=== PATIENT | female | born 1945 ===

== ENCOUNTER 2016-12-01 20:24 | Inpatient (IN) ==
--- NOTE | 2016-12-01 21:33 | Emergency Department Note ---
Gustabo Julio Brooke, am scribing for, and in the presence of, Shawn Maxwell MD 21 :26. Hans Julio Charles R, MD, personally performed the services described in this documentation, ascribed by Tova Montejo in my presence, and it is both accurate and complete . Arrival - Arrival Chief Complaint: Abdominal / Flank Pain ED Nursing Triage Note: Pt arrives via ems from [facility] for further eval of possible Small Bowel Obstruction. PT states that she has been having abd pain for several days and that her last bm was 6 days ago. Pt complains of chronic back pain and states that she has been seen for abd problems as well in the past. Mode of Arrival: Stretcher Limitations: No Limitations Source: Patient, Family, RN Notes Reviewed Time Seen by Provider: 12/01/16 20:58 - History of Present Illness HPI Narrative: Patient is a 71 year old female who was brought into the ED by EMS, from [facility], for further evaluation of possible small bowel obstruction. Patient complains of having abdominal pain, vomiting, and constipation. She says it has been a week since her last normal bowel movement. She says that she "called the hospital and was told what to do for the constipation." She says she did what they said but had only a small "liquid" bowel movement. Patient says she has had a problem with constipation, one other time, in the past. Family states that she has been in the hospital, in the past , with the same problem. Patient does see Dr. Patel. Family says Dr. Patel has talked about surgery but is "scared because of Patient's age." There are no other complaints. Patient has PMHx of HTN, [place], CHF, CAD, migraines , IDDM, pancreatitis, pancreatic cancer, ulcerative colitis, recurring urinary tract infections, GERD, back/neck problems, arthritis, and anemia. Onset (ago): week(s) (1) Allergies/Adverse Reactions: Allergies Allergy/AdvReac Type Severity Reaction Status Date / Time sumatriptan [From Imitrex] Allergy Difficulty Verified 04/28/16 23:12 Breathing Home Medications: Home Medications Medication Instructions Recorded Confirmed Type Insulin Aspart Prot/Asp 70/30 10 unit SUBCUT AC BREAKFAST 05/25/16 12/01/16 History [NovoLOG Mix 70/30] Aspirin Chew Tab 81 mg PO DAILY tablet 06/06/16 12/01/16 Rx Atorvastatin [Lipitor] 40 mg PO DAILY tablet 06/06/16 12/01/16 Rx HYDROcodone/ACETAMIN 10-325 [[place] 1 tablet PO Q4H PRN #45 tablet 06/21/1612/01 Rx 10-325] Losartan [Cozaar] 50 mg PO DAILY #60 tablet 06/21/16 12/01/16 Rx Clopidogrel Bisulfate [Clopidogrel] 75 mg PO DAILY 09/28/16 12/01/16 History Ergocalciferol (Vitamin D2) 50,000 unit PO Q3D 09/28/16 12/01/16 History [Vitamin D2] Ferrous Sulfate Tab [Feosol 325 mg PO BID 09/28/16 12/01/16 History Original Tab] Gabapentin Cap/Tab [Neurontin 200 mg PO TID PRN 09/28/16 12/01/16 History Cap/Tab] Insulin Aspart Prot/Asp 70/30 15 unit SUBCUT AC SUPPER 09/28/16 12/01/16 History [NovoLOG Mix 70/30] Ondansetron Odt Tab [Zofran Odt] 4 mg PO Q6H PRN 09/28/16 12/01/16 History Ropinirole HCl 0.5 mg PO BEDTIME 09/28/16 12/01/16 History Levothyroxine Tab [Synthroid Tab] 37.5 mcg PO DAILY@0700 #30 tablet 10/01/16 Rx Review of System - Review of System 12 point system: reviewed and no additional remarkable complaints except as stated - Review of System Constitutional: Absent: fever Respiratory: Absent: respiratory distress Gastrointestinal: Present: abdominal pain, vomiting, constipation Skin: Absent: rash Medical,Surgical,& Family Hx - Medical History Cardio: History of: CHF, CAD, Hypertension, [place] Neurology: History of: Migraine HEENT: History of: Eye Problem Endocrine: History of: Diabetes Mellitus (IDDM) Genitourinary: History of: Recurring Urinary Tract Infections Gastrointestinal: History of: GERD, Pancreatitis, Ulcerative Colitis, GI Problems (pancreatic cancer) Musculoskeletal: History of: Back/Neck Problems, Musculoskeletal Problems (age related arthritis) Hematology: History of: Anemia No history of: Blood Transfusion Reaction Other: History of: Cancer - Surgical History Cardiac Surgeries: Sugical HX of: Cardiac Catheterization (with stents) Thoracic Surgeries: Patient denies;: Organ Transplant, Lobectomy Neurologic Surgeries: Patient denies: Neurologic Surgery Abdominal Surgeries: Surgical HX of: Abdominal Surgery, Colonoscopy, EGD Reproductive Surgeries: Surgical HX of;: Hysterectomy Orthopedic Surgeries: Surgical HX of;: Orthopedic Surgery - Family History Family History: Reports;: Family Cancer, Family Diabetes, Family Stroke - Social History Smoking Status: Never smoker Frequency of Alcohol Use: None Type of Drug Use: None Exam Vital Signs: Vital Signs Temperature 98.4 F 12/01/16 20:24 Pulse Rate 94 H 12/01/16 22:01 Respiratory Rate 18 12/01/16 22:01 Blood Pressure 136/62 12/01/16 22:01 O2 Sat by Pulse Oximetry 95 12/01/16 22:01 - General General appearance: alert, in no apparent distress - Head Head exam: Present: atraumatic, normocephalic - Eye Eye exam: Present: normal appearance, PERRL, EOMI - ENT ENT exam: Present: normal exam - Neck Neck exam: Present: normal inspection - Chest Chest inspection: Present: normal inspection, symmetric chest wall rise - Respiratory Respiratory exam: Present: normal lung sounds bilaterally - Cardiovascular Cardiovascular exam: Present: regular rate, normal rhythm, normal heart sounds - Abdominal Exam Abdominal exam: Present: soft, tenderness (generalized tenderness but worse on the left), hypoactive bowel sounds. Absent: distention - Extremities Exam Extremities exam: Present: normal inspection - Back Exam Back exam: Present: normal inspection - Neurological Exam Neurological exam: Present: alert, oriented X3 - Psychiatric Psychiatric exam: Present: normal affect, normal mood - Skin Skin exam: Present: warm, dry, intact, normal color Course - Consultations Consultation #1: Dr. Terrell consulted for possible admission he is going to review the CT going back Time: 21:33 Consultation #2: Spoke to Dr. Villalta any call back he said he is not convinced this is a small bowel obstruction to admit to medicine service. Spoke to Dr. dutta who said he will admit the patient consult GI and surgery if need be Time: 22:06 Results - Labs Lab Results: I have reviewed the patients labs Labs: All results and CT scan reviewed from previous facility Disposition Clinical Impression: Constipation, Small bowel obstruction, Abdominal pain, Obstipation Case discussed with: patient, patient's family Disposition: Still a Patient Condition: Stable Time of Disposition: 22:07
--- NOTE | 2016-12-01 22:14 | Hospitalist History & Physical ---
Assessment and Plan (1) Fecal impaction Status: Acute Assessment and plan: Patient is admitted to general medical floor with gastroenterology consultation. Enemas and laxatives have been ordered. There is no evidence of acute obstruction or small bowel obstruction at this time. Current Visit: Yes (2) Abdominal pain Status: Acute Assessment and plan: No evidence of acute or surgical abdomen. No toxic megacolon suspected at this time. CT scan reviewed without evidence of bowel obstruction. Consult GI and treat with laxatives and enemas. Current Visit: Yes Qualifiers: Abdominal location: lower abdomen, unspecified Qualified Code(s): R10.30 - Lower abdominal pain, unspecified (3) Constipation Status: Acute Assessment and plan: Further recommendations will depend on the patient's response to therapy. Pain medications including narcotic opiates and iron supplements have been held Current Visit: Yes Qualifiers: Constipation type: unspecified constipation type Qualified Code(s): K59.00 - Constipation, unspecified (4) Diabetes mellitus type 2 in obese Status: Chronic Assessment and plan: Home medications continued. Start sliding scale insulin and Accu-Cheks. Current Visit: Yes (5) Hypertension Status: Chronic Current Visit: No History of Present Illness Chief complaint: abdominal pain, constipation History of present illness: Ms. Hurd is a 71 year old female transferred to the emergency department [facility] from [facility] with abdominal pain and evidence of fecal impaction. Patient reports she has not had a bowel movement approximately 1 week. She reports severe lower abdominal pain that radiates into her back. Pain is gradual in onset and worsening starting 2-3 days ago. She contacted her primary care physician's a [facility] they recommended some laxatives and coffee. She reports the pain is worsened, she has not had a bowel movement. So she went to the emergency department and was transferred here. I was asked to admit the patient to the emergency department for abdominal pain with fecal impaction and partial small bowel obstruction according to a CT scan done [facility]. I have reviewed the CT scan as well as the surgeon content director. We do not see any evidence of small bowel obstruction but there is evidence of a significant amounts of stool in the rectal vault and all the way up into the sigmoid colon. At that time I was called, the patient had not been treated with any enemas, laxatives or stool softeners. She is being admitted to general medical floor for treatment of her abdominal pain, constipation, and fecal impaction. The patient's home medications were reviewed and reconciled. She is a full code. Advanced care planning materials were given to the patient as part of the hospitalist admission protocols. Home Medications Medication Instructions Recorded Confirmed Type Insulin Aspart Prot/Asp 70/30 10 unit SUBCUT AC BREAKFAST 05/25/16 12/01/16 History [NovoLOG Mix 70/30] Aspirin Chew Tab 81 mg PO DAILY tablet 06/06/16 12/01/16 Rx Atorvastatin [Lipitor] 40 mg PO DAILY tablet 06/06/16 12/01/16 Rx HYDROcodone/ACETAMIN 10-325 [[place] 1 tablet PO Q4H PRN #45 tablet 06/21/1612/01 Rx 10-325] Losartan [Cozaar] 50 mg PO DAILY #60 tablet 06/21/16 12/01/16 Rx Clopidogrel Bisulfate [Clopidogrel] 75 mg PO DAILY 09/28/16 12/01/16 History Ergocalciferol (Vitamin D2) 50,000 unit PO Q3D 09/28/16 12/01/16 History [Vitamin D2] Ferrous Sulfate Tab [Feosol 325 mg PO BID 09/28/16 12/01/16 History Original Tab] Gabapentin Cap/Tab [Neurontin 200 mg PO TID PRN 09/28/16 12/01/16 History Cap/Tab] Insulin Aspart Prot/Asp 70/30 15 unit SUBCUT AC SUPPER 09/28/16 12/01/16 History [NovoLOG Mix 70/30] Ondansetron Odt Tab [Zofran Odt] 4 mg PO Q6H PRN 09/28/16 12/01/16 History Ropinirole HCl 0.5 mg PO BEDTIME 09/28/16 12/01/16 History Levothyroxine Tab [Synthroid Tab] 37.5 mcg PO DAILY@0700 #30 tablet 10/01/16 Rx Allergies Allergy/AdvReac Type Severity Reaction Status Date / Time sumatriptan [From Imitrex] Allergy Difficulty Verified 04/28/16 23:12 Breathing Medical,Surgical,& Family Hx - Medical History Cardio: History of: CHF, CAD, Hypertension, [place] Neurology: History of: Migraine HEENT: History of: Eye Problem Endocrine: History of: Diabetes Mellitus (IDDM) Genitourinary: History of: Recurring Urinary Tract Infections Gastrointestinal: History of: GERD, Pancreatitis, Ulcerative Colitis, GI Problems (pancreatic cancer) Musculoskeletal: History of: Back/Neck Problems, Musculoskeletal Problems (age related arthritis) Hematology: History of: Anemia No history of: Blood Transfusion Reaction Other: History of: Cancer - Surgical History Cardiac Surgeries: Sugical HX of: Cardiac Catheterization (with stents) Thoracic Surgeries: Patient denies;: Organ Transplant, Lobectomy Neurologic Surgeries: Patient denies: Neurologic Surgery Abdominal Surgeries: Surgical HX of: Abdominal Surgery, Colonoscopy, EGD Reproductive Surgeries: Surgical HX of;: Hysterectomy Orthopedic Surgeries: Surgical HX of;: Orthopedic Surgery - Family History Family History: Reports;: Family Cancer, Family Diabetes, Family Stroke - Social History Smoking Status: Never smoker Frequency of Alcohol Use: None Type of Drug Use: None Marital Status: Lives With:: Spouse Functional capacity: independent ambulation 12 point system: reviewed and no additional remarkable complaints except as stated - Gastrointestinal Gastrointestinal: Present: as per HPI, abdominal pain, constipation, cramping. Absent: hematemesis, hematochezia, loose stools, vomiting Exam - Constitutional Vitals: Period Temp Pulse Resp BP Sys/Motley Pulse Ox Last 24 Hr 98.2 F-98.4 F 91-96 18-18 106-136/48-62 95-95 Exam: Constitutional System: Mild distress. No tremulousness. Head: Normocephalic, atraumatic. Ears, Nose and Throat System: No pain or tenderness. No epistaxis or discharge Eyes System: Pupils equal, round, and reactive. Extraocular muscles intact. Neck: Supple, without adenopathy, No jugular venous distention. No thyromegaly. Respiratory System: Chest clear to auscultation. Cardiovascular System: Heart with regular rate and rhythm. No murmur. GI System: Abdomen soft, tender in the lower abdomen and left lower quadrant. Normo active bowel sounds present. Musculoskeletal System: limbs with no pedal edema. Full distal pulses. Neurological System: No discernable sensory deficit. No aphasia Psychiatric System: Conversation is rational Results - Labs Lab Results: I have reviewed the past 24 hour labs Labs: Labs from [facility] were reviewed. - Diagnostic Findings Procedure: KUB x-ray: report reviewed by me, image reviewed by me
[2016-12-01] MEDS: rOPINIRole 1 MG TABLET PO SCH (23:05)
[2016-12-01] MEDS ORDERED: GLUCAGON 1 MG VIAL IM PRN (23:08)
[2016-12-01] MEDS ORDERED: DEXTROSE 50% 25 GM/50 ML VIAL IV PRN (23:08)
[2016-12-01] MEDS: SODIUM CHLORIDE 0.9% 1,000 ML IV SCH (23:17)
[2016-12-01] MEDS: LACTULOSE 20 GM/30 ML UDCUP PO SCH (23:18)
[2016-12-01] MEDS: ONDANSETRON ODT 4 MG TABLET PO PRN (23:23)
[2016-12-01] MEDS: MORPHINE 2 MG/1 ML SYRINGE IV PRN (23:24)
[2016-12-02] MEDS ORDERED: SODIUM PHOSPHATE ENEMA 133 ML BOTTLE RECTAL PRN (01:55)
[2016-12-02] MEDS: LACTULOSE 20 GM/30 ML UDCUP PO SCH ×4 (02:27→15:54)
[2016-12-02] MEDS: MORPHINE 2 MG/1 ML SYRINGE IV PRN ×2 (04:45→09:33)
[2016-12-02 05:15] LABS: Basophils % 0.2 % (0.0-0.8); Hematocrit 27.7 VOL% (35.7-47.0); Hemoglobin 9.4 GM/DL (12.0-16.0); Immature Granulocytes % 0.2 %; Immature Granulocytes Absolute 0.02 #; Lymphocytes % 11.8 % (21.3-54.2); Mean Corpuscular HGB Conc 33.9 GM/DL (32-36); Mean Corpuscular Hemoglobin 31 PG (27-34); Mean Corpuscular Volume 90.8 FL (87-102); Mean Platelet Volume 8.7 FL (9.6-12.0); Monocytes # 0.6 10*3/uL (0.11-0.8); Monocytes % 7.1 % (1.7-12.7); Neutrophils # 6.9 10*3/uL (1.4-7.4); Neutrophils % 80.7 % (38.7-73.9); Platelet Count 259 T/CUMM (130-400); Red Blood Count 3.05 MC/CUMM (3.8-5.5); Red Cell Distribution Width 13.2 % (9.3-17.3); White Blood Count 8.6 T/CUMM (4-12)
[2016-12-02 05:42] LABS: Band Neutrophils 12 % (0-10); Lymphocytes 10 % (20-55); Segmented Neutrophils 75 % (50-85); Total Cells Counted 100
[2016-12-02 05:43] LABS: Hypochromasia Slight; Platelet Estimate Normal
[2016-12-02 05:52] LABS: Albumin 2.6 G/DL (3.4-5.0); Bilirubin,Total 0.6 MG/DL (0.2-1.0); Calcium 8.2 MG/DL (8.5-10.1); Magnesium 2.2 MG/DL (1.8-2.4); Osmolality,Calculated 281.8 MOS/KG (273-304); Potassium 4.3 MMOL/L (3.5-5.1); Total Protein 5.8 G/DL (6.4-8.3)
[2016-12-02] MEDS: LEVOTHYROXINE 75 MCG TABLET PO SCH (06:17)
[2016-12-02] MEDS ORDERED: INSULIN ASPART PROTAMINE/ASPART 70/30 100 UNIT/ML SUBCUT SCH ×2 (07:30→16:30)
--- NOTE | 2016-12-02 08:18 | XRay Report ---
Exam: XR abdomen 1V Date: 12/01/2016 10:11 PM Comparison: None Indication: Generalized abdominal pain Technique:[Supine abdomen, portable] Findings: Nonobstructed bowel gas pattern with increased fecal material. Postoperative findings in the left upper quadrant. Nonspecific calcifications with degenerative changes. Impression: Nonobstructive bowel gas pattern with increased fecal material. Postoperative findings in the left upper quadrant. PROCEDURE INTERPRETED AT [facility] DEPARTMENT OF RADIOLOGY Final Report Signed by: Dr. Abigail Garcia
[2016-12-02] MEDS ORDERED: PNEUMOCOCCAL VACCINE (13 VALENT) 0.5 ML SYRINGE IM ONE (09:00)
[2016-12-02] MEDS: ENOXAPARIN 40 MG/0.4 ML SYRINGE SUBCUT SCH (09:26)
[2016-12-02] MEDS: SODIUM CHLORIDE 0.9% 1,000 ML IV SCH (09:35)
[2016-12-02] MEDS: CLOPIDOGREL 75 MG TABLET PO SCH (10:00)
[2016-12-02] MEDS: ATORVASTATIN 40 MG TABLET PO SCH (10:00)
[2016-12-02] MEDS: ASPIRIN CHEW 81 MG TABLET PO SCH (10:00)
[2016-12-02] MEDS: BISACODYL 5 MG TABLET PO SCH (10:00)
[2016-12-02] MEDS: INSULIN LISPRO 100 UNIT/ML SUBCUT SCH ×4 (10:00→22:10)
[2016-12-02 10:15] LABS: Apearance,Urine CLEAR (Clear); Bilirubin,Urine Negative (Negative); Blood, Urine Negative (Negative); Glucose,Urine (UA) 50 mg/dL (Negative); Ketones,Urine Negative (Negative); Mucus,Urine Occasional /LPF (Occasional); Nitrite,Urine Negative (Negative); Protein,Urine 100 MG/DL; RBC,Urine 3 /HPF (0-4); Squamous Epithelial Cell,Urine Occasional /HPF (0-10); Urine Color Yellow (Yellow); Urine Specific Gravity 1.011 (1.001-1.035); Urine Urobilinogen < 2.0 EU/DL (0.2-1.0); WBC,Urine 1 /HPF (0-6)
[2016-12-02] MEDS ORDERED: HYDROCORTISONE 25 MG SUPP RECTAL PRN (11:26)
--- NOTE | 2016-12-02 12:23 | General Surgery Consult Note ---
Assessment and Plan (1) Constipation Status: Acute Assessment and plan: Appears to be resolved and the patient has profuse diarrhea. Impaction is still a possibility, but patient has had nondistended, soft abdomen. No evidence of obstructive process time. No surgical indications. At this time. We will sign off. Please call with any changes or additional concerns. Current Visit: Yes Qualifiers: Constipation type: unspecified constipation type Qualified Code(s): K59.00 - Constipation, unspecified History of Present Illness Chief complaint: Abd pain History of present illness: Ms. Hurd is a 71 year old female who presented to the emergent with abdominal pain. She was initially pronation and had a bowel movement in 7 days and had a constipation by imaging. The patient is a poor historian and difficult to elicit information. She reports she had severe diffuse lower abdominal pain as well as abdominal distention prior to arrival. Since passing her bowels are said nurse reports that and multiple loose stools just at 7 AM approximately 10 , she her abdomen is less distended but her pain persist. The attending physician is addressing the loose stools. No history of similar symptoms. Home Medications Medication Instructions Recorded Confirmed Type Insulin Aspart Prot/Asp 70/30 10 unit SUBCUT AC BREAKFAST 05/25/16 12/01/16 History [NovoLOG Mix 7030] Aspirin Chew Tab 81 mg PO DAILY tablet 06/06/16 12/01/16 Rx Atorvastatin [Lipitor] 40 mg PO DAILY tablet 06/06/16 12/01/16 Rx HYDROcodone/ACETAMIN 10-325 [[place] 1 tablet PO Q4H PRN #45 tablet 06/21/1612/01 Rx 10-325] Losartan [Cozaar] 50 mg PO DAILY #60 tablet 06/21/16 12/01/16 Rx Clopidogrel Bisulfate [Clopidogrel] 75 mg PO DAILY 09/28/16 12/01/16 History Ergocalciferol (Vitamin D2) 50,000 unit PO MOTH 09/28/16 12/02/16 History [Vitamin D2] Ferrous Sulfate Tab [Feosol 325 mg PO BID 09/28/16 12/01/16 History Original Tab] Gabapentin Cap/Tab [Neurontin 200 mg PO TID PRN 09/28/16 12/01/16 History Cap/Tab] Insulin Aspart Prot/Asp 70/30 15 unit SUBCUT AC SUPPER 09/28/16 12/01/16 History [NovoLOG Mix 70/30] Ondansetron Odt Tab [Zofran Odt] 4 mg PO Q6H PRN 09/28/16 12/01/16 History Ropinirole HCl 0.5 mg PO BEDTIME 09/28/16 12/01/16 History Levothyroxine Tab [Synthroid Tab] 37.5 mcg PO DAILY@0700 #30 tablet 10/01/16 Rx Allergies Allergy/AdvReac Type Severity Reaction Status Date / Time sumatriptan [From Imitrex] Allergy Difficulty Verified 04/28/16 23:12 Breathing Medical,Surgical,& Family Hx - Medical History Cardio: History of: CHF, CAD, Hypertension, [place] Neurology: History of: Migraine HEENT: History of: Eye Problem (cataract, "bleed behind eye") Endocrine: History of: Diabetes Mellitus (IDDM) Rheumatology: History of;: Fibromyalgia Genitourinary: History of: Recurring Urinary Tract Infections Gastrointestinal: History of: Crohn's Disease, Diverticulitis/ Diverticulosis, GERD, Pancreatitis, Ulcerative Colitis, GI Problems (pancreatic cancer) Musculoskeletal: History of: Back/Neck Problems, Musculoskeletal Problems (age related arthritis) Hematology: History of: Anemia No history of: Blood Transfusion Reaction Other: History of: Cancer - Surgical History Cardiac Surgeries: Sugical HX of: Cardiac Catheterization (with stents) Thoracic Surgeries: Patient denies;: Organ Transplant, Lobectomy Neurologic Surgeries: Patient denies: Neurologic Surgery Abdominal Surgeries: Surgical HX of: Abdominal Surgery, Colonoscopy, EGD Reproductive Surgeries: Surgical HX of;: Hysterectomy Orthopedic Surgeries: Surgical HX of;: Orthopedic Surgery - Family History Family History: Reports;: Family Cancer (bone cancer, mother), Family Diabetes ( brother, siter), Family Hypertension, Family Stroke (father) - Social History Smoking Status: Never smoker Frequency of Alcohol Use: None Type of Drug Use: None Exam - Constitutional Vitals: Period Temp Pulse Resp BP Sys/Motley Pulse Ox Last 24 Hr 97.4 F-99.5 F 86-95 10-18 134-141/61-76 93-97 Results - Labs CBC & BMP: 12/02/16 04:38 12/02/16 04:38 - Diagnostic Findings Procedure: Chest x-ray: image reviewed by me, report reviewed by me, X-ray: image reviewed by me, report reviewed by me
--- NOTE | 2016-12-02 12:52 | Gastrointestinal Consult Note ---
Assessment and Plan (1) Abdominal pain Status: Acute Assessment and plan: 12/02-onset of abdominal pain with findings on CT scan at outside facility of fecal impaction and possible small bowel obstruction ruled out upon arrival to our facility by surgery/hospitalist manager of information. Last C scope May 2016 with findings of sigmoid ulcers (hyperplastic colon mucosa). Multiple bowel movements today with negative stool studies, continued lower abdominal pain. Plan an addendum to followed by Dr. Patel. Current Visit: Yes Qualifiers: Abdominal location: lower abdomen, unspecified Qualified Code(s): R10.30 - Lower abdominal pain, unspecified History of Present Illness Chief complaint: Abdominal pain, constipation History of present illness: Ms. Hurd is a 71 year old female who was admitted to the hospital following transfer from [facility] with reports of abdominal pain and findings of fecal impaction. Patient is a poor historian at this time and family present at bedside is unable to contribute very much information. Information is obtained from chart review. Patient is reported to have not had a bowel movement 1 week. She had onset of lower abdominal pain radiated to her back and presented to the [facility] for further evaluation. She was found at that time following a CT scan to have a fecal impaction with questionable partial small bowel obstruction. The scans were reviewed by Dr. Medel as well as the on-call surgeon and no findings were noted of a small bowel obstruction however just significant amounts of fecal material in the rectal vault all the way to the sigmoid colon. Patient had enemas and laxatives initiated and has had continued loose stools since this time per caregiver. Patient is still complaining of lower abdominal pain and has tenderness to palpation. She is noted to have her last colonoscopy in May of this past year with findings of sigmoid ulcerations with pathology report returned as hyperplastic colonic mucosa. She also was noted to have findings of diverticulosis. She is also complaining of some rectal pain with reported history of hemorrhoids in the past. Surgery has consulted with patient however no intervention necessary at this time and they have now signed off. Stool studies are negative at this time. Home Medications Medication Instructions Recorded Confirmed Type Insulin Aspart Prot/Asp 70/30 10 unit SUBCUT AC BREAKFAST 05/25/16 12/01/16 History [NovoLOG Mix 70/30] Aspirin Chew Tab 81 mg PO DAILY tablet 06/06/16 12/01/16 Rx Atorvastatin [Lipitor] 40 mg PO DAILY tablet 06/06/16 12/01/16 Rx HYDROcodone/ACETAMIN 10-325 [[place] 1 tablet PO Q4H PRN #45 tablet 06/21/1612/01 Rx 10-325] Losartan [Cozaar] 50 mg PO DAILY #60 tablet 06/21/16 12/01/16 Rx Clopidogrel Bisulfate [Clopidogrel] 75 mg PO DAILY 09/28/16 12/01/16 History Ergocalciferol (Vitamin D2) 50,000 unit PO MOTH 09/28/16 12/02/16 History [Vitamin D2] Ferrous Sulfate Tab [Feosol 325 mg PO BID 09/28/16 12/01/16 History Original Tab] Gabapentin Cap/Tab [Neurontin 200 mg PO TID PRN 09/28/16 12/01/16 History Cap/Tab] Insulin Aspart Prot/Asp 70/30 15 unit SUBCUT AC SUPPER 09/28/16 12/01/16 History [NovoLOG Mix 70/30] Ondansetron Odt Tab [Zofran Odt] 4 mg PO Q6H PRN 09/28/16 12/01/16 History Ropinirole HCl 0.5 mg PO BEDTIME 09/28/16 12/01/16 History Levothyroxine Tab [Synthroid Tab] 37.5 mcg PO DAILY@0700 #30 tablet 10/01/16 Rx Allergies Allergy/AdvReac Type Severity Reaction Status Date / Time sumatriptan [From Imitrex] Allergy Difficulty Verified 04/28/16 23:12 Breathing Medical,Surgical,& Family Hx - Medical History Cardio: History of: CHF, CAD, Hypertension, [place] Neurology: History of: Migraine HEENT: History of: Eye Problem (cataract, "bleed behind eye") Endocrine: History of: Diabetes Mellitus (IDDM) Rheumatology: History of;: Fibromyalgia Genitourinary: History of: Recurring Urinary Tract Infections Gastrointestinal: History of: Crohn's Disease, Diverticulitis/ Diverticulosis, GERD, Pancreatitis, Ulcerative Colitis, GI Problems (pancreatic cancer) Musculoskeletal: History of: Back/Neck Problems, Musculoskeletal Problems (age related arthritis) Hematology: History of: Anemia No history of: Blood Transfusion Reaction Other: History of: Cancer - Surgical History Cardiac Surgeries: Sugical HX of: Cardiac Catheterization (with stents) Thoracic Surgeries: Patient denies;: Organ Transplant, Lobectomy Neurologic Surgeries: Patient denies: Neurologic Surgery Abdominal Surgeries: Surgical HX of: Abdominal Surgery, Colonoscopy, EGD Reproductive Surgeries: Surgical HX of;: Hysterectomy Orthopedic Surgeries: Surgical HX of;: Orthopedic Surgery - Family History Family History: Reports;: Family Cancer (bone cancer, mother), Family Diabetes ( brother, siter), Family Hypertension, Family Stroke (father) - Social History Smoking Status: Never smoker Frequency of Alcohol Use: None Type of Drug Use: None ROS unobtainable: other (Lethargic) Exam - Constitutional Vitals: Period Temp Pulse Resp BP Sys/Motley Pulse Ox Last 24 Hr 97.4 F-99.5 F 86-95 10-18 134-141/61-76 93-97 General appearance: normal weight, no acute distress - Head Head exam: Present: normal inspection, normocephalic - Eye Eye exam: Present: other (Lids and conjunctive are unremarkable). Absent: scleral icterus - ENT ENT exam: Present: normal exam, normal oropharynx - Neck Neck exam: Present: normal inspection - Respiratory Respiratory exam: Present: clear to auscultation bilaterally. Absent: rales, rhonchi, wheezes - Cardiovascular Cardiovascular exam: Present: regular rate and rhythm. Absent: diastolic murmur , JVD, systolic murmur - GI/Abdominal GI/Abdominal exam: Present: normal bowel sounds, tenderness (Lower abdomen), soft. Absent: ascites, distended, mass, organomegaly - Extremities Exam Extremities exam: Present: normal inspection, full ROM - Back Exam Back exam: Present: normal inspection - Neurological Exam Neurological exam: Present: alert, oriented X3 - Psychiatric Psychiatric exam: Present: normal affect, normal mood - Skin Skin exam: Present: normal color, warm, dry Results - Labs CBC & BMP: 12/02/16 04:38 12/02/16 04:38 Lab Results: I have reviewed the past 24 hour labs
--- NOTE | 2016-12-02 13:43 | XRay Report ---
History: Fever Date: 12/02/2016 Study: Chest x-ray AP portable Comparison exam: November 27, 2016 There is cardiomegaly. The mediastinal contours are unchanged. The pulmonary vasculature is not engorged. There is continued patchy and strandy right basilar atelectasis/infiltrate, slightly improved. There is mild strandy atelectasis/infiltrate in the left lung base, likely unchanged. There is no increase in pleural effusion. Osseous structures are unchanged. Surgical clips overlie the upper abdomen. Impression: Continued right greater than left bibasilar atelectasis/infiltrate. These changes are slightly improved on the right PROCEDURE INTERPRETED AT [facility] DEPARTMENT OF RADIOLOGY Final Report Signed by: Dr. Zofia Patel
--- NOTE | 2016-12-02 15:20 | Event Note ---
Patient seen and examined. Agree with Mary Leyva's consultation note. For whatever reason I am unable to add an addendum to that note with my thoughts. Patient has had chronic constipation. I reviewed the CT images. I see no evidence of small bowel obstruction. She appears to be very constipated. I see no current indication for surgery. GI has been consulted. Will follow.
--- NOTE | 2016-12-02 15:39 | Hospitalist Progress Note ---
Assessment and Plan - Time spent with patient Time spent with patient: Greater than 30 minutes (1) Constipation Status: Acute Assessment and plan: We will obtain a KUB. Initiate clear fluids. Holding off laxatives and enemas at this point in time patient's abdomen appears soft and bowel sounds are normal. Current Visit: Yes Qualifiers: Constipation type: unspecified constipation type Qualified Code(s): K59.00 - Constipation, unspecified (2) Diabetes mellitus type 2 in obese Status: Chronic Assessment and plan: Hold her insulin and continue sliding scale insulin. Current Visit: Yes (3) Fever Status: Acute Assessment and plan: Urine and chest x-ray clear. This may be a GI source will start Cipro and metronidazole. She also has bandemia. Current Visit: Yes (4) Bandemia without diagnosis of specific infection Status: Acute Assessment and plan: Start the patient on Cipro and metronidazole. Current Visit: Yes (5) Coronary artery disease Problem details: heart cath 05/29/16 with stent to RCA and Ramus Intermedius Status: Chronic Assessment and plan: Continue medications. Current Visit: No Qualifiers: Coronary Disease-Associated Artery/Lesion type: [place] artery [place] vs. transplanted heart: [place] heart Associated angina: without angina Qualified Code(s): I25.10 - Atherosclerotic heart disease of [place] coronary artery without angina pectoris (6) Dyslipidemia Status: Chronic Current Visit: No Hospitalist: Subjective Interval history: Admitted for constipation. Patient has been having yellow watery stools since admission due to laxatives and enemas. She has no complaints however she appears weak Exam - Constitutional Vitals: Period Temp Pulse Resp BP Sys/Motley Pulse Ox Last 24 Hr 97.4 F-99.5 F 86-95 10-418 134-141/61-76 93-97 General appearance: no acute distress - Head Head exam: Present: normocephalic, atraumatic - Eye Eye exam: Present: EOMI Pupils: Present: JENNIFER - ENT ENT exam: Present: normal exam - Neck Neck exam: Present: normal inspection - Respiratory Respiratory exam: Present: clear to auscultation bilaterally. Absent: rhonchi, wheezes - Cardiovascular Cardiovascular exam: Present: regular rate and rhythm. Absent: gallop, rubs, systolic murmur - GI/Abdominal GI/Abdominal exam: Present: normal bowel sounds, soft. Absent: distended, firm , guarding, tenderness, rebound - Extremities Exam Extremities exam: Present: normal inspection. Absent: calf tenderness, edema Results - Labs CBC & BMP: 12/02/16 04:38 12/02/16 04:38 Lab Results: I have reviewed the past 24 hour labs
[2016-12-02] MEDS: CIPROFLOXACIN INJ 400 MG in PREMIX 1 EACH IV SCH (16:12)
--- NOTE | 2016-12-02 17:03 | XRay Report ---
Exam: XR KUB Date: 12/02/2016 3:32 PM Comparison: 12/01/2016 Indication: Generalized abdominal pain Technique:[Supine abdomen] Findings: Mild gaseous distention of the bowel with scattered fecal material. Postoperative findings are noted in the left upper quadrant with nonspecific calcifications. Increased density in the pelvis. Degenerative changes are noted. Impression: Mild gaseous distention of the bowel which can be seen with ileus, etc. Density in the pelvis which could be related to distended urinary bladder, pelvic mass, etc. Postoperative findings in the left upper quadrant. PROCEDURE INTERPRETED AT [facility] DEPARTMENT OF RADIOLOGY Final Report Signed by: Dr. Abigail Garcia
[2016-12-02] MEDS: metroNIDAZOLE INJ 500 MG in PREMIX 1 EACH IV SCH (17:36)
[2016-12-02] MEDS: rOPINIRole 1 MG TABLET PO SCH (22:18)
[2016-12-03] MEDS: metroNIDAZOLE INJ 500 MG in PREMIX 1 EACH IV SCH ×3 (01:07→17:31)
[2016-12-03] MEDS: CIPROFLOXACIN INJ 400 MG in PREMIX 1 EACH IV SCH ×2 (04:43→20:38)
[2016-12-03] MEDS: LEVOTHYROXINE 75 MCG TABLET PO SCH (06:32)
[2016-12-03 07:13] LABS: Basophils % 0.1 % (0.0-0.8); Eosinophils % 0.1 % (0.00-10.9); Hematocrit 26.4 VOL% (35.7-47.0); Hemoglobin 9.1 GM/DL (12.0-16.0); Immature Granulocytes % 0.1 %; Immature Granulocytes Absolute 0.01 #; Lymphocytes # 1.7 10*3/uL (1.4-4.0); Lymphocytes % 22.9 % (21.3-54.2); Mean Corpuscular HGB Conc 34.5 GM/DL (32-36); Mean Corpuscular Hemoglobin 31 PG (27-34); Mean Corpuscular Volume 89.2 FL (87-102); Mean Platelet Volume 8.7 FL (9.6-12.0); Monocytes # 0.7 10*3/uL (0.11-0.8); Monocytes % 9.8 % (1.7-12.7); Platelet Count 236 T/CUMM (130-400); Red Blood Count 2.96 MC/CUMM (3.8-5.5); Red Cell Distribution Width 13.2 % (9.3-17.3); White Blood Count 7.5 T/CUMM (4-12)
[2016-12-03 07:35] LABS: Band Neutrophils 5 % (0-10); Burr Cells Slight; Hypochromasia 1+; Lymphocytes 22 % (20-55); Ovalocytes Slight; Platelet Estimate Adequate; Segmented Neutrophils 61 % (50-85); Total Cells Counted 100
[2016-12-03 07:48] LABS: Calcium 7.8 MG/DL (8.5-10.1); Osmolality,Calculated 272.1 MOS/KG (273-304); Potassium 3.7 MMOL/L (3.5-5.1)
[2016-12-03] MEDS: ENOXAPARIN 40 MG/0.4 ML SYRINGE SUBCUT SCH (08:23)
[2016-12-03] MEDS: GABAPENTIN 100 MG CAPSULE PO PRN ×2 (08:23→20:42)
[2016-12-03] MEDS: ATORVASTATIN 40 MG TABLET PO SCH (08:23)
[2016-12-03] MEDS: CLOPIDOGREL 75 MG TABLET PO SCH (08:23)
[2016-12-03] MEDS: ASPIRIN CHEW 81 MG TABLET PO SCH (08:23)
[2016-12-03] MEDS: BISACODYL 5 MG TABLET PO SCH (08:24)
[2016-12-03] MEDS: INSULIN LISPRO 100 UNIT/ML SUBCUT SCH ×4 (10:24→22:28)
--- NOTE | 2016-12-03 10:39 | Gastrointestinal Progress Note ---
Assessment and Plan (1) Abdominal pain Status: Acute Assessment and plan: 12/03-Abd pain with cramping and intractable diarrhea continues. No N/V. Afebrile. Stools studies pending at present time. KUB shows mild bowel distention. Plan and addendum to follow by DR patel. 12/02-onset of abdominal pain with findings on CT scan at outside facility of fecal impaction and possible small bowel obstruction ruled out upon arrival to our facility by surgery/hospitalist car installations supervisor. Last C scope May 2016 with findings of sigmoid ulcers (hyperplastic colon mucosa). Multiple bowel movements today with negative stool studies, continued lower abdominal pain. Plan an addendum to followed by Dr. Patel. Current Visit: Yes Qualifiers: Abdominal location: lower abdomen, unspecified Qualified Code(s): R10.30 - Lower abdominal pain, unspecified Gastroenterology - PN: Subj Interval history: CC: Abd pain Pt is seen awake and alert. States she had a bad night last night up and down going to the bathroom with her stomach. She states she had several episodes of diarrhea stools throughout the night with abdominal cramping. Denies any overt bleeding. She is also having continued abdominal cramping with this. Abdomen is soft, mildy tender. C. diff repeat stool pending. She is afebrile with no leukocystosis. ROS: Denies SOB or chest pain Exam (Progress Note) - Constitutional Vitals: Period Temp Pulse Resp BP Sys/Motley Pulse Ox Last 24 Hr 97.2 F-100.0 F 74-91 18-418 116-146/60-68 94-99 - Other Additional findings: General appearance: normal weight, no acute distress - Head Head exam: Present: normal inspection, normocephalic - Eye Eye exam: Present: other (Lids and conjunctive are unremarkable). Absent: scleral icterus - ENT ENT exam: Present: normal exam, normal oropharynx - Neck Neck exam: Present: normal inspection - Respiratory Respiratory exam: Present: clear to auscultation bilaterally. Absent: rales, rhonchi, wheezes - Cardiovascular Cardiovascular exam: Present: regular rate and rhythm. Absent: diastolic murmur , JVD, systolic murmur - GI/Abdominal GI/Abdominal exam: Present: normal bowel sounds, tenderness (Lower abdomen), soft. Absent: ascites, distended, mass, organomegaly - Extremities Exam Extremities exam: Present: normal inspection, full ROM - Back Exam Back exam: Present: normal inspection - Neurological Exam Neurological exam: Present: alert, oriented X3 - Psychiatric Psychiatric exam: Present: normal affect, normal mood - Skin Skin exam: Present: normal color, warm, dry Results - Labs CBC & BMP: 12/03/16 06:46 12/03/16 06:46 Lab Results: I have reviewed the past 24 hour labs - Diagnostic Findings Procedure: KUB x-ray: report reviewed by me
[2016-12-03] MEDS: MORPHINE 2 MG/1 ML SYRINGE IV PRN ×2 (12:01→18:45)
--- NOTE | 2016-12-03 12:18 | Event Note ---
Pt seen and examined. Reports pain is decreased. Continues passing multiple loose stools. No N/V or abd distension VSS Head: atraumatic Heart RRR Lungs CTAB Abd soft with decreased, minimal lower abdominal tenderness. Nondistended. BS present. Ext calves soft, NT. No pedal edema A/P No evidence of SBO or need for surgical intervention at this time - rec following with GI recommendations. We will sign off. Please call with changes in patient condition or additional concerns.
--- NOTE | 2016-12-03 13:14 | Hospitalist Progress Note ---
Assessment and Plan - Time spent with patient Time spent with patient: Greater than 30 minutes (1) Constipation Status: Acute Assessment and plan: Appears to have resolved. Current Visit: Yes Qualifiers: Constipation type: unspecified constipation type Qualified Code(s): K59.00 - Constipation, unspecified (2) Diabetes mellitus type 2 in obese Status: Chronic Assessment and plan: Hold her insulin and continue sliding scale insulin. Current Visit: Yes (3) Fever Status: Acute Assessment and plan: Bandemia has resolved and is currently only 5. Continue antibiotics. Suspect there is a bacterial infection however the source is unknown. Current Visit: Yes (4) Bandemia without diagnosis of specific infection Status: Acute Assessment and plan: Improving with antibiotics. Current Visit: Yes (5) Coronary artery disease Problem details: heart cath 05/29/16 with stent to RCA and Ramus Intermedius Status: Chronic Assessment and plan: Continue medications. Current Visit: No Qualifiers: Coronary Disease-Associated Artery/Lesion type: [place] artery [place] vs. transplanted heart: [place] heart Associated angina: without angina Qualified Code(s): I25.10 - Atherosclerotic heart disease of [place] coronary artery without angina pectoris (6) Dyslipidemia Status: Chronic Current Visit: No Hospitalist: Subjective Interval history: She complains of back pain which is chronic and due to a "slipped disk" in addition to rectal pain. Exam - Constitutional Vitals: Period Temp Pulse Resp BP Sys/Motley Pulse Ox Last 24 Hr 97.2 F-100.0 F 70-91 18-20 116-149/60-68 94-99 General appearance: no acute distress - Head Head exam: Present: normocephalic, atraumatic - Eye Eye exam: Present: EOMI Pupils: Present: JENNIFER - ENT ENT exam: Present: normal exam - Neck Neck exam: Present: normal inspection - Respiratory Respiratory exam: Present: clear to auscultation bilaterally. Absent: rhonchi, wheezes - Cardiovascular Cardiovascular exam: Present: regular rate and rhythm. Absent: gallop, rubs, systolic murmur - GI/Abdominal GI/Abdominal exam: Present: normal bowel sounds, soft. Absent: distended, firm , guarding, tenderness, rebound - Extremities Exam Extremities exam: Present: normal inspection. Absent: calf tenderness, edema Results - Labs CBC & BMP: 12/03/16 06:46 12/03/16 06:46 Lab Results: I have reviewed the past 24 hour labs
--- NOTE | 2016-12-03 13:23 | XRay Report ---
Exam: XR KUB Date: 12/03/2016 12:00 PM Comparison: 12/02/2016 Indication: Generalized abdominal pain Technique:[Portable supine abdomen] Findings: Minimally decreased gaseous distention of the bowel. Decreased density in the pelvis. Postoperative findings in the left upper quadrant with nonspecific calcifications in degenerative changes. Osteopenia. Impression: Improved ileus/enteritis. Decreased density in the pelvis which can be seen with smaller urinary bladder. Osteopenia. PROCEDURE INTERPRETED AT [facility] DEPARTMENT OF RADIOLOGY Final Report Signed by: Dr. Abigail Garcia
[2016-12-03] MEDS: methylPREDNISolone SOD SUC 40 MG/1 ML VIAL IV SCH (20:38)
[2016-12-03] MEDS: rOPINIRole 1 MG TABLET PO SCH (20:42)
[2016-12-03] MEDS: ONDANSETRON ODT 4 MG TABLET PO PRN (22:03)
[2016-12-04] MEDS: MORPHINE 2 MG/1 ML SYRINGE IV PRN ×4 (00:53→22:36)
[2016-12-04] MEDS: metroNIDAZOLE INJ 500 MG in PREMIX 1 EACH IV SCH ×3 (02:00→17:06)
[2016-12-04] MEDS: methylPREDNISolone SOD SUC 40 MG/1 ML VIAL IV SCH ×3 (03:37→21:13)
[2016-12-04] MEDS: LEVOTHYROXINE 75 MCG TABLET PO SCH (06:00)
[2016-12-04] MEDS: CIPROFLOXACIN INJ 400 MG in PREMIX 1 EACH IV SCH ×2 (08:49→21:13)
[2016-12-04] MEDS: CLOPIDOGREL 75 MG TABLET PO SCH (08:50)
[2016-12-04] MEDS: ASPIRIN CHEW 81 MG TABLET PO SCH (08:50)
[2016-12-04] MEDS: ATORVASTATIN 40 MG TABLET PO SCH (08:50)
[2016-12-04] MEDS: INSULIN LISPRO 100 UNIT/ML SUBCUT SCH ×4 (08:50→21:30)
[2016-12-04] MEDS: ENOXAPARIN 40 MG/0.4 ML SYRINGE SUBCUT SCH (08:50)
[2016-12-04] MEDS: BISACODYL 5 MG TABLET PO SCH (08:51)
--- NOTE | 2016-12-04 10:49 | Gastrointestinal Progress Note ---
Assessment and Plan (1) Abdominal pain Status: Acute Assessment and plan: 12/04-abdominal pain improved. Continue nocturnal defecation however less in amount. Tolerating steroids. Negative stool studies noted. Advance to full liquid diet. Plan an addendum to followed by Dr. Patel. 12/03-Abd pain with cramping and intractable diarrhea continues. No N/V. Afebrile. Stools studies pending at present time. KUB shows mild bowel distention. Plan and addendum to follow by DR patel. 12/02-onset of abdominal pain with findings on CT scan at outside facility of fecal impaction and possible small bowel obstruction ruled out upon arrival to our facility by surgery/hospitalist community relations manager. Last C scope May 2016 with findings of sigmoid ulcers (hyperplastic colon mucosa). Multiple bowel movements today with negative stool studies, continued lower abdominal pain. Plan an addendum to followed by Dr. Patel. Current Visit: Yes Qualifiers: Abdominal location: lower abdomen, unspecified Qualified Code(s): R10.30 - Lower abdominal pain, unspecified Gastroenterology - PN: Subj Interval history: CC: Abdominal pain Patient is seen awake and alert lying in bed. States she is feeling a little better today. States she still had diarrhea throughout the night but states it is less amount at this time. She denies any abdominal pain at present time. States that she did become nauseated this morning when trying to eat her clear liquid breakfast but feels this is more related to the food choices instead of nausea in general. She is afebrile. She has been restarted on her steroids at this time. Abdomen is soft, nontender. ROS: Denies shortness of breath or chest pain Exam (Progress Note) - Constitutional Vitals: Period Temp Pulse Resp BP Sys/Motley Pulse Ox Last 24 Hr 97.1 F-99.1 F 67-82 18-18 134-177/62-83 94-98 - Other Additional findings: General appearance: normal weight, no acute distress - Head Head exam: Present: normal inspection, normocephalic - Eye Eye exam: Present: other (Lids and conjunctive are unremarkable). Absent: scleral icterus - ENT ENT exam: Present: normal exam, normal oropharynx - Neck Neck exam: Present: normal inspection - Respiratory Respiratory exam: Present: clear to auscultation bilaterally. Absent: rales, rhonchi, wheezes - Cardiovascular Cardiovascular exam: Present: regular rate and rhythm. Absent: diastolic murmur , JVD, systolic murmur - GI/Abdominal GI/Abdominal exam: Present: normal bowel sounds, tenderness (Lower abdomen), soft. Absent: ascites, distended, mass, organomegaly - Extremities Exam Extremities exam: Present: normal inspection, full ROM - Back Exam Back exam: Present: normal inspection - Neurological Exam Neurological exam: Present: alert, oriented X3 - Psychiatric Psychiatric exam: Present: normal affect, normal mood - Skin Skin exam: Present: normal color, warm, dry Results - Labs CBC & BMP: 12/03/16 06:46 12/03/16 06:46 Lab Results: I have reviewed the past 24 hour labs
--- NOTE | 2016-12-04 15:12 | Hospitalist Progress Note ---
Assessment and Plan - Time spent with patient Time spent with patient: Greater than 30 minutes (1) Ulcerative colitis Status: Acute Assessment and plan: Continue current management. Current Visit: Yes (2) Diabetes mellitus type 2 in obese Status: Chronic Assessment and plan: Hold her insulin and continue sliding scale insulin. Current Visit: Yes (3) Coronary artery disease Problem details: heart cath 05/29/16 with stent to RCA and Ramus Intermedius Status: Chronic Assessment and plan: Continue medications. Current Visit: No Qualifiers: Coronary Disease-Associated Artery/Lesion type: [place] artery [place] vs. transplanted heart: [place] heart Associated angina: without angina Qualified Code(s): I25.10 - Atherosclerotic heart disease of [place] coronary artery without angina pectoris (4) Dyslipidemia Status: Chronic Current Visit: No Hospitalist: Subjective Interval history: Patient states she still has nausea vomiting and diarrhea. Overall she is improving but is hesitant about being discharged. Exam - Constitutional Vitals: Period Temp Pulse Resp BP Sys/Motley Pulse Ox Last 24 Hr 97.1 F-99.1 F 67-82 18-18 134-177/65-83 95-98 General appearance: no acute distress - Head Head exam: Present: normocephalic, atraumatic - Eye Eye exam: Present: EOMI Pupils: Present: JENNIFER - ENT ENT exam: Present: normal exam - Neck Neck exam: Present: normal inspection - Respiratory Respiratory exam: Present: clear to auscultation bilaterally. Absent: rhonchi, wheezes - Cardiovascular Cardiovascular exam: Present: regular rate and rhythm. Absent: gallop, rubs, systolic murmur - GI/Abdominal GI/Abdominal exam: Present: normal bowel sounds, soft. Absent: distended, firm , guarding, tenderness, rebound - Extremities Exam Extremities exam: Present: normal inspection. Absent: calf tenderness, edema Results - Labs CBC & BMP: 12/03/16 06:46 12/03/16 06:46 Lab Results: I have reviewed the past 24 hour labs
[2016-12-04] MEDS: rOPINIRole 1 MG TABLET PO SCH (21:11)
[2016-12-04] MEDS: GABAPENTIN 100 MG CAPSULE PO PRN ×2 (21:12→21:25)
[2016-12-04] MEDS: traMADol 50 MG TABLET PO PRN (21:12)
[2016-12-05] MEDS: metroNIDAZOLE INJ 500 MG in PREMIX 1 EACH IV SCH ×3 (01:03→17:37)
[2016-12-05] MEDS: MORPHINE 2 MG/1 ML SYRINGE IV PRN (05:14)
[2016-12-05] MEDS: methylPREDNISolone SOD SUC 40 MG/1 ML VIAL IV SCH ×3 (05:15→20:51)
[2016-12-05] MEDS: LEVOTHYROXINE 75 MCG TABLET PO SCH (06:10)
[2016-12-05] MEDS: INSULIN LISPRO 100 UNIT/ML SUBCUT SCH ×4 (08:46→21:11)
[2016-12-05] MEDS: ENOXAPARIN 40 MG/0.4 ML SYRINGE SUBCUT SCH (08:47)
[2016-12-05] MEDS: ASPIRIN CHEW 81 MG TABLET PO SCH (08:47)
[2016-12-05] MEDS: CLOPIDOGREL 75 MG TABLET PO SCH (08:47)
[2016-12-05] MEDS: BISACODYL 5 MG TABLET PO SCH (08:47)
[2016-12-05] MEDS: CIPROFLOXACIN INJ 400 MG in PREMIX 1 EACH IV SCH ×2 (08:48→20:48)
[2016-12-05] MEDS: traMADol 50 MG TABLET PO PRN ×2 (08:48→21:10)
[2016-12-05] MEDS: ATORVASTATIN 40 MG TABLET PO SCH (08:48)
[2016-12-05] MEDS: GABAPENTIN 100 MG CAPSULE PO PRN ×2 (08:48→20:49)
[2016-12-05 09:42] LABS: Basophils % 0.1 % (0.0-0.8); Hematocrit 30.5 VOL% (35.7-47.0); Hemoglobin 10.6 GM/DL (12.0-16.0); Immature Granulocytes % 0.9 %; Immature Granulocytes Absolute 0.07 #; Lymphocytes % 12.3 % (21.3-54.2); Mean Corpuscular HGB Conc 34.8 GM/DL (32-36); Mean Corpuscular Hemoglobin 30 PG (27-34); Mean Corpuscular Volume 87.4 FL (87-102); Mean Platelet Volume 8.4 FL (9.6-12.0); Monocytes # 0.1 10*3/uL (0.11-0.8); Monocytes % 1.3 % (1.7-12.7); Neutrophils # 6.8 10*3/uL (1.4-7.4); Neutrophils % 85.4 % (38.7-73.9); Platelet Count 329 T/CUMM (130-400); Red Blood Count 3.49 MC/CUMM (3.8-5.5); Red Cell Distribution Width 13.2 % (9.3-17.3); White Blood Count 7.9 T/CUMM (4-12)
[2016-12-05 10:02] LABS: Band Neutrophils 1 % (0-10); Hypochromasia Slight; Lymphocytes 17 % (20-55); Platelet Estimate Adequate; Segmented Neutrophils 79 % (50-85); Total Cells Counted 100
[2016-12-05 10:23] LABS: Calcium 7.9 MG/DL (8.5-10.1); Osmolality,Calculated 280.5 MOS/KG (273-304); Potassium 3.2 MMOL/L (3.5-5.1)
--- NOTE | 2016-12-05 10:25 | Hospitalist Progress Note ---
Assessment and Plan - Time spent with patient Time spent with patient: Greater than 30 minutes (1) Ulcerative colitis Status: Acute Assessment and plan: Continue current management. Defer to GI. Current Visit: Yes (2) Diabetes mellitus type 2 in obese Status: Chronic Assessment and plan: Hold her insulin and continue sliding scale insulin. Current Visit: Yes (3) Coronary artery disease Problem details: heart cath 05/29/16 with stent to RCA and Ramus Intermedius Status: Chronic Assessment and plan: Continue medications. Current Visit: No Qualifiers: Coronary Disease-Associated Artery/Lesion type: [place] artery [place] vs. transplanted heart: [place] heart Associated angina: without angina Qualified Code(s): I25.10 - Atherosclerotic heart disease of [place] coronary artery without angina pectoris (4) Dyslipidemia Status: Chronic Current Visit: No Hospitalist: Subjective Interval history: Patient states she would like to eat however complains of continued nausea and vomiting. Exam - Constitutional Vitals: Period Temp Pulse Resp BP Sys/Motley Pulse Ox Last 24 Hr 97.8 F-99.1 F 64-71 16-20 141-161/70-84 95-98 General appearance: no acute distress - Head Head exam: Present: normocephalic, atraumatic - Eye Eye exam: Present: EOMI Pupils: Present: JENNIFER - ENT ENT exam: Present: normal exam - Neck Neck exam: Present: normal inspection - Respiratory Respiratory exam: Present: clear to auscultation bilaterally. Absent: rhonchi, wheezes - Cardiovascular Cardiovascular exam: Present: regular rate and rhythm. Absent: gallop, rubs, systolic murmur - GI/Abdominal GI/Abdominal exam: Present: normal bowel sounds, tenderness, soft. Absent: distended, firm, guarding, rebound - Extremities Exam Extremities exam: Present: normal inspection. Absent: calf tenderness, edema Results - Labs CBC & BMP: 12/05/16 09:33 12/03/16 06:46 Lab Results: I have reviewed the past 24 hour labs
--- NOTE | 2016-12-05 10:34 | Gastrointestinal Progress Note ---
Assessment and Plan (1) Abdominal pain Status: Acute Assessment and plan: 12/05-Continued abd pain/cramping with intractable diarrhea since last night. Plan and addendum to follow by Dr Patel. 12/04-abdominal pain improved. Continue nocturnal defecation however less in amount. Tolerating steroids. Negative stool studies noted. Advance to full liquid diet. Plan an addendum to followed by Dr. Patel. 12/03-Abd pain with cramping and intractable diarrhea continues. No N/V. Afebrile. Stools studies pending at present time. KUB shows mild bowel distention. Plan and addendum to follow by DR patel. 12/02-onset of abdominal pain with findings on CT scan at outside facility of fecal impaction and possible small bowel obstruction ruled out upon arrival to our facility by surgery/hospitalist warning coordination meteorologist. Last C scope May 2016 with findings of sigmoid ulcers (hyperplastic colon mucosa). Multiple bowel movements today with negative stool studies, continued lower abdominal pain. Plan an addendum to followed by Dr. Patel. Current Visit: Yes Qualifiers: Abdominal location: lower abdomen, unspecified Qualified Code(s): R10.30 - Lower abdominal pain, unspecified Gastroenterology - PN: Subj Interval history: CC: Diarrhea Pt is seen awake and alert, states she is feeling about the same. She states she awakens in the morning feeling better and has an appetite however shortly after eating she will have abdominal cramping and diarrhea. She states it is worse again with having multiple runny stools as well as nocturnal defecation and incontinence now using adult briefs. No reports of overt bleeding. She states that every time she puts anything in her mouth to eat or drink she will have a bowel movement shortly after. Abdomen is soft, mildly tender. ROS: Denies SOB or chest pain Exam (Progress Note) - Constitutional Vitals: Period Temp Pulse Resp BP Sys/Motley Pulse Ox Last 24 Hr 97.8 F-99.1 F 64-71 16-20 141-161/70-84 95-98 - Other Additional findings: General appearance: normal weight, no acute distress - Head Head exam: Present: normal inspection, normocephalic - Eye Eye exam: Present: other (Lids and conjunctive are unremarkable). Absent: scleral icterus - ENT ENT exam: Present: normal exam, normal oropharynx - Neck Neck exam: Present: normal inspection - Respiratory Respiratory exam: Present: clear to auscultation bilaterally. Absent: rales, rhonchi, wheezes - Cardiovascular Cardiovascular exam: Present: regular rate and rhythm. Absent: diastolic murmur , JVD, systolic murmur - GI/Abdominal GI/Abdominal exam: Present: normal bowel sounds, tenderness (Lower abdomen), soft. Absent: ascites, distended, mass, organomegaly - Extremities Exam Extremities exam: Present: normal inspection, full ROM - Back Exam Back exam: Present: normal inspection - Neurological Exam Neurological exam: Present: alert, oriented X3 - Psychiatric Psychiatric exam: Present: normal affect, normal mood - Skin Skin exam: Present: normal color, warm, dry Results - Labs CBC & BMP: 12/05/16 09:33 12/05/16 09:33 Lab Results: I have reviewed the past 24 hour labs
[2016-12-05] MEDS: rOPINIRole 1 MG TABLET PO SCH (20:49)
[2016-12-06] MEDS: metroNIDAZOLE INJ 500 MG in PREMIX 1 EACH IV SCH ×2 (01:11→10:08)
[2016-12-06] MEDS: MORPHINE 2 MG/1 ML SYRINGE IV PRN ×3 (01:12→18:56)
[2016-12-06] MEDS: methylPREDNISolone SOD SUC 40 MG/1 ML VIAL IV SCH ×3 (04:48→20:21)
[2016-12-06] MEDS: LEVOTHYROXINE 75 MCG TABLET PO SCH (06:46)
[2016-12-06] MEDS: INSULIN LISPRO 100 UNIT/ML SUBCUT SCH ×4 (10:08→20:22)
[2016-12-06] MEDS: CLOPIDOGREL 75 MG TABLET PO SCH (10:09)
[2016-12-06] MEDS: ATORVASTATIN 40 MG TABLET PO SCH (10:09)
[2016-12-06] MEDS: traMADol 50 MG TABLET PO PRN (10:09)
[2016-12-06] MEDS: ENOXAPARIN 40 MG/0.4 ML SYRINGE SUBCUT SCH (10:09)
[2016-12-06] MEDS: ASPIRIN CHEW 81 MG TABLET PO SCH (10:09)
[2016-12-06] MEDS: BISACODYL 5 MG TABLET PO SCH (10:10)
--- NOTE | 2016-12-06 10:32 | Gastrointestinal Progress Note ---
Assessment and Plan (1) Abdominal pain Status: Acute Assessment and plan: 12/06-abdominal pain and cramping improved. Diarrhea decreased overnight. Tolerating diet and requesting to advance at this time. Plan an addendum to follow Dr. Patel 12/05-Continued abd pain/cramping with intractable diarrhea since last night. Plan and addendum to follow by Dr Patel. 12/04-abdominal pain improved. Continue nocturnal defecation however less in amount. Tolerating steroids. Negative stool studies noted. Advance to full liquid diet. Plan an addendum to followed by Dr. Patel. 12/03-Abd pain with cramping and intractable diarrhea continues. No N/V. Afebrile. Stools studies pending at present time. KUB shows mild bowel distention. Plan and addendum to follow by DR patel. 12/02-onset of abdominal pain with findings on CT scan at outside facility of fecal impaction and possible small bowel obstruction ruled out upon arrival to our facility by surgery/hospitalist bail bondsman. Last C scope May 2016 with findings of sigmoid ulcers (hyperplastic colon mucosa). Multiple bowel movements today with negative stool studies, continued lower abdominal pain. Plan an addendum to followed by Dr. Patel. Current Visit: Yes Qualifiers: Abdominal location: lower abdomen, unspecified Qualified Code(s): R10.30 - Lower abdominal pain, unspecified Gastroenterology - PN: Subj Interval history: CC: Abdominal pain Patient is seen awake alert lying in bed. States she had a much better night with less diarrhea stools overnight. Denies any abdominal pain, nausea or vomiting. States she is tolerating her diet and her appetite is increasing. She feels like she is beginning to improve at this point. She is requesting to advance her diet if possible. Abdomen soft, nontender. ROS: Denies shortness of breath or chest pain Exam (Progress Note) - Constitutional Vitals: Period Temp Pulse Resp BP Sys/Motley Pulse Ox Last 24 Hr 97.1 F-98.8 F 66-80 17-20 138-172/57-78 96-99 - Other Additional findings: General appearance: normal weight, no acute distress - Head Head exam: Present: normal inspection, normocephalic - Eye Eye exam: Present: other (Lids and conjunctive are unremarkable). Absent: scleral icterus - ENT ENT exam: Present: normal exam, normal oropharynx - Neck Neck exam: Present: normal inspection - Respiratory Respiratory exam: Present: clear to auscultation bilaterally. Absent: rales, rhonchi, wheezes - Cardiovascular Cardiovascular exam: Present: regular rate and rhythm. Absent: diastolic murmur , JVD, systolic murmur - GI/Abdominal GI/Abdominal exam: Present: normal bowel sounds, tenderness (Lower abdomen), soft. Absent: ascites, distended, mass, organomegaly - Extremities Exam Extremities exam: Present: normal inspection, full ROM - Back Exam Back exam: Present: normal inspection - Neurological Exam Neurological exam: Present: alert, oriented X3 - Psychiatric Psychiatric exam: Present: normal affect, normal mood - Skin Skin exam: Present: normal color, warm, dry Results - Labs CBC & BMP: 12/05/16 09:33 12/05/16 09:33 Lab Results: I have reviewed the past 24 hour labs
[2016-12-06] MEDS: CIPROFLOXACIN INJ 400 MG in PREMIX 1 EACH IV SCH (11:24)
[2016-12-06] MEDS: rOPINIRole 1 MG TABLET PO SCH (20:21)
[2016-12-06] MEDS: ONDANSETRON ODT 4 MG TABLET PO PRN (20:22)
[2016-12-07] MEDS: MORPHINE 2 MG/1 ML SYRINGE IV PRN ×2 (01:27→10:37)
[2016-12-07] MEDS: methylPREDNISolone SOD SUC 40 MG/1 ML VIAL IV SCH (04:00)
[2016-12-07 04:20] LABS: Basophils % 0.2 % (0.0-0.8); Hemoglobin 10.1 GM/DL (12.0-16.0); Immature Granulocytes % 1.7 %; Immature Granulocytes Absolute 0.11 #; Lymphocytes # 1.1 10*3/uL (1.4-4.0); Lymphocytes % 16.7 % (21.3-54.2); Mean Corpuscular HGB Conc 34.8 GM/DL (32-36); Mean Corpuscular Hemoglobin 30 PG (27-34); Mean Corpuscular Volume 86.1 FL (87-102); Mean Platelet Volume 8.5 FL (9.6-12.0); Monocytes # 0.3 10*3/uL (0.11-0.8); Monocytes % 3.8 % (1.7-12.7); Neutrophils # 5.1 10*3/uL (1.4-7.4); Neutrophils % 77.6 % (38.7-73.9); Platelet Count 320 T/CUMM (130-400); Red Blood Count 3.37 MC/CUMM (3.8-5.5); Red Cell Distribution Width 13.1 % (9.3-17.3); White Blood Count 6.6 T/CUMM (4-12)
[2016-12-07 04:55] LABS: Calcium 7.7 MG/DL (8.5-10.1); Potassium 3.2 MMOL/L (3.5-5.1)
[2016-12-07] MEDS: LEVOTHYROXINE 75 MCG TABLET PO SCH (06:01)
[2016-12-07] MEDS: ATORVASTATIN 40 MG TABLET PO SCH (09:20)
[2016-12-07] MEDS: BISACODYL 5 MG TABLET PO SCH (09:20)
[2016-12-07] MEDS: ASPIRIN CHEW 81 MG TABLET PO SCH (09:20)
[2016-12-07] MEDS: ENOXAPARIN 40 MG/0.4 ML SYRINGE SUBCUT SCH (09:21)
[2016-12-07] MEDS: GABAPENTIN 100 MG CAPSULE PO PRN (09:21)
[2016-12-07] MEDS: CLOPIDOGREL 75 MG TABLET PO SCH (09:21)
[2016-12-07] MEDS: INSULIN LISPRO 100 UNIT/ML SUBCUT SCH ×2 (09:21→12:31)
[2016-12-07] MEDS: POTASSIUM CHLORIDE RIDER 10 MEQ in PREMIX 1 EACH IV SCH ×2 (09:31→11:14)
--- NOTE | 2016-12-07 11:07 | Discharge Summary ---
Hospital Course - Hospital Course Hospital Course: Ms. Hurd presented with abdominal pain and constipation. Abdominal x-ray revealed possible fecal impaction. GI was consulted and the patient's fecal impaction was cleared with laxatives confirmed with serial KUBs. She was initiated on steroids and antibiotics given that she may be exhibiting a flareup of ulcerative colitis. She improved on this regimen will be discharged with tapered steroids and follow-up with GI. By discharge she had met maximum benefit of hospitalization. I spent 36 minutes coordinating this discharge. - Time spent with patient Time with patient DS: Greater than 30 minutes Diagnosis - Discharge Diagnosis (1) Ulcerative colitis Status: Acute (2) Diabetes mellitus type 2 in obese Status: Chronic (3) Coronary artery disease Status: Chronic (4) Dyslipidemia Status: Chronic Discharge Plan - Discharge Data Disposition: Disch To Home/Self Care Condition at Discharge: Stable Discharge Diet: advance to your usual diet Activity: resume usual activities as tolerated - Discharge Medications New Ciprofloxacin HCl [Ciprofloxacin Tab] 500 mg PO BID #10 tablet Hydrocortisone (Anusol-Hc) Sup [Anusol HC Supp] 25 mg RECTAL TID PRN #30 supp PRN Reason: Hemorrhoids Potassium Chloride Packet 20 meq PO DAILY #4 pack traMADol TAB [Ultram] 50 mg PO Q6H PRN #30 tablet PRN Reason: Pain predniSONE TAB [PredniSONE] 10 mg PO DAILY #30 tablet Continue Insulin Aspart Prot/Asp 70/30 [NovoLOG Mix 70/30] 10 unit SUBCUT AC BREAKFAST Aspirin Chew Tab 81 mg PO DAILY tablet Atorvastatin [Lipitor] 40 mg PO DAILY tablet HYDROcodone/ACETAMIN 10-325 [[place] 10-325] 1 tablet PO Q4H PRN #45 tablet PRN Reason: Pain Moderate (4-7) Losartan [Cozaar] 50 mg PO DAILY #60 tablet Clopidogrel Bisulfate [Clopidogrel] 75 mg PO DAILY Ferrous Sulfate Tab [Feosol Original Tab] 325 mg PO BID Gabapentin Cap/Tab [Neurontin Cap/Tab] 200 mg PO TID PRN PRN Reason: Pain Insulin Aspart Prot/Asp 70/30 [NovoLOG Mix 70/30] 15 unit SUBCUT AC SUPPER Ondansetron Odt Tab [Zofran Odt] 4 mg PO Q6H PRN PRN Reason: Nausea/Vomiting Ropinirole HCl 0.5 mg PO BEDTIME Ergocalciferol (Vitamin D2) [Vitamin D2] 50,000 unit PO MOTH Levothyroxine Tab [Synthroid Tab] 37.5 mcg PO DAILY@0700 #30 tablet - Follow Up or Referral - Forms/Instructions Exam - Constitutional Vitals: Period Temp Pulse Resp BP Sys/Motley Pulse Ox Last 24 Hr 96.6 F-98.4 F 68-76 18-20 121-179/56-83 97-98 General appearance: normal weight, no acute distress - Head Head exam: Present: normal inspection, normocephalic, atraumatic - Eye Eye exam: Present: EOMI Pupils: Present: JENNIFER - ENT ENT exam: Present: normal exam - Neck Neck exam: Present: normal inspection - Respiratory Respiratory exam: Present: clear to auscultation bilaterally. Absent: accessory muscle use, prolonged expiratory phase, wheezes - Cardiovascular Cardiovascular exam: Present: regular rate and rhythm. Absent: bradycardia, irregular rhythm, systolic murmur - GI/Abdominal GI/Abdominal exam: Present: normal bowel sounds. Absent: ascites, hypoactive bowel sounds, tenderness - Extremities Exam Extremities exam: Present: normal inspection Discharge Results Labs on day of discharge: Labs from last 24 hours 12/07/16 12/07/16 12/07/16 07:37 03:30 03:30 WBC 6.6 RBC 3.37 L Hgb 10.1 L Hct 29.0 L MCV 86.1 L MCH 30 MCHC 34.8 RDW 13.1 Plt Count 320 MPV 8.5 L Neut % (Auto) 77.6 H Lymph % (Auto) 16.7 L Howard % (Auto) 3.8 Eos % (Auto) 0.0 Baso % (Auto) 0.2 Neut # (Auto) 5.1 Lymph # (Auto) 1.1 L Howard # (Auto) 0.3 Eos # (Auto) 0.0 Baso # (Auto) 0.0 Immature Gran % 1.7 Nucleated RBC % 0.0 Immature Gran # 0.11 Nucleated RBCs # 0.00 Sodium 136 Potassium 3.2 L Chloride 100 Carbon Dioxide 25 Anion Gap 14.2 BUN 20 H Creatinine 0.90 GFR Calculation 57 BUN/Creatinine Ratio 22.00 H Glucose 218 H POC Glucose 240 H Calculated Osmolality 281.0 Calcium 7.7 L 12/06/16 12/06/16 12/06/16 19:51 15:23 11:33 WBC RBC Hgb Hct MCV MCH MCHC RDW Plt Count MPV Neut % (Auto) Lymph % (Auto) Howard % (Auto) Eos % (Auto) Baso % (Auto) Neut # (Auto) Lymph # (Auto) Howard # (Auto) Eos # (Auto) Baso # (Auto) Immature Gran % Nucleated RBC % Immature Gran # Nucleated RBCs # Sodium Potassium Chloride Carbon Dioxide Anion Gap BUN Creatinine GFR Calculation BUN/Creatinine Ratio Glucose POC Glucose 159 H 209 H 376 H Calculated Osmolality Calcium DS: Provider Date of admission: 12/01/16 22:07 Primary care physician: Robert Horowitz MD Attending physician on admission: Yuko Medel MD Consults: 12/01/16 22:10 Consult to Physician [CONS] Routine Comment: patial SBO due to impaction and constipation Consulting Provider: Clifton Terrell Person Notified: CALVIN Date Notified: 12/02/16 Time Notified: 09:25 Consult to Physician [CONS] Routine Comment: recurrent bowel obstruction/impaction Consulting Provider: Cyrus Patel Person Notified: ARTUR Date Notified: 12/02/16 Time Notified: 09:00 12/01/16 23:36 Consult to Dietitian [CONS] Routine Reason for Dietitian: Dietary Consult 12/05/16 08:01 Consult to Case Mgmt/Social Srvs [CONS] Routine Reason for Case Mgmt/Social Srvs: Discharge Planning Consult to Physical Therapy [CONS] Routine Reason for Physical Therapy: Evaluate and Treat 12/05/16 16:47 Consult to Case Mgmt/Social Srvs [CONS] Routine Reason for Case Mgmt/Social Srvs: Equipment Consult Comment: rolater with seat Discharging clinician: Leatha Young MD Expected date of discharge: 12/07/16
[2016-12-07 12:23] VITALS: BP 152/87
== END 2016-12-07 14:12 | disposition home or self-care (01) | DRG 386 ==
LOC: EDBD → EDUNIT# → N.ED 20:24 → SUATTDRO 22:07 → N.EDINP 22:07 → N.2E 22:46
PROVIDERS: ADMIT Family Medicine; ATTEND Internal Medicine

== ENCOUNTER 2017-04-03 02:16 | Inpatient (IN) ==
--- NOTE | 2017-04-03 02:58 | Emergency Department Note ---
IDiana Brittany, am scribing for, and in the presence of, Courtney Garcia DO 02: 52. IJose Debra, DO, personally performed the services described in this documentation, ascribed by Lily Ortiz in my presence, and it is both accurate and complete . Arrival - Arrival Chief Complaint: Shortness of Breath Stated Complaint: sob ED Nursing Triage Note: Pt transfere from [facility] for c/o SOB and not feeling well. Pt geoff any CP or SOB at triage. Mode of Arrival: Stretcher Limitations: No Limitations Source: Patient Time Seen by Provider: 04/03/17 02:29 - History of Present Illness HPI Narrative: This is a 72 y/o [facility] female,who presents to the ED by EMS with c/o dyspnea with started 2 days ago. She was transferred from [facility] for further evaluation of SOB. She reports she was initially seen at [facility] 2 days ago for diarrhea and possible dehydration. Per pt, "I don't know, something just came over me and I started to get short of breath." She notes the diarrhea has now completely resolved. She denies any CP but notes the SOB is worse with exertion. She reports she has a known Hx of CHF and reports these Sx feel similar to her last Sx of CHF. Pt has no other complaints/pain in the ED at this time. PT has a PMHx of CHF, CAD, [place], HTN, IDDM, migraines, fibromyalgia, recurring UTIs, GERD, ulcerative colitis, Crohn's disease, pancreatitis, diverticulitis, arthritis, and back/neck problems. Pt has had a cardiac cath with stents, colonoscopy, EGD, hysterectomy,and orthopedic surgery. Pt has a family medical Hx of bone cancer, diabetes, HTN, and stroke. Onset (ago): day(s) (Strted 2 days ago) Consistency: constant Severity: moderate Allergies/Adverse Reactions: Allergies Allergy/AdvReac Type Severity Reaction Status Date / Time sumatriptan [From Imitrex] Allergy Difficulty Verified 04/28/16 23:12 Breathing Home Medications: Home Medications Medication Instructions Recorded Confirmed Type Insulin Aspart Prot/Asp 70/30 10 unit SUBCUT AC BREAKFAST 05/25/16 12/01/16 History [NovoLOG Mix 70/30] Aspirin Chew Tab 81 mg PO DAILY tablet 06/06/16 12/01/16 Rx Atorvastatin [Lipitor] 40 mg PO DAILY tablet 06/06/16 12/01/16 Rx HYDROcodone/ACETAMIN 10-325 [[place] 1 tablet PO Q4H PRN #45 tablet 06/21/1612/01 Rx 10-325] Losartan [Cozaar] 50 mg PO DAILY #60 tablet 06/21/16 12/01/16 Rx Clopidogrel Bisulfate [Clopidogrel] 75 mg PO DAILY 09/28/16 12/01/16 History Ergocalciferol (Vitamin D2) 50,000 unit PO MOTH 09/28/16 12/02/16 History [Vitamin D2] Ferrous Sulfate Tab [Feosol 325 mg PO BID 09/28/16 12/01/16 History Original Tab] Gabapentin Cap/Tab [Neurontin 200 mg PO TID PRN 09/28/16 12/01/16 History Cap/Tab] Insulin Aspart Prot/Asp 70/30 15 unit SUBCUT AC SUPPER 09/28/16 12/01/16 History [NovoLOG Mix 70/30] Ondansetron Odt Tab [Zofran Odt] 4 mg PO Q6H PRN 09/28/16 12/01/16 History Ropinirole HCl 0.5 mg PO BEDTIME 09/28/16 12/01/16 History Levothyroxine Tab [Synthroid Tab] 37.5 mcg PO DAILY@0700 #30 tablet 10/01/16 Rx Ciprofloxacin HCl [Ciprofloxacin 500 mg PO BID #10 tablet 12/07/16 Rx Tab] Hydrocortisone (Anusol-Hc) Sup 25 mg RECTAL TID PRN #30 supp 12/07/16 Rx [Anusol HC Supp] Potassium Chloride Packet 20 meq PO DAILY #4 pack 12/07/16 Rx Tramadol HCl [Ultram] 50 mg PO Q4-6H #12 tablet 12/07/16 Rx predniSONE TAB [PredniSONE] 10 mg PO DAILY #30 tablet 12/07/16 Rx traMADol TAB [Ultram] 50 mg PO Q6H PRN #30 tablet 12/07/16 Rx Review of System - Review of System 12 point system: reviewed and no additional remarkable complaints except as stated - Review of System Cardiovascular: Present: dyspnea on exertion. Absent: chest pain Gastrointestinal: Present: diarrhea (Has now resolved. ) Medical,Surgical,& Family Hx - Medical History Cardio: History of: CHF, CAD, Hypertension, VT Neurology: History of: Migraine HEENT: History of: Eye Problem (cataract, "bleed behind eye") Endocrine: History of: Diabetes Mellitus (IDDM) Rheumatology: History of;: Fibromyalgia Genitourinary: History of: Recurring Urinary Tract Infections Gastrointestinal: History of: Crohn's Disease, Diverticulitis/ Diverticulosis, GERD, Pancreatitis, Ulcerative Colitis, GI Problems (pancreatic cancer) Musculoskeletal: History of: Back/Neck Problems, Musculoskeletal Problems (age related arthritis) Hematology: History of: Anemia No history of: Blood Transfusion Reaction Other: History of: Cancer - Surgical History Cardiac Surgeries: Sugical HX of: Cardiac Catheterization (with stents) Thoracic Surgeries: Patient denies;: Organ Transplant, Lobectomy Neurologic Surgeries: Patient denies: Neurologic Surgery Abdominal Surgeries: Surgical HX of: Colonoscopy, EGD Reproductive Surgeries: Surgical HX of;: Hysterectomy Orthopedic Surgeries: Surgical HX of;: Orthopedic Surgery - Family History Family History: Reports;: Family Cancer (bone cancer, mother), Family Diabetes ( brother, siter), Family Hypertension, Family Stroke (father) - Social History Smoking Status: Never smoker Frequency of Alcohol Use: None Type of Drug Use: None Exam Vital Signs: Vital Signs Temperature 97.5 F L 04/03/17 02:25 Pulse Rate 78 04/03/17 02:25 Respiratory Rate 16 04/03/17 03:03 Blood Pressure 174/79 04/03/17 02:25 O2 Sat by Pulse Oximetry 100 04/03/17 02:25 - General General appearance: alert, in no apparent distress - Head Head exam: Present: atraumatic, normocephalic, normal inspection - Eye Eye exam: Present: normal appearance, PERRL, EOMI. Absent: nystagmus - ENT ENT exam: Present: normal exam, mucous membranes moist - Neck Neck exam: Present: normal inspection, full ROM, trachea midline. Absent: tenderness - Chest Chest inspection: Present: normal inspection, symmetric chest wall rise. Absent : tenderness - Respiratory Respiratory exam: Present: normal lung sounds bilaterally. Absent: rales, respiratory distress, rhonchi - Cardiovascular Cardiovascular exam: Present: regular rate, normal rhythm, normal heart sounds. Absent: murmur, rubs, gallop, JVD - Abdominal Exam Abdominal exam: Present: soft, normal bowel sounds. Absent: distention, tenderness, guarding, rebound, rigidity - Rectal Exam Rectal exam: Present: deferred - Extremities Exam Extremities exam: Present: normal inspection, full ROM, normal capillary refill. Absent: tenderness, pedal edema, joint swelling, calf tenderness - Back Exam Back exam: Present: normal inspection, full ROM. Absent: tenderness, muscle spasm, rashes - Neurological Exam Neurological exam: Present: alert, oriented X3, CN II-XII intact. Absent: motor sensory deficit - Psychiatric Psychiatric exam: Present: normal affect, normal mood. Absent: depressed, agitated, anxious, flat affect - Skin Skin exam: Present: warm, dry, intact, normal color. Absent: rash, cyanosis, diaphoresis Course Course Narrative: Spoke to Dr. Erickson notified him of elevated cardiac enzymes. Enzymes troponin was 0.5 at transferring facility, and repeat troponin was 2.7. Patient was not having any chest pain at this time opted to give her Lovenox, and Dr. Erickson was notified. He will cath patient in the morning. Patient is stable at this time. Results - Labs Lab Results: I have reviewed the patients labs Labs: Laboratory Tests 04/03/17 02:49 Total Creatine Kinase 84 CK-MB (CK-2) 3.8 H Troponin I 2.970 H - EKG EKG results: interpreted by SANDRA - Impressions some st depression , no elevation in 2 contiguous leads. Disposition Clinical Impression: Elevated troponin Case discussed with: patient Disposition: Still a Patient Condition: Stable Time of Disposition: 04:26
[2017-04-03] MEDS ORDERED: ENOXAPARIN 60 MG/0.6 ML SYRINGE SUBCUT STA (03:59)
[2017-04-03] MEDS ORDERED: ENOXAPARIN 60 MG/0.6 ML SYRINGE ONE (04:04)
[2017-04-03] MEDS ORDERED: MAGNESIUM SULF RIDER 4 GM in PREMIX 1 EACH IV PRN (04:26)
[2017-04-03] MEDS ORDERED: MAGNESIUM SULF RIDER 2 GM in PREMIX 1 EACH IV PRN (04:26)
[2017-04-03] MEDS ORDERED: ONDANSETRON 4 MG/2 ML VIAL IV PRN (04:33)
[2017-04-03] MEDS: DEXTROSE 5% NACL 0.45% 1,000 ML IV SCH (07:24)
--- NOTE | 2017-04-03 10:32 | EKG Report ---
Stationary ECG Study [facility] ER Test Date: 04/03/2017 3:57:50 AM Pat Name: GEOVANNA PUGH Department: Room: 284 Gender: F Bias Binding Cutter: GIGI : 1945 Requested by: Courtney Garcia Order Number: [id number] Reading MD: TONEY PRECIADO Intervals [place] Rate: 70 P: 63 UT: 139 QRS: 93 QRSD: 90 T: -32 QT: 392 QTc: 413 Interpretive Statements SINUS RHYTHM BORDERLINE RIGHT AXIS DEVIATION POSSIBLE ANTERIOR MYOCARDIAL INFARCTION, OF INDETERMINATE AGE MODERATE T-WAVE ABNORMALITY, CONSIDER INFERIOR ISCHEMIA Electronically Signed On 04-03-17 10:37:57 CDT by TONEY PRECIADO [email or web address]
--- NOTE | 2017-04-03 10:33 | EKG Report ---
Stationary ECG Study [facility] ER Test Date: 04/03/2017 2:23:35 AM Pat Name: GEOVANNA PUGH Department: Room: 284 Gender: F Bar Host: : 1945 Requested by: Courtney Garcia Order Number: [id number] Reading MD: TONEY PRECIADO Intervals [place] Rate: 77 P: 46 ME: 134 QRS: 32 QRSD: 92 T: -45 QT: 361 QTc: 393 Interpretive Statements SINUS RHYTHM POSSIBLE ANTERIOR MYOCARDIAL INFARCTION, OF INDETERMINATE AGE PROBABLE INFERIOR MYOCARDIAL INFARCTION, OF INDETERMINATE AGE Electronically Signed On 04-03-17 10:37:38 CDT by TONEY PRECIADO [email or web address]
[2017-04-03 10:55] LABS: Basophils % 0.4 % (0.0-0.8); Eosinophils # 0.1 10*3/uL (0.0-0.87); Hematocrit 27.5 VOL% (35.7-47.0); Hemoglobin 9.6 GM/DL (12.0-16.0); Immature Granulocytes % 0.4 %; Immature Granulocytes Absolute 0.02 #; Lymphocytes # 1.8 10*3/uL (1.4-4.0); Lymphocytes % 38.4 % (21.3-54.2); Mean Corpuscular HGB Conc 34.9 GM/DL (32-36); Mean Corpuscular Hemoglobin 31 PG (27-34); Mean Corpuscular Volume 89.6 FL (87-102); Mean Platelet Volume 8.6 FL (9.6-12.0); Monocytes # 0.3 10*3/uL (0.11-0.8); Monocytes % 6.8 % (1.7-12.7); Neutrophils # 2.4 10*3/uL (1.4-7.4); Platelet Count 278 T/CUMM (130-400); Red Blood Count 3.07 MC/CUMM (3.8-5.5); White Blood Count 4.6 T/CUMM (4-12)
[2017-04-03 11:02] LABS: PT Patient Result 10.4 SECS
[2017-04-03 11:27] LABS: Calcium 8.2 MG/DL (8.5-10.1); Magnesium 1.9 MG/DL (1.8-2.4); Osmolality,Calculated 280.8 MOS/KG (273-304); Potassium 3.8 MMOL/L (3.5-5.1)
[2017-04-03] MEDS ORDERED: DEXTROSE 50% 25 GM/50 ML SYRINGE IV PRN ×2 (12:29→14:58)
[2017-04-03] MEDS ORDERED: GLUCAGON 1 MG VIAL IM PRN (12:29)
[2017-04-03 12:31] LABS: Basophils % 0.4 % (0.0-0.8); Eosinophils # 0.1 10*3/uL (0.0-0.87); Hematocrit 27.5 VOL% (35.7-47.0); Hemoglobin 9.6 GM/DL (12.0-16.0); Immature Granulocytes % 0.4 %; Immature Granulocytes Absolute 0.02 #; Lymphocytes # 1.8 10*3/uL (1.4-4.0); Lymphocytes % 38.4 % (21.3-54.2); Mean Corpuscular HGB Conc 34.9 GM/DL (32-36); Mean Corpuscular Hemoglobin 31 PG (27-34); Mean Corpuscular Volume 89.6 FL (87-102); Mean Platelet Volume 8.6 FL (9.6-12.0); Monocytes # 0.3 10*3/uL (0.11-0.8); Monocytes % 6.8 % (1.7-12.7); Neutrophils # 2.4 10*3/uL (1.4-7.4); Platelet Count 278 T/CUMM (130-400); Red Blood Count 3.07 MC/CUMM (3.8-5.5); White Blood Count 4.6 T/CUMM (4-12)
[2017-04-03 13:00] LABS: Folate 19.8 NG/ML (5.4-24.0); Vitamin B12 408 PG/ML (211-911)
--- NOTE | 2017-04-03 13:01 | XRay Report ---
XR chest 2V Indication: Atypical chest pain Comparison: 07 Dec 2016 Findings: The heart and mediastinum are normal in size and configuration. The pulmonary vascularity is normal in caliber. Lung volumes are increased with prominent bronchial markings. No lung infiltrates, effusions, pneumothorax or other abnormality is demonstrated. Impression: Chronic lung changes. No acute process or significant change. PROCEDURE INTERPRETED AT [facility] DEPARTMENT OF RADIOLOGY Final Report Signed by: Dr. Richard Soriano
[2017-04-03 13:40] LABS: Sedimentation Rate-Westergren 116 MM/HR (0-30)
--- NOTE | 2017-04-03 17:02 | Cardiology History & Physical ---
Julito Julio Lesley, NP, am scribing for, and in the presence of, Jake Camarena MD 17:01. Assessment and Plan - Time spent with patient Time spent with patient: Greater than 30 minutes (Record review, assessment, and documentation) (1) Elevated troponin Status: Acute Assessment and plan: SEE PLAN LISTED BELOW Current Visit: Yes (2) Diabetes Status: Chronic Assessment and plan: SEE PLAN LISTED BELOW Current Visit: No (3) Hypertension Status: Chronic Assessment and plan: SEE PLAN LISTED BELOW Current Visit: No (4) Atypical chest pain Problem details: heart cath 05/29/16 with stent to RCA and Ramus Intermedius Status: Acute Assessment and plan: SEE PLAN LISTED BELOW Current Visit: No (5) Ischemic cardiomyopathy Status: Acute Current Visit: Yes (6) Coronary artery disease Problem details: heart cath 05/29/16 with stent to RCA and Ramus Intermedius Status: Chronic Assessment and plan: SEE PLAN LISTED BELOW Current Visit: No Qualifiers: Coronary Disease-Associated Artery/Lesion type: [place] artery [place] vs. 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 Jaramillo Ms. Hurd is a 72 year old [place] female, who presented to ER with complaints of dyspnea, chest pain, and general malaise that started 2 days ago. She reports the chest pain is reproducible to the left substernal chest wall. She reports that she began having vomiting and diarrhea 4 days ago, and went to [place] ER for this. She reports she was rehydrated and although the n/v/d had resolved, she did not feel well. The patient denies hematemesis, coffee-ground emesis, hematochezia, melena. She noticed shortness of breath, chest pain and soreness to the chest wall. She reports she was transferred to [facility] ER due to an abnormal lab level. Past medical history includes CAD, CHF, hypertension, diabetes, anemia, GERD, Crohn's disease, back/neck problems. Cardiac risk factors include advanced age , sedentary lifestyle, known history of CAD with prior PCI, hypertension, ischemic cardiomyopathy, pulmonary hypertension, and dyslipidemia. 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 Family history is positive for bone cancer, diabetes, hypertension, and stroke. The patient has had no apparent follow-up with Dr. Jaramillo since her last hospitalization 09/2016. Echocardiogram done 10/04 revealed an EF of 40%, global hypokinesis with grade 1 diastolic dysfunction. Moderately increased right and left atrial size, mildly thickened mitral valve, trace mitral valve regurgitation, aortic valve sclerosis without valve regurgitation, moderate tricuspid valve regurgitation, PA 45mmHg. The patient last underwent cardiac catheterization 05/[address] Jaramillo. She required PCI to proximal RCA lesion, PTCA of the mid and distal RCA lesion, PCI to proximal ramus intermedius branch. The patient was seen lying in bed today, complains of reproducible chest wall pain and low back pain from lying in bed. Blood pressures remain elevated, the patient is being continuously monitored on telemetry. Sinus rhythm is noted with heart rate in the 60s. Labs reviewed and there is an apparent anemia, slightly lower than labs reviewed during the previous hospitalization 4 months ago. INR is 1.0, electrolytes are normalized, creatinine is 0.9, blood glucose is elevated, BNP 569. Troponin has been elevated and peaked at at 2.9. I discussed this patient's plan of care with Dr. Camarena, we will obtain an anemia profile, and guaiac stools today. If anemia remains stable, we will plan for heart catheterization tomorrow. IMPRESSION/PLAN: 1. DYSPNEA ON EXERTION - obtain chest xray, supplemental oxygen 2. ANEMIA - guaic stools, anemia profile, monitor and repeat CBC. Crit around baseline and she does not recall active bleeding. H/o inflammatory bowel disease 3. NSTEMI, KNOWN CAD - prior LAD, IM, RCA PCI. Had nonobstructive disease in the circumflex. The anemia appears to be around her baseline and she had rest symptoms, suggestive of angina. She already has ischemic cardiomyopathy. I will discuss with Dr. Perez, we may consider invasive reevaluation. Medical compliance was suboptimal. 4. ISCHEMIC CARDIOMYOPATHY - EF was 40% previously. 5. HYPERTENSION - resume home meds, adjust accordingly. BP mildly elevated. Home Medications Medication Instructions Recorded Confirmed Type Insulin Aspart Prot/Asp 70/30 20 unit SUBCUT AC BREAKFAST 05/25/16 04/03/17 History [NovoLOG Mix 70/30] Aspirin Chew Tab 81 mg PO DAILY tablet 06/06/16 04/03/17 Rx Atorvastatin [Lipitor] 40 mg PO DAILY tablet 06/06/16 04/03/17 Rx Losartan [Cozaar] 50 mg PO DAILY #60 tablet 06/21/16 04/03/17 Rx Clopidogrel Bisulfate [Clopidogrel] 75 mg PO DAILY 09/28/16 04/03/17 History Ergocalciferol (Vitamin D2) 50,000 unit PO MOTH 09/28/16 04/03/17 History [Vitamin D2] Ferrous Sulfate Tab [Feosol 325 mg PO BID 09/28/16 04/03/17 History Original Tab] Gabapentin Cap/Tab [Neurontin 100 mg PO TID 09/28/16 04/03/17 History Cap/Tab] Insulin Aspart Prot/Asp 70/30 10 unit SUBCUT AC SUPPER 09/28/16 04/03/17 History [NovoLOG Mix 70/30] Levothyroxine Tab [Synthroid Tab] 37.5 mcg PO DAILY@0700 #30 tablet 10/01/16 Rx Allergies Allergy/AdvReac Type Severity Reaction Status Date / Time sumatriptan [From Imitrex] Allergy Difficulty Verified 04/28/16 23:12 Breathing - Constitutional Constitutional: Present: malaise. Absent: anorexia, chills, headache(s), increased appetite - EENT Nose, mouth and throat: Absent: dysphagia, epistaxis - Cardiovascular Cardiovascular: Present: chest pain at rest, dyspnea on exertion. Absent: diaphoresis, edema, radiating jaw, neck or arm pain, lightheadedness, orthopnea , palpitations - Respiratory Respiratory: Present: dyspnea on exertion. Absent: cough, hemoptysis, wheezing - Gastrointestinal Gastrointestinal: Absent: abdominal pain, change in bowel habits, coffee ground emesis, diarrhea, dyspepsia, heartburn, hematemesis, hematochezia, melena, nausea, vomiting - Genitourinary Genitourinary: Absent: dysuria - Musculoskeletal Musculoskeletal: Present: back pain - Neurological Neurological: Absent: abnormal gait, abnormal speech, behavioral changes, confusion, dizziness, syncope - Psychiatric Psychiatric: Absent: anxiety, confusion, depression - Endocrine Endocrine: Absent: cold intolerance, fatigue, heat intolerance - Hematologic/Lymphatic Hematologic/Lymphatic: Absent: easy bleeding Medical,Surgical,& Family Hx - Medical History Cardio: History of: CHF, CAD, Hypertension, [place] Psychological: No history of: Anxiety Disorders, Depression Neurology: History of: Migraine HEENT: History of: Eye Problem (cataract, "bleed behind eye") Endocrine: History of: Diabetes Mellitus (IDDM), Dyslipidemia Rheumatology: History of;: Fibromyalgia Genitourinary: History of: Recurring Urinary Tract Infections Gastrointestinal: History of: Crohn's Disease, Diverticulitis/ Diverticulosis, GERD, Pancreatitis, Ulcerative Colitis, GI Problems (pancreatic cancer) Musculoskeletal: History of: Back/Neck Problems, Musculoskeletal Problems (age related arthritis) Hematology: History of: Anemia No history of: Blood Transfusion Reaction Other: No history of: Cancer - Surgical History Cardiac Surgeries: Sugical HX of: Cardiac Catheterization (with stents) Thoracic Surgeries: Patient denies;: Organ Transplant, Lobectomy Neurologic Surgeries: Patient denies: Neurologic Surgery Abdominal Surgeries: Surgical HX of: Colonoscopy, EGD Reproductive Surgeries: Surgical HX of;: Hysterectomy Orthopedic Surgeries: Surgical HX of;: Orthopedic Surgery - Family History Family History: Reports;: Family Cancer (bone cancer, mother), Family Diabetes ( brother, siter), Family Hypertension, Family Stroke (father) - Social History Smoking Status: Never smoker Frequency of Alcohol Use: None Type of Drug Use: None Cardiology Physical Exam - Constitutional Vitals: Vital Signs Temp Pulse Resp BP Pulse Ox 96.6 F L 72 18 160/78 100 04/03/17 07:47 04/03/17 07:47 04/03/17 07:47 04/03/17 07:47 04/03/17 07:47 Intake and Output 04/02/17 04/03/17 04/03/17 23:59 07:59 15:59 Other: Weight 112 lb 3 oz Patient Weight 04/03/17 23:59 Weight 112 lb 3 oz Exam: General: Appears well with no apparent distress. Pleasant and cooperative. Appears comfortable. HEENT: PERRL, normocephalic, atraumatic. Mucous membranes moist. No jaundice noted. Conjunctiva moist and clear, sclerae anicteric. Neck: No JVD/HJR, no thyromegaly or lymphadenopathy noted. No carotid bruit appreciated. Cardiac: Regular rate and rhythm. No murmur rub or gallop. PMI is nondisplaced. Reproducible chest wall pain over left substernal border. Lungs: Clear to auscultation without accessory muscle use to assist the respiratory pattern. Not requiring oxygen. Abdomen: Soft, bowel sounds normoactive. Nontender and nondistended. No abdominal bruit or thrill noted. No masses noted. Musculoskeletal: No fluid collection. Full range of motion is noted. Extremities: No clubbing, cyanosis noted. No edema noted. Upper extremity pulses 2+. Lower extremity pulses barely palpable+. Capillary refill less than 3 seconds. Skin: Warm and dry. No unusual lesions or rashes. No skin breakdown appreciated. Neuro: Awake, alert and oriented 3. Moves all extremities well without hemiparesis or paralysis. No essential tremor is appreciated. Result/EKG - Labs CBC & BMP: 04/03/17 10:29 04/03/17 10:29 Lab Results: I have reviewed the past 24 hour labs Labs: Laboratory Results - last 24 hr 04/03/17 04/03/17 04/03/17 02:49 04:27 05:45 WBC RBC Hgb Hct MCV MCH MCHC RDW Plt Count MPV Neut % (Auto) Lymph % (Auto) Mcdonald % (Auto) Eos % (Auto) Baso % (Auto) Neut # (Auto) Lymph # (Auto) Mcdonald # (Auto) Eos # (Auto) Baso # (Auto) Immature Gran % Nucleated RBC % Immature Gran # Nucleated RBCs # Immature Plt Fraction INR PT Patient/Control Mix Sodium Potassium Chloride Carbon Dioxide Anion Gap BUN Creatinine GFR Calculation BUN/Creatinine Ratio Glucose POC Glucose Calculated Osmolality Calcium Magnesium Total Creatine Kinase 84 78 CK-MB (CK-2) 3.8 H 3.4 Troponin I 2.970 H 2.750 H B-Natriuretic Peptide 569 H 04/03/17 04/03/17 04/03/17 07:27 07:32 10:29 WBC 4.6 RBC 3.07 L Hgb 9.6 L Hct 27.5 L MCV 89.6 MCH 31 MCHC 34.9 RDW 14.0 Plt Count 278 MPV 8.6 L Neut % (Auto) 52.0 Lymph % (Auto) 38.4 Mcdonald % (Auto) 6.8 Eos % (Auto) 2.0 Baso % (Auto) 0.4 Neut # (Auto) 2.4 Lymph # (Auto) 1.8 Mcdonald # (Auto) 0.3 Eos # (Auto) 0.1 Baso # (Auto) 0.0 Immature Gran % 0.4 Nucleated RBC % 0.0 Immature Gran # 0.02 Nucleated RBCs # 0.00 Immature Plt Fraction 0.0 INR PT Patient/Control Mix Sodium Potassium Chloride Carbon Dioxide Anion Gap BUN Creatinine GFR Calculation BUN/Creatinine Ratio Glucose POC Glucose 239 H Calculated Osmolality Calcium Magnesium Total Creatine Kinase 79 CK-MB (CK-2) 3.4 Troponin I 2.650 H B-Natriuretic Peptide 04/03/17 04/03/17 10:29 10:29 WBC RBC Hgb Hct MCV MCH MCHC RDW Plt Count MPV Neut % (Auto) Lymph % (Auto) Mcdonald % (Auto) Eos % (Auto) Baso % (Auto) Neut # (Auto) Lymph # (Auto) Mcdonald # (Auto) Eos # (Auto) Baso # (Auto) Immature Gran % Nucleated RBC % Immature Gran # Nucleated RBCs # Immature Plt Fraction INR 1.0 PT Patient/Control Mix 10.4 Sodium 137 Potassium 3.8 Chloride 103 Carbon Dioxide 28 Anion Gap 9.8 BUN 16 Creatinine 0.90 GFR Calculation 55 BUN/Creatinine Ratio 17.00 Glucose 223 H POC Glucose Calculated Osmolality 280.8 Calcium 8.2 L Magnesium 1.9 Total Creatine Kinase CK-MB (CK-2) Troponin I B-Natriuretic Peptide - EKG EKG results: interpreted by me, sinus rhythm I, Jake Camarena MD, personally performed the services described in this documentation, ascribed by Edwina Vila NP in my presence, and it is both accurate and complete 702 .
[2017-04-03] MEDS: ENOXAPARIN 60 MG/0.6 ML SYRINGE SUBCUT SCH (17:53)
[2017-04-03] MEDS: INSULIN REGULAR 100 UNIT/ML SUBCUT SCH ×2 (17:54→21:56)
[2017-04-03] MEDS: ATORVASTATIN 40 MG TABLET PO SCH (17:54)
[2017-04-03] MEDS: ASPIRIN CHEW 81 MG TABLET PO SCH (17:54)
[2017-04-03] MEDS: INSULIN ASPART PROTAMINE/ASPART 70/30 100 UNIT/ML SUBCUT SCH (17:55)
[2017-04-03] MEDS: METOPROLOL TARTRATE 25 MG TABLET PO SCH (21:56)
[2017-04-04] MEDS: ENOXAPARIN 60 MG/0.6 ML SYRINGE SUBCUT SCH (05:30)
[2017-04-04 05:41] LABS: Basophils % 0.4 % (0.0-0.8); Eosinophils # 0.1 10*3/uL (0.0-0.87); Eosinophils % 1.5 % (0.00-10.9); Hematocrit 25.3 VOL% (35.7-47.0); Hemoglobin 8.8 GM/DL (12.0-16.0); Immature Granulocytes % 0.9 %; Immature Granulocytes Absolute 0.04 #; Lymphocytes # 2.2 10*3/uL (1.4-4.0); Lymphocytes % 46.7 % (21.3-54.2); Mean Corpuscular HGB Conc 34.8 GM/DL (32-36); Mean Corpuscular Hemoglobin 31 PG (27-34); Mean Platelet Volume 8.6 FL (9.6-12.0); Monocytes # 0.5 10*3/uL (0.11-0.8); Monocytes % 9.9 % (1.7-12.7); Neutrophils # 1.9 10*3/uL (1.4-7.4); Neutrophils % 40.6 % (38.7-73.9); Platelet Count 278 T/CUMM (130-400); Red Blood Count 2.81 MC/CUMM (3.8-5.5); Red Cell Distribution Width 13.9 % (9.3-17.3); White Blood Count 4.7 T/CUMM (4-12)
[2017-04-04 06:26] LABS: Risk Ratio 3.47; Thyroid Stimulating Hormone 4.89 uIU/ml (0.358-3.74)
[2017-04-04 06:30] LABS: Blood Urea Nitrogen 17 MG/DL (7-18); Calcium 8.2 MG/DL (8.5-10.1); Glucose 89 MG/DL (74-106); Osmolality,Calculated 273.8 MOS/KG (273-304); Potassium 4.2 MMOL/L (3.5-5.1); Sodium 137 MMOL/L (136-145)
--- NOTE | 2017-04-04 06:50 | EKG Report ---
Stationary ECG Study [facility] Test Date: 04/04/2017 5:51:27 AM Pat Name: GEOVANNA PUGH Department: Room: 284 Gender: F [employer] Main[employer] Developer: : [id number] Requested by: Courtney Garcia Order Number: [id number] Reading MD: RINA HANSON Intervals [place] Rate: 60 P: 205 CT: 156 QRS: 71 QRSD: 96 T: 213 QT: 451 QTc: 452 Interpretive Statements ATRIAL RHYTHM LATERAL INFARCT, AGE UNDETERMINED Electronically Signed On 04-04-17 06:59:15 CDT by RINA HANSON [email or web address]
[2017-04-04] MEDS ORDERED: INSULIN ASPART PROTAMINE/ASPART 70/30 100 UNIT/ML SUBCUT SCH ×2 (07:30→16:30)
[2017-04-04] MEDS: INSULIN REGULAR 100 UNIT/ML SUBCUT SCH ×4 (08:19→20:58)
[2017-04-04] MEDS: DEXTROSE 5% NACL 0.45% 1,000 ML IV SCH (08:19)
[2017-04-04] MEDS: ATORVASTATIN 40 MG TABLET PO SCH (08:36)
[2017-04-04] MEDS: METOPROLOL TARTRATE 25 MG TABLET PO SCH ×2 (08:36→20:58)
[2017-04-04] MEDS: ASPIRIN CHEW 81 MG TABLET PO SCH (08:36)
[2017-04-04 09:20] LABS: Hemoglobin A1 (Alkaline) 97.7 % (96.5-98.5); Hemoglobin A2 (Alkaline) 2.3 % (1.5-3.5)
[2017-04-04] MEDS ORDERED: GLUCAGON 1 MG VIAL IM PRN (09:37)
[2017-04-04] MEDS ORDERED: DEXTROSE 50% 25 GM/50 ML SYRINGE IV PRN (09:37)
[2017-04-04] MEDS ORDERED: SODIUM CHLORIDE 0.9% 250 ML IV PRN ×2 (11:51→15:41)
--- NOTE | 2017-04-04 12:52 | Gastrointestinal Consult Note ---
<Shira Gagnon - Last Filed: 04/04/17 12:50> Assessment and Plan (1) Diarrhea Status: Acute Assessment and plan: 04/04-One week history of diarrhea with nausea and vomiting with prior history of UC. Diarrhea has improved from onset until last night when she had an increase throughout night. Last C-scope noted as below. Check stool studies. Trace blood in stool. Slgiht drop in HH. Plan and addendum to follow by Dr Patel. Current Visit: Yes History of Present Illness Chief complaint: diarrhea History of present illness: Ms. Hurd is a 72 year old female who was admitted to the hospital with onset of SOB and chest pain. Patient is a fair historian therefore information is obtained from chart review. Patient reportedly began having onset of shortness of breath and chest pain and presented to [place] ER in which she was then transferred to our facility due to findings of abnormal labs. Pt states that approximately 4-5 days ago she had onset of nausea, vomiting and diarrhea. She states that the diarrhea felt similar to the episodes she has had in the past with her UC however she also had some associated nausea and vomiting. She denies any hematochezia or melena. Pt also denies coffee ground emesis or hemetemsis. She states she did have some abd cramping associated with this as well. She states she did not feel well from this and presented for evaluation at the ER and was found to be dehydrated as well as found to have elevated troponin. At that time she was transferred to our facility for further evaluation. Pt states that she does not recall being exposed to others who have been ill recently. She states that her diarrhea has improved this week however last night she was given OJ for a drop in her glucose and had several episodes through the night. She has a history of UC with last colonoscopy in May 2016 with findings of sigmoid ulcers and diverticulosis with pathology of hyperplastic mucosa with focal ulceration. She has had trace blood noted in stool for occult blood. She was also noted to have a slight drop in her HH from 9.6/27.5 to 8.8/25.3. She denies any overt bleeding since admission. She denies any abdominal pain or tenderness and is tolerating her diet well. She is afebrile without leukocytosis. Home Medications Medication Instructions Recorded Confirmed Type Insulin Aspart Prot/Asp 70/30 20 unit SUBCUT AC BREAKFAST 05/25/16 04/03/17 History [NovoLOG Mix 70/30] Aspirin Chew Tab 81 mg PO DAILY tablet 06/06/16 04/03/17 Rx Atorvastatin [Lipitor] 40 mg PO DAILY tablet 06/06/16 04/03/17 Rx Losartan [Cozaar] 50 mg PO DAILY #60 tablet 06/21/16 04/03/17 Rx Clopidogrel Bisulfate [Clopidogrel] 75 mg PO DAILY 09/28/16 04/03/17 History Ergocalciferol (Vitamin D2) 50,000 unit PO MOTH 09/28/16 04/03/17 History [Vitamin D2] Ferrous Sulfate Tab [Feosol 325 mg PO BID 09/28/16 04/03/17 History Original Tab] Gabapentin Cap/Tab [Neurontin 100 mg PO TID 09/28/16 04/03/17 History Cap/Tab] Insulin Aspart Prot/Asp 70/30 10 unit SUBCUT AC SUPPER 09/28/16 04/03/17 History [NovoLOG Mix 70/30] Levothyroxine Tab [Synthroid Tab] 37.5 mcg PO DAILY@0700 #30 tablet 10/01/16 Rx Allergies Allergy/AdvReac Type Severity Reaction Status Date / Time sumatriptan [From Imitrex] Allergy Difficulty Verified 04/28/16 23:12 Breathing Medical,Surgical,& Family Hx - Medical History Cardio: History of: CHF, CAD, Hypertension, [place] Psychological: No history of: Anxiety Disorders, Depression Neurology: History of: Migraine HEENT: History of: Eye Problem (cataract, "bleed behind eye") Endocrine: History of: Diabetes Mellitus (IDDM), Dyslipidemia Rheumatology: History of;: Fibromyalgia Genitourinary: History of: Recurring Urinary Tract Infections Gastrointestinal: History of: Crohn's Disease, Diverticulitis/ Diverticulosis, GERD, Pancreatitis, Ulcerative Colitis, GI Problems (pancreatic cancer) Musculoskeletal: History of: Back/Neck Problems, Musculoskeletal Problems (age related arthritis) Hematology: History of: Anemia No history of: Blood Transfusion Reaction Other: No history of: Cancer - Surgical History Cardiac Surgeries: Sugical HX of: Cardiac Catheterization (with stents) Thoracic Surgeries: Patient denies;: Organ Transplant, Lobectomy Neurologic Surgeries: Patient denies: Neurologic Surgery Abdominal Surgeries: Surgical HX of: Colonoscopy, EGD Reproductive Surgeries: Surgical HX of;: Hysterectomy Orthopedic Surgeries: Surgical HX of;: Orthopedic Surgery - Family History Family History: Reports;: Family Cancer (bone cancer, mother), Family Diabetes ( brother, siter), Family Hypertension, Family Stroke (father) - Social History Smoking Status: Never smoker Frequency of Alcohol Use: None Type of Drug Use: None 12 point system: reviewed and no additional remarkable complaints except as stated - Constitutional Constitutional: Present: as per HPI - EENT Eyes: Present: as per HPI Ears: Present: as per HPI Nose, mouth and throat: Present: as per HPI - Cardiovascular Cardiovascular: Present: as per HPI - Respiratory Respiratory: Present: as per HPI - Gastrointestinal Gastrointestinal: Present: as per HPI, cramping, diarrhea, nausea, vomiting - Genitourinary Genitourinary: Present: as per HPI - Musculoskeletal Musculoskeletal: Present: as per HPI - Neurological Neurological: Present: as per HPI - Psychiatric Psychiatric: Present: as per HPI - Endocrine Endocrine: Present: as per HPI - Hematologic/Lymphatic Hematologic/Lymphatic: Present: as per HPI Exam - Constitutional Vitals: Period Temp Pulse Resp BP Sys/[place] Pulse Ox Last 24 Hr 96.8 F-97.9 F 56-75 18-20 117-176/58-78 94-100 General appearance: normal weight, no acute distress - Head Head exam: Present: normal inspection, normocephalic - Eye Eye exam: Present: other (lids and conjunctiva unremarkable). Absent: scleral icterus - ENT ENT exam: Present: normal exam, normal oropharynx - Neck Neck exam: Present: normal inspection - Respiratory Respiratory exam: Present: clear to auscultation bilaterally. Absent: rales, rhonchi, wheezes - Cardiovascular Cardiovascular exam: Present: regular rate and rhythm. Absent: diastolic murmur , JVD, systolic murmur - GI/Abdominal GI/Abdominal exam: Present: normal bowel sounds, soft. Absent: ascites, distended, mass, organomegaly, tenderness - Extremities Exam Extremities exam: Present: normal inspection, full ROM - Back Exam Back exam: Present: normal inspection - Neurological Exam Neurological exam: Present: alert, oriented X3 - Psychiatric Psychiatric exam: Present: normal affect, normal mood - Skin Skin exam: Present: normal color, warm, dry Results - Labs CBC & BMP: 04/04/17 04:59 04/04/17 04:59 Lab Results: I have reviewed the past 24 hour labs <Cyrus Patel - Last Filed: 04/04/17 14:28> History of Present Illness History of present illness: Ms. Hurd is a 72 year old female Exam - Constitutional Vitals: Period Temp Pulse Resp BP Sys/[place] Pulse Ox Last 24 Hr 96.8 F-97.9 F 56-75 18-20 117-176/58-78 94-100 Results - Labs CBC & BMP: 04/04/17 04:59 04/04/17 04:59
[2017-04-04 13:09] LABS: % Iron Saturation 35.3 % (18-50)
--- NOTE | 2017-04-04 15:45 | Cardiology Progress Note ---
Julito Julio Lesley, DHIRAJ, am scribing for, and in the presence of, Jake Camarena MD 15:37. Assessment and Plan - Time spent with patient Time spent with patient: Greater than 30 minutes (Record review, assessment, documentation) (1) Elevated troponin Status: Acute Assessment and plan: SEE PLAN LISTED BELOW Current Visit: Yes (2) Diabetes Status: Chronic Assessment and plan: SEE PLAN LISTED BELOW Current Visit: No (3) Hypertension Status: Chronic Assessment and plan: SEE PLAN LISTED BELOW Current Visit: No (4) Atypical chest pain Problem details: heart cath 05/29/16 with stent to RCA and Ramus Intermedius Status: Acute Assessment and plan: SEE PLAN LISTED BELOW Current Visit: No (5) Ischemic cardiomyopathy Status: Acute Current Visit: Yes (6) Coronary artery disease Problem details: heart cath 05/29/16 with stent to RCA and Ramus Intermedius Status: Chronic Assessment and plan: SEE PLAN LISTED BELOW Current Visit: No Qualifiers: Coronary Disease-Associated Artery/Lesion type: chilkoot artery [place] vs. transplanted heart: chilkoot heart Associated angina: without angina Qualified Code(s): I25.10 - Atherosclerotic heart disease of chilkoot coronary artery without angina pectoris (7) Anemia Status: Chronic Assessment and plan: SEE PLAN LISTED BELOW Current Visit: No Qualifiers: Anemia type: other cause (8) Non-STEMI (non-ST elevated myocardial infarction) Status: Acute Current Visit: Yes Cardiology - PN: Subj Interval history: AWS ARCHITECT: Dr. Jaramillo Ms. Hurd is a 72 year old [place] female, who presented to ER with complaints of dyspnea, chest pain, and general malaise that started 2 days ago. She reports the chest pain is reproducible to the left substernal chest wall. She reports that she began having vomiting and diarrhea 4 days ago, and went to [place] [facility] for this. She reports she was rehydrated and although the n/v/d had resolved, she did not feel well. The patient denies hematemesis, coffee-ground emesis, hematochezia, melena. She noticed shortness of breath, chest pain and soreness to the chest wall. She reports she was transferred to [facility] ER due to an abnormal lab level. Past medical history includes CAD, CHF, hypertension, diabetes, anemia, GERD, Crohn's disease, back/neck problems. Cardiac risk factors include advanced age , sedentary lifestyle, known history of CAD with prior PCI, hypertension, ischemic cardiomyopathy, pulmonary hypertension, and dyslipidemia. 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 Family history is positive for bone cancer, diabetes, hypertension, and stroke. The patient has had no apparent follow-up with Dr. Jaramillo since her last hospitalization 09/2016. Echocardiogram done 10/04 revealed an EF of 40%, global hypokinesis with grade 1 diastolic dysfunction. Moderately increased right and left atrial size, mildly thickened mitral valve, trace mitral valve regurgitation, aortic valve sclerosis without valve regurgitation, moderate tricuspid valve regurgitation, PA 45mmHg. The patient last underwent cardiac catheterization 05/[address] Jaramillo. She required PCI to proximal RCA lesion, PTCA of the mid and distal RCA lesion, PCI to proximal ramus intermedius branch. The patient was seen lying in bed today, complains of reproducible chest wall pain and low back pain from lying in bed. Blood pressures remain elevated, the patient is being continuously monitored on telemetry. Sinus rhythm is noted with heart rate in the 60s. Labs reviewed and there is an apparent anemia, slightly lower than labs reviewed during the previous hospitalization 4 months ago. INR is 1.0, electrolytes are normalized, creatinine is 0.9, blood glucose is elevated, BNP 569. Troponin has been elevated and peaked at at 2.9. I discussed this patient's plan of care with Dr. Camarena, we will obtain an anemia profile, and guaiac stools today. If anemia remains stable, we will plan for heart catheterization tomorrow. 2016: Patient did well during the night, with some complaints of hypoglycemia. She was being held n.p.o. after midnight for possible catheterization today. She denies chest pain currently. Blood pressure this morning 161/72, pulse rate 61 , EKG shows an atrial rhythm with ST and T-wave abnormality. Hemoglobin and hematocrit have lowered to 8.8 and 25 today plan to transfuse 2 units PRBCs today. Troponin trending downward at 1.9. TSH 4.890 which is mildly elevated, the patient stated to nursing that she was no longer taking her Synthroid. Anemia panel reviewed from yesterday, ESR markedly elevated and ferritin 763, which is elevated, likely inflammatory bowel disease. Notably, the patient is on an iron supplement daily, will add TIBC and iron. Last C scope was done which revealed sigmoid ulcers and diverticulosis, pathology revealed hyperplastic colon mucosa. Plan to consult GI for history of inflammatory bowel disease. IMPRESSION/PLAN: -Anemia. Likely due to slow GI blood loss, she has ulcerative colitis. Despite markedly elevated ESR, this was thought not to be very active per GI. -Transfuse 2 PRBCs today -Stop LMWH. Continue aspirin, Plavix. -Mild ICM. Continue beta-david, resume ARB. -Angina. Likely demand. Add Imdur 30 mg daily. Follow symptoms after transfusion. -If stable after transfusion, plan for discharge tomorrow Exam (Progress Note) - Constitutional Vitals: Period Temp Pulse Resp BP Sys/Motley Pulse Ox Last 24 Hr 96.8 F-97.9 F 56-76 18-20 117-176/58-78 94-99 Exam: General: Appears well with no apparent distress. Pleasant and cooperative. Appears comfortable. HEENT: PERRL, normocephalic, atraumatic. Mucous membranes moist. No jaundice noted. Conjunctiva moist and clear, sclerae anicteric. Neck: No JVD/HJR, no thyromegaly or lymphadenopathy noted. No carotid bruit appreciated. Cardiac: Regular rate and rhythm. No murmur rub or gallop. PMI is nondisplaced. Lungs: Clear to auscultation without accessory muscle use to assist the respiratory pattern. No oxygen required. Abdomen: Soft, bowel sounds normoactive. Nontender and nondistended. No abdominal bruit or thrill noted. No masses noted. Musculoskeletal: No fluid collection. Full range of motion is noted. Extremities: No clubbing, cyanosis noted. No edema noted. Upper extremity pulses 2+. Lower extremity pulses +. Capillary refill less than 3 seconds. Skin: No unusual lesions or rashes. No skin breakdown appreciated. Neuro: Awake, alert and oriented 3. Moves all extremities well without hemiparesis or paralysis. No essential tremor is appreciated. Result/EKG - Labs CBC & BMP: 04/04/17 04:59 04/04/17 04:59 Lab Results: I have reviewed the past 24 hour labs Labs: Laboratory Results - last 24 hr 04/03/17 04/03/17 04/03/17 10:29 10:29 10:29 WBC 4.6 RBC 3.07 L Hgb 9.6 L Hct 27.5 L MCV 89.6 MCH 31 MCHC 34.9 RDW 14.0 Plt Count 278 MPV 8.6 L Neut % (Auto) 52.0 Lymph % (Auto) 38.4 Fleming % (Auto) 6.8 Eos % (Auto) 2.0 Baso % (Auto) 0.4 Neut # (Auto) 2.4 Lymph # (Auto) 1.8 Fleming # (Auto) 0.3 Eos # (Auto) 0.1 Baso # (Auto) 0.0 Immature Gran % 0.4 Nucleated RBC % 0.0 Immature Gran # 0.02 Nucleated RBCs # 0.00 Immature Plt Fraction 0.0 ESR Westergren Absolute Retic Percent Retic Retic Hgb Equivalent Hemoglobin A1 Hemoglobin A2 Hemoglobin C Hemoglobin D Hemoglobin E Hemoglobin F (ELP) Hemoglobin G Hemoglobin S Hgb ELP Interp INR 1.0 PT Patient/Control Mix 10.4 Sodium Potassium Chloride Carbon Dioxide Anion Gap BUN Creatinine GFR Calculation BUN/Creatinine Ratio Glucose POC Glucose Calculated Osmolality Calcium Magnesium Ferritin Total Creatine Kinase 68 CK-MB (CK-2) 3.1 Troponin I 2.440 H Triglycerides Cholesterol LDL Cholesterol VLDL Cholesterol HDL Cholesterol Heart Disease Risk Ratio Vitamin B12 Folate TSH 3rd Generation SHAQUILLE (IgG-AHG) SHAQU[place], Polyspecific 04/03/17 04/03/17 04/03/17 10:29 10:29 10:29 WBC 4.6 RBC 3.07 L Hgb 9.6 L Hct 27.5 L MCV 89.6 MCH 31 MCHC 34.9 RDW 14.0 Plt Count 278 MPV 8.6 L Neut % (Auto) 52.0 Lymph % (Auto) 38.4 Fleming % (Auto) 6.8 Eos % (Auto) 2.0 Baso % (Auto) 0.4 Neut # (Auto) 2.4 Lymph # (Auto) 1.8 Fleming # (Auto) 0.3 Eos # (Auto) 0.1 Baso # (Auto) 0.0 Immature Gran % 0.4 Nucleated RBC % 0.0 Immature Gran # 0.02 Nucleated RBCs # 0.00 Immature Plt Fraction 0.0 ESR Westergren 116 H Absolute Retic 0.0 Percent Retic 1.1 Retic Hgb Equivalent 29.9 Hemoglobin A1 Hemoglobin A2 Hemoglobin C Hemoglobin D Hemoglobin E Hemoglobin F (ELP) Hemoglobin G Hemoglobin S Hgb ELP Interp INR PT Patient/Control Mix Sodium 137 Potassium 3.8 Chloride 103 Carbon Dioxide 28 Anion Gap 9.8 BUN 16 Creatinine 0.90 GFR Calculation 55 BUN/Creatinine Ratio 17.00 Glucose 223 H POC Glucose Calculated Osmolality 280.8 Calcium 8.2 L Magnesium 1.9 Ferritin 763.3 H Total Creatine Kinase CK-MB (CK-2) Troponin I Triglycerides Cholesterol LDL Cholesterol VLDL Cholesterol HDL Cholesterol Heart Disease Risk Ratio Vitamin B12 Folate TSH 3rd Generation SHAQU[place]LE (IgG-AHG) [place], Polyspecific 04/03/17 04/03/17 04/03/17 10:29 11:08 15:26 WBC RBC Hgb Hct MCV MCH MCHC RDW Plt Count MPV Neut % (Auto) Lymph % (Auto) Fleming % (Auto) Eos % (Auto) Baso % (Auto) Neut # (Auto) Lymph # (Auto) Fleming # (Auto) Eos # (Auto) Baso # (Auto) Immature Gran % Nucleated RBC % Immature Gran # Nucleated RBCs # Immature Plt Fraction ESR [place]estergren Absolute Retic Percent Retic Retic Hgb Equivalent Hemoglobin A1 97.7 Hemoglobin A2 2.3 Hemoglobin C Not Reportable Hemoglobin D Not Reportable Hemoglobin E Not Reportable Hemoglobin F (ELP) Not Reportable Hemoglobin G Not Reportable Hemoglobin S Not Reportable Hgb ELP Interp INR PT Patient/Control Mix Sodium Potassium Chloride Carbon Dioxide Anion Gap BUN Creatinine GFR Calculation BUN/Creatinine Ratio Glucose POC Glucose 256 H 238 H Calculated Osmolality Calcium Magnesium Ferritin Total Creatine Kinase CK-MB (CK-2) Troponin I Triglycerides Cholesterol LDL Cholesterol VLDL Cholesterol HDL Cholesterol Heart Disease Risk Ratio Vitamin B12 408 Folate 19.8 TSH 3rd Generation SHAQU[place]LE (IgG-AHG) [place], Polyspecific 04/03/17 04/03/17 04/03/17 20:11 20:38 21:52 WBC RBC Hgb Hct MCV MCH MCHC RDW Plt Count MPV Neut % (Auto) Lymph % (Auto) [place] % (Auto) Eos % (Auto) Baso % (Auto) Neut # (Auto) Lymph # (Auto) Fleming # (Auto) Eos # (Auto) Baso # (Auto) Immature Gran % Nucleated RBC % Immature Gran # Nucleated RBCs # Immature Plt Fraction ESR [place] Absolute Retic Percent Retic Retic Hgb Equivalent Hemoglobin A1 Hemoglobin A2 Hemoglobin C Hemoglobin D Hemoglobin E Hemoglobin F (ELP) Hemoglobin G Hemoglobin S Hgb ELP Interp INR PT Patient/Control Mix Sodium Potassium Chloride Carbon Dioxide Anion Gap BUN Creatinine GFR Calculation BUN/Creatinine Ratio Glucose POC Glucose 68 L 71 L 134 H Calculated Osmolality Calcium Magnesium Ferritin Total Creatine Kinase CK-MB (CK-2) Troponin I Triglycerides Cholesterol LDL Cholesterol VLDL Cholesterol HDL Cholesterol Heart Disease Risk Ratio Vitamin B12 Folate TSH 3rd Generation [place] (IgG-AHG) [place], Polyspecific 04/03/17 04/04/17 04/04/17 23:33 00:27 04:59 WBC RBC Hgb Hct MCV MCH MCHC RDW Plt Count MPV Neut % (Auto) Lymph % (Auto) Fleming % (Auto) Eos % (Auto) Baso % (Auto) Neut # (Auto) Lymph # (Auto) Fleming # (Auto) Eos # (Auto) Baso # (Auto) Immature Gran % Nucleated RBC % Immature Gran # Nucleated RBCs # Immature Plt Fraction ESR [place] Absolute Retic Percent Retic Retic Hgb Equivalent Hemoglobin A1 Hemoglobin A2 Hemoglobin C Hemoglobin D Hemoglobin E Hemoglobin F (ELP) Hemoglobin G Hemoglobin S Hgb ELP Interp INR PT Patient/Control Mix Sodium Potassium Chloride Carbon Dioxide Anion Gap BUN Creatinine GFR Calculation BUN/Creatinine Ratio Glucose POC Glucose 87 93 Calculated Osmolality Calcium Magnesium 2.0 Ferritin Total Creatine Kinase CK-MB (CK-2) Troponin I Triglycerides 80 Cholesterol 163 LDL Cholesterol 109.0 VLDL Cholesterol 16.0 HDL Cholesterol 47 Heart Disease Risk Ratio 3.47 Vitamin B12 Folate TSH 3rd Generation 4.890 H SHAQUILLE (IgG-AHG) [place], Polyspecific 04/04/17 04/04/17 04/04/17 04:59 04:59 05:47 WBC 4.7 RBC 2.81 L Hgb 8.8 L Hct 25.3 L MCV 90.0 MCH 31 MCHC 34.8 RDW 13.9 Plt Count 278 MPV 8.6 L Neut % (Auto) 40.6 Lymph % (Auto) 46.7 Fleming % (Auto) 9.9 Eos % (Auto) 1.5 Baso % (Auto) 0.4 Neut # (Auto) 1.9 Lymph # (Auto) 2.2 Fleming # (Auto) 0.5 Eos # (Auto) 0.1 Baso # (Auto) 0.0 Immature Gran % 0.9 Nucleated RBC % 0.0 Immature Gran # 0.04 Nucleated RBCs # 0.00 Immature Plt Fraction 0.0 ESR W[place]gren Absolute Retic Percent Retic Retic Hgb Equivalent Hemoglobin A1 Hemoglobin A2 Hemoglobin C Hemoglobin D Hemoglobin E Hemoglobin F (ELP) Hemoglobin G Hemoglobin S Hgb ELP Interp INR PT Patient/Control Mix Sodium 137 Potassium 4.2 Chloride 105 Carbon Dioxide 25 Anion Gap 11.2 BUN 17 Creatinine 0.90 GFR Calculation 55 BUN/Creatinine Ratio 18.00 Glucose 89 POC Glucose 97 Calculated Osmolality 273.8 Calcium 8.2 L Magnesium 2.0 Ferritin Total Creatine Kinase 52 D CK-MB (CK-2) 1.6 Troponin I 1.910 H D Triglycerides Cholesterol LDL Cholesterol VLDL Cholesterol HDL Cholesterol Heart Disease Risk Ratio Vitamin B12 Folate TSH 3rd Generation SHA[place] (IgG-AHG) [place], Polyspecific 04/04/17 04/04/17 07:27 12:27 WBC RBC Hgb Hct MCV MCH MCHC RDW Plt Count MPV Neut % (Auto) Lymph % (Auto) Fleming % (Auto) Eos % (Auto) Baso % (Auto) Neut # (Auto) Lymph # (Auto) Fleming # (Auto) Eos # (Auto) Baso # (Auto) Immature Gran % Nucleated RBC % Immature Gran # Nucleated RBCs # Immature Plt Fraction ESR Westergren Absolute Retic Percent Retic Retic Hgb Equivalent Hemoglobin A1 Hemoglobin A2 Hemoglobin C Hemoglobin D Hemoglobin E Hemoglobin F (ELP) Hemoglobin G Hemoglobin S Hgb ELP Interp INR PT Patient/Control Mix Sodium Potassium Chloride Carbon Dioxide Anion Gap BUN Creatinine GFR Calculation BUN/Creatinine Ratio Glucose POC Glucose 117 H Calculated Osmolality Calcium Magnesium Ferritin Total Creatine Kinase CK-MB (CK-2) Troponin I Triglycerides Cholesterol LDL Cholesterol VLDL Cholesterol HDL Cholesterol Heart Disease Risk Ratio Vitamin B12 Folate TSH 3rd Generation SHAQU[place] (IgG-AHG) Negative SHAQUIL[place], Polyspecific Negative - Diagnostic Findings Procedure: Chest x-ray: report reviewed by me - EKG EKG results: interpreted by me (Atrial rhythm) Nicol Julio Attila, MD, personally performed the services described in this documentation, ascribed by Edwina Vila NP in my presence, and it is both accurate and complete [id number] .
[2017-04-04] MEDS ORDERED: ACETAMINOPHEN 500 MG TABLET PO PRN (16:21)
[2017-04-04] MEDS: CLOPIDOGREL 75 MG TABLET PO SCH (16:36)
[2017-04-04] MEDS: LOSARTAN 50 MG TABLET PO SCH (16:36)
[2017-04-04] MEDS: PANTOPRAZOLE 40 MG TABLET PO SCH (16:36)
[2017-04-04] MEDS: ISOSORBIDE MONONITRATE 30 MG TABLET PO SCH (16:36)
[2017-04-04] MEDS: INSULIN ASPART PROTAMINE/ASPART 70/30 100 UNIT/ML SUBCUT SCH (16:37)
[2017-04-04] MEDS: GABAPENTIN 100 MG CAPSULE PO SCH (20:58)
[2017-04-04] MEDS: FERROUS SULFATE 325 MG TABLET PO SCH (20:58)
[2017-04-05 06:08] LABS: Basophils % 0.7 % (0.0-0.8); Eosinophils # 0.1 10*3/uL (0.0-0.87); Eosinophils % 1.7 % (0.00-10.9); Hematocrit 33.6 VOL% (35.7-47.0); Hemoglobin 11.7 GM/DL (12.0-16.0); Immature Granulocytes % 1.5 %; Immature Granulocytes Absolute 0.06 #; Lymphocytes # 1.9 10*3/uL (1.4-4.0); Lymphocytes % 45.9 % (21.3-54.2); Mean Corpuscular HGB Conc 34.8 GM/DL (32-36); Mean Corpuscular Hemoglobin 31 PG (27-34); Mean Corpuscular Volume 89.4 FL (87-102); Mean Platelet Volume 8.5 FL (9.6-12.0); Monocytes # 0.4 10*3/uL (0.11-0.8); Monocytes % 10.9 % (1.7-12.7); Neutrophils # 1.6 10*3/uL (1.4-7.4); Neutrophils % 39.3 % (38.7-73.9); Platelet Count 257 T/CUMM (130-400); Red Blood Count 3.76 MC/CUMM (3.8-5.5); Red Cell Distribution Width 14.3 % (9.3-17.3)
[2017-04-05 06:40] LABS: Calcium 8.3 MG/DL (8.5-10.1); Osmolality,Calculated 279.5 MOS/KG (273-304); Potassium 4.3 MMOL/L (3.5-5.1)
[2017-04-05] MEDS ORDERED: LEVOTHYROXINE 75 MCG TABLET PO SCH (07:00)
[2017-04-05] MEDS ORDERED: INSULIN ASPART PROTAMINE/ASPART 70/30 100 UNIT/ML SUBCUT SCH (07:30)
[2017-04-05 08:09] LABS: Macrocytosis 1+
[2017-04-05] MEDS: INSULIN REGULAR 100 UNIT/ML SUBCUT SCH ×2 (08:33→11:49)
[2017-04-05] MEDS: GABAPENTIN 100 MG CAPSULE PO SCH (08:34)
[2017-04-05] MEDS: CLOPIDOGREL 75 MG TABLET PO SCH (08:34)
[2017-04-05] MEDS: METOPROLOL TARTRATE 25 MG TABLET PO SCH (08:34)
[2017-04-05] MEDS: LOSARTAN 50 MG TABLET PO SCH (08:34)
[2017-04-05] MEDS: FERROUS SULFATE 325 MG TABLET PO SCH (08:34)
[2017-04-05] MEDS: ASPIRIN CHEW 81 MG TABLET PO SCH (08:35)
[2017-04-05] MEDS: PANTOPRAZOLE 40 MG TABLET PO SCH (08:35)
[2017-04-05] MEDS: ATORVASTATIN 40 MG TABLET PO SCH (08:35)
[2017-04-05] MEDS: ISOSORBIDE MONONITRATE 30 MG TABLET PO SCH (08:35)
--- NOTE | 2017-04-05 09:15 | Discharge Summary ---
Hospital Course - Hospital Course Hospital Course: Ms. Garvey is a 72-year-old female, followed by Dr. Jaramillo. History of CAD, status post PCI 2015. She was admitted with anemia, mild demand ischemia, chest pain. She has a history of ulcerative colitis, which symptomatically, was not very active. Labs however, showed a markedly elevated ESR. Her cardiac regimen was adjusted, she did not have angina or CHF during hospital stay. GI was consulted, the ulcerative Colitis Was Deemed Not to Be Very Active and No Inpatient Workup or Active Treatment Changes Were Pursued. She was transfused 2 PRBCs, with good response. We will continue iron supplements. She will follow-up with Dr. Jaramillo in 2 weeks. Repeat CBC Continue aspirin, clopidogrel. Diffuse CAD, status post PCI Continue statin. Beta-david was added. Mild, asymptomatic baseline bradycardia Imdur was added. PPI was added She will also need to follow-up with GI. Diagnosis - Discharge Diagnosis (1) Elevated troponin Status: Acute (2) Diabetes Status: Chronic (3) Hypertension Status: Chronic (4) Atypical chest pain Status: Acute (5) Ischemic cardiomyopathy Status: Acute (6) Coronary artery disease Status: Chronic (7) Anemia Status: Chronic (8) Non-STEMI (non-ST elevated myocardial infarction) Status: Acute Discharge Plan - Discharge Data Disposition: Disch To Home/Self Care Condition at Discharge: Stable Discharge Diet: advance to your usual diet Activity: resume usual activities as tolerated Hygiene: no restrictions Weight Bearing at Discharge: full weight bearing Driving: no restrictions Contact your physician if you experience:: fever over 101, Difficulty voiding, Redness or swelling, Nausea/Vomiting, Shortness of breath, Bleeding, pain uncontrolled by pain medications - Discharge Medications New Isosorbide Mononitrate [Imdur] 30 mg PO DAILY #30 tablet Metoprolol Tartrate Tab [Lopressor Tab] 25 mg PO BID #60 tablet Pantoprazole Tab [Protonix Tab] 40 mg PO DAILY #30 tablet Continue Insulin Aspart Prot/Asp 70/30 [NovoLOG Mix 70/30] 20 unit SUBCUT AC BREAKFAST Aspirin Chew Tab 81 mg PO DAILY tablet Atorvastatin [Lipitor] 40 mg PO DAILY tablet Losartan [Cozaar] 50 mg PO DAILY #60 tablet Clopidogrel Bisulfate [Clopidogrel] 75 mg PO DAILY Ferrous Sulfate Tab [Feosol Original Tab] 325 mg PO BID Gabapentin Cap/Tab [Neurontin Cap/Tab] 100 mg PO TID Insulin Aspart Prot/Asp 70/30 [NovoLOG Mix 70/30] 10 unit SUBCUT AC SUPPER Ergocalciferol (Vitamin D2) [Vitamin D2] 50,000 unit PO MOTH Levothyroxine Tab [Synthroid Tab] 37.5 mcg PO DAILY@0700 #30 tablet - Follow Up or Referral Follow Up: Vickey Jaramillo MD [Physician] - 2 Weeks (check CBC Also FU with GI in 4 weeks) - Forms/Instructions Exam - Constitutional Vitals: Period Temp Pulse Resp BP Sys/Motley Pulse Ox Last 24 Hr 96.2 F-98.8 F 51-68 16-20 95-162/50-75 94-100 General appearance: normal weight, no acute distress - Head Head exam: Present: normal inspection. Absent: abrasion, contusion - Eye Eye exam: Absent: periorbital swelling, scleral icterus, laceration to eyelids Pupils: Absent: dilated - ENT ENT exam: Present: normal external ear exam - Neck Neck exam: Present: normal inspection - Respiratory Respiratory exam: Present: clear to auscultation bilaterally. Absent: chest wall tenderness - Cardiovascular Cardiovascular exam: Present: regular rate and rhythm. Absent: JVD, systolic murmur - GI/Abdominal GI/Abdominal exam: Present: normal bowel sounds. Absent: distended - Extremities Exam Extremities exam: Present: normal inspection, normal capillary refill. Absent: edema - Back Exam Back exam: Present: normal inspection - Neurological Exam Neurological exam: Present: alert, oriented X3 - Psychiatric Psychiatric exam: Present: normal affect, normal mood - Skin Skin exam: Present: normal color, warm. Absent: cyanosis Discharge Results Procedures and tests throughout hospitalization: Pending Orders 04/04/17 00:00 Occult Blood, Stool Routine 04/06/17 04:00 BMP w/ Mg [Basic Metabolic Panel w/Mg] IN AM CBC [Comp Blood Count Auto Diff] IN AM 04/07/17 04:00 BMP w/ Mg [Basic Metabolic Panel w/Mg] IN AM CBC [Comp Blood Count Auto Diff] IN AM Labs on day of discharge: Labs from last 24 hours 04/05/17 04/05/17 04/05/17 08:33 05:25 05:25 WBC 4.0 RBC 3.76 L D Hgb 11.7 L D Hct 33.6 L MCV 89.4 MCH 31 MCHC 34.8 RDW 14.3 Plt Count 257 MPV 8.5 L Neut % (Auto) 39.3 Lymph % (Auto) 45.9 [place] % (Auto) 10.9 Eos % (Auto) 1.7 Baso % (Auto) 0.7 Neut # (Auto) 1.6 Lymph # (Auto) 1.9 [place] # (Auto) 0.4 Eos # (Auto) 0.1 Baso # (Auto) 0.0 Immature Gran % 1.5 Nucleated RBC % 0.0 Immature Gran # 0.06 Nucleated RBCs # 0.00 Anemia Panel Interp Immature Plt Fraction 0.0 Macrocytosis 1+ Hemoglobin A1 Hemoglobin A2 Hemoglobin C Hemoglobin D Hemoglobin E Hemoglobin F (ELP) Hemoglobin G Hemoglobin S Hgb ELP Interp Sodium 139 Potassium 4.3 Chloride 108 H Carbon Dioxide 28 Anion Gap 7.3 BUN 23 H Creatinine 1.10 H GFR Calculation 44 BUN/Creatinine Ratio 20.00 Glucose 89 POC Glucose 114 H Calculated Osmolality 279.5 Calcium 8.3 L Magnesium 2.0 Iron TIBC % Saturation Blood Type Antibody Screen Crossmatch 04/04/17 04/04/17 04/04/17 19:40 18:55 16:37 WBC RBC Hgb Hct MCV MCH MCHC RDW Plt Count MPV Neut % (Auto) Lymph % (Auto) [place] % (Auto) Eos % (Auto) Baso % (Auto) Neut # (Auto) Lymph # (Auto) [place] # (Auto) Eos # (Auto) Baso # (Auto) Immature Gran % Nucleated RBC % Immature Gran # Nucleated RBCs # Anemia Panel Interp Immature Plt Fraction Macrocytosis Hemoglobin A1 Hemoglobin A2 Hemoglobin C Hemoglobin D Hemoglobin E Hemoglobin F (ELP) Hemoglobin G Hemoglobin S Hgb ELP Interp Sodium Potassium Chloride Carbon Dioxide Anion Gap BUN Creatinine GFR Calculation BUN/Creatinine Ratio Glucose POC Glucose 156 H 179 H Calculated Osmolality Calcium Magnesium Iron TIBC % Saturation Blood Type O POSITIVE Antibody Screen Crossmatch 04/04/17 04/04/17 04/04/17 16:37 16:33 15:19 WBC RBC Hgb Hct MCV MCH MCHC RDW Plt Count MPV Neut % (Auto) Lymph % (Auto) [place] % (Auto) Eos % (Auto) Baso % (Auto) Neut # (Auto) Lymph # (Auto) [place] # (Auto) Eos # (Auto) Baso # (Auto) Immature Gran % Nucleated RBC % Immature Gran # Nucleated RBCs # Anemia Panel Interp Immature Plt Fraction Macrocytosis Hemoglobin A1 Hemoglobin A2 Hemoglobin C Hemoglobin D Hemoglobin E Hemoglobin F (ELP) Hemoglobin G Hemoglobin S Hgb ELP Interp Sodium Potassium Chloride Carbon Dioxide Anion Gap BUN Creatinine GFR Calculation BUN/Creatinine Ratio Glucose POC Glucose 199 H 192 H Calculated Osmolality Calcium Magnesium Iron TIBC % Saturation Blood Type O POSITIVE Antibody Screen Negative Crossmatch See Detail 04/04/17 04/04/17 04/03/17 11:29 04:57 10:29 WBC RBC Hgb Hct MCV MCH MCHC RDW Plt Count MPV Neut % (Auto) Lymph % (Auto) [place] % (Auto) Eos % (Auto) Baso % (Auto) Neut # (Auto) Lymph # (Auto) [place] # (Auto) Eos # (Auto) Baso # (Auto) Immature Gran % Nucleated RBC % Immature Gran # Nucleated RBCs # Anemia Panel Interp Immature Plt Fraction Macrocytosis Hemoglobin A1 97.7 Hemoglobin A2 2.3 Hemoglobin C Not Reportable Hemoglobin D Not Reportable Hemoglobin E Not Reportable Hemoglobin F (ELP) Not Reportable Hemoglobin G Not Reportable Hemoglobin S Not Reportable Hgb ELP Interp Sodium Potassium Chloride Carbon Dioxide Anion Gap BUN Creatinine GFR Calculation BUN/Creatinine Ratio Glucose POC Glucose 197 H Calculated Osmolality Calcium Magnesium Iron 71 TIBC 201 L % Saturation 35.3 Blood Type Antibody Screen Crossmatch 04/03/17 10:29 WBC RBC Hgb Hct MCV MCH MCHC RDW Plt Count MPV Neut % (Auto) Lymph % (Auto) [place] % (Auto) Eos % (Auto) Baso % (Auto) Neut # (Auto) Lymph # (Auto) [place] # (Auto) Eos # (Auto) Baso # (Auto) Immature Gran % Nucleated RBC % Immature Gran # Nucleated RBCs # Anemia Panel Interp Immature Plt Fraction Macrocytosis Hemoglobin A1 Hemoglobin A2 Hemoglobin C Hemoglobin D Hemoglobin E Hemoglobin F (ELP) Hemoglobin G Hemoglobin S Hgb ELP Interp Sodium Potassium Chloride Carbon Dioxide Anion Gap BUN Creatinine GFR Calculation BUN/Creatinine Ratio Glucose POC Glucose Calculated Osmolality Calcium Magnesium Iron TIBC % Saturation Blood Type Antibody Screen Crossmatch - Imaging and Cardiology Cardiology Procedure: image reviewed by me, report reviewed by me DS: Provider Date of admission: 04/03/17 04:26 Primary care physician: Robert Horowitz MD Attending physician on admission: Jake Camarena MD Consults: 04/03/17 07:18 Consult to Pastoral Services [CONS] Routine Comment: Pastoral Screen: Request Physician Support Coordinator Visit 04/04/17 11:52 Consult to Physician [CONS] Routine Comment: Pt. seen by Dr. Patel 10/04 in hospital Consulting Provider: Consult to Specialist Group: Gastroenterology When should Consulting Provider be notified: Now Discharging clinician: Jake Camarena MD Expected date of discharge: 04/05/17
[2017-04-05 11:30] VITALS: BP 139/74
[2017-04-07] MEDS ORDERED: ERGOCALCIFEROL 50,000 UNIT CAPSULE PO SCH (09:00)
== END 2017-04-05 12:10 | disposition home or self-care (01) | DRG 281 ==
LOC: EDBD → EDUNIT# → N.ED 02:16 → N.EDINP 04:26 → N.TELEN 05:03
PROVIDERS: ADMIT Internal Medicine Clinical Cardiac Electrophysiology; ATTEND Internal Medicine Clinical Cardiac Electrophysiology

== ENCOUNTER 2017-07-07 18:15 | Observation (INO) ==
[2017-07-07] MEDS ORDERED: ONDANSETRON 4 MG/2 ML VIAL IV PRN (19:14)
[2017-07-07] MEDS ORDERED: POTASSIUM CHLORIDE 20 MEQ TABLET PO PRN (19:14)
[2017-07-07] MEDS ORDERED: MAGNESIUM SULF RIDER 2 GM in PREMIX 1 EACH IV PRN (19:14)
[2017-07-07] MEDS ORDERED: MORPHINE 2 MG/1 ML SYRINGE IV PRN (19:14)
[2017-07-07] MEDS ORDERED: SODIUM POLYSTYRENE SULFATE 15 GM/60 ML BOTTLE PO STA (19:27)
[2017-07-07] MEDS ORDERED: ERGOCALCIFEROL 50,000 UNIT CAPSULE PO SCH (19:30)
[2017-07-07] MEDS ORDERED: ENOXAPARIN 100 MG/ML SYRINGE SUBCUT SCH (19:30)
[2017-07-07 19:36] LABS: Basophils % 0.5 % (0.0-0.8); Eosinophils # 0.1 10*3/uL (0.0-0.87); Eosinophils % 1.5 % (0.00-10.9); Hematocrit 27.5 VOL% (35.7-47.0); Hemoglobin 9.1 GM/DL (12.0-16.0); Immature Granulocytes % 0.3 %; Immature Granulocytes Absolute 0.02 #; Lymphocytes # 2.3 10*3/uL (1.4-4.0); Lymphocytes % 37.9 % (21.3-54.2); Mean Corpuscular HGB Conc 33.1 GM/DL (32-36); Mean Corpuscular Hemoglobin 31 PG (27-34); Mean Corpuscular Volume 92.6 FL (87-102); Monocytes # 0.4 10*3/uL (0.11-0.8); Monocytes % 6.4 % (1.7-12.7); Neutrophils # 3.3 10*3/uL (1.4-7.4); Neutrophils % 53.4 % (38.7-73.9); Platelet Count 264 T/CUMM (130-400); Red Blood Count 2.97 MC/CUMM (3.8-5.5); Red Cell Distribution Width 13.9 % (9.3-17.3); White Blood Count 6.1 T/CUMM (4-12)
[2017-07-07 19:51] LABS: Alanine Aminotransferase 19 U/L (13-56); Albumin 2.9 G/DL (3.4-5.0); Alkaline Phosphatase 130 U/L (45-117); Aspartate Amino Transferase 15 U/L (0-37); Bilirubin,Total < 0.39 MG/DL (0.2-1.0); Blood Urea Nitrogen 25 MG/DL (7-18); Calcium 8.6 MG/DL (8.5-10.1); Glucose 96 MG/DL (74-106); Osmolality,Calculated 269.4 MOS/KG (273-304); Potassium 5.1 MMOL/L (3.5-5.1); Sodium 133 MMOL/L (136-145); Total Protein 6.9 G/DL (6.4-8.3)
[2017-07-07] MEDS ORDERED: INSULIN ASPART PROTAMINE/ASPART 70/30 100 UNIT/ML SUBCUT SCH (20:00)
[2017-07-07] MEDS: ENOXAPARIN 40 MG/0.4 ML SYRINGE SUBCUT SCH (23:00)
[2017-07-07] MEDS: FERROUS SULFATE 325 MG TABLET PO SCH (23:01)
[2017-07-07] MEDS: ROSUVASTATIN 20 MG TABLET PO SCH (23:01)
[2017-07-07] MEDS: METOPROLOL TARTRATE 25 MG TABLET PO SCH (23:01)
[2017-07-07] MEDS: GABAPENTIN 100 MG CAPSULE PO SCH (23:01)
[2017-07-07] MEDS: KETOROLAC 15 MG/1 ML VIAL IV PRN (23:02)
[2017-07-08 04:51] LABS: Risk Ratio 2.91; VLDL CHOLESTEROL 19.4 MG/DL
[2017-07-08] MEDS ORDERED: SODIUM CHLORIDE 0.9% 1,000 ML IV SCH (05:00)
[2017-07-08 05:54] LABS: Basophils % 0.2 % (0.0-0.8); Eosinophils # 0.1 10*3/uL (0.0-0.87); Eosinophils % 2.2 % (0.00-10.9); Hematocrit 28.6 VOL% (35.7-47.0); Hemoglobin 9.7 GM/DL (12.0-16.0); Immature Granulocytes % 0.4 %; Immature Granulocytes Absolute 0.02 #; Lymphocytes # 0.9 10*3/uL (1.4-4.0); Lymphocytes % 18.6 % (21.3-54.2); Mean Corpuscular HGB Conc 33.9 GM/DL (32-36); Mean Corpuscular Hemoglobin 31 PG (27-34); Mean Corpuscular Volume 91.7 FL (87-102); Mean Platelet Volume 8.4 FL (9.6-12.0); Monocytes # 0.2 10*3/uL (0.11-0.8); Monocytes % 4.6 % (1.7-12.7); Neutrophils # 3.7 10*3/uL (1.4-7.4); Platelet Count 226 T/CUMM (130-400); Red Blood Count 3.12 MC/CUMM (3.8-5.5)
[2017-07-08 05:59] LABS: INR 0.9; Partial Thromboplastin Time 34.6 SECS (0-40)
[2017-07-08 06:35] LABS: Alanine Aminotransferase 18 U/L (13-56); Albumin 2.8 G/DL (3.4-5.0); Alkaline Phosphatase 135 U/L (45-117); Aspartate Amino Transferase 20 U/L (0-37); Bilirubin,Total < 0.39 MG/DL (0.2-1.0); Blood Urea Nitrogen 30 MG/DL (7-18); Calcium 8.7 MG/DL (8.5-10.1); Glucose 83 MG/DL (74-106); Osmolality,Calculated 279.7 MOS/KG (273-304); Sodium 138 MMOL/L (136-145); Total Protein 6.3 G/DL (6.4-8.3)
[2017-07-08] MEDS ORDERED: INSULIN ASPART PROTAMINE/ASPART 70/30 100 UNIT/ML SUBCUT SCH ×3 (07:30→15:42)
[2017-07-08] MEDS: KETOROLAC 15 MG/1 ML VIAL IV PRN ×3 (08:31→21:56)
[2017-07-08] MEDS ORDERED: LOSARTAN 50 MG TABLET PO SCH (09:00)
[2017-07-08] MEDS: METOPROLOL TARTRATE 25 MG TABLET PO SCH ×2 (09:14→21:50)
[2017-07-08] MEDS: GABAPENTIN 100 MG CAPSULE PO SCH ×3 (09:14→21:50)
[2017-07-08] MEDS: FERROUS SULFATE 325 MG TABLET PO SCH ×2 (09:14→21:50)
[2017-07-08] MEDS: ASPIRIN EC 325 MG TABLET PO SCH (09:14)
[2017-07-08] MEDS: PANTOPRAZOLE 40 MG TABLET PO SCH (09:14)
[2017-07-08] MEDS: CLOPIDOGREL 75 MG TABLET PO SCH (09:14)
[2017-07-08] MEDS: ISOSORBIDE MONONITRATE 30 MG TABLET PO SCH (09:14)
[2017-07-08] MEDS: FLUTICASONE 50 MCG NASAL SPRAY 16 GM BOTTLE BOTH NARES SCH (09:15)
[2017-07-08] MEDS: SODIUM CHLORIDE 0.9% 1,000 ML IV SCH ×2 (10:41→21:55)
[2017-07-08] MEDS: ROSUVASTATIN 20 MG TABLET PO SCH (21:50)
[2017-07-08] MEDS: ENOXAPARIN 40 MG/0.4 ML SYRINGE SUBCUT SCH (21:50)
[2017-07-09] MEDS: SODIUM CHLORIDE 0.9% 1,000 ML IV SCH (07:54)
[2017-07-09] MEDS: CLOPIDOGREL 75 MG TABLET PO SCH (09:04)
[2017-07-09] MEDS: METOPROLOL TARTRATE 25 MG TABLET PO SCH (09:04)
[2017-07-09] MEDS: GABAPENTIN 100 MG CAPSULE PO SCH (09:05)
[2017-07-09] MEDS: FERROUS SULFATE 325 MG TABLET PO SCH (09:05)
[2017-07-09] MEDS: PANTOPRAZOLE 40 MG TABLET PO SCH (09:05)
[2017-07-09] MEDS: ASPIRIN EC 325 MG TABLET PO SCH (09:05)
[2017-07-09] MEDS: ISOSORBIDE MONONITRATE 30 MG TABLET PO SCH (09:05)
[2017-07-09] MEDS: FLUTICASONE 50 MCG NASAL SPRAY 16 GM BOTTLE BOTH NARES SCH (09:05)
[2017-07-09] MEDS ORDERED: DIPHENOXYLATE/ATROPINE 2.5-0.025 MG TABLET PO PRN (10:43)
[2017-07-09 12:33] VITALS: BP 139/61
[2017-07-09] MEDS ORDERED: ENOXAPARIN 30 MG/0.3 ML SYRINGE SUBCUT SCH (21:00)
== END 2017-07-09 14:05 | disposition home or self-care (01) ==
LOC: EDBD → EDUNIT# → N.ED 18:15 → N.EDINP 18:15 → N.TELES 19:39
PROVIDERS: ADMIT Internal Medicine; ATTEND Internal Medicine

== ENCOUNTER 2017-10-04 14:45 | Inpatient (IN) ==
[2017-10-04 17:38] LABS: Basophils % 0.5 % (0.0-0.8); Hematocrit 31.2 VOL% (35.7-47.0); Hemoglobin 10.6 GM/DL (12.0-16.0); Immature Granulocytes % 0.3 %; Immature Granulocytes Absolute 0.01 #; Lymphocytes # 1.6 10*3/uL (1.4-4.0); Lymphocytes % 41.2 % (21.3-54.2); Mean Corpuscular Hemoglobin 31 PG (27-34); Mean Corpuscular Volume 91.5 FL (87-102); Mean Platelet Volume 8.4 FL (9.6-12.0); Monocytes # 0.3 10*3/uL (0.11-0.8); Neutrophils # 1.9 10*3/uL (1.4-7.4); Platelet Count 226 T/CUMM (130-400); Red Blood Count 3.41 MC/CUMM (3.8-5.5); White Blood Count 3.9 T/CUMM (4-12)
[2017-10-04] MEDS ORDERED: GLUCAGON 1 MG VIAL IM PRN (17:54)
[2017-10-04 18:22] LABS: Blood Urea Nitrogen 28 MG/DL (7-18); Calcium 8.6 MG/DL (8.5-10.1); Glucose 392 MG/DL (74-106); Osmolality,Calculated 291.1 MOS/KG (273-304); Potassium 4.3 MMOL/L (3.5-5.1); Sodium 135 MMOL/L (136-145)
[2017-10-04 18:24] LABS: Troponin I Only 0.117 NG/ML (0.00-0.045)
[2017-10-04] MEDS: INSULIN LISPRO 100 UNIT/ML SUBCUT SCH ×2 (18:40→20:52)
[2017-10-04] MEDS: INSULIN ASPART PROTAMINE/ASPART 70/30 100 UNIT/ML SUBCUT SCH (20:23)
[2017-10-04] MEDS: FERROUS SULFATE 325 MG TABLET PO SCH (20:52)
[2017-10-04] MEDS: METOPROLOL TARTRATE 25 MG TABLET PO SCH (20:52)
[2017-10-04] MEDS: GABAPENTIN 100 MG CAPSULE PO SCH (20:52)
[2017-10-05] MEDS: DEXTROSE 50% 25 GM/50 ML VIAL IV PRN (00:04)
[2017-10-05 04:39] LABS: Basophils % 0.5 % (0.0-0.8); Eosinophils # 0.1 10*3/uL (0.0-0.87); Eosinophils % 1.3 % (0.00-10.9); Hematocrit 28.2 VOL% (35.7-47.0); Hemoglobin 9.9 GM/DL (12.0-16.0); Immature Granulocytes % 0.3 %; Immature Granulocytes Absolute 0.01 #; Lymphocytes # 1.9 10*3/uL (1.4-4.0); Lymphocytes % 48.2 % (21.3-54.2); Mean Corpuscular HGB Conc 35.1 GM/DL (32-36); Mean Corpuscular Hemoglobin 31 PG (27-34); Mean Corpuscular Volume 88.4 FL (87-102); Mean Platelet Volume 8.7 FL (9.6-12.0); Monocytes # 0.4 10*3/uL (0.11-0.8); Monocytes % 9.5 % (1.7-12.7); Neutrophils # 1.6 10*3/uL (1.4-7.4); Neutrophils % 40.2 % (38.7-73.9); Platelet Count 229 T/CUMM (130-400); Red Blood Count 3.19 MC/CUMM (3.8-5.5); Red Cell Distribution Width 13.2 % (9.3-17.3); White Blood Count 3.9 T/CUMM (4-12)
[2017-10-05 05:07] LABS: Calcium 8.4 MG/DL (8.5-10.1); Osmolality,Calculated 283.7 MOS/KG (273-304); Potassium 3.8 MMOL/L (3.5-5.1)
[2017-10-05 05:21] LABS: Troponin I Only 0.421 NG/ML (0.00-0.045)
[2017-10-05] MEDS: METOPROLOL TARTRATE 25 MG TABLET PO SCH ×2 (08:47→20:54)
[2017-10-05] MEDS: FERROUS SULFATE 325 MG TABLET PO SCH ×2 (08:47→20:55)
[2017-10-05] MEDS: GABAPENTIN 100 MG CAPSULE PO SCH ×3 (08:47→20:55)
[2017-10-05] MEDS: CLOPIDOGREL 75 MG TABLET PO SCH (08:47)
[2017-10-05] MEDS: ASPIRIN CHEW 81 MG TABLET PO SCH (08:47)
[2017-10-05] MEDS: PANTOPRAZOLE 40 MG TABLET PO SCH (08:47)
[2017-10-05] MEDS: ISOSORBIDE MONONITRATE 30 MG TABLET PO SCH (08:47)
[2017-10-05] MEDS: INSULIN LISPRO 100 UNIT/ML SUBCUT SCH ×4 (08:53→20:55)
[2017-10-05] MEDS: INSULIN ASPART PROTAMINE/ASPART 70/30 100 UNIT/ML SUBCUT SCH ×2 (08:54→18:26)
[2017-10-05] MEDS: ATORVASTATIN 80 MG TABLET PO SCH (12:53)
[2017-10-05] MEDS: ENOXAPARIN 60 MG/0.6 ML SYRINGE SUBCUT SCH ×2 (12:54→23:25)
[2017-10-06 05:09] LABS: Basophils % 0.5 % (0.0-0.8); Eosinophils # 0.1 10*3/uL (0.0-0.87); Eosinophils % 1.8 % (0.00-10.9); Hemoglobin 9.4 GM/DL (12.0-16.0); Immature Granulocytes % 0.3 %; Immature Granulocytes Absolute 0.01 #; Lymphocytes # 2.1 10*3/uL (1.4-4.0); Lymphocytes % 54.1 % (21.3-54.2); Mean Corpuscular HGB Conc 33.6 GM/DL (32-36); Mean Corpuscular Hemoglobin 31 PG (27-34); Mean Platelet Volume 8.7 FL (9.6-12.0); Monocytes # 0.3 10*3/uL (0.11-0.8); Monocytes % 7.7 % (1.7-12.7); Neutrophils # 1.4 10*3/uL (1.4-7.4); Neutrophils % 35.6 % (38.7-73.9); Platelet Count 210 T/CUMM (130-400); Red Blood Count 3.01 MC/CUMM (3.8-5.5); Red Cell Distribution Width 13.3 % (9.3-17.3); White Blood Count 3.8 T/CUMM (4-12)
[2017-10-06 05:32] LABS: Atypical Lymphocytes Few; Eosinophils 2 % (0-10); Hypochromasia 1+; Lymphocytes 53 % (20-55); Segmented Neutrophils 43 % (50-85); Total Cells Counted 100
[2017-10-06 05:33] LABS: Microcytosis Slight; Ovalocytes Slight
[2017-10-06 06:10] LABS: Calcium 8.2 MG/DL (8.5-10.1); Osmolality,Calculated 292.7 MOS/KG (273-304); Potassium 4.3 MMOL/L (3.5-5.1)
[2017-10-06] MEDS ORDERED: DIAZEPAM 5 MG TABLET PO ONE (07:28)
[2017-10-06] MEDS ORDERED: diphenhydrAMINE CAP 25 MG CAPSULE PO ONE (07:28)
[2017-10-06] MEDS ORDERED: POTASSIUM CHLORIDE RIDER 10 MEQ in PREMIX 1 EACH IV PRN (07:28)
[2017-10-06] MEDS ORDERED: MAGNESIUM SULF RIDER 2 GM in PREMIX 1 EACH IV PRN (07:28)
[2017-10-06] MEDS ORDERED: SODIUM CHLORIDE 0.9% 1,000 ML IV SCH (07:30)
[2017-10-06] MEDS: ISOSORBIDE MONONITRATE 30 MG TABLET PO SCH (08:15)
[2017-10-06] MEDS: METOPROLOL TARTRATE 25 MG TABLET PO SCH ×2 (08:15→21:26)
[2017-10-06] MEDS: ASPIRIN CHEW 81 MG TABLET PO SCH (08:15)
[2017-10-06] MEDS: PANTOPRAZOLE 40 MG TABLET PO SCH (08:15)
[2017-10-06] MEDS: ENOXAPARIN 60 MG/0.6 ML SYRINGE SUBCUT SCH ×3 (08:15→23:46)
[2017-10-06] MEDS: CLOPIDOGREL 75 MG TABLET PO SCH (08:15)
[2017-10-06] MEDS ORDERED: LIDOCAINE 1% 20 ML VIAL ONE (08:17)
[2017-10-06] MEDS ORDERED: fentaNYL 100 MCG/2 ML VIAL ONE (08:49)
[2017-10-06] MEDS ORDERED: MIDAZOLAM 2 MG/2 ML VIAL ONE (08:49)
[2017-10-06 10:12] LABS: Apearance,Urine CLOUDY (Clear); Bilirubin,Urine Negative (Negative); Blood, Urine Negative (Negative); Glucose,Urine (UA) 50 mg/dL (Negative); Hyaline Casts,Urine 4 /LPF (0-3); Ketones,Urine Negative (Negative); Nitrite,Urine Negative (Negative); Protein,Urine 100 MG/DL; RBC,Urine 13 /HPF (0-4); Squamous Epithelial Cell,Urine Occasional /HPF (0-10); Urine Color Yellow (Yellow); Urine Specific Gravity 1.014 (1.001-1.035); Urine Urobilinogen < 2.0 EU/DL (0.2-1.0); WBC,Urine 58 /HPF (0-6)
[2017-10-06] MEDS: INSULIN LISPRO 100 UNIT/ML SUBCUT SCH ×4 (15:02→21:27)
[2017-10-06] MEDS: GABAPENTIN 100 MG CAPSULE PO SCH ×3 (15:04→21:26)
[2017-10-06] MEDS: FERROUS SULFATE 325 MG TABLET PO SCH ×2 (15:25→21:26)
[2017-10-06] MEDS: ATORVASTATIN 80 MG TABLET PO SCH (15:25)
[2017-10-06] MEDS: INSULIN ASPART PROTAMINE/ASPART 70/30 100 UNIT/ML SUBCUT SCH ×2 (15:48→19:24)
[2017-10-06] MEDS: ERGOCALCIFEROL 50,000 UNIT CAPSULE PO SCH (16:57)
[2017-10-07 06:29] LABS: Basophils % 0.3 % (0.0-0.8); Eosinophils # 0.1 10*3/uL (0.0-0.87); Eosinophils % 1.1 % (0.00-10.9); Hematocrit 30.2 VOL% (35.7-47.0); Hemoglobin 10.4 GM/DL (12.0-16.0); Immature Granulocytes % 0.4 %; Immature Granulocytes Absolute 0.03 #; Lymphocytes % 14.2 % (21.3-54.2); Mean Corpuscular HGB Conc 34.4 GM/DL (32-36); Mean Corpuscular Hemoglobin 32 PG (27-34); Mean Corpuscular Volume 92.1 FL (87-102); Mean Platelet Volume 9.1 FL (9.6-12.0); Monocytes # 0.6 10*3/uL (0.11-0.8); Monocytes % 7.8 % (1.7-12.7); Neutrophils # 5.5 10*3/uL (1.4-7.4); Neutrophils % 76.2 % (38.7-73.9); Platelet Count 232 T/CUMM (130-400); Red Blood Count 3.28 MC/CUMM (3.8-5.5); Red Cell Distribution Width 13.4 % (9.3-17.3); White Blood Count 7.2 T/CUMM (4-12)
[2017-10-07 06:54] LABS: Osmolality,Calculated 290.7 MOS/KG (273-304); Potassium 4.2 MMOL/L (3.5-5.1)
[2017-10-07 06:59] LABS: Osmolality,Calculated 290.7 MOS/KG (273-304); Potassium 4.1 MMOL/L (3.5-5.1)
[2017-10-07] MEDS: FERROUS SULFATE 325 MG TABLET PO SCH ×2 (10:13→21:23)
[2017-10-07] MEDS: PANTOPRAZOLE 40 MG TABLET PO SCH (10:16)
[2017-10-07] MEDS: ASPIRIN CHEW 81 MG TABLET PO SCH (10:16)
[2017-10-07] MEDS: METOPROLOL TARTRATE 25 MG TABLET PO SCH ×2 (10:16→21:22)
[2017-10-07] MEDS: ISOSORBIDE MONONITRATE 30 MG TABLET PO SCH (10:16)
[2017-10-07] MEDS: GABAPENTIN 100 MG CAPSULE PO SCH ×3 (10:16→21:22)
[2017-10-07] MEDS: ATORVASTATIN 80 MG TABLET PO SCH ×2 (10:17→21:21)
[2017-10-07] MEDS: INSULIN ASPART PROTAMINE/ASPART 70/30 100 UNIT/ML SUBCUT SCH ×2 (10:18→18:16)
[2017-10-07] MEDS: INSULIN LISPRO 100 UNIT/ML SUBCUT SCH ×4 (10:19→21:23)
[2017-10-07] MEDS: ENOXAPARIN 60 MG/0.6 ML SYRINGE SUBCUT SCH ×2 (11:42→22:36)
[2017-10-07] MEDS ORDERED: SODIUM CHLORIDE 0.9% 250 ML IV ONE (13:34)
[2017-10-07] MEDS: traMADol 50 MG TABLET PO SCH ×2 (18:15→21:21)
[2017-10-07] MEDS: ACETAMINOPHEN 325 MG TABLET PO PRN (22:36)
[2017-10-08] MEDS: ACETAMINOPHEN 325 MG TABLET PO PRN ×2 (05:41→11:58)
[2017-10-08 06:17] LABS: Basophils % 0.2 % (0.0-0.8); Eosinophils # 0.1 10*3/uL (0.0-0.87); Eosinophils % 1.7 % (0.00-10.9); Hematocrit 27.3 VOL% (35.7-47.0); Immature Granulocytes % 0.3 %; Immature Granulocytes Absolute 0.02 #; Lymphocytes # 2.2 10*3/uL (1.4-4.0); Lymphocytes % 34.1 % (21.3-54.2); Mean Corpuscular Hemoglobin 31 PG (27-34); Mean Corpuscular Volume 94.5 FL (87-102); Mean Platelet Volume 9.3 FL (9.6-12.0); Monocytes # 0.4 10*3/uL (0.11-0.8); Monocytes % 6.5 % (1.7-12.7); Neutrophils # 3.6 10*3/uL (1.4-7.4); Neutrophils % 57.2 % (38.7-73.9); Platelet Count 201 T/CUMM (130-400); Red Blood Count 2.89 MC/CUMM (3.8-5.5); Red Cell Distribution Width 13.6 % (9.3-17.3); White Blood Count 6.3 T/CUMM (4-12)
[2017-10-08 06:55] LABS: Calcium 7.8 MG/DL (8.5-10.1); Osmolality,Calculated 279.8 MOS/KG (273-304); Potassium 4.6 MMOL/L (3.5-5.1); Risk Ratio 2.33
[2017-10-08] MEDS: INSULIN LISPRO 100 UNIT/ML SUBCUT SCH ×4 (07:45→21:50)
[2017-10-08] MEDS: traMADol 50 MG TABLET PO SCH ×5 (07:45→16:39)
[2017-10-08] MEDS: METOPROLOL TARTRATE 25 MG TABLET PO SCH ×2 (08:54→21:45)
[2017-10-08] MEDS: GABAPENTIN 100 MG CAPSULE PO SCH ×3 (08:55→21:50)
[2017-10-08] MEDS: PANTOPRAZOLE 40 MG TABLET PO SCH (08:56)
[2017-10-08] MEDS: ASPIRIN CHEW 81 MG TABLET PO SCH (08:56)
[2017-10-08] MEDS: FERROUS SULFATE 325 MG TABLET PO SCH ×2 (08:56→21:50)
[2017-10-08] MEDS: ISOSORBIDE MONONITRATE 30 MG TABLET PO SCH (08:56)
[2017-10-08] MEDS: INSULIN ASPART PROTAMINE/ASPART 70/30 100 UNIT/ML SUBCUT SCH ×2 (09:00→18:18)
[2017-10-08] MEDS: ALBUTEROL 1.25 MG/3 ML NEB RESP TX SCH ×3 (11:39→19:33)
[2017-10-08] MEDS: LEVOFLOXACIN INJ 500 MG in PREMIX 1 EACH IV SCH (12:03)
[2017-10-08] MEDS: ENOXAPARIN 60 MG/0.6 ML SYRINGE SUBCUT SCH (12:06)
[2017-10-08] MEDS: ATORVASTATIN 80 MG TABLET PO SCH (21:50)
[2017-10-08] MEDS: amLODIPine 5 MG TABLET PO SCH (21:50)
[2017-10-09] MEDS: ALBUTEROL 1.25 MG/3 ML NEB RESP TX SCH ×6 (01:25→19:56)
[2017-10-09] MEDS: ACETAMINOPHEN 325 MG TABLET PO PRN (04:30)
[2017-10-09 05:34] LABS: Basophils % 0.2 % (0.0-0.8); Eosinophils # 0.1 10*3/uL (0.0-0.87); Eosinophils % 1.5 % (0.00-10.9); Hematocrit 25.2 VOL% (35.7-47.0); Hemoglobin 8.4 GM/DL (12.0-16.0); Immature Granulocytes % 0.2 %; Immature Granulocytes Absolute 0.01 #; Lymphocytes # 1.3 10*3/uL (1.4-4.0); Lymphocytes % 32.8 % (21.3-54.2); Mean Corpuscular HGB Conc 33.3 GM/DL (32-36); Mean Corpuscular Hemoglobin 31 PG (27-34); Mean Platelet Volume 9.2 FL (9.6-12.0); Monocytes # 0.3 10*3/uL (0.11-0.8); Monocytes % 8.5 % (1.7-12.7); Neutrophils # 2.3 10*3/uL (1.4-7.4); Neutrophils % 56.8 % (38.7-73.9); Platelet Count 205 T/CUMM (130-400); Red Blood Count 2.68 MC/CUMM (3.8-5.5); Red Cell Distribution Width 13.4 % (9.3-17.3)
[2017-10-09 06:16] LABS: Calcium 7.9 MG/DL (8.5-10.1); Osmolality,Calculated 281.4 MOS/KG (273-304); Potassium 4.5 MMOL/L (3.5-5.1)
[2017-10-09] MEDS: INSULIN LISPRO 100 UNIT/ML SUBCUT SCH ×4 (08:04→21:08)
[2017-10-09] MEDS: GABAPENTIN 100 MG CAPSULE PO SCH ×3 (08:04→21:07)
[2017-10-09] MEDS: FERROUS SULFATE 325 MG TABLET PO SCH ×2 (08:05→21:07)
[2017-10-09] MEDS: METOPROLOL TARTRATE 25 MG TABLET PO SCH ×2 (08:05→21:07)
[2017-10-09] MEDS: PANTOPRAZOLE 40 MG TABLET PO SCH (08:05)
[2017-10-09] MEDS: ISOSORBIDE MONONITRATE 30 MG TABLET PO SCH (08:05)
[2017-10-09] MEDS: INSULIN ASPART PROTAMINE/ASPART 70/30 100 UNIT/ML SUBCUT SCH ×2 (08:05→19:10)
[2017-10-09] MEDS: ASPIRIN CHEW 81 MG TABLET PO SCH (08:05)
[2017-10-09] MEDS: amLODIPine 5 MG TABLET PO SCH ×2 (08:05→21:07)
[2017-10-09] MEDS: ENOXAPARIN 40 MG/0.4 ML SYRINGE SUBCUT SCH (09:14)
[2017-10-09] MEDS: LEVOFLOXACIN INJ 500 MG in PREMIX 1 EACH IV SCH (09:14)
[2017-10-09] MEDS ORDERED: GLUCAGON 1 MG VIAL IM PRN (10:21)
[2017-10-09] MEDS ORDERED: DEXTROSE 50% 25 GM/50 ML VIAL IV PRN (10:21)
[2017-10-09] MEDS: SODIUM CHLORIDE 0.9% 1,000 ML IV SCH (11:59)
[2017-10-09] MEDS: ERGOCALCIFEROL 50,000 UNIT CAPSULE PO SCH (19:09)
[2017-10-09] MEDS: ATORVASTATIN 80 MG TABLET PO SCH (21:07)
[2017-10-09] MEDS: CHLORHEXIDINE 0.12% ORAL RINSE 60 ML BOTTLE SWISH/SPIT SCH (21:08)
[2017-10-10] MEDS: ALBUTEROL 1.25 MG/3 ML NEB RESP TX SCH ×7 (00:35→23:05)
[2017-10-10 04:56] LABS: Basophils % 0.3 % (0.0-0.8); Eosinophils # 0.1 10*3/uL (0.0-0.87); Eosinophils % 2.9 % (0.00-10.9); Hematocrit 24.1 VOL% (35.7-47.0); Hemoglobin 8.2 GM/DL (12.0-16.0); Immature Granulocytes % 0.3 %; Immature Granulocytes Absolute 0.01 #; Lymphocytes # 1.4 10*3/uL (1.4-4.0); Lymphocytes % 35.8 % (21.3-54.2); Mean Corpuscular Hemoglobin 31 PG (27-34); Mean Corpuscular Volume 92.3 FL (87-102); Mean Platelet Volume 9.1 FL (9.6-12.0); Monocytes # 0.3 10*3/uL (0.11-0.8); Monocytes % 8.3 % (1.7-12.7); Neutrophils % 52.4 % (38.7-73.9); Platelet Count 205 T/CUMM (130-400); Red Blood Count 2.61 MC/CUMM (3.8-5.5); Red Cell Distribution Width 13.7 % (9.3-17.3); White Blood Count 3.9 T/CUMM (4-12)
[2017-10-10 05:31] LABS: Calcium 7.7 MG/DL (8.5-10.1); Osmolality,Calculated 285.3 MOS/KG (273-304); Potassium 4.5 MMOL/L (3.5-5.1)
[2017-10-10] MEDS: LEVOTHYROXINE 50 MCG TABLET PO SCH (06:29)
[2017-10-10] MEDS: INSULIN LISPRO 100 UNIT/ML SUBCUT SCH ×4 (10:11→21:41)
[2017-10-10] MEDS ORDERED: SODIUM PHOSPHATE ENEMA 133 ML BOTTLE RECTAL ONE (12:00)
[2017-10-10] MEDS: INSULIN ASPART PROTAMINE/ASPART 70/30 100 UNIT/ML SUBCUT SCH ×2 (14:22→19:22)
[2017-10-10] MEDS: METOPROLOL TARTRATE 25 MG TABLET PO SCH ×2 (14:53→21:41)
[2017-10-10] MEDS: amLODIPine 5 MG TABLET PO SCH ×2 (14:53→21:41)
[2017-10-10] MEDS: GABAPENTIN 100 MG CAPSULE PO SCH ×3 (14:53→21:41)
[2017-10-10] MEDS: FERROUS SULFATE 325 MG TABLET PO SCH ×2 (14:53→21:41)
[2017-10-10] MEDS: ISOSORBIDE MONONITRATE 30 MG TABLET PO SCH (14:53)
[2017-10-10] MEDS: SODIUM CHLORIDE 0.9% 1,000 ML IV SCH (14:54)
[2017-10-10] MEDS: MESALAMINE 800 MG TABLET PO SCH ×2 (14:54→22:00)
[2017-10-10] MEDS: PANTOPRAZOLE 40 MG TABLET PO SCH (14:54)
[2017-10-10] MEDS: ENOXAPARIN 40 MG/0.4 ML SYRINGE SUBCUT SCH (17:23)
[2017-10-10] MEDS: ASPIRIN CHEW 81 MG TABLET PO SCH (17:23)
[2017-10-10] MEDS: CHLORHEXIDINE 0.12% ORAL RINSE 60 ML BOTTLE SWISH/SPIT SCH (17:24)
[2017-10-10] MEDS: ATORVASTATIN 80 MG TABLET PO SCH (21:41)
[2017-10-11] MEDS: CHLORHEXIDINE 0.12% ORAL RINSE 60 ML BOTTLE SWISH/SPIT SCH ×3 (01:17→22:43)
[2017-10-11] MEDS: ALBUTEROL 1.25 MG/3 ML NEB RESP TX SCH ×6 (03:45→23:11)
[2017-10-11] MEDS: LEVOTHYROXINE 50 MCG TABLET PO SCH (06:38)
[2017-10-11] MEDS: FERROUS SULFATE 325 MG TABLET PO SCH ×2 (10:00→22:42)
[2017-10-11] MEDS: MESALAMINE 800 MG TABLET PO SCH ×3 (10:00→22:41)
[2017-10-11] MEDS: ISOSORBIDE MONONITRATE 30 MG TABLET PO SCH (10:00)
[2017-10-11] MEDS: amLODIPine 5 MG TABLET PO SCH ×2 (10:00→22:42)
[2017-10-11] MEDS: INSULIN ASPART PROTAMINE/ASPART 70/30 100 UNIT/ML SUBCUT SCH ×2 (10:00→18:08)
[2017-10-11] MEDS: INSULIN LISPRO 100 UNIT/ML SUBCUT SCH ×4 (10:00→22:43)
[2017-10-11] MEDS: METOPROLOL TARTRATE 25 MG TABLET PO SCH ×2 (10:00→22:42)
[2017-10-11] MEDS: GABAPENTIN 100 MG CAPSULE PO SCH ×3 (10:00→22:42)
[2017-10-11] MEDS: ASPIRIN CHEW 81 MG TABLET PO SCH (10:00)
[2017-10-11] MEDS: ENOXAPARIN 40 MG/0.4 ML SYRINGE SUBCUT SCH (10:36)
[2017-10-11] MEDS: SODIUM CHLORIDE 0.9% 1,000 ML IV SCH (10:38)
[2017-10-11] MEDS: DEXTROSE 50% 25 GM/50 ML VIAL IV PRN (19:57)
[2017-10-11] MEDS: ATORVASTATIN 80 MG TABLET PO SCH (22:42)
[2017-10-12] MEDS: ALBUTEROL 1.25 MG/3 ML NEB RESP TX SCH ×6 (02:51→23:56)
[2017-10-12 05:18] LABS: Basophils % 0.2 % (0.0-0.8); Eosinophils # 0.1 10*3/uL (0.0-0.87); Eosinophils % 2.6 % (0.00-10.9); Hematocrit 24.5 VOL% (35.7-47.0); Hemoglobin 8.4 GM/DL (12.0-16.0); Immature Granulocytes % 0.5 %; Immature Granulocytes Absolute 0.02 #; Lymphocytes # 1.7 10*3/uL (1.4-4.0); Lymphocytes % 39.4 % (21.3-54.2); Mean Corpuscular HGB Conc 34.3 GM/DL (32-36); Mean Corpuscular Hemoglobin 32 PG (27-34); Mean Corpuscular Volume 92.5 FL (87-102); Mean Platelet Volume 8.6 FL (9.6-12.0); Monocytes # 0.4 10*3/uL (0.11-0.8); Monocytes % 8.5 % (1.7-12.7); Neutrophils # 2.1 10*3/uL (1.4-7.4); Neutrophils % 48.8 % (38.7-73.9); Platelet Count 213 T/CUMM (130-400); Red Blood Count 2.65 MC/CUMM (3.8-5.5); Red Cell Distribution Width 13.6 % (9.3-17.3); White Blood Count 4.2 T/CUMM (4-12)
[2017-10-12] MEDS: LEVOTHYROXINE 50 MCG TABLET PO SCH (05:48)
[2017-10-12 05:57] LABS: Calcium 8.2 MG/DL (8.5-10.1); Osmolality,Calculated 285.1 MOS/KG (273-304); Potassium 4.3 MMOL/L (3.5-5.1)
[2017-10-12] MEDS: INSULIN ASPART PROTAMINE/ASPART 70/30 100 UNIT/ML SUBCUT SCH ×2 (09:36→18:55)
[2017-10-12] MEDS: amLODIPine 5 MG TABLET PO SCH ×2 (09:37→22:49)
[2017-10-12] MEDS: FERROUS SULFATE 325 MG TABLET PO SCH ×2 (09:37→22:50)
[2017-10-12] MEDS: METOPROLOL TARTRATE 25 MG TABLET PO SCH ×2 (09:37→22:49)
[2017-10-12] MEDS: ASPIRIN CHEW 81 MG TABLET PO SCH (09:37)
[2017-10-12] MEDS: MESALAMINE 800 MG TABLET PO SCH ×3 (09:37→22:48)
[2017-10-12] MEDS: GABAPENTIN 100 MG CAPSULE PO SCH ×3 (09:37→22:48)
[2017-10-12] MEDS: ISOSORBIDE MONONITRATE 30 MG TABLET PO SCH (09:37)
[2017-10-12] MEDS: ENOXAPARIN 40 MG/0.4 ML SYRINGE SUBCUT SCH (09:38)
[2017-10-12] MEDS: CHLORHEXIDINE 0.12% ORAL RINSE 60 ML BOTTLE SWISH/SPIT SCH (09:38)
[2017-10-12] MEDS: CHLORHEXIDINE 4% SOLN 118 ML BOTTLE TOP SCH ×3 (09:39→18:56)
[2017-10-12] MEDS ORDERED: CEFUROXIME INJ 1,500 MG in SYRINGE 1 EACH IV ONE (10:21)
[2017-10-12] MEDS: INSULIN LISPRO 100 UNIT/ML SUBCUT SCH ×4 (10:26→21:00)
[2017-10-12 10:29] LABS: Basophils % 0.4 % (0.0-0.8); Eosinophils # 0.1 10*3/uL (0.0-0.87); Eosinophils % 2.9 % (0.00-10.9); Hemoglobin 8.7 GM/DL (12.0-16.0); Immature Granulocytes % 0.2 %; Immature Granulocytes Absolute 0.01 #; Lymphocytes # 1.9 10*3/uL (1.4-4.0); Lymphocytes % 38.7 % (21.3-54.2); Mean Corpuscular HGB Conc 32.2 GM/DL (32-36); Mean Corpuscular Hemoglobin 31 PG (27-34); Mean Corpuscular Volume 95.1 FL (87-102); Mean Platelet Volume 9.6 FL (9.6-12.0); Monocytes # 0.4 10*3/uL (0.11-0.8); Monocytes % 7.5 % (1.7-12.7); Neutrophils # 2.4 10*3/uL (1.4-7.4); Neutrophils % 50.3 % (38.7-73.9); Platelet Count 203 T/CUMM (130-400); Red Blood Count 2.84 MC/CUMM (3.8-5.5); Red Cell Distribution Width 13.8 % (9.3-17.3); White Blood Count 4.8 T/CUMM (4-12)
[2017-10-12 11:04] LABS: Alanine Aminotransferase 70 U/L (13-56); Albumin 2.7 G/DL (3.4-5.0); Alkaline Phosphatase 242 U/L (45-117); Aspartate Amino Transferase 83 U/L (0-37); Bilirubin,Total < 0.39 MG/DL (0.2-1.0); Blood Urea Nitrogen 25 MG/DL (7-18); Calcium 8.2 MG/DL (8.5-10.1); Glucose 131 MG/DL (74-106); Osmolality,Calculated 282.5 MOS/KG (273-304); Potassium 4.6 MMOL/L (3.5-5.1); Sodium 139 MMOL/L (136-145); Total Protein 5.9 G/DL (6.4-8.3)
[2017-10-12 14:37] LABS: ABG Base Excess 0.4 MMOL/L (-2.5-2.5); ABG HCO3 24.8 MMOL/L (20-26); ABG Oxygen Saturation 96.4 % (95-100); ABG PCO2 43.9 MM HG (35-48); ABG PH 7.375 (7.35-7.45); ABG PO2 81.6 MM HG (80-95); ABG TCO2 23.9 MMOL/L (23-27); Allen Test Positive; Pt O2 Delivery Device Room Air
[2017-10-12] MEDS: SODIUM CHLORIDE 0.9% 1,000 ML IV SCH (15:38)
[2017-10-12] MEDS: ATORVASTATIN 80 MG TABLET PO SCH (22:49)
[2017-10-13] MEDS: IPRATROPIUM 500 MCG/2.5 ML NEB RESP TX ONE ×2 (03:55→05:28)
[2017-10-13] MEDS: CHLORHEXIDINE 0.12% ORAL RINSE 60 ML BOTTLE SWISH/SPIT SCH ×3 (05:05→20:21)
[2017-10-13] MEDS: CHLORHEXIDINE 4% SOLN 118 ML BOTTLE TOP SCH ×3 (05:05→08:34)
[2017-10-13] MEDS ORDERED: VANCOMYCIN 1,000 MG VIAL ONE (05:20)
[2017-10-13] MEDS ORDERED: PAPAVERINE 60 MG/2 ML VIAL ONE (05:20)
[2017-10-13] MEDS: ALBUTEROL 1.25 MG/3 ML NEB RESP TX SCH ×3 (05:28→11:39)
[2017-10-13] MEDS ORDERED: FAMOTIDINE 20 MG TABLET PO ONE (05:30)
[2017-10-13] MEDS ORDERED: ALBUTEROL 2.5 MG/3 ML NEB RESP TX ONE (05:30)
[2017-10-13] MEDS ORDERED: DIAZEPAM 5 MG TABLET PO ONE (05:30)
[2017-10-13] MEDS: PANTOPRAZOLE 40 MG TABLET PO SCH ×2 (06:00→08:35)
[2017-10-13] MEDS ORDERED: SUFentanil 250 MCG/5 ML AMP ONE (06:02)
[2017-10-13] MEDS ORDERED: MINERAL OIL (TOPICAL) 25 ML BOTTLE TOP ONE (06:12)
[2017-10-13] MEDS ORDERED: CALCIUM CHLORIDE 1,000 MG/10 ML SYRINGE IV ONE (07:37)
[2017-10-13] MEDS ORDERED: PHENYLEPHRINE DRIP 40 MG/250 ML PREMIX IV ONE (07:37)
[2017-10-13] MEDS ORDERED: NITROPRUSSIDE 50 MG/2 ML VIAL ONE (07:37)
[2017-10-13] MEDS ORDERED: POTASSIUM CHLORIDE RIDER 100 ML IV ONE (07:38)
[2017-10-13] MEDS ORDERED: EPINEPHrine 1 MG/10 ML SYRINGE ONE (07:39)
[2017-10-13] MEDS ORDERED: SODIUM BICARBONATE 50 MEQ/50 ML SYRINGE IV ONE ×2 (07:39→10:26)
[2017-10-13] MEDS ORDERED: ALBUMIN 5% 12.5 GM/250 ML VIAL IV ONE (07:40)
[2017-10-13 07:49] LABS: ABG Base Excess -0.5 MMOL/L (-2.5-2.5); ABG HCO3 22.7 MMOL/L (20-26); ABG PCO2 31.1 MM HG (35-48); ABG PH 7.481 (7.35-7.45); ABG PO2 448.2 MM HG (80-95); ABG TCO2 23.6 MMOL/L (23-27); Glucose Heart Surgery 170 MG/DL (74-106); Hemoglobin Heart Surgery 7.9 G/DL (12.0-16.0); Ionized Calcium Arterial 0.96 MMOL/L (1.21-1.46); PCO2 Patient Temp Arterial 31.1 MMHG; PH Patient Temp Arterial 7.481; PO2 Patient Temp Arterial 448.2 MM HG; Patient Temperature 37 CELCIUS; Potassium Heart/CVR 3.8 MMOL/L (3.5-5.1); Sodium Heart/CVR 135 MMOL/L (135-145)
[2017-10-13 08:20] LABS: Apearance,Urine Slightly Hazy (Clear); Bilirubin,Urine Negative (Negative); Blood, Urine Negative (Negative); Glucose,Urine (UA) 50 mg/dL (Negative); Hyaline Casts,Urine 1 /LPF (0-3); Ketones,Urine Negative (Negative); Nitrite,Urine Negative (Negative); Protein,Urine 100 MG/DL; RBC,Urine 5 /HPF (0-4); Urine Color Yellow (Yellow); Urine Specific Gravity 1.012 (1.001-1.035); Urine Urobilinogen < 2.0 EU/DL (0.2-1.0); WBC,Urine 5 /HPF (0-6)
[2017-10-13] MEDS: FERROUS SULFATE 325 MG TABLET PO SCH (08:33)
[2017-10-13] MEDS: LEVOTHYROXINE 50 MCG TABLET PO SCH (08:33)
[2017-10-13] MEDS: ASPIRIN CHEW 81 MG TABLET PO SCH (08:33)
[2017-10-13] MEDS: MESALAMINE 800 MG TABLET PO SCH (08:33)
[2017-10-13] MEDS: INSULIN LISPRO 100 UNIT/ML SUBCUT SCH (08:33)
[2017-10-13] MEDS: amLODIPine 5 MG TABLET PO SCH (08:34)
[2017-10-13] MEDS: ENOXAPARIN 40 MG/0.4 ML SYRINGE SUBCUT SCH (08:34)
[2017-10-13] MEDS: METOPROLOL TARTRATE 25 MG TABLET PO SCH (08:34)
[2017-10-13] MEDS: GABAPENTIN 100 MG CAPSULE PO SCH (08:34)
[2017-10-13] MEDS: ISOSORBIDE MONONITRATE 30 MG TABLET PO SCH (08:34)
[2017-10-13] MEDS: INSULIN ASPART PROTAMINE/ASPART 70/30 100 UNIT/ML SUBCUT SCH (08:34)
[2017-10-13 09:12] LABS: Hemoglobin Heart Surgery 6.7 G/DL (12.0-16.0); PCO2 Patient Temp Venous 35.9 MM HG; PH Patient Temp Venous 7.407; PO2 Patient Temp Venous 40.4 MM HG; VBG Base Excess -1.7 MEQ/L (0-4); VBG HCO3 22.9 MEQ/L (24-28); VBG Oxygen Saturation 85.3 %; VBG PCO2 39.5 MMHG (41-51); VBG PH 7.378; VBG PO2 46.4 MMHG (17-40)
[2017-10-13 09:45] LABS: Hematocrit Heart Surgery 20.7 PERCENT (37-47); Hemoglobin Heart Surgery 6.6 G/DL (12.0-16.0); PCO2 Patient Temp Venous 32.8 MM HG; PH Patient Temp Venous 7.457; PO2 Patient Temp Venous 30.3 MM HG; Potassium Heart/CVR 5.5 MMOL/L (3.5-5.1); VBG Base Excess -0.4 MEQ/L (0-4); VBG HCO3 23.8 MEQ/L (24-28); VBG PCO2 34.4 MMHG (41-51); VBG PH 7.442; VBG PO2 32.6 MMHG (17-40)
[2017-10-13 10:24] LABS: ABG Base Excess -2.2 MMOL/L (-2.5-2.5); ABG HCO3 22.6 MMOL/L (20-26); ABG Oxygen Saturation 99.8 % (95-100); ABG PCO2 35.8 MM HG (35-48); ABG PH 7.401 (7.35-7.45); ABG TCO2 20.8 MMOL/L (23-27); Glucose Heart Surgery 284 MG/DL (74-106); Hematocrit Heart Surgery 23.9 PERCENT (37-47); Hemoglobin Heart Surgery 7.7 G/DL (12.0-16.0); Ionized Calcium Arterial 1.04 MMOL/L (1.21-1.46); PCO2 Patient Temp Arterial 35.8 MMHG; PH Patient Temp Arterial 7.401; Patient Temperature 37 CELCIUS; Sodium Heart/CVR 132 MMOL/L (135-145)
[2017-10-13] MEDS ORDERED: THROMBIN TOPICAL (RECOMBINANT) 5,000 UNIT VIAL TOP ONE (10:24)
[2017-10-13] MEDS ORDERED: ALBUMIN 25% 25 GM/100 ML VIAL IV ONE (10:26)
[2017-10-13] MEDS ORDERED: MAGNESIUM SULFATE 1 GM/2 ML VIAL ONE (10:26)
[2017-10-13] MEDS ORDERED: DEXTROSE 5% KCL 20 MEQ 20 MEQ/1,000 ML BAG IV ONE (10:26)
[2017-10-13] MEDS ORDERED: FUROSEMIDE 20 MG/2 ML VIAL ONE (10:27)
[2017-10-13] MEDS ORDERED: methylPREDNISolone SOD SUC 1,000 MG/8 ML VIAL ONE (10:27)
[2017-10-13] MEDS ORDERED: HEPARIN 10,000 UNIT/10 ML VIAL ONE (10:27)
[2017-10-13] MEDS ORDERED: PROTAMINE SULFATE 50 MG/5 ML VIAL IV ONE ×2 (10:27→11:57)
[2017-10-13] MEDS ORDERED: MANNITOL 12.5 GM/50 ML VIAL IV ONE (10:27)
[2017-10-13] MEDS ORDERED: SEVOFLURANE 1 UNIT/15 MINUTE INH ONE (11:14)
[2017-10-13] MEDS ORDERED: ETOMIDATE 40 MG/20 ML VIAL IV ONE (11:14)
[2017-10-13] MEDS ORDERED: MIDAZOLAM 10 MG/2 ML VIAL ONE (11:14)
[2017-10-13] MEDS ORDERED: VECURONIUM 10 MG VIAL IV ONE (11:14)
[2017-10-13] MEDS ORDERED: SODIUM CHLORIDE 0.9% 200 ML IV ONE (11:14)
[2017-10-13] MEDS ORDERED: TRANEXAMIC ACID 1,000 MG/10 ML VIAL IV ONE (11:14)
[2017-10-13] MEDS ORDERED: LACTATED RINGERS 1,000 ML IV ONE (11:14)
[2017-10-13] MEDS ORDERED: PHENYLEPHRINE DRIP 20 MG/250 ML PREMIX IV ONE (11:14)
[2017-10-13] MEDS ORDERED: CALCIUM CHLORIDE 1,000 MG/10 ML VIAL IV ONE (11:14)
[2017-10-13] MEDS ORDERED: HEPARIN/NACL 0.9% 2 UNITS/ML 500 ML IV ONE (11:15)
[2017-10-13] MEDS ORDERED: VECURONIUM 10 MG VIAL IV PRN ×2 (11:25)
[2017-10-13] MEDS ORDERED: MIDAZOLAM 10 MG/2 ML VIAL IV PRN (11:25)
[2017-10-13] MEDS ORDERED: ONDANSETRON 4 MG/2 ML VIAL IV PRN (11:25)
[2017-10-13] MEDS ORDERED: INSULIN REGULAR 100 UNIT/ML IV ONE (11:25)
[2017-10-13] MEDS ORDERED: MAGNESIUM SULF RIDER 4 GM in PREMIX 1 EACH IV PRN (11:25)
[2017-10-13] MEDS ORDERED: INSULIN REGULAR 100 UNIT/ML IV PRN (11:25)
[2017-10-13] MEDS ORDERED: PHENYLEPHRINE DRIP 40 MG/250 ML PREMIX IV PRN (11:25)
[2017-10-13] MEDS ORDERED: LACTATED RINGERS 250 ML IV PRN (11:25)
[2017-10-13] MEDS ORDERED: CALCIUM CHLORIDE 1,000 MG/10 ML SYRINGE IV PRN (11:25)
[2017-10-13] MEDS ORDERED: MAGNESIUM SULF RIDER 2 GM in PREMIX 1 EACH IV PRN (11:25)
[2017-10-13] MEDS ORDERED: POTASSIUM CHLORIDE RIDER 10 MEQ in PREMIX 1 EACH IV PRN (11:25)
[2017-10-13] MEDS ORDERED: ACETAMINOPHEN 650 MG SUPP RECTAL PRN (11:25)
[2017-10-13] MEDS ORDERED: NITROPRUSSIDE 100 MG in DEXTROSE 5% 250 ML IV PRN (11:25)
[2017-10-13] MEDS ORDERED: DEXTROSE 50% 25 GM/50 ML VIAL IV PRN ×2 (11:25)
[2017-10-13] MEDS ORDERED: INSULIN REGULAR DRIP 100 ML IV SCH (11:30)
[2017-10-13] MEDS ORDERED: SODIUM CHLORIDE 0.45% 1,000 ML IV SCH (11:30)
[2017-10-13 11:35] LABS: Basophils % 0.3 % (0.0-0.8); Eosinophils # 0.1 10*3/uL (0.0-0.87); Eosinophils % 1.2 % (0.00-10.9); Hematocrit 29.8 VOL% (35.7-47.0); Immature Granulocytes % 0.8 %; Immature Granulocytes Absolute 0.05 #; Lymphocytes # 1.1 10*3/uL (1.4-4.0); Lymphocytes % 17.9 % (21.3-54.2); Mean Corpuscular HGB Conc 33.6 GM/DL (32-36); Mean Corpuscular Hemoglobin 30 PG (27-34); Mean Platelet Volume 8.8 FL (9.6-12.0); Monocytes # 0.3 10*3/uL (0.11-0.8); Monocytes % 5.1 % (1.7-12.7); Neutrophils # 4.5 10*3/uL (1.4-7.4); Neutrophils % 74.7 % (38.7-73.9); Platelet Count 166 T/CUMM (130-400); Red Blood Count 3.31 MC/CUMM (3.8-5.5); Red Cell Distribution Width 15.7 % (9.3-17.3); White Blood Count 6.1 T/CUMM (4-12)
[2017-10-13 11:40] LABS: ABG Base Excess -1.5 MMOL/L (-2.5-2.5); ABG HCO3 23.2 MMOL/L (20-26); ABG Oxygen Saturation 98.4 % (95-100); ABG PCO2 31.2 MM HG (35-48); ABG PH 7.451 (7.35-7.45); ABG TCO2 19.6 MMOL/L (23-27); Glucose Heart Surgery 255 MG/DL (74-106); Hematocrit Heart Surgery 32.5 PERCENT (37-47); Hemoglobin Heart Surgery 10.5 G/DL (12.0-16.0); Potassium Heart/CVR 4.1 MMOL/L (3.5-5.1)
[2017-10-13 11:44] LABS: PT Patient Result 10.6 SECS; Partial Thromboplastin Time 38.6 SECS (0-40)
[2017-10-13] MEDS: LACTATED RINGERS 1,000 ML IV PRN ×4 (11:45→22:43)
[2017-10-13] MEDS: SODIUM CHLORIDE 0.45% 1,000 ML IV SCH (12:07)
[2017-10-13] MEDS: SODIUM CHLORIDE 0.9% 1,000 ML IV SCH (12:09)
[2017-10-13 12:21] LABS: CKMB % 5.9 %
[2017-10-13 12:23] LABS: Troponin I Only 4.12 NG/ML (0.00-0.045)
[2017-10-13] MEDS: KETOROLAC 30 MG/1 ML VIAL IV SCH ×3 (12:24→22:39)
[2017-10-13] MEDS: ALBUMIN 5% 12.5 GM in PREMIX 1 EACH IV PRN ×2 (12:50→14:28)
[2017-10-13 13:46] LABS: Albumin 3.1 G/DL (3.4-5.0); Bilirubin,Total 0.6 MG/DL (0.2-1.0); Calcium 8.3 MG/DL (8.5-10.1); Osmolality,Calculated 284.8 MOS/KG (273-304); Potassium 4.5 MMOL/L (3.5-5.1); Total Protein 5.4 G/DL (6.4-8.3)
[2017-10-13 14:18] LABS: ABG Base Excess 1.7 MMOL/L (-2.5-2.5); ABG HCO3 25.9 MMOL/L (20-26); ABG Oxygen Saturation 97.9 % (95-100); ABG PCO2 30.6 MM HG (35-48); ABG PH 7.505 (7.35-7.45); ABG PO2 87.7 MM HG (80-95); ABG TCO2 21.7 MMOL/L (23-27); Glucose Heart Surgery 210 MG/DL (74-106); Hematocrit Heart Surgery 32.6 PERCENT (37-47); Hemoglobin Heart Surgery 10.5 G/DL (12.0-16.0); Potassium Heart/CVR 3.3 MMOL/L (3.5-5.1)
[2017-10-13] MEDS: POTASSIUM CHLORIDE RIDER 20 MEQ in PREMIX 1 EACH IV PRN ×3 (14:24→16:18)
[2017-10-13] MEDS: HYDROmorphone 2 MG/1 ML VIAL IV PRN ×2 (15:36→20:21)
[2017-10-13 16:12] LABS: ABG Base Excess 2.1 MMOL/L (-2.5-2.5); ABG HCO3 26.3 MMOL/L (20-26); ABG PCO2 38.3 MM HG (35-48); ABG PH 7.442 (7.35-7.45); ABG PO2 98.6 MM HG (80-95); ABG TCO2 23.5 MMOL/L (23-27); Glucose Heart Surgery 178 MG/DL (74-106); Hematocrit Heart Surgery 32.6 PERCENT (37-47); Hemoglobin Heart Surgery 10.5 G/DL (12.0-16.0); Potassium Heart/CVR 4.2 MMOL/L (3.5-5.1)
[2017-10-13] MEDS: MIDAZOLAM 2 MG/2 ML VIAL IV PRN (17:11)
[2017-10-13] MEDS ORDERED: ATROPINE 1 MG/10 ML SYRINGE ONE (17:33)
[2017-10-13] MEDS: CEFUROXIME INJ 1,500 MG in SYRINGE 1 EACH IV SCH (18:19)
[2017-10-13 18:24] LABS: ABG Base Excess 2.7 MMOL/L (-2.5-2.5); ABG HCO3 26.8 MMOL/L (20-26); ABG PCO2 38.9 MM HG (35-48); ABG PH 7.446 (7.35-7.45); ABG TCO2 24.1 MMOL/L (23-27); Glucose Heart Surgery 142 MG/DL (74-106); Hemoglobin Heart Surgery 10.7 G/DL (12.0-16.0); Potassium Heart/CVR 4.6 MMOL/L (3.5-5.1)
[2017-10-13 20:41] LABS: CKMB % 3.7 %
[2017-10-13 20:42] LABS: Troponin I Only 7.53 NG/ML (0.00-0.045)
[2017-10-14] MEDS: HYDROmorphone 2 MG/1 ML VIAL IV PRN ×4 (00:34→14:29)
[2017-10-14 01:32] LABS: ABG Base Excess 2.1 MMOL/L (-2.5-2.5); ABG HCO3 26.3 MMOL/L (20-26); ABG Oxygen Saturation 98.5 % (95-100); ABG PCO2 35.5 MM HG (35-48); ABG PH 7.465 (7.35-7.45); ABG TCO2 22.5 MMOL/L (23-27); Glucose Heart Surgery 169 MG/DL (74-106); Potassium Heart/CVR 4.9 MMOL/L (3.5-5.1)
[2017-10-14 02:31] LABS: ABG Base Excess 1.8 MMOL/L (-2.5-2.5); ABG HCO3 25.9 MMOL/L (20-26); ABG Oxygen Saturation 96.8 % (95-100); ABG PCO2 48.1 MM HG (35-48); ABG PH 7.369 (7.35-7.45); ABG PO2 90.4 MM HG (80-95); ABG TCO2 24.7 MMOL/L (23-27); Glucose Heart Surgery 158 MG/DL (74-106); Hematocrit Heart Surgery 36.5 PERCENT (37-47); Hemoglobin Heart Surgery 11.9 G/DL (12.0-16.0); Potassium Heart/CVR 4.4 MMOL/L (3.5-5.1)
[2017-10-14] MEDS: MIDAZOLAM 2 MG/2 ML VIAL IV PRN (02:43)
[2017-10-14 04:17] LABS: ABG PCO2 30.2 MM HG (35-48); ABG PH 7.536 (7.35-7.45); ABG PO2 110.9 MM HG (80-95); ABG TCO2 25.9 MMOL/L (23-27); Glucose Heart Surgery 119 MG/DL (74-106); Hemoglobin Heart Surgery 11.9 G/DL (12.0-16.0); Potassium Heart/CVR 4.1 MMOL/L (3.5-5.1)
[2017-10-14] MEDS ORDERED: PROPOFOL 1,000 MG/100 ML BOTTLE IV SCH (04:30)
[2017-10-14] MEDS: LACTATED RINGERS 1,000 ML IV PRN (04:38)
[2017-10-14 04:48] LABS: Basophils % 0.1 % (0.0-0.8); Hemoglobin 11.3 GM/DL (12.0-16.0); Immature Granulocytes % 0.5 %; Immature Granulocytes Absolute 0.05 #; Lymphocytes # 1.2 10*3/uL (1.4-4.0); Lymphocytes % 11.8 % (21.3-54.2); Mean Corpuscular HGB Conc 34.2 GM/DL (32-36); Mean Corpuscular Hemoglobin 30 PG (27-34); Mean Corpuscular Volume 87.5 FL (87-102); Mean Platelet Volume 8.8 FL (9.6-12.0); Monocytes # 0.6 10*3/uL (0.11-0.8); Monocytes % 5.8 % (1.7-12.7); Neutrophils % 81.8 % (38.7-73.9); Platelet Count 179 T/CUMM (130-400); Red Blood Count 3.77 MC/CUMM (3.8-5.5); White Blood Count 9.8 T/CUMM (4-12)
[2017-10-14 04:50] LABS: CKMB % 2.7 %
[2017-10-14 05:06] LABS: Troponin I Only 3.89 NG/ML (0.00-0.045)
[2017-10-14 05:10] LABS: Albumin 2.9 G/DL (3.4-5.0); Bilirubin,Direct 0.11 MG/DL (0.0-0.20); Bilirubin,Total 0.7 MG/DL (0.2-1.0); Calcium 8.2 MG/DL (8.5-10.1); Osmolality,Calculated 280.5 MOS/KG (273-304); Potassium 4.2 MMOL/L (3.5-5.1); Total Protein 5.8 G/DL (6.4-8.3)
[2017-10-14] MEDS: POTASSIUM CHLORIDE RIDER 20 MEQ in PREMIX 1 EACH IV PRN (05:19)
[2017-10-14 05:38] LABS: Band Neutrophils 5 % (0-10); Hypochromasia 1+; Lymphocytes 5 % (20-55); Platelet Estimate Normal; Segmented Neutrophils 83 % (50-85); Total Cells Counted 100
[2017-10-14 05:39] LABS: Giant Platelets Few; Ovalocytes Slight
[2017-10-14] MEDS: KETOROLAC 30 MG/1 ML VIAL IV SCH ×3 (05:42→17:17)
[2017-10-14] MEDS: CEFUROXIME INJ 1,500 MG in SYRINGE 1 EACH IV SCH ×2 (06:13→18:53)
[2017-10-14 08:01] LABS: ABG Base Excess 2.7 MMOL/L (-2.5-2.5); ABG HCO3 26.1 MMOL/L (20-26); ABG Oxygen Saturation 97.9 % (95-100); ABG PCO2 35.9 MM HG (35-48); ABG PH 7.479 (7.35-7.45); ABG TCO2 27.2 MMOL/L (23-27); Glucose Heart Surgery 97 MG/DL (74-106); Hemoglobin Heart Surgery 12.3 G/DL (12.0-16.0); Potassium Heart/CVR 4.6 MMOL/L (3.5-5.1)
[2017-10-14 08:58] LABS: ABG Base Excess 1.6 MMOL/L (-2.5-2.5); ABG HCO3 25.9 MMOL/L (20-26); ABG Oxygen Saturation 98.4 % (95-100); ABG PCO2 44.2 MM HG (35-48); ABG PH 7.392 (7.35-7.45); ABG TCO2 24.1 MMOL/L (23-27); Glucose Heart Surgery 104 MG/DL (74-106); Hematocrit Heart Surgery 34.3 PERCENT (37-47); Hemoglobin Heart Surgery 11.1 G/DL (12.0-16.0); Potassium Heart/CVR 4.5 MMOL/L (3.5-5.1)
[2017-10-14] MEDS ORDERED: DEXTROSE 50% 25 GM/50 ML VIAL IV PRN (09:03)
[2017-10-14] MEDS ORDERED: GLUCAGON 1 MG VIAL IM PRN (09:03)
[2017-10-14] MEDS: CHLORHEXIDINE 0.12% ORAL RINSE 60 ML BOTTLE SWISH/SPIT SCH ×2 (09:29→21:05)
[2017-10-14] MEDS ORDERED: amLODIPine 5 MG TABLET PO SCH (09:30)
[2017-10-14 09:57] LABS: ABG Base Excess 0.3 MMOL/L (-2.5-2.5); ABG HCO3 24.7 MMOL/L (20-26); ABG Oxygen Saturation 97.4 % (95-100); ABG PCO2 42.9 MM HG (35-48); ABG PH 7.383 (7.35-7.45); ABG PO2 98.2 MM HG (80-95); ABG TCO2 22.8 MMOL/L (23-27); Glucose Heart Surgery 118 MG/DL (74-106); Hematocrit Heart Surgery 36.2 PERCENT (37-47); Hemoglobin Heart Surgery 11.8 G/DL (12.0-16.0); Potassium Heart/CVR 4.7 MMOL/L (3.5-5.1)
[2017-10-14 11:56] LABS: CKMB % 2.1 %
[2017-10-14 11:59] LABS: Troponin I Only 3.06 NG/ML (0.00-0.045)
[2017-10-14] MEDS: INSULIN REGULAR 100 UNIT/ML SUBCUT SCH ×4 (12:29→23:14)
[2017-10-14] MEDS: SODIUM CHLORIDE 0.45% 1,000 ML IV SCH (12:49)
[2017-10-14] MEDS ORDERED: FUROSEMIDE 40 MG/4 ML VIAL IV PRN (18:43)
[2017-10-14] MEDS: METOPROLOL TARTRATE 25 MG TABLET PO SCH (21:04)
[2017-10-14] MEDS: ATORVASTATIN 80 MG TABLET PO SCH (21:04)
[2017-10-15] MEDS: INSULIN REGULAR 100 UNIT/ML SUBCUT SCH ×5 (03:38→20:49)
[2017-10-15 04:04] LABS: Hematocrit 32.7 VOL% (35.7-47.0); Hemoglobin 10.4 GM/DL (12.0-16.0); Immature Granulocytes % 0.6 %; Immature Granulocytes Absolute 0.05 #; Lymphocytes % 10.5 % (21.3-54.2); Mean Corpuscular HGB Conc 31.8 GM/DL (32-36); Mean Corpuscular Hemoglobin 30 PG (27-34); Mean Corpuscular Volume 92.6 FL (87-102); Mean Platelet Volume 8.6 FL (9.6-12.0); Monocytes # 0.6 10*3/uL (0.11-0.8); Neutrophils # 7.4 10*3/uL (1.4-7.4); Neutrophils % 81.9 % (38.7-73.9); Platelet Count 176 T/CUMM (130-400); Red Blood Count 3.53 MC/CUMM (3.8-5.5); Red Cell Distribution Width 16.4 % (9.3-17.3); White Blood Count 9.1 T/CUMM (4-12)
[2017-10-15 04:33] LABS: Alanine Aminotransferase 38 U/L (13-56); Alkaline Phosphatase 151 U/L (45-117); Aspartate Amino Transferase 45 U/L (0-37); Bilirubin,Total < 0.39 MG/DL (0.2-1.0); Blood Urea Nitrogen 32 MG/DL (7-18); Calcium 7.8 MG/DL (8.5-10.1); Glucose 140 MG/DL (74-106); Potassium 4.8 MMOL/L (3.5-5.1); Sodium 136 MMOL/L (136-145); Total Protein 6.2 G/DL (6.4-8.3)
[2017-10-15] MEDS: LEVOTHYROXINE 50 MCG TABLET PO SCH (06:11)
[2017-10-15] MEDS ORDERED: ACETAMINOPHEN 325 MG TABLET PO PRN (08:58)
[2017-10-15] MEDS ORDERED: GLUCAGON 1 MG VIAL IM PRN ×2 (08:58)
[2017-10-15] MEDS ORDERED: ZALEPLON 5 MG CAPSULE PO PRN (08:58)
[2017-10-15] MEDS ORDERED: ALUMINUM/MAGNES/SIMETH MAX STR 30 ML UDCUP PO PRN (08:58)
[2017-10-15] MEDS ORDERED: POTASSIUM CHLORIDE 20 MEQ TABLET PO PRN (08:58)
[2017-10-15] MEDS ORDERED: DEXTROSE 50% 25 GM/50 ML VIAL IV PRN ×2 (08:58)
[2017-10-15] MEDS ORDERED: MAGNESIUM SULF RIDER 4 GM in PREMIX 1 EACH IV PRN (08:58)
[2017-10-15] MEDS ORDERED: ONDANSETRON 4 MG/2 ML VIAL IV PRN (08:58)
[2017-10-15] MEDS ORDERED: MAGNESIUM SULF RIDER 2 GM in PREMIX 1 EACH IV PRN (08:58)
[2017-10-15] MEDS: METOPROLOL TARTRATE 25 MG TABLET PO SCH ×2 (08:59→20:49)
[2017-10-15] MEDS ORDERED: SODIUM CHLOR 0.45% KCL 20 MEQ 20 MEQ/1,000 ML BAG IV SCH (09:00)
[2017-10-15] MEDS ORDERED: CHLORHEXIDINE 0.12% ORAL RINSE 60 ML BOTTLE SWISH/SPIT SCH (09:00)
[2017-10-15] MEDS ORDERED: LISINOPRIL 5 MG TABLET PO SCH (09:30)
[2017-10-15] MEDS: DOCUSATE SODIUM 100 MG CAPSULE PO SCH (11:11)
[2017-10-15] MEDS: ASPIRIN EC 325 MG TABLET PO SCH (11:12)
[2017-10-15] MEDS: FERROUS SULFATE 325 MG TABLET PO SCH (11:12)
[2017-10-15] MEDS: PANTOPRAZOLE 40 MG TABLET PO SCH (11:12)
[2017-10-15] MEDS: CHLORHEXIDINE 0.12% ORAL RINSE 60 ML BOTTLE SWISH/SPIT SCH (11:12)
[2017-10-15] MEDS: KETOROLAC 30 MG/1 ML VIAL IV PRN (11:13)
[2017-10-15] MEDS: LOSARTAN 25 MG TABLET PO SCH (12:28)
[2017-10-15] MEDS: ATORVASTATIN 80 MG TABLET PO SCH (20:48)
[2017-10-16] MEDS: INSULIN REGULAR 100 UNIT/ML SUBCUT SCH ×5 (01:15→21:01)
[2017-10-16] MEDS: HYDROmorphone 2 MG/1 ML VIAL IV PRN (02:30)
[2017-10-16 04:33] LABS: Basophils % 0.1 % (0.0-0.8); Eosinophils % 0.3 % (0.00-10.9); Hematocrit 31.2 VOL% (35.7-47.0); Hemoglobin 10.6 GM/DL (12.0-16.0); Immature Granulocytes % 0.3 %; Immature Granulocytes Absolute 0.03 #; Lymphocytes # 1.6 10*3/uL (1.4-4.0); Mean Corpuscular Hemoglobin 30 PG (27-34); Mean Corpuscular Volume 88.9 FL (87-102); Mean Platelet Volume 8.5 FL (9.6-12.0); Monocytes # 0.6 10*3/uL (0.11-0.8); Neutrophils # 6.7 10*3/uL (1.4-7.4); Neutrophils % 74.3 % (38.7-73.9); Platelet Count 182 T/CUMM (130-400); Red Blood Count 3.51 MC/CUMM (3.8-5.5); Red Cell Distribution Width 15.8 % (9.3-17.3); White Blood Count 9.1 T/CUMM (4-12)
[2017-10-16 05:01] LABS: Band Neutrophils 3 % (0-10); Hypochromasia 1+; Lymphocytes 21 % (20-55); Ovalocytes Slight; Platelet Estimate Normal; Segmented Neutrophils 73 % (50-85); Total Cells Counted 100
[2017-10-16 05:11] LABS: Alanine Aminotransferase 39 U/L (13-56); Albumin 3.1 G/DL (3.4-5.0); Alkaline Phosphatase 172 U/L (45-117); Aspartate Amino Transferase 39 U/L (0-37); Bilirubin,Indirect 0.3 MG/DL (0.0-1.0); Blood Urea Nitrogen 32 MG/DL (7-18); Calcium 8.1 MG/DL (8.5-10.1); Glucose 68 MG/DL (74-106); Osmolality,Calculated 283.4 MOS/KG (273-304); Potassium 4.4 MMOL/L (3.5-5.1); Sodium 140 MMOL/L (136-145)
[2017-10-16] MEDS ORDERED: FUROSEMIDE 40 MG/4 ML VIAL IV ONE (06:00)
[2017-10-16] MEDS: LEVOTHYROXINE 50 MCG TABLET PO SCH (06:28)
[2017-10-16] MEDS: ASPIRIN EC 325 MG TABLET PO SCH (09:09)
[2017-10-16] MEDS: LOSARTAN 25 MG TABLET PO SCH (09:09)
[2017-10-16] MEDS: METOPROLOL TARTRATE 25 MG TABLET PO SCH ×2 (09:09→21:02)
[2017-10-16] MEDS: FERROUS SULFATE 325 MG TABLET PO SCH (09:09)
[2017-10-16] MEDS: PANTOPRAZOLE 40 MG TABLET PO SCH (09:09)
[2017-10-16] MEDS: DOCUSATE SODIUM 100 MG CAPSULE PO SCH (09:14)
[2017-10-16] MEDS: KETOROLAC 30 MG/1 ML VIAL IV PRN (15:33)
[2017-10-16] MEDS: ATORVASTATIN 80 MG TABLET PO SCH (21:01)
[2017-10-17] MEDS: HYDROmorphone 2 MG/1 ML VIAL IV PRN ×2 (04:55→14:17)
[2017-10-17 05:13] LABS: Basophils % 0.2 % (0.0-0.8); Eosinophils # 0.1 10*3/uL (0.0-0.87); Eosinophils % 1.7 % (0.00-10.9); Hemoglobin 10.1 GM/DL (12.0-16.0); Immature Granulocytes % 0.2 %; Immature Granulocytes Absolute 0.02 #; Lymphocytes # 1.6 10*3/uL (1.4-4.0); Lymphocytes % 18.7 % (21.3-54.2); Mean Corpuscular HGB Conc 32.6 GM/DL (32-36); Mean Corpuscular Hemoglobin 30 PG (27-34); Mean Corpuscular Volume 92.3 FL (87-102); Mean Platelet Volume 8.9 FL (9.6-12.0); Monocytes # 0.5 10*3/uL (0.11-0.8); Monocytes % 5.4 % (1.7-12.7); Neutrophils # 6.1 10*3/uL (1.4-7.4); Neutrophils % 73.8 % (38.7-73.9); Platelet Count 179 T/CUMM (130-400); Red Blood Count 3.36 MC/CUMM (3.8-5.5); Red Cell Distribution Width 15.1 % (9.3-17.3); White Blood Count 8.3 T/CUMM (4-12)
[2017-10-17 05:46] LABS: Band Neutrophils 1 % (0-10); Giant Platelets Few; Hypochromasia 1+; Lymphocytes 13 % (20-55); Ovalocytes Slight; Platelet Estimate Normal; Segmented Neutrophils 81 % (50-85); Total Cells Counted 100
[2017-10-17 05:52] LABS: Alanine Aminotransferase 42 U/L (13-56); Albumin 2.9 G/DL (3.4-5.0); Alkaline Phosphatase 223 U/L (45-117); Aspartate Amino Transferase 46 U/L (0-37); Bilirubin,Indirect 0.6 MG/DL (0.0-1.0); Blood Urea Nitrogen 29 MG/DL (7-18); Calcium 7.9 MG/DL (8.5-10.1); Glucose 143 MG/DL (74-106); Potassium 4.1 MMOL/L (3.5-5.1); Sodium 143 MMOL/L (136-145); Total Protein 5.9 G/DL (6.4-8.3)
[2017-10-17 06:13] LABS: Troponin I Only 0.798 NG/ML (0.00-0.045)
[2017-10-17] MEDS: LEVOTHYROXINE 50 MCG TABLET PO SCH (06:46)
[2017-10-17] MEDS: INSULIN REGULAR 100 UNIT/ML SUBCUT SCH ×4 (08:05→20:34)
[2017-10-17] MEDS: ASPIRIN EC 325 MG TABLET PO SCH (08:05)
[2017-10-17] MEDS: DOCUSATE SODIUM 100 MG CAPSULE PO SCH (08:06)
[2017-10-17] MEDS: PANTOPRAZOLE 40 MG TABLET PO SCH (08:06)
[2017-10-17] MEDS: FERROUS SULFATE 325 MG TABLET PO SCH (08:06)
[2017-10-17] MEDS: METOPROLOL TARTRATE 25 MG TABLET PO SCH ×2 (08:06→20:35)
[2017-10-17] MEDS: LOSARTAN 25 MG TABLET PO SCH (08:30)
[2017-10-17] MEDS: CHLORHEXIDINE 0.12% ORAL RINSE 60 ML BOTTLE SWISH/SPIT SCH ×2 (09:40→20:38)
[2017-10-17] MEDS: KETOROLAC 30 MG/1 ML VIAL IV PRN ×2 (20:34→22:11)
[2017-10-17] MEDS: ATORVASTATIN 80 MG TABLET PO SCH (20:35)
[2017-10-18] MEDS: LEVOTHYROXINE 50 MCG TABLET PO SCH (05:47)
[2017-10-18] MEDS: KETOROLAC 30 MG/1 ML VIAL IV PRN ×2 (05:49→17:33)
[2017-10-18] MEDS: INSULIN REGULAR 100 UNIT/ML SUBCUT SCH ×4 (08:36→20:36)
[2017-10-18] MEDS: PANTOPRAZOLE 40 MG TABLET PO SCH (08:37)
[2017-10-18] MEDS: FERROUS SULFATE 325 MG TABLET PO SCH (08:37)
[2017-10-18] MEDS: LOSARTAN 25 MG TABLET PO SCH (08:37)
[2017-10-18] MEDS: METOPROLOL TARTRATE 25 MG TABLET PO SCH ×2 (08:37→20:36)
[2017-10-18] MEDS: DOCUSATE SODIUM 100 MG CAPSULE PO SCH ×2 (08:37→08:39)
[2017-10-18] MEDS: ASPIRIN EC 325 MG TABLET PO SCH (08:37)
[2017-10-18] MEDS: CHLORHEXIDINE 0.12% ORAL RINSE 60 ML BOTTLE SWISH/SPIT SCH ×2 (12:18→20:36)
[2017-10-18] MEDS: ATORVASTATIN 80 MG TABLET PO SCH (20:35)
[2017-10-19] MEDS: KETOROLAC 30 MG/1 ML VIAL IV PRN ×2 (00:52→17:43)
[2017-10-19] MEDS: LEVOTHYROXINE 50 MCG TABLET PO SCH (06:04)
[2017-10-19 06:18] LABS: Basophils % 0.2 % (0.0-0.8); Eosinophils # 0.2 10*3/uL (0.0-0.87); Eosinophils % 2.6 % (0.00-10.9); Hematocrit 27.7 VOL% (35.7-47.0); Hemoglobin 9.4 GM/DL (12.0-16.0); Immature Granulocytes % 0.5 %; Immature Granulocytes Absolute 0.03 #; Lymphocytes # 1.6 10*3/uL (1.4-4.0); Lymphocytes % 23.5 % (21.3-54.2); Mean Corpuscular HGB Conc 33.9 GM/DL (32-36); Mean Corpuscular Hemoglobin 31 PG (27-34); Mean Corpuscular Volume 90.2 FL (87-102); Mean Platelet Volume 8.9 FL (9.6-12.0); Monocytes # 0.4 10*3/uL (0.11-0.8); Monocytes % 6.6 % (1.7-12.7); Neutrophils # 4.4 10*3/uL (1.4-7.4); Neutrophils % 66.6 % (38.7-73.9); Platelet Count 198 T/CUMM (130-400); Red Blood Count 3.07 MC/CUMM (3.8-5.5); Red Cell Distribution Width 15.1 % (9.3-17.3); White Blood Count 6.6 T/CUMM (4-12)
[2017-10-19 06:42] LABS: Alanine Aminotransferase 33 U/L (13-56); Albumin 2.8 G/DL (3.4-5.0); Alkaline Phosphatase 179 U/L (45-117); Aspartate Amino Transferase 27 U/L (0-37); Bilirubin,Direct < 0.100 MG/DL (0.0-0.20); Bilirubin,Indirect 0.5 MG/DL (0.0-1.0); Blood Urea Nitrogen 24 MG/DL (7-18); Calcium 7.4 MG/DL (8.5-10.1); Glucose 110 MG/DL (74-106); Sodium 143 MMOL/L (136-145); Total Protein 5.2 G/DL (6.4-8.3)
[2017-10-19 06:43] LABS: Troponin I Only 0.313 NG/ML (0.00-0.045)
[2017-10-19] MEDS: INSULIN REGULAR 100 UNIT/ML SUBCUT SCH ×4 (08:35→21:12)
[2017-10-19] MEDS: DOCUSATE SODIUM 100 MG CAPSULE PO SCH (09:10)
[2017-10-19] MEDS: CHLORHEXIDINE 0.12% ORAL RINSE 60 ML BOTTLE SWISH/SPIT SCH ×2 (09:10→21:12)
[2017-10-19] MEDS: ASPIRIN EC 325 MG TABLET PO SCH (09:10)
[2017-10-19] MEDS: METOPROLOL TARTRATE 25 MG TABLET PO SCH ×2 (09:10→21:09)
[2017-10-19] MEDS: PANTOPRAZOLE 40 MG TABLET PO SCH (09:10)
[2017-10-19] MEDS: LOSARTAN 25 MG TABLET PO SCH (09:10)
[2017-10-19] MEDS: FERROUS SULFATE 325 MG TABLET PO SCH (09:10)
[2017-10-19] MEDS ORDERED: POLYETHYLENE GLYCOL POWDER 17 GM PACK PO PRN (11:33)
[2017-10-19] MEDS: ATORVASTATIN 80 MG TABLET PO SCH (21:09)
[2017-10-20] MEDS: MAGNESIUM HYDROXIDE SUSP 30 ML UDCUP PO PRN ×2 (02:13→09:30)
[2017-10-20] MEDS: KETOROLAC 30 MG/1 ML VIAL IV PRN (02:14)
[2017-10-20 05:22] LABS: Basophils % 0.2 % (0.0-0.8); Eosinophils # 0.1 10*3/uL (0.0-0.87); Eosinophils % 1.3 % (0.00-10.9); Hematocrit 27.1 VOL% (35.7-47.0); Hemoglobin 9.2 GM/DL (12.0-16.0); Immature Granulocytes % 0.6 %; Immature Granulocytes Absolute 0.05 #; Lymphocytes # 1.4 10*3/uL (1.4-4.0); Lymphocytes % 16.7 % (21.3-54.2); Mean Corpuscular HGB Conc 33.9 GM/DL (32-36); Mean Corpuscular Hemoglobin 30 PG (27-34); Mean Corpuscular Volume 89.4 FL (87-102); Mean Platelet Volume 8.8 FL (9.6-12.0); Monocytes # 0.7 10*3/uL (0.11-0.8); Monocytes % 8.2 % (1.7-12.7); Neutrophils # 6.2 10*3/uL (1.4-7.4); Platelet Count 206 T/CUMM (130-400); Red Blood Count 3.03 MC/CUMM (3.8-5.5); Red Cell Distribution Width 15.1 % (9.3-17.3); White Blood Count 8.5 T/CUMM (4-12)
[2017-10-20] MEDS: LEVOTHYROXINE 50 MCG TABLET PO SCH (05:36)
[2017-10-20 05:55] LABS: Alanine Aminotransferase 41 U/L (13-56); Albumin 2.8 G/DL (3.4-5.0); Alkaline Phosphatase 274 U/L (45-117); Aspartate Amino Transferase 49 U/L (0-37); Bilirubin,Indirect 0.5 MG/DL (0.0-1.0); Blood Urea Nitrogen 23 MG/DL (7-18); Calcium 7.6 MG/DL (8.5-10.1); Glucose 170 MG/DL (74-106); Osmolality,Calculated 284.5 MOS/KG (273-304); Potassium 4.3 MMOL/L (3.5-5.1); Sodium 139 MMOL/L (136-145); Total Protein 5.7 G/DL (6.4-8.3)
[2017-10-20 05:56] LABS: Troponin I Only 0.263 NG/ML (0.00-0.045)
[2017-10-20] MEDS: CHLORHEXIDINE 0.12% ORAL RINSE 60 ML BOTTLE SWISH/SPIT SCH ×2 (09:30→21:24)
[2017-10-20] MEDS: DOCUSATE SODIUM 100 MG CAPSULE PO SCH (09:30)
[2017-10-20] MEDS: PANTOPRAZOLE 40 MG TABLET PO SCH (09:30)
[2017-10-20] MEDS: METOPROLOL TARTRATE 25 MG TABLET PO SCH ×2 (09:30→21:27)
[2017-10-20] MEDS: ASPIRIN EC 325 MG TABLET PO SCH (09:30)
[2017-10-20] MEDS: LOSARTAN 25 MG TABLET PO SCH (09:30)
[2017-10-20] MEDS: FERROUS SULFATE 325 MG TABLET PO SCH (09:30)
[2017-10-20] MEDS: INSULIN REGULAR 100 UNIT/ML SUBCUT SCH ×4 (09:30→21:26)
[2017-10-20] MEDS ORDERED: AMIODARONE INJ 100 MG in DEXTROSE 5% 100 ML IV ONE (18:04)
[2017-10-20] MEDS: AMIODARONE INJ 450 MG in DEXTROSE 5% 241 ML IV SCH (19:15)
[2017-10-20] MEDS: ATORVASTATIN 80 MG TABLET PO SCH (21:27)
[2017-10-21] MEDS: MAGNESIUM HYDROXIDE SUSP 30 ML UDCUP PO PRN (02:19)
[2017-10-21] MEDS: LEVOTHYROXINE 50 MCG TABLET PO SCH (06:04)
[2017-10-21] MEDS: INSULIN REGULAR 100 UNIT/ML SUBCUT SCH ×2 (08:57→12:53)
[2017-10-21] MEDS ORDERED: LOSARTAN 50 MG TABLET PO SCH (09:00)
[2017-10-21] MEDS: ASPIRIN EC 325 MG TABLET PO SCH (09:33)
[2017-10-21] MEDS: DOCUSATE SODIUM 100 MG CAPSULE PO SCH (09:33)
[2017-10-21] MEDS: FERROUS SULFATE 325 MG TABLET PO SCH (09:33)
[2017-10-21] MEDS: METOPROLOL TARTRATE 25 MG TABLET PO SCH (09:33)
[2017-10-21] MEDS: CHLORHEXIDINE 0.12% ORAL RINSE 60 ML BOTTLE SWISH/SPIT SCH (09:33)
[2017-10-21] MEDS: PANTOPRAZOLE 40 MG TABLET PO SCH (09:33)
[2017-10-21 09:51] LABS: Basophils % 0.2 % (0.0-0.8); Eosinophils # 0.1 10*3/uL (0.0-0.87); Eosinophils % 1.5 % (0.00-10.9); Hematocrit 27.7 VOL% (35.7-47.0); Immature Granulocytes % 0.5 %; Immature Granulocytes Absolute 0.04 #; Lymphocytes # 1.9 10*3/uL (1.4-4.0); Lymphocytes % 22.4 % (21.3-54.2); Mean Corpuscular HGB Conc 32.5 GM/DL (32-36); Mean Corpuscular Hemoglobin 30 PG (27-34); Mean Platelet Volume 8.7 FL (9.6-12.0); Monocytes # 0.8 10*3/uL (0.11-0.8); Neutrophils # 5.7 10*3/uL (1.4-7.4); Neutrophils % 66.4 % (38.7-73.9); Platelet Count 217 T/CUMM (130-400); Red Blood Count 2.98 MC/CUMM (3.8-5.5); Red Cell Distribution Width 15.4 % (9.3-17.3); White Blood Count 8.5 T/CUMM (4-12)
[2017-10-21 10:06] LABS: Calcium 7.7 MG/DL (8.5-10.1); Osmolality,Calculated 278.1 MOS/KG (273-304); Potassium 4.6 MMOL/L (3.5-5.1)
[2017-10-21] MEDS ORDERED: SODIUM PHOSPHATE ENEMA 133 ML BOTTLE RECTAL ONE (10:14)
[2017-10-21 10:15] LABS: Band Neutrophils 9 % (0-10); Lymphocytes 22 % (20-55); Microcytosis 1+; Ovalocytes Slight; Segmented Neutrophils 64 % (50-85); Total Cells Counted 100
[2017-10-21 10:16] LABS: Burr Cells Slight; Platelet Estimate Normal
[2017-10-21] MEDS: AMIODARONE INJ 450 MG in DEXTROSE 5% 241 ML IV SCH (10:43)
[2017-10-21] MEDS ORDERED: AMIODARONE 200 MG TABLET PO SCH (12:00)
[2017-10-21 12:31] VITALS: BP 145/70
== END 2017-10-21 16:22 | disposition home health service (06) | DRG 234 ==
LOC: N.TELEN → SUATTDRO 17:04 → N.CVR 10-13 09:47 → N.ICU 10-14 10:59 → N.TELES 10-15 17:17
PROVIDERS: ADMIT Internal Medicine; ATTEND Internal Medicine Cardiovascular Disease

== ENCOUNTER 2017-10-30 03:49 | Inpatient (IN) ==
[2017-10-30] MEDS ORDERED: DOCUSATE SODIUM 100 MG CAPSULE PO PRN (07:07)
[2017-10-30] MEDS ORDERED: ONDANSETRON 4 MG/2 ML VIAL IV PRN (07:07)
[2017-10-30] MEDS ORDERED: LACTULOSE 20 GM/30 ML UDCUP PO PRN (07:07)
[2017-10-30] MEDS ORDERED: MORPHINE 4 MG/1 ML VIAL IV PRN ×2 (07:07→11:30)
[2017-10-30] MEDS ORDERED: ACETAMINOPHEN 325 MG TABLET PO PRN (07:07)
[2017-10-30] MEDS ORDERED: SODIUM CHLORIDE 0.9% 1,000 ML IV SCH (07:30)
[2017-10-30] MEDS: PANTOPRAZOLE 40 MG TABLET PO SCH (08:03)
[2017-10-30 08:11] LABS: Basophils % 0.3 % (0.0-0.8); Eosinophils % 0.1 % (0.00-10.9); Hematocrit 28.7 VOL% (35.7-47.0); Hemoglobin 9.4 GM/DL (12.0-16.0); Immature Granulocytes % 0.4 %; Immature Granulocytes Absolute 0.06 #; Lymphocytes # 0.8 10*3/uL (1.4-4.0); Lymphocytes % 5.9 % (21.3-54.2); Mean Corpuscular HGB Conc 32.8 GM/DL (32-36); Mean Corpuscular Hemoglobin 30 PG (27-34); Mean Corpuscular Volume 90.8 FL (87-102); Mean Platelet Volume 8.3 FL (9.6-12.0); Monocytes # 0.5 10*3/uL (0.11-0.8); Monocytes % 3.3 % (1.7-12.7); Neutrophils # 12.6 10*3/uL (1.4-7.4); Platelet Count 323 T/CUMM (130-400); Red Blood Count 3.16 MC/CUMM (3.8-5.5); Red Cell Distribution Width 15.4 % (9.3-17.3)
[2017-10-30 08:34] LABS: Band Neutrophils 11 % (0-10); Hypochromasia 1+; Lymphocytes 7 % (20-55); Ovalocytes Slight; Platelet Estimate Adequate; Segmented Neutrophils 78 % (50-85); Total Cells Counted 100
[2017-10-30 08:35] LABS: Giant Platelets Few; Microcytosis 1+
[2017-10-30 08:44] LABS: Calcium 7.8 MG/DL (8.5-10.1); Osmolality,Calculated 268.2 MOS/KG (273-304); Potassium 4.1 MMOL/L (3.5-5.1)
[2017-10-30 12:25] LABS: PT Patient Result 10.9 SECS
[2017-10-30] MEDS: LOSARTAN 50 MG TABLET PO SCH (12:39)
[2017-10-30] MEDS: FUROSEMIDE 20 MG/2 ML VIAL IV SCH ×2 (12:39→16:19)
[2017-10-30 12:50] LABS: Albumin 2.3 G/DL (3.4-5.0)
[2017-10-30] MEDS: GABAPENTIN 100 MG CAPSULE PO SCH ×2 (16:18→21:46)
[2017-10-30] MEDS: METOPROLOL TARTRATE 25 MG TABLET PO SCH (21:46)
[2017-10-30] MEDS: ATORVASTATIN 80 MG TABLET PO SCH (21:46)
[2017-10-31 03:53] LABS: Basophils % 0.3 % (0.0-0.8); Eosinophils # 0.1 10*3/uL (0.0-0.87); Eosinophils % 0.9 % (0.00-10.9); Hematocrit 26.7 VOL% (35.7-47.0); Hemoglobin 9.1 GM/DL (12.0-16.0); Immature Granulocytes % 0.5 %; Immature Granulocytes Absolute 0.06 #; Lymphocytes # 1.3 10*3/uL (1.4-4.0); Lymphocytes % 11.7 % (21.3-54.2); Mean Corpuscular HGB Conc 34.1 GM/DL (32-36); Mean Corpuscular Hemoglobin 30 PG (27-34); Mean Corpuscular Volume 87.8 FL (87-102); Mean Platelet Volume 8.4 FL (9.6-12.0); Monocytes # 0.4 10*3/uL (0.11-0.8); Monocytes % 3.8 % (1.7-12.7); Neutrophils # 9.5 10*3/uL (1.4-7.4); Neutrophils % 82.8 % (38.7-73.9); Platelet Count 313 T/CUMM (130-400); Red Blood Count 3.04 MC/CUMM (3.8-5.5); Red Cell Distribution Width 15.4 % (9.3-17.3); White Blood Count 11.4 T/CUMM (4-12)
[2017-10-31 04:26] LABS: Calcium 7.8 MG/DL (8.5-10.1); Osmolality,Calculated 273.8 MOS/KG (273-304); Potassium 3.4 MMOL/L (3.5-5.1)
[2017-10-31] MEDS ORDERED: POTASSIUM CHLORIDE RIDER 20 MEQ in PREMIX 1 EACH IV PRN (05:05)
[2017-10-31] MEDS ORDERED: POTASSIUM CHLORIDE INJ 30 MEQ in SODIUM CHLORIDE 0.9% 285 ML IV ONE (05:30)
[2017-10-31] MEDS: LEVOTHYROXINE 50 MCG TABLET PO SCH (05:57)
[2017-10-31] MEDS: ERTAPENEM 1,000 MG in SODIUM CHLORIDE 0.9% 100 ML IV SCH (10:29)
[2017-10-31] MEDS: FUROSEMIDE 20 MG/2 ML VIAL IV SCH (10:30)
[2017-10-31] MEDS: ASPIRIN EC 325 MG TABLET PO SCH (10:31)
[2017-10-31] MEDS: LOSARTAN 50 MG TABLET PO SCH (10:31)
[2017-10-31] MEDS: METOPROLOL TARTRATE 25 MG TABLET PO SCH ×2 (10:31→22:59)
[2017-10-31] MEDS: PANTOPRAZOLE 40 MG TABLET PO SCH (10:32)
[2017-10-31] MEDS: GABAPENTIN 100 MG CAPSULE PO SCH ×3 (10:32→21:00)
[2017-10-31] MEDS ORDERED: TUBERCULIN SKIN TEST 0.1 ML SYRINGE INTRADERM ONE (12:09)
[2017-10-31 12:27] LABS: Lymphocytes,Pleural Fluid 20 %; Monocytes,Pleural Fluid 2 %; Neutrophils,Pleural Fluid 78 %
[2017-10-31 12:28] LABS: RBC,Pleural Fluid > 100000 T/CUMM
[2017-10-31 12:45] LABS: Total Protein,Body Fluid 3.2 G/DL
[2017-10-31] MEDS ORDERED: DEXTROSE 50% 25 GM/50 ML VIAL IV PRN (13:30)
[2017-10-31] MEDS ORDERED: DEXTROSE 5% NACL 0.45% 1,000 ML IV SCH (14:00)
[2017-10-31] MEDS: FUROSEMIDE 40 MG TABLET PO SCH (17:37)
[2017-10-31] MEDS: ALBUTEROL/IPRATROPIUM 3 ML NEB RESP TX SCH (20:27)
[2017-10-31] MEDS: ATORVASTATIN 80 MG TABLET PO SCH (21:00)
[2017-11-01] MEDS: ALBUTEROL/IPRATROPIUM 3 ML NEB RESP TX SCH ×4 (01:58→19:40)
[2017-11-01] MEDS: LEVOTHYROXINE 50 MCG TABLET PO SCH (06:19)
[2017-11-01] MEDS: PANTOPRAZOLE 40 MG TABLET PO SCH (08:41)
[2017-11-01] MEDS: ASPIRIN EC 325 MG TABLET PO SCH (08:43)
[2017-11-01] MEDS: LOSARTAN 50 MG TABLET PO SCH (08:43)
[2017-11-01] MEDS: GABAPENTIN 100 MG CAPSULE PO SCH ×3 (08:44→21:27)
[2017-11-01] MEDS: METOPROLOL TARTRATE 25 MG TABLET PO SCH ×2 (08:44→21:27)
[2017-11-01] MEDS: FUROSEMIDE 40 MG TABLET PO SCH ×3 (08:44→17:42)
[2017-11-01] MEDS: ERTAPENEM 1,000 MG in SODIUM CHLORIDE 0.9% 100 ML IV SCH (08:50)
[2017-11-01] MEDS: LOPERAMIDE 2 MG CAPSULE PO PRN (13:05)
[2017-11-01] MEDS: ATORVASTATIN 80 MG TABLET PO SCH (21:27)
[2017-11-02] MEDS: LOPERAMIDE 2 MG CAPSULE PO PRN ×2 (00:37→09:44)
[2017-11-02] MEDS: ALBUTEROL/IPRATROPIUM 3 ML NEB RESP TX SCH ×4 (01:55→19:16)
[2017-11-02 05:09] LABS: Basophils % 0.3 % (0.0-0.8); Eosinophils # 0.2 10*3/uL (0.0-0.87); Eosinophils % 2.1 % (0.00-10.9); Hematocrit 27.2 VOL% (35.7-47.0); Hemoglobin 8.9 GM/DL (12.0-16.0); Immature Granulocytes % 0.3 %; Immature Granulocytes Absolute 0.02 #; Lymphocytes # 1.7 10*3/uL (1.4-4.0); Lymphocytes % 22.4 % (21.3-54.2); Mean Corpuscular HGB Conc 32.7 GM/DL (32-36); Mean Corpuscular Hemoglobin 30 PG (27-34); Mean Corpuscular Volume 92.2 FL (87-102); Mean Platelet Volume 8.5 FL (9.6-12.0); Monocytes # 0.5 10*3/uL (0.11-0.8); Monocytes % 6.1 % (1.7-12.7); Neutrophils # 5.3 10*3/uL (1.4-7.4); Neutrophils % 68.8 % (38.7-73.9); Platelet Count 329 T/CUMM (130-400); Red Blood Count 2.95 MC/CUMM (3.8-5.5); Red Cell Distribution Width 15.2 % (9.3-17.3); White Blood Count 7.7 T/CUMM (4-12)
[2017-11-02 05:29] LABS: Calcium 7.4 MG/DL (8.5-10.1); Osmolality,Calculated 276.1 MOS/KG (273-304); Potassium 3.6 MMOL/L (3.5-5.1)
[2017-11-02] MEDS: LEVOTHYROXINE 50 MCG TABLET PO SCH (06:27)
[2017-11-02] MEDS: GABAPENTIN 100 MG CAPSULE PO SCH ×3 (09:44→20:55)
[2017-11-02] MEDS: PANTOPRAZOLE 40 MG TABLET PO SCH (09:44)
[2017-11-02] MEDS: ASPIRIN EC 325 MG TABLET PO SCH (09:45)
[2017-11-02] MEDS: METOPROLOL TARTRATE 25 MG TABLET PO SCH ×2 (09:53→20:55)
[2017-11-02] MEDS: LOSARTAN 50 MG TABLET PO SCH (09:53)
[2017-11-02] MEDS: ERTAPENEM 1,000 MG in SODIUM CHLORIDE 0.9% 100 ML IV SCH (09:59)
[2017-11-02] MEDS: SODIUM CHLORIDE 0.9% 200 ML IV SCH ×3 (12:22→20:55)
[2017-11-02] MEDS: ATORVASTATIN 80 MG TABLET PO SCH (20:55)
[2017-11-03] MEDS: ALBUTEROL/IPRATROPIUM 3 ML NEB RESP TX SCH ×4 (00:13→21:11)
[2017-11-03] MEDS: SODIUM CHLORIDE 0.9% 200 ML IV SCH ×5 (00:54→22:18)
[2017-11-03 05:18] LABS: Basophils % 0.5 % (0.0-0.8); Eosinophils # 0.2 10*3/uL (0.0-0.87); Eosinophils % 3.8 % (0.00-10.9); Hematocrit 25.9 VOL% (35.7-47.0); Hemoglobin 8.4 GM/DL (12.0-16.0); Immature Granulocytes % 0.5 %; Immature Granulocytes Absolute 0.03 #; Lymphocytes # 1.6 10*3/uL (1.4-4.0); Lymphocytes % 28.2 % (21.3-54.2); Mean Corpuscular HGB Conc 32.4 GM/DL (32-36); Mean Corpuscular Hemoglobin 30 PG (27-34); Mean Corpuscular Volume 92.2 FL (87-102); Mean Platelet Volume 8.5 FL (9.6-12.0); Monocytes # 0.5 10*3/uL (0.11-0.8); Monocytes % 7.9 % (1.7-12.7); Neutrophils # 3.4 10*3/uL (1.4-7.4); Neutrophils % 59.1 % (38.7-73.9); Platelet Count 328 T/CUMM (130-400); Red Blood Count 2.81 MC/CUMM (3.8-5.5); Red Cell Distribution Width 14.8 % (9.3-17.3); White Blood Count 5.8 T/CUMM (4-12)
[2017-11-03 05:30] LABS: Calcium 7.3 MG/DL (8.5-10.1); Osmolality,Calculated 274.4 MOS/KG (273-304); Potassium 3.1 MMOL/L (3.5-5.1)
[2017-11-03 05:33] LABS: Calcium 7.4 MG/DL (8.5-10.1); Osmolality,Calculated 276.2 MOS/KG (273-304); Potassium 3.1 MMOL/L (3.5-5.1)
[2017-11-03] MEDS: LEVOTHYROXINE 50 MCG TABLET PO SCH (05:41)
[2017-11-03] MEDS ORDERED: POTASSIUM CHLORIDE INJ 40 MEQ in SODIUM CHLORIDE 0.9% 480 ML IV ONE (06:00)
[2017-11-03] MEDS ORDERED: SODIUM PHOSPHATE ENEMA 133 ML BOTTLE RECTAL ONE (11:30)
[2017-11-03] MEDS ORDERED: POTASSIUM CHLORIDE RIDER 10 MEQ in PREMIX 1 EACH IV PRN (11:56)
[2017-11-03] MEDS: ERTAPENEM 1,000 MG in SODIUM CHLORIDE 0.9% 100 ML IV SCH (12:25)
[2017-11-03] MEDS ORDERED: GLYCOPYRROLATE 0.4 MG/2 ML VIAL ONE (14:12)
[2017-11-03] MEDS ORDERED: LIDOCAINE 1% 5 ML VIAL ONE (14:12)
[2017-11-03] MEDS ORDERED: PHENYLEPHRINE 1 MG/10 ML SYRINGE IV ONE (14:12)
[2017-11-03] MEDS ORDERED: PROPOFOL 200 MG/20 ML VIAL IV ONE (14:12)
[2017-11-03] MEDS: METOPROLOL TARTRATE 25 MG TABLET PO SCH ×2 (14:36→21:26)
[2017-11-03] MEDS: GABAPENTIN 100 MG CAPSULE PO SCH ×3 (14:37→21:25)
[2017-11-03] MEDS: ASPIRIN EC 325 MG TABLET PO SCH (16:51)
[2017-11-03] MEDS: PANTOPRAZOLE 40 MG TABLET PO SCH (16:51)
[2017-11-03] MEDS: ATORVASTATIN 80 MG TABLET PO SCH (21:25)
[2017-11-04] MEDS: SODIUM CHLORIDE 0.9% 200 ML IV SCH ×7 (01:46→20:22)
[2017-11-04] MEDS: ALBUTEROL/IPRATROPIUM 3 ML NEB RESP TX SCH ×4 (01:54→19:21)
[2017-11-04 04:57] LABS: Basophils % 0.4 % (0.0-0.8); Eosinophils # 0.2 10*3/uL (0.0-0.87); Eosinophils % 4.3 % (0.00-10.9); Hematocrit 26.9 VOL% (35.7-47.0); Immature Granulocytes % 0.4 %; Immature Granulocytes Absolute 0.02 #; Lymphocytes # 1.6 10*3/uL (1.4-4.0); Lymphocytes % 32.4 % (21.3-54.2); Mean Corpuscular HGB Conc 33.5 GM/DL (32-36); Mean Corpuscular Hemoglobin 30 PG (27-34); Mean Corpuscular Volume 90.6 FL (87-102); Mean Platelet Volume 8.3 FL (9.6-12.0); Monocytes # 0.4 10*3/uL (0.11-0.8); Monocytes % 8.5 % (1.7-12.7); Neutrophils # 2.7 10*3/uL (1.4-7.4); Platelet Count 354 T/CUMM (130-400); Red Blood Count 2.97 MC/CUMM (3.8-5.5); Red Cell Distribution Width 15.3 % (9.3-17.3); White Blood Count 4.9 T/CUMM (4-12)
[2017-11-04 05:22] LABS: Calcium 7.5 MG/DL (8.5-10.1); Osmolality,Calculated 281.4 MOS/KG (273-304); Potassium 4.2 MMOL/L (3.5-5.1)
[2017-11-04] MEDS: LEVOTHYROXINE 50 MCG TABLET PO SCH (06:43)
[2017-11-04] MEDS: METOPROLOL TARTRATE 25 MG TABLET PO SCH ×2 (09:21→22:16)
[2017-11-04] MEDS: PANTOPRAZOLE 40 MG TABLET PO SCH (09:21)
[2017-11-04] MEDS: ASPIRIN EC 325 MG TABLET PO SCH (09:21)
[2017-11-04] MEDS: GABAPENTIN 100 MG CAPSULE PO SCH ×3 (09:21→22:16)
[2017-11-04] MEDS: ERTAPENEM 1,000 MG in SODIUM CHLORIDE 0.9% 100 ML IV SCH (09:21)
[2017-11-04] MEDS ORDERED: MAGNESIUM HYDROXIDE SUSP 30 ML UDCUP PO PRN (17:30)
[2017-11-04] MEDS: ATORVASTATIN 80 MG TABLET PO SCH (22:16)
[2017-11-05] MEDS: SODIUM CHLORIDE 0.9% 200 ML IV SCH ×4 (00:21→12:34)
[2017-11-05] MEDS: ALBUTEROL/IPRATROPIUM 3 ML NEB RESP TX SCH ×2 (00:30→07:16)
[2017-11-05] MEDS: LEVOTHYROXINE 50 MCG TABLET PO SCH (05:40)
[2017-11-05 07:08] LABS: Osmolality,Calculated 281.4 MOS/KG (273-304); Potassium 3.9 MMOL/L (3.5-5.1)
[2017-11-05] MEDS: GABAPENTIN 100 MG CAPSULE PO SCH (09:26)
[2017-11-05] MEDS: ERTAPENEM 1,000 MG in SODIUM CHLORIDE 0.9% 100 ML IV SCH (09:27)
[2017-11-05] MEDS: METOPROLOL TARTRATE 25 MG TABLET PO SCH (09:27)
[2017-11-05] MEDS: PANTOPRAZOLE 40 MG TABLET PO SCH (09:27)
[2017-11-05] MEDS: ASPIRIN EC 325 MG TABLET PO SCH (09:27)
[2017-11-05] MEDS ORDERED: POLYETHYLENE GLYCOL POWDER 17 GM PACK PO PRN (10:10)
[2017-11-05 10:59] VITALS: BP 167/86
== END 2017-11-05 13:05 | DRG 392 ==
LOC: SUATTDRO 06:31 → N.TELEN 06:31 → N.3E 11-04 13:08
PROVIDERS: ADMIT Internal Medicine
PROC: IRTHORA (2017-10-31 09:40)
PROC: COLONBX (2017-11-03 12:20)

== ENCOUNTER 2018-05-28 16:40 | Observation (INO) ==
[2018-05-28] MEDS ORDERED: INFLUENZA VIRUS VACCINE 0.5 ML SYRINGE IM ONE (18:42)
[2018-05-28] MEDS ORDERED: MAGNESIUM SULF RIDER 2 GM in PREMIX 1 EACH IV PRN (19:09)
[2018-05-28] MEDS ORDERED: POTASSIUM CHLORIDE 20 MEQ TABLET PO PRN (19:09)
[2018-05-28] MEDS ORDERED: ONDANSETRON 4 MG/2 ML VIAL IV PRN (19:09)
[2018-05-28] MEDS ORDERED: INSULIN REGULAR 100 UNIT/ML SUBCUT ONE (19:09)
[2018-05-28] MEDS ORDERED: ZALEPLON 5 MG CAPSULE PO PRN (19:09)
[2018-05-28 20:23] LABS: Bilirubin,Total 0.6 MG/DL (0.2-1.0); Calcium 8.4 MG/DL (8.5-10.1); Osmolality,Calculated 279.1 MOS/KG (273-304); Potassium 4.7 MMOL/L (3.5-5.1); Total Protein 7.1 G/DL (6.4-8.3)
[2018-05-28] MEDS: ENOXAPARIN 40 MG/0.4 ML SYRINGE SUBCUT SCH (21:23)
[2018-05-28] MEDS: INSULIN REGULAR 100 UNIT/ML SUBCUT SCH (21:23)
[2018-05-28] MEDS: METOPROLOL TARTRATE 25 MG TABLET PO SCH (21:24)
[2018-05-28] MEDS: FERROUS SULFATE 325 MG TABLET PO SCH (21:25)
[2018-05-28] MEDS: CALCIUM (CARBONATE)/VITAMIN D 600 MG-400 UNIT TABLET PO SCH (21:25)
[2018-05-29 02:05] LABS: Risk Ratio 3.05; VLDL CHOLESTEROL 17.4 MG/DL
[2018-05-29] MEDS: NITROGLYCERIN 2% OINT 1 INCH/GM PACK TOP SCH ×4 (03:02→17:45)
[2018-05-29] MEDS: INSULIN REGULAR 100 UNIT/ML SUBCUT SCH ×4 (07:51→21:15)
[2018-05-29] MEDS ORDERED: DEXTROSE 50% 25 GM/50 ML VIAL IV PRN (08:10)
[2018-05-29] MEDS ORDERED: GLUCAGON 1 MG VIAL IM PRN (08:10)
[2018-05-29] MEDS ORDERED: DEXTROSE 50% 25 GM/50 ML VIAL IV ONE (08:13)
[2018-05-29] MEDS ORDERED: REGADENOSON 0.4 MG/5 ML SYRINGE IV ONE (10:48)
[2018-05-29] MEDS: CALCIUM (CARBONATE)/VITAMIN D 600 MG-400 UNIT TABLET PO SCH ×2 (12:54→21:14)
[2018-05-29] MEDS: AMIODARONE 200 MG TABLET PO SCH (12:55)
[2018-05-29] MEDS: METOPROLOL TARTRATE 25 MG TABLET PO SCH ×2 (12:55→21:15)
[2018-05-29] MEDS: ASPIRIN EC 325 MG TABLET PO SCH (12:55)
[2018-05-29] MEDS: FERROUS SULFATE 325 MG TABLET PO SCH ×2 (12:55→21:15)
[2018-05-29] MEDS: PANTOPRAZOLE 40 MG TABLET PO SCH (12:55)
[2018-05-29] MEDS: ENOXAPARIN 40 MG/0.4 ML SYRINGE SUBCUT SCH (21:19)
[2018-05-30] MEDS: NITROGLYCERIN 2% OINT 1 INCH/GM PACK TOP SCH ×2 (01:48→06:40)
[2018-05-30 05:39] LABS: Basophils % 0.5 % (0.0-0.8); Eosinophils # 0.1 10*3/uL (0.0-0.87); Eosinophils % 1.5 % (0.00-10.9); Hematocrit 30.9 VOL% (35.7-47.0); Hemoglobin 9.8 GM/DL (12.0-16.0); Lymphocytes # 2.1 10*3/uL (1.4-4.0); Lymphocytes % 53.1 % (21.3-54.2); Mean Corpuscular HGB Conc 31.7 GM/DL (32-36); Mean Corpuscular Hemoglobin 30 PG (27-34); Mean Corpuscular Volume 93.6 FL (87-102); Mean Platelet Volume 9.1 FL (9.6-12.0); Monocytes # 0.3 10*3/uL (0.11-0.8); Neutrophils # 1.5 10*3/uL (1.4-7.4); Neutrophils % 36.9 % (38.7-73.9); Platelet Count 230 T/CUMM (130-400); Red Cell Distribution Width 13.8 % (9.3-17.3)
[2018-05-30 05:55] LABS: Calcium 7.5 MG/DL (8.5-10.1); Osmolality,Calculated 284.5 MOS/KG (273-304); Potassium 4.3 MMOL/L (3.5-5.1)
[2018-05-30 06:12] LABS: Eosinophils 4 % (0-10); Hypochromasia 1+; Lymphocytes 47 % (20-55); Myelocytes 1 %; Platelet Estimate Normal; Segmented Neutrophils 42 % (50-85); Total Cells Counted 100
[2018-05-30 07:51] VITALS: BP 131/78
[2018-05-30] MEDS: INSULIN REGULAR 100 UNIT/ML SUBCUT SCH (07:55)
[2018-05-30] MEDS: METOPROLOL TARTRATE 25 MG TABLET PO SCH (08:41)
[2018-05-30] MEDS: PANTOPRAZOLE 40 MG TABLET PO SCH (08:41)
[2018-05-30] MEDS: FERROUS SULFATE 325 MG TABLET PO SCH (08:41)
[2018-05-30] MEDS: ASPIRIN EC 325 MG TABLET PO SCH (08:41)
[2018-05-30] MEDS: AMIODARONE 200 MG TABLET PO SCH (08:41)
[2018-05-30] MEDS: CALCIUM (CARBONATE)/VITAMIN D 600 MG-400 UNIT TABLET PO SCH (08:41)
== END 2018-05-30 11:32 | disposition home or self-care (01) ==
LOC: N.TELEN 18:20 → INTOOBSV 18:20 → SUATTDRO 18:20
PROVIDERS: ADMIT Internal Medicine; ATTEND Internal Medicine

== ENCOUNTER 2018-06-14 19:03 | Inpatient (IN) ==
[2018-06-14] MEDS ORDERED: INFLUENZA VIRUS VACCINE 0.5 ML SYRINGE IM ONE (21:00)
[2018-06-14] MEDS ORDERED: MAGNESIUM SULF RIDER 4 GM in PREMIX 1 EACH IV PRN (23:50)
[2018-06-14] MEDS ORDERED: diphenhydrAMINE CAP 25 MG CAPSULE PO PRN (23:50)
[2018-06-14] MEDS ORDERED: MAGNESIUM SULF RIDER 2 GM in PREMIX 1 EACH IV PRN (23:50)
[2018-06-14] MEDS ORDERED: ONDANSETRON 4 MG/2 ML VIAL IV PRN (23:50)
[2018-06-14] MEDS ORDERED: LACTULOSE 20 GM/30 ML UDCUP PO PRN (23:50)
[2018-06-14] MEDS ORDERED: NICOTINE 21 MG/24 HR PATCH TRANSDERM PRN (23:50)
[2018-06-14] MEDS ORDERED: guaiFENesin/DM ER 600-30 MG TABLET PO PRN (23:50)
[2018-06-14] MEDS ORDERED: ZALEPLON 5 MG CAPSULE PO PRN (23:50)
[2018-06-14] MEDS ORDERED: GLUCAGON 1 MG VIAL IM PRN (23:54)
[2018-06-14] MEDS ORDERED: DEXTROSE 50% 25 GM/50 ML VIAL IV PRN (23:54)
[2018-06-15] MEDS: MORPHINE 4 MG/1 ML VIAL IV PRN ×3 (00:26→12:41)
[2018-06-15 00:27] LABS: Basophils % 0.4 % (0.0-0.8); Eosinophils # 0.1 10*3/uL (0.0-0.87); Eosinophils % 1.9 % (0.00-10.9); Hematocrit 32.7 VOL% (35.7-47.0); Hemoglobin 10.5 GM/DL (12.0-16.0); Immature Granulocytes % 0.2 %; Immature Granulocytes Absolute 0.01 #; Lymphocytes # 2.1 10*3/uL (1.4-4.0); Lymphocytes % 43.5 % (21.3-54.2); Mean Corpuscular HGB Conc 32.1 GM/DL (32-36); Mean Corpuscular Hemoglobin 30 PG (27-34); Mean Corpuscular Volume 94.2 FL (87-102); Mean Platelet Volume 8.5 FL (9.6-12.0); Monocytes # 0.3 10*3/uL (0.11-0.8); Monocytes % 5.5 % (1.7-12.7); Neutrophils # 2.3 10*3/uL (1.4-7.4); Neutrophils % 48.5 % (38.7-73.9); Platelet Count 210 T/CUMM (130-400); Red Blood Count 3.47 MC/CUMM (3.8-5.5); Red Cell Distribution Width 13.9 % (9.3-17.3); White Blood Count 4.8 T/CUMM (4-12)
[2018-06-15] MEDS ORDERED: ALUM/MAG/SIMETH/LIDO VISC 1:1 30 ML BOTTLE PO ONE (00:30)
[2018-06-15] MEDS: INSULIN REGULAR 100 UNIT/ML SUBCUT SCH ×5 (00:36→20:55)
[2018-06-15 00:55] LABS: Alanine Aminotransferase 16 U/L (13-56); Albumin 3.2 G/DL (3.4-5.0); Alkaline Phosphatase 114 U/L (45-117); Aspartate Amino Transferase 23 U/L (0-37); Bilirubin,Total < 0.39 MG/DL (0.2-1.0); Blood Urea Nitrogen 22 MG/DL (7-18); Calcium 8.1 MG/DL (8.5-10.1)
[2018-06-15 00:56] LABS: Glucose 152 MG/DL (74-106); Osmolality,Calculated 271.4 MOS/KG (273-304); Potassium 4.9 MMOL/L (3.5-5.1); Sodium 133 MMOL/L (136-145)
[2018-06-15] MEDS ORDERED: LORazepam 2 MG/1 ML VIAL IV ONE (02:30)
[2018-06-15] MEDS ORDERED: PANTOPRAZOLE 40 MG VIAL IV ONE (02:30)
[2018-06-15] MEDS: PANTOPRAZOLE 40 MG TABLET PO SCH (09:06)
[2018-06-15] MEDS: ACETAMINOPHEN 325 MG TABLET PO PRN ×2 (09:06→15:30)
[2018-06-15] MEDS: METOPROLOL TARTRATE 25 MG TABLET PO SCH ×2 (10:44→21:03)
[2018-06-15] MEDS: ASPIRIN 325 MG TABLET PO SCH (10:44)
[2018-06-15] MEDS: AMIODARONE 200 MG TABLET PO SCH (10:45)
[2018-06-16 03:15] LABS: Apearance,Urine CLOUDY (Clear); Bacteria,Urine Many /HPF (Few); Bilirubin,Urine Negative (Negative); Blood, Urine Negative (Negative); Glucose,Urine (UA) Negative (Negative); Ketones,Urine Negative (Negative); Nitrite,Urine Negative (Negative); Protein,Urine 100 MG/DL; RBC,Urine 15 /HPF (0-4); Urine Color Yellow (Yellow); Urine Specific Gravity 1.014 (1.001-1.035); Urine Urobilinogen < 2.0 EU/DL (0.2-1.0); WBC,Urine 2002 /HPF (0-6)
[2018-06-16 05:47] LABS: Basophils % 0.8 % (0.0-0.8); Eosinophils # 0.1 10*3/uL (0.0-0.87); Eosinophils % 2.1 % (0.00-10.9); Hematocrit 29.3 VOL% (35.7-47.0); Hemoglobin 9.4 GM/DL (12.0-16.0); Immature Granulocytes % 0.3 %; Immature Granulocytes Absolute 0.01 #; Lymphocytes # 1.8 10*3/uL (1.4-4.0); Lymphocytes % 47.9 % (21.3-54.2); Mean Corpuscular HGB Conc 32.1 GM/DL (32-36); Mean Corpuscular Hemoglobin 30 PG (27-34); Mean Corpuscular Volume 93.9 FL (87-102); Mean Platelet Volume 8.6 FL (9.6-12.0); Monocytes # 0.3 10*3/uL (0.11-0.8); Monocytes % 6.8 % (1.7-12.7); Neutrophils # 1.6 10*3/uL (1.4-7.4); Neutrophils % 42.1 % (38.7-73.9); Platelet Count 187 T/CUMM (130-400); Red Blood Count 3.12 MC/CUMM (3.8-5.5); Red Cell Distribution Width 13.8 % (9.3-17.3); White Blood Count 3.8 T/CUMM (4-12)
[2018-06-16 07:21] LABS: Free T4 (Free Thyroxine) 0.4 NG/DL (0.76-1.46); Osmolality,Calculated 273.4 MOS/KG (273-304)
[2018-06-16 07:27] LABS: Potassium 6.3 MMOL/L (3.5-5.1)
[2018-06-16] MEDS ORDERED: SODIUM POLYSTYRENE SULFATE 15 GM/60 ML BOTTLE PO ONE (08:26)
[2018-06-16] MEDS ORDERED: DEXTROSE 50% 25 GM/50 ML VIAL IV ONE (09:20)
[2018-06-16] MEDS ORDERED: INSULIN REGULAR 100 UNIT/ML IV ONE (09:21)
[2018-06-16] MEDS: POLYETHYLENE GLYCOL POWDER 17 GM PACK PO SCH (09:29)
[2018-06-16] MEDS: PANTOPRAZOLE 40 MG TABLET PO SCH (09:29)
[2018-06-16] MEDS: ASPIRIN 325 MG TABLET PO SCH (09:29)
[2018-06-16] MEDS: AMIODARONE 200 MG TABLET PO SCH (09:30)
[2018-06-16] MEDS: METOPROLOL TARTRATE 25 MG TABLET PO SCH (09:30)
[2018-06-16] MEDS ORDERED: CALCIUM GLUCONATE 2,000 MG in SODIUM CHLORIDE 0.9% 100 ML IV ONE (10:00)
[2018-06-16] MEDS: cefTRIAXone 1,000 MG in SYRINGE 1 EACH IV SCH (10:27)
[2018-06-16] MEDS: SODIUM CHLORIDE 0.9% 1,000 ML IV SCH ×3 (10:28→13:56)
[2018-06-16] MEDS: INSULIN REGULAR 100 UNIT/ML SUBCUT SCH ×4 (10:38→22:20)
[2018-06-17 05:48] LABS: Basophils % 0.5 % (0.0-0.8); Eosinophils # 0.1 10*3/uL (0.0-0.87); Eosinophils % 1.6 % (0.00-10.9); Hematocrit 30.8 VOL% (35.7-47.0); Hemoglobin 9.6 GM/DL (12.0-16.0); Immature Granulocytes % 0.2 %; Immature Granulocytes Absolute 0.01 #; Lymphocytes % 45.3 % (21.3-54.2); Mean Corpuscular HGB Conc 31.2 GM/DL (32-36); Mean Corpuscular Hemoglobin 30 PG (27-34); Mean Platelet Volume 8.8 FL (9.6-12.0); Monocytes # 0.3 10*3/uL (0.11-0.8); Monocytes % 6.7 % (1.7-12.7); Neutrophils % 45.7 % (38.7-73.9); Platelet Count 199 T/CUMM (130-400); Red Blood Count 3.21 MC/CUMM (3.8-5.5); White Blood Count 4.3 T/CUMM (4-12)
[2018-06-17] MEDS: LEVOTHYROXINE 25 MCG TABLET PO SCH (06:18)
[2018-06-17 08:09] LABS: Calcium 8.4 MG/DL (8.5-10.1); Osmolality,Calculated 283.7 MOS/KG (273-304); Potassium 5.6 MMOL/L (3.5-5.1)
[2018-06-17] MEDS ORDERED: SODIUM POLYSTYRENE SULFATE 15 GM/60 ML BOTTLE PO STA ×2 (09:03→09:09)
[2018-06-17] MEDS: INSULIN REGULAR 100 UNIT/ML SUBCUT SCH ×4 (09:42→21:00)
[2018-06-17] MEDS: AMIODARONE 200 MG TABLET PO SCH ×2 (09:43→11:25)
[2018-06-17] MEDS: ASPIRIN 325 MG TABLET PO SCH ×2 (09:43→11:25)
[2018-06-17] MEDS: POLYETHYLENE GLYCOL POWDER 17 GM PACK PO SCH (09:44)
[2018-06-17] MEDS: PANTOPRAZOLE 40 MG TABLET PO SCH ×2 (09:44→11:25)
[2018-06-17] MEDS: cefTRIAXone 1,000 MG in SYRINGE 1 EACH IV SCH (11:22)
[2018-06-17] MEDS: INSULIN ASPART PROTAMINE/ASPART 70/30 100 UNIT/ML SUBCUT SCH (12:51)
[2018-06-17] MEDS ORDERED: FUROSEMIDE 40 MG/4 ML VIAL IV ONE (13:31)
[2018-06-17] MEDS ORDERED: MAGNESIUM CITRATE 300 ML BOTTLE PO ONE (13:56)
[2018-06-17] MEDS: SODIUM POLYSTYRENE SULFATE 15 GM/60 ML BOTTLE PO SCH (14:05)
[2018-06-17] MEDS ORDERED: INSULIN ASPART PROTAMINE/ASPART 70/30 100 UNIT/ML SUBCUT SCH (19:00)
[2018-06-17] MEDS: FLUDROCORTISONE 0.1 MG TABLET PO SCH (21:01)
[2018-06-18] MEDS: SODIUM POLYSTYRENE SULFATE 15 GM/60 ML BOTTLE PO SCH ×2 (00:25→08:56)
[2018-06-18] MEDS: LEVOTHYROXINE 25 MCG TABLET PO SCH (06:25)
[2018-06-18] MEDS: INSULIN REGULAR 100 UNIT/ML SUBCUT SCH ×2 (08:56→12:34)
[2018-06-18] MEDS: INSULIN ASPART PROTAMINE/ASPART 70/30 100 UNIT/ML SUBCUT SCH (08:58)
[2018-06-18] MEDS: cefTRIAXone 1,000 MG in SYRINGE 1 EACH IV SCH (08:58)
[2018-06-18] MEDS: FLUDROCORTISONE 0.1 MG TABLET PO SCH (09:00)
[2018-06-18] MEDS: ASPIRIN 325 MG TABLET PO SCH (09:02)
[2018-06-18] MEDS: PANTOPRAZOLE 40 MG TABLET PO SCH (09:02)
[2018-06-18] MEDS: AMIODARONE 200 MG TABLET PO SCH (09:02)
[2018-06-18] MEDS: POLYETHYLENE GLYCOL POWDER 17 GM PACK PO SCH (09:05)
[2018-06-18 12:13] VITALS: BP 150/70
== END 2018-06-18 13:57 | disposition home or self-care (01) | DRG 392 ==
LOC: N.TELEN → SUATTDRO 19:03 → N.TELENOUT 19:03 → N.TELEN 19:04 → SUATTDRO 23:50 → EDSTATUS 06-17 12:12
PROVIDERS: ADMIT Internal Medicine; ATTEND Internal Medicine

== ENCOUNTER 2018-06-27 19:14 | Observation (INO) ==
[2018-06-27] MEDS ORDERED: MORPHINE 4 MG/1 ML VIAL IV PRN (22:41)
[2018-06-27] MEDS ORDERED: DEXTROSE 50% 25 GM/50 ML SYRINGE IV PRN (22:41)
[2018-06-27] MEDS ORDERED: GLUCAGON 1 MG VIAL IM PRN (22:41)
[2018-06-27] MEDS ORDERED: ONDANSETRON 4 MG/2 ML VIAL IV PRN (22:41)
[2018-06-27] MEDS: ENOXAPARIN 40 MG/0.4 ML SYRINGE SUBCUT SCH (23:26)
[2018-06-28 02:47] LABS: Basophils % 0.5 % (0.0-0.8); Eosinophils # 0.1 10*3/uL (0.0-0.87); Eosinophils % 2.4 % (0.00-10.9); Hematocrit 26.8 VOL% (35.7-47.0); Hemoglobin 8.6 GM/DL (12.0-16.0); Immature Granulocytes % 0.3 %; Immature Granulocytes Absolute 0.01 #; Lymphocytes # 1.7 10*3/uL (1.4-4.0); Mean Corpuscular HGB Conc 32.1 GM/DL (32-36); Mean Corpuscular Hemoglobin 31 PG (27-34); Mean Corpuscular Volume 95.4 FL (87-102); Mean Platelet Volume 8.6 FL (9.6-12.0); Monocytes # 0.3 10*3/uL (0.11-0.8); Monocytes % 7.1 % (1.7-12.7); Neutrophils # 1.6 10*3/uL (1.4-7.4); Neutrophils % 42.7 % (38.7-73.9); Platelet Count 196 T/CUMM (130-400); Red Blood Count 2.81 MC/CUMM (3.8-5.5); White Blood Count 3.7 T/CUMM (4-12)
[2018-06-28 03:59] LABS: Calcium 7.8 MG/DL (8.5-10.1); Osmolality,Calculated 284.8 MOS/KG (273-304); Potassium 5.3 MMOL/L (3.5-5.1); Thyroid Stimulating Hormone 5.97 uIU/ml (0.358-3.74)
[2018-06-28] MEDS: INSULIN LISPRO 100 UNIT/ML SUBCUT SCH ×4 (08:36→20:02)
[2018-06-28] MEDS ORDERED: INFLUENZA VIRUS VACCINE 0.5 ML SYRINGE IM ONE (09:00)
[2018-06-28] MEDS: ASPIRIN 325 MG TABLET PO SCH (09:53)
[2018-06-28] MEDS: PANTOPRAZOLE 40 MG TABLET PO SCH (09:53)
[2018-06-28] MEDS: INDOMETHACIN 25 MG CAPSULE PO SCH ×3 (09:55→20:17)
[2018-06-28] MEDS: TRIAMCINOLONE 0.1% OINT 15 GM TUBE TOP SCH ×3 (10:08→20:17)
[2018-06-28] MEDS: ENOXAPARIN 40 MG/0.4 ML SYRINGE SUBCUT SCH (22:29)
[2018-06-29 07:45] VITALS: BP 134/63
[2018-06-29] MEDS: INSULIN LISPRO 100 UNIT/ML SUBCUT SCH ×2 (07:58→12:05)
[2018-06-29] MEDS: PANTOPRAZOLE 40 MG TABLET PO SCH (08:31)
[2018-06-29] MEDS: ASPIRIN 325 MG TABLET PO SCH (08:32)
[2018-06-29] MEDS: TRIAMCINOLONE 0.1% OINT 15 GM TUBE TOP SCH (08:32)
[2018-06-29] MEDS: INDOMETHACIN 25 MG CAPSULE PO SCH (08:32)
[2018-06-29] MEDS ORDERED: PNEUMOCOCCAL VACCINE (13 VALENT) 0.5 ML SYRINGE IM ONE (10:30)
== END 2018-06-29 12:06 | disposition home health service (06) ==
LOC: INTOOBSV 20:44 → N.TELEN 20:44 → SUATTDRO 20:44
PROVIDERS: ADMIT Internal Medicine; ATTEND Internal Medicine

== ENCOUNTER 2018-07-21 18:37 | Inpatient (IN) ==
[2018-07-21] MEDS ORDERED: guaiFENesin/DM ER 600-30 MG TABLET PO PRN (22:32)
[2018-07-21] MEDS ORDERED: ALBUTEROL 2.5 MG/3 ML NEB RESP TX PRN (22:32)
[2018-07-21] MEDS ORDERED: GLUCAGON 1 MG VIAL IM PRN (22:32)
[2018-07-21] MEDS ORDERED: MORPHINE 4 MG/1 ML VIAL IV PRN (22:32)
[2018-07-21] MEDS ORDERED: DEXTROSE 50% 25 GM/50 ML SYRINGE IV PRN (22:32)
[2018-07-21] MEDS: LEVOFLOXACIN INJ 750 MG in PREMIX 1 EACH IV SCH (22:43)
[2018-07-21 22:50] LABS: Basophils % 0.1 % (0.0-0.8); Eosinophils % 0.1 % (0.00-10.9); Hematocrit 25.5 VOL% (35.7-47.0); Hemoglobin 8.1 GM/DL (12.0-16.0); Immature Granulocytes % 0.4 %; Immature Granulocytes Absolute 0.03 #; Lymphocytes # 0.5 10*3/uL (1.4-4.0); Lymphocytes % 6.6 % (21.3-54.2); Mean Corpuscular HGB Conc 31.8 GM/DL (32-36); Mean Corpuscular Hemoglobin 30 PG (27-34); Mean Corpuscular Volume 95.1 FL (87-102); Mean Platelet Volume 8.7 FL (9.6-12.0); Monocytes # 0.1 10*3/uL (0.11-0.8); Neutrophils # 7.6 10*3/uL (1.4-7.4); Neutrophils % 91.8 % (38.7-73.9); Platelet Count 192 T/CUMM (130-400); Red Blood Count 2.68 MC/CUMM (3.8-5.5); Red Cell Distribution Width 14.9 % (9.3-17.3); White Blood Count 8.2 T/CUMM (4-12)
[2018-07-21 23:13] LABS: Alanine Aminotransferase 38 U/L (13-56); Albumin 2.9 G/DL (3.4-5.0); Alkaline Phosphatase 186 U/L (45-117); Aspartate Amino Transferase 48 U/L (0-37); Bilirubin,Total < 0.39 MG/DL (0.2-1.0); Blood Urea Nitrogen 39 MG/DL (7-18); Calcium 7.9 MG/DL (8.5-10.1); Glucose 294 MG/DL (74-106); Osmolality,Calculated 289.1 MOS/KG (273-304); Potassium 4.6 MMOL/L (3.5-5.1); Sodium 135 MMOL/L (136-145); Total Protein 7.1 G/DL (6.4-8.3)
[2018-07-21 23:14] LABS: Band Neutrophils 3 % (0-10); Lymphocytes 5 % (20-55); Segmented Neutrophils 92 % (50-85); Total Cells Counted 100
[2018-07-21 23:15] LABS: Hypochromasia 1+; Platelet Estimate Normal; Polychromasia Few
[2018-07-21] MEDS: CALCIUM (CARBONATE)/VITAMIN D 600 MG-400 UNIT TABLET PO SCH (23:22)
[2018-07-21] MEDS: FERROUS SULFATE 325 MG TABLET PO SCH (23:22)
[2018-07-21] MEDS: INSULIN REGULAR 100 UNIT/ML SUBCUT SCH (23:23)
[2018-07-21] MEDS: ISOSORBIDE DINITRATE 10 MG TABLET PO SCH (23:23)
[2018-07-21] MEDS: DOCUSATE/SENNA 50-8.6 MG TABLET PO SCH (23:23)
[2018-07-22] MEDS: ALBUTEROL/IPRATROPIUM 3 ML NEB RESP TX SCH ×4 (00:35→20:12)
[2018-07-22] MEDS: PIPERACILLIN/TAZOBACTAM 3,375 MG in SODIUM CHLORIDE 0.9% 100 ML IV SCH ×3 (00:54→17:34)
[2018-07-22 04:28] LABS: Eosinophils % 0.1 % (0.00-10.9); Hemoglobin 7.8 GM/DL (12.0-16.0); Immature Granulocytes % 0.4 %; Immature Granulocytes Absolute 0.03 #; Lymphocytes # 0.5 10*3/uL (1.4-4.0); Lymphocytes % 7.5 % (21.3-54.2); Mean Corpuscular HGB Conc 31.2 GM/DL (32-36); Mean Corpuscular Hemoglobin 30 PG (27-34); Mean Corpuscular Volume 96.9 FL (87-102); Mean Platelet Volume 8.9 FL (9.6-12.0); Monocytes # 0.1 10*3/uL (0.11-0.8); Monocytes % 0.7 % (1.7-12.7); Neutrophils # 6.5 10*3/uL (1.4-7.4); Neutrophils % 91.3 % (38.7-73.9); Platelet Count 196 T/CUMM (130-400); Red Blood Count 2.58 MC/CUMM (3.8-5.5); Red Cell Distribution Width 14.6 % (9.3-17.3); White Blood Count 7.2 T/CUMM (4-12)
[2018-07-22 04:40] LABS: Calcium 7.4 MG/DL (8.5-10.1); Osmolality,Calculated 286.4 MOS/KG (273-304); Potassium 4.9 MMOL/L (3.5-5.1)
[2018-07-22 05:11] LABS: Band Neutrophils 8 % (0-10); Lymphocytes 7 % (20-55); Platelet Estimate Normal; Segmented Neutrophils 84 % (50-85); Total Cells Counted 100
[2018-07-22] MEDS: LEVOTHYROXINE 50 MCG TABLET PO SCH (05:53)
[2018-07-22] MEDS: INSULIN REGULAR 100 UNIT/ML SUBCUT SCH ×4 (07:41→20:21)
[2018-07-22] MEDS: INSULIN ASPART PROTAMINE/ASPART 70/30 100 UNIT/ML SUBCUT SCH ×2 (08:21→17:32)
[2018-07-22] MEDS: DOCUSATE/SENNA 50-8.6 MG TABLET PO SCH ×2 (08:48→20:22)
[2018-07-22] MEDS: FERROUS SULFATE 325 MG TABLET PO SCH ×2 (08:49→20:21)
[2018-07-22] MEDS: CALCIUM (CARBONATE)/VITAMIN D 600 MG-400 UNIT TABLET PO SCH ×3 (08:50→20:21)
[2018-07-22] MEDS: PANTOPRAZOLE 40 MG TABLET PO SCH ×3 (08:51→09:13)
[2018-07-22] MEDS: FUROSEMIDE 20 MG TABLET PO SCH (08:53)
[2018-07-22] MEDS: FEXOFENADINE 180 MG TABLET PO SCH (08:55)
[2018-07-22] MEDS: ASPIRIN 325 MG TABLET PO SCH (08:56)
[2018-07-22] MEDS: BACLOFEN 10 MG TABLET PO SCH ×4 (08:58→20:21)
[2018-07-22] MEDS: AMIODARONE 200 MG TABLET PO SCH (08:58)
[2018-07-22] MEDS: ISOSORBIDE DINITRATE 10 MG TABLET PO SCH ×3 (08:59→20:21)
[2018-07-22] MEDS: ENOXAPARIN 40 MG/0.4 ML SYRINGE SUBCUT SCH (09:00)
[2018-07-23] MEDS: ALBUTEROL/IPRATROPIUM 3 ML NEB RESP TX SCH ×3 (02:34→14:48)
[2018-07-23] MEDS: LEVOTHYROXINE 50 MCG TABLET PO SCH (05:41)
[2018-07-23 05:44] LABS: Basophils % 0.1 % (0.0-0.8); Eosinophils % 0.1 % (0.00-10.9); Hematocrit 25.3 VOL% (35.7-47.0); Hemoglobin 7.9 GM/DL (12.0-16.0); Immature Granulocytes % 0.6 %; Immature Granulocytes Absolute 0.05 #; Lymphocytes # 2.4 10*3/uL (1.4-4.0); Lymphocytes % 27.8 % (21.3-54.2); Mean Corpuscular HGB Conc 31.2 GM/DL (32-36); Mean Corpuscular Hemoglobin 30 PG (27-34); Mean Corpuscular Volume 96.6 FL (87-102); Mean Platelet Volume 8.7 FL (9.6-12.0); Monocytes # 0.4 10*3/uL (0.11-0.8); Monocytes % 4.7 % (1.7-12.7); Neutrophils # 5.8 10*3/uL (1.4-7.4); Neutrophils % 66.7 % (38.7-73.9); Platelet Count 210 T/CUMM (130-400); Red Blood Count 2.62 MC/CUMM (3.8-5.5); Red Cell Distribution Width 15.1 % (9.3-17.3); White Blood Count 8.7 T/CUMM (4-12)
[2018-07-23 06:02] LABS: Calcium 8.2 MG/DL (8.5-10.1); Osmolality,Calculated 289.4 MOS/KG (273-304); Potassium 4.6 MMOL/L (3.5-5.1)
[2018-07-23] MEDS: PIPERACILLIN/TAZOBACTAM 3,375 MG in SODIUM CHLORIDE 0.9% 100 ML IV SCH ×2 (06:18→13:23)
[2018-07-23 06:21] LABS: Anisocytosis 1+; Band Neutrophils 12 % (0-10); Eosinophils 1 % (0-10); Lymphocytes 23 % (20-55); Platelet Estimate Normal; Poikilocytosis Slight; Segmented Neutrophils 60 % (50-85); Total Cells Counted 100
[2018-07-23 06:22] LABS: Hypochromasia 1+
[2018-07-23] MEDS: INSULIN REGULAR 100 UNIT/ML SUBCUT SCH ×4 (08:00→21:24)
[2018-07-23] MEDS ORDERED: diphenhydrAMINE CAP 25 MG CAPSULE PO PRN (08:23)
[2018-07-23] MEDS ORDERED: SODIUM CHLORIDE 0.9% 1,000 ML IV PRN (08:23)
[2018-07-23] MEDS ORDERED: ACETAMINOPHEN 325 MG TABLET PO PRN (08:23)
[2018-07-23] MEDS ORDERED: FUROSEMIDE 20 MG/2 ML VIAL IV PRN (08:23)
[2018-07-23] MEDS: ENOXAPARIN 40 MG/0.4 ML SYRINGE SUBCUT SCH (09:40)
[2018-07-23] MEDS: FEXOFENADINE 180 MG TABLET PO SCH (09:40)
[2018-07-23] MEDS: ISOSORBIDE DINITRATE 10 MG TABLET PO SCH ×3 (09:42→21:21)
[2018-07-23] MEDS: ASPIRIN 325 MG TABLET PO SCH (09:42)
[2018-07-23] MEDS: FUROSEMIDE 20 MG TABLET PO SCH (09:43)
[2018-07-23] MEDS: FERROUS SULFATE 325 MG TABLET PO SCH ×2 (09:43→21:21)
[2018-07-23] MEDS: CALCIUM (CARBONATE)/VITAMIN D 600 MG-400 UNIT TABLET PO SCH ×2 (09:43→21:23)
[2018-07-23] MEDS: PANTOPRAZOLE 40 MG TABLET PO SCH (09:43)
[2018-07-23] MEDS: BACLOFEN 10 MG TABLET PO SCH ×4 (09:43→21:21)
[2018-07-23] MEDS: DOCUSATE/SENNA 50-8.6 MG TABLET PO SCH ×2 (09:44→21:21)
[2018-07-23] MEDS: INSULIN ASPART PROTAMINE/ASPART 70/30 100 UNIT/ML SUBCUT SCH ×2 (09:44→17:33)
[2018-07-23] MEDS: AMIODARONE 200 MG TABLET PO SCH (09:44)
[2018-07-23] MEDS ORDERED: METOPROLOL TARTRATE 25 MG TABLET PO SCH ×2 (12:00→21:00)
[2018-07-23] MEDS: ACETAMINOPHEN 325 MG TABLET PO PRN ×2 (12:13→21:22)
[2018-07-23] MEDS ORDERED: MAGNESIUM SULF RIDER 2 GM in PREMIX 1 EACH IV ONE (14:09)
[2018-07-23] MEDS ORDERED: METOPROLOL TARTRATE 25 MG TABLET PO ONE (14:41)
[2018-07-23 19:19] LABS: Apearance,Urine CLEAR (Clear); Bilirubin,Urine Negative (Negative); Blood, Urine Negative (Negative); Glucose,Urine (UA) Negative (Negative); Hyaline Casts,Urine 1 /LPF (0-3); Ketones,Urine Negative (Negative); Nitrite,Urine Negative (Negative); Protein,Urine 100 MG/DL; RBC,Urine <1 /HPF (0-4); Squamous Epithelial Cell,Urine Occasional /HPF (0-10); Urine Color Colorless (Yellow); Urine Specific Gravity 1.009 (1.001-1.035); Urine Urobilinogen < 2.0 EU/DL (0.2-1.0); WBC,Urine <1 /HPF (0-6)
[2018-07-23] MEDS: LEVALBUTEROL 0.63 MG/3 ML NEB RESP TX SCH (20:31)
[2018-07-23] MEDS: ASCORBIC ACID 500 MG TABLET PO SCH (21:21)
[2018-07-23] MEDS: METOPROLOL TARTRATE 25 MG TABLET PO SCH (21:23)
[2018-07-23] MEDS: LEVOFLOXACIN INJ 750 MG in PREMIX 1 EACH IV SCH (23:45)
[2018-07-24] MEDS: LEVALBUTEROL 0.63 MG/3 ML NEB RESP TX SCH ×4 (00:38→20:06)
[2018-07-24] MEDS: PIPERACILLIN/TAZOBACTAM 3,375 MG in SODIUM CHLORIDE 0.9% 100 ML IV SCH ×3 (03:12→17:10)
[2018-07-24 05:10] LABS: Basophils % 0.3 % (0.0-0.8); Eosinophils # 0.1 10*3/uL (0.0-0.87); Hematocrit 34.8 VOL% (35.7-47.0); Hemoglobin 11.2 GM/DL (12.0-16.0); Immature Granulocytes % 0.9 %; Immature Granulocytes Absolute 0.05 #; Lymphocytes # 2.3 10*3/uL (1.4-4.0); Lymphocytes % 38.6 % (21.3-54.2); Mean Corpuscular HGB Conc 32.2 GM/DL (32-36); Mean Corpuscular Hemoglobin 30 PG (27-34); Mean Corpuscular Volume 94.3 FL (87-102); Mean Platelet Volume 8.6 FL (9.6-12.0); Monocytes # 0.3 10*3/uL (0.11-0.8); Monocytes % 4.4 % (1.7-12.7); Neutrophils # 3.2 10*3/uL (1.4-7.4); Neutrophils % 54.8 % (38.7-73.9); Platelet Count 202 T/CUMM (130-400); Red Blood Count 3.69 MC/CUMM (3.8-5.5); White Blood Count 5.9 T/CUMM (4-12)
[2018-07-24 05:31] LABS: Calcium 8.2 MG/DL (8.5-10.1); Osmolality,Calculated 286.5 MOS/KG (273-304); Potassium 5.2 MMOL/L (3.5-5.1)
[2018-07-24] MEDS: LEVOTHYROXINE 50 MCG TABLET PO SCH (06:33)
[2018-07-24] MEDS ORDERED: SODIUM POLYSTYRENE SULFATE 15 GM/60 ML BOTTLE PO STA (07:10)
[2018-07-24] MEDS: INSULIN ASPART PROTAMINE/ASPART 70/30 100 UNIT/ML SUBCUT SCH ×2 (09:10→17:10)
[2018-07-24] MEDS: INSULIN REGULAR 100 UNIT/ML SUBCUT SCH ×4 (09:10→21:34)
[2018-07-24] MEDS: FEXOFENADINE 180 MG TABLET PO SCH (11:21)
[2018-07-24] MEDS: ISOSORBIDE DINITRATE 10 MG TABLET PO SCH ×3 (11:21→21:33)
[2018-07-24] MEDS: FUROSEMIDE 20 MG TABLET PO SCH (11:21)
[2018-07-24] MEDS: AMIODARONE 200 MG TABLET PO SCH (11:22)
[2018-07-24] MEDS: ASPIRIN 325 MG TABLET PO SCH (11:22)
[2018-07-24] MEDS: CALCIUM (CARBONATE)/VITAMIN D 600 MG-400 UNIT TABLET PO SCH ×2 (11:23→21:34)
[2018-07-24] MEDS: PANTOPRAZOLE 40 MG TABLET PO SCH (11:24)
[2018-07-24] MEDS: FERROUS SULFATE 325 MG TABLET PO SCH ×2 (11:24→21:33)
[2018-07-24] MEDS: ASCORBIC ACID 500 MG TABLET PO SCH ×2 (11:24→21:33)
[2018-07-24] MEDS: BACLOFEN 10 MG TABLET PO SCH ×3 (13:01→21:34)
[2018-07-24] MEDS: DOCUSATE/SENNA 50-8.6 MG TABLET PO SCH ×2 (13:01→21:34)
[2018-07-24] MEDS: ENOXAPARIN 40 MG/0.4 ML SYRINGE SUBCUT SCH (13:01)
[2018-07-24] MEDS: METOPROLOL TARTRATE 25 MG TABLET PO SCH (13:01)
[2018-07-25] MEDS: LEVALBUTEROL 0.63 MG/3 ML NEB RESP TX SCH ×4 (00:56→19:06)
[2018-07-25] MEDS: PIPERACILLIN/TAZOBACTAM 3,375 MG in SODIUM CHLORIDE 0.9% 100 ML IV SCH (01:04)
[2018-07-25] MEDS: LEVOTHYROXINE 50 MCG TABLET PO SCH (05:36)
[2018-07-25] MEDS: ISOSORBIDE DINITRATE 10 MG TABLET PO SCH ×3 (10:05→22:17)
[2018-07-25] MEDS: AMIODARONE 200 MG TABLET PO SCH (10:05)
[2018-07-25] MEDS: METOPROLOL TARTRATE 25 MG TABLET PO SCH (10:06)
[2018-07-25] MEDS: INSULIN ASPART PROTAMINE/ASPART 70/30 100 UNIT/ML SUBCUT SCH ×2 (10:07→17:30)
[2018-07-25] MEDS: FUROSEMIDE 20 MG TABLET PO SCH (10:07)
[2018-07-25] MEDS: PANTOPRAZOLE 40 MG TABLET PO SCH (10:08)
[2018-07-25] MEDS: ASCORBIC ACID 500 MG TABLET PO SCH ×2 (10:08→22:18)
[2018-07-25] MEDS: ASPIRIN 325 MG TABLET PO SCH (10:08)
[2018-07-25] MEDS: DOCUSATE/SENNA 50-8.6 MG TABLET PO SCH (10:08)
[2018-07-25] MEDS: FERROUS SULFATE 325 MG TABLET PO SCH ×2 (10:08→22:17)
[2018-07-25] MEDS: CALCIUM (CARBONATE)/VITAMIN D 600 MG-400 UNIT TABLET PO SCH ×2 (10:08→22:18)
[2018-07-25] MEDS: BACLOFEN 10 MG TABLET PO SCH ×4 (10:09→22:17)
[2018-07-25] MEDS: ENOXAPARIN 40 MG/0.4 ML SYRINGE SUBCUT SCH (10:09)
[2018-07-25] MEDS: INSULIN REGULAR 100 UNIT/ML SUBCUT SCH ×4 (11:02→22:16)
[2018-07-25] MEDS: FEXOFENADINE 180 MG TABLET PO SCH (11:03)
[2018-07-25] MEDS: ERTAPENEM 1,000 MG in SODIUM CHLORIDE 0.9% 100 ML IV SCH (11:03)
[2018-07-25] MEDS: ONDANSETRON 4 MG/2 ML VIAL IV PRN (13:33)
[2018-07-25] MEDS: FLUTICASONE 50 MCG NASAL SPRAY 16 GM BOTTLE BOTH NARES SCH (22:15)
[2018-07-25] MEDS: LEVOFLOXACIN INJ 750 MG in PREMIX 1 EACH IV SCH (22:16)
[2018-07-26] MEDS: LEVALBUTEROL 0.63 MG/3 ML NEB RESP TX SCH ×4 (00:30→19:06)
[2018-07-26] MEDS: LEVOTHYROXINE 50 MCG TABLET PO SCH (05:18)
[2018-07-26] MEDS: INSULIN REGULAR 100 UNIT/ML SUBCUT SCH ×5 (07:23→20:28)
[2018-07-26] MEDS: INSULIN ASPART PROTAMINE/ASPART 70/30 100 UNIT/ML SUBCUT SCH ×2 (07:24→17:16)
[2018-07-26] MEDS: CALCIUM (CARBONATE)/VITAMIN D 600 MG-400 UNIT TABLET PO SCH ×2 (09:24→20:25)
[2018-07-26] MEDS: FUROSEMIDE 20 MG TABLET PO SCH (09:24)
[2018-07-26] MEDS: ASPIRIN 325 MG TABLET PO SCH (09:25)
[2018-07-26] MEDS: ASCORBIC ACID 500 MG TABLET PO SCH ×2 (09:25→20:25)
[2018-07-26] MEDS: FERROUS SULFATE 325 MG TABLET PO SCH ×2 (09:25→20:26)
[2018-07-26] MEDS: ISOSORBIDE DINITRATE 10 MG TABLET PO SCH ×3 (09:25→20:25)
[2018-07-26] MEDS: PANTOPRAZOLE 40 MG TABLET PO SCH (09:26)
[2018-07-26] MEDS: FLUTICASONE 50 MCG NASAL SPRAY 16 GM BOTTLE BOTH NARES SCH ×2 (09:26→20:28)
[2018-07-26] MEDS: FEXOFENADINE 180 MG TABLET PO SCH (09:34)
[2018-07-26] MEDS: AMIODARONE 200 MG TABLET PO SCH (09:34)
[2018-07-26] MEDS: BACLOFEN 10 MG TABLET PO SCH ×4 (09:34→20:29)
[2018-07-26] MEDS: METOPROLOL TARTRATE 25 MG TABLET PO SCH (09:34)
[2018-07-26] MEDS: ENOXAPARIN 40 MG/0.4 ML SYRINGE SUBCUT SCH (09:35)
[2018-07-26] MEDS: ONDANSETRON 4 MG/2 ML VIAL IV PRN (09:35)
[2018-07-26] MEDS: PIPERACILLIN/TAZOBACTAM 3,375 MG in SODIUM CHLORIDE 0.9% 100 ML IV SCH (15:35)
[2018-07-26] MEDS: ERTAPENEM 1,000 MG in SODIUM CHLORIDE 0.9% 100 ML IV SCH (15:56)
[2018-07-26] MEDS: DORNASE ALFA 2.5 MG/2.5 ML VIAL RESP TX SCH (19:06)
[2018-07-27] MEDS: LEVALBUTEROL 0.63 MG/3 ML NEB RESP TX SCH ×3 (00:30→13:33)
[2018-07-27] MEDS: PIPERACILLIN/TAZOBACTAM 3,375 MG in SODIUM CHLORIDE 0.9% 100 ML IV SCH ×2 (00:30→09:47)
[2018-07-27 04:30] LABS: Basophils % 0.4 % (0.0-0.8); Eosinophils # 0.2 10*3/uL (0.0-0.87); Eosinophils % 2.8 % (0.00-10.9); Hematocrit 34.6 VOL% (35.7-47.0); Hemoglobin 11.1 GM/DL (12.0-16.0); Immature Granulocytes % 0.4 %; Immature Granulocytes Absolute 0.02 #; Lymphocytes # 2.1 10*3/uL (1.4-4.0); Lymphocytes % 39.6 % (21.3-54.2); Mean Corpuscular HGB Conc 32.1 GM/DL (32-36); Mean Corpuscular Hemoglobin 30 PG (27-34); Mean Corpuscular Volume 93.3 FL (87-102); Mean Platelet Volume 8.4 FL (9.6-12.0); Monocytes # 0.4 10*3/uL (0.11-0.8); Monocytes % 7.8 % (1.7-12.7); Neutrophils # 2.6 10*3/uL (1.4-7.4); Platelet Count 227 T/CUMM (130-400); Red Blood Count 3.71 MC/CUMM (3.8-5.5); Red Cell Distribution Width 14.3 % (9.3-17.3); White Blood Count 5.3 T/CUMM (4-12)
[2018-07-27 04:59] LABS: Calcium 8.7 MG/DL (8.5-10.1); Osmolality,Calculated 283.1 MOS/KG (273-304); Potassium 4.1 MMOL/L (3.5-5.1)
[2018-07-27] MEDS: LEVOTHYROXINE 50 MCG TABLET PO SCH (06:35)
[2018-07-27] MEDS: DORNASE ALFA 2.5 MG/2.5 ML VIAL RESP TX SCH (07:13)
[2018-07-27] MEDS ORDERED: amLODIPine 5 MG TABLET PO SCH (09:00)
[2018-07-27] MEDS: ISOSORBIDE DINITRATE 10 MG TABLET PO SCH (09:40)
[2018-07-27] MEDS: FUROSEMIDE 20 MG TABLET PO SCH (09:40)
[2018-07-27] MEDS: ASCORBIC ACID 500 MG TABLET PO SCH (09:42)
[2018-07-27] MEDS: ASPIRIN 325 MG TABLET PO SCH (09:43)
[2018-07-27] MEDS: FEXOFENADINE 180 MG TABLET PO SCH (09:44)
[2018-07-27] MEDS: CALCIUM (CARBONATE)/VITAMIN D 600 MG-400 UNIT TABLET PO SCH (09:45)
[2018-07-27] MEDS: PANTOPRAZOLE 40 MG TABLET PO SCH (09:45)
[2018-07-27] MEDS: FERROUS SULFATE 325 MG TABLET PO SCH (09:45)
[2018-07-27] MEDS: ENOXAPARIN 40 MG/0.4 ML SYRINGE SUBCUT SCH (09:46)
[2018-07-27] MEDS: INSULIN REGULAR 100 UNIT/ML SUBCUT SCH ×2 (09:50→11:09)
[2018-07-27] MEDS: BACLOFEN 10 MG TABLET PO SCH ×2 (09:50→12:55)
[2018-07-27] MEDS: INSULIN ASPART PROTAMINE/ASPART 70/30 100 UNIT/ML SUBCUT SCH (09:50)
[2018-07-27] MEDS: FLUTICASONE 50 MCG NASAL SPRAY 16 GM BOTTLE BOTH NARES SCH (09:50)
[2018-07-27] MEDS: AMIODARONE 200 MG TABLET PO SCH (09:50)
[2018-07-27] MEDS: METOPROLOL TARTRATE 25 MG TABLET PO SCH (09:50)
[2018-07-27] MEDS ORDERED: MEROPENEM 2,000 MG in SODIUM CHLORIDE 0.9% 100 ML IV SCH (13:00)
[2018-07-27 16:08] VITALS: BP 150/73
== END 2018-07-27 16:50 | disposition home or self-care (01) | DRG 178 ==
LOC: N.ICU 20:34 → SUATTDRO 20:34 → N.3E 07-22 22:18
PROVIDERS: ADMIT Internal Medicine; ATTEND Internal Medicine

== ENCOUNTER 2018-08-08 18:42 | Inpatient (IN) ==
[2018-08-08] MEDS ORDERED: DOCUSATE SODIUM 100 MG CAPSULE PO PRN (23:17)
[2018-08-08] MEDS ORDERED: GLUCAGON 1 MG VIAL IM PRN (23:17)
[2018-08-08] MEDS ORDERED: ONDANSETRON 4 MG/2 ML VIAL IV PRN (23:17)
[2018-08-08] MEDS ORDERED: DEXTROSE 50% 25 GM/50 ML SYRINGE IV PRN (23:17)
[2018-08-08] MEDS ORDERED: ACETAMINOPHEN 325 MG TABLET PO PRN (23:17)
[2018-08-08 23:41] LABS: Basophils % 0.4 % (0.0-0.8); Eosinophils # 0.1 10*3/uL (0.0-0.87); Eosinophils % 1.5 % (0.00-10.9); Hematocrit 37.2 VOL% (35.7-47.0); Hemoglobin 12.3 GM/DL (12.0-16.0); Immature Granulocytes % 0.2 %; Immature Granulocytes Absolute 0.01 #; Lymphocytes # 1.8 10*3/uL (1.4-4.0); Lymphocytes % 39.1 % (21.3-54.2); Mean Corpuscular HGB Conc 33.1 GM/DL (32-36); Mean Corpuscular Hemoglobin 30 PG (27-34); Mean Corpuscular Volume 91.4 FL (87-102); Monocytes # 0.3 10*3/uL (0.11-0.8); Monocytes % 7.2 % (1.7-12.7); Neutrophils # 2.4 10*3/uL (1.4-7.4); Neutrophils % 51.6 % (38.7-73.9); Platelet Count 222 T/CUMM (130-400); Red Blood Count 4.07 MC/CUMM (3.8-5.5); White Blood Count 4.6 T/CUMM (4-12)
[2018-08-09 00:06] LABS: Alanine Aminotransferase 41 U/L (13-56); Alkaline Phosphatase 172 U/L (45-117); Aspartate Amino Transferase 47 U/L (0-37); Bilirubin,Total < 0.39 MG/DL (0.2-1.0); Blood Urea Nitrogen 28 MG/DL (7-18); Calcium 8.7 MG/DL (8.5-10.1); Glucose 167 MG/DL (74-106); Osmolality,Calculated 282.8 MOS/KG (273-304); Potassium 4.1 MMOL/L (3.5-5.1); Sodium 137 MMOL/L (136-145); Total Protein 7.3 G/DL (6.4-8.3)
[2018-08-09] MEDS: ENOXAPARIN 40 MG/0.4 ML SYRINGE SUBCUT SCH ×2 (01:50→23:35)
[2018-08-09 05:10] LABS: Basophils % 0.5 % (0.0-0.8); Eosinophils # 0.1 10*3/uL (0.0-0.87); Eosinophils % 1.4 % (0.00-10.9); Hematocrit 35.2 VOL% (35.7-47.0); Hemoglobin 11.5 GM/DL (12.0-16.0); Immature Granulocytes % 0.2 %; Immature Granulocytes Absolute 0.01 #; Lymphocytes # 1.7 10*3/uL (1.4-4.0); Lymphocytes % 38.9 % (21.3-54.2); Mean Corpuscular HGB Conc 32.7 GM/DL (32-36); Mean Corpuscular Hemoglobin 30 PG (27-34); Mean Platelet Volume 8.9 FL (9.6-12.0); Monocytes # 0.4 10*3/uL (0.11-0.8); Monocytes % 8.2 % (1.7-12.7); Neutrophils # 2.2 10*3/uL (1.4-7.4); Neutrophils % 50.8 % (38.7-73.9); Platelet Count 235 T/CUMM (130-400); Red Blood Count 3.87 MC/CUMM (3.8-5.5); Red Cell Distribution Width 14.1 % (9.3-17.3); White Blood Count 4.3 T/CUMM (4-12)
[2018-08-09 05:38] LABS: Calcium 8.5 MG/DL (8.5-10.1); Osmolality,Calculated 283.8 MOS/KG (273-304)
[2018-08-09] MEDS ORDERED: FUROSEMIDE 20 MG/2 ML VIAL IV SCH (08:00)
[2018-08-09] MEDS: INSULIN LISPRO 100 UNIT/ML SUBCUT SCH ×4 (08:20→21:03)
[2018-08-09] MEDS: FUROSEMIDE 20 MG/2 ML VIAL IV SCH ×2 (08:59→16:41)
[2018-08-09] MEDS: AMIODARONE 200 MG TABLET PO SCH (08:59)
[2018-08-09] MEDS: amLODIPine 5 MG TABLET PO SCH (09:00)
[2018-08-09] MEDS: ASCORBIC ACID 500 MG TABLET PO SCH ×2 (09:00→21:03)
[2018-08-09] MEDS: PANTOPRAZOLE 40 MG TABLET PO SCH (09:01)
[2018-08-09] MEDS: METOPROLOL TARTRATE 25 MG TABLET PO SCH (09:01)
[2018-08-09] MEDS: ASPIRIN 325 MG TABLET PO SCH (09:01)
[2018-08-09] MEDS: ISOSORBIDE DINITRATE 10 MG TABLET PO SCH ×3 (09:01→21:35)
[2018-08-09 10:14] LABS: Apearance,Urine CLEAR (Clear); Bacteria,Urine Occasional /HPF (Few); Bilirubin,Urine Negative (Negative); Blood, Urine Negative (Negative); Glucose,Urine (UA) 50 mg/dL (Negative); Hyaline Casts,Urine 15 /LPF (0-3); Ketones,Urine Negative (Negative); Mucus,Urine Occasional /LPF (Occasional); Nitrite,Urine Negative (Negative); Protein,Urine >=500 MG/DL; RBC,Urine 1 /HPF (0-4); Squamous Epithelial Cell,Urine Occasional /HPF (0-10); Urine Color Yellow (Yellow); Urine Specific Gravity 1.012 (1.001-1.035); Urine Urobilinogen < 2.0 EU/DL (0.2-1.0); WBC,Urine <1 /HPF (0-6)
[2018-08-09] MEDS ORDERED: ONDANSETRON ODT 4 MG TABLET PO PRN (12:38)
[2018-08-09] MEDS: BACLOFEN 10 MG TABLET PO SCH ×3 (12:58→21:03)
[2018-08-09] MEDS: FEXOFENADINE 180 MG TABLET PO SCH (12:58)
[2018-08-09] MEDS: FLUTICASONE 50 MCG NASAL SPRAY 16 GM BOTTLE BOTH NARES SCH ×2 (14:14→23:35)
[2018-08-09] MEDS: FERROUS SULFATE 325 MG TABLET PO SCH (21:02)
[2018-08-09] MEDS: CALCIUM (CARBONATE)/VITAMIN D 600 MG-400 UNIT TABLET PO SCH (21:03)
[2018-08-10 04:55] LABS: Basophils % 0.5 % (0.0-0.8); Eosinophils # 0.1 10*3/uL (0.0-0.87); Eosinophils % 1.9 % (0.00-10.9); Hematocrit 35.4 VOL% (35.7-47.0); Hemoglobin 11.5 GM/DL (12.0-16.0); Immature Granulocytes % 0.2 %; Immature Granulocytes Absolute 0.01 #; Lymphocytes # 1.8 10*3/uL (1.4-4.0); Lymphocytes % 43.3 % (21.3-54.2); Mean Corpuscular HGB Conc 32.5 GM/DL (32-36); Mean Corpuscular Hemoglobin 30 PG (27-34); Mean Corpuscular Volume 92.2 FL (87-102); Mean Platelet Volume 9.1 FL (9.6-12.0); Monocytes # 0.3 10*3/uL (0.11-0.8); Monocytes % 8.1 % (1.7-12.7); Neutrophils # 1.9 10*3/uL (1.4-7.4); Platelet Count 243 T/CUMM (130-400); Red Blood Count 3.84 MC/CUMM (3.8-5.5); Red Cell Distribution Width 14.1 % (9.3-17.3); White Blood Count 4.2 T/CUMM (4-12)
[2018-08-10 05:22] LABS: Calcium 8.7 MG/DL (8.5-10.1); Potassium 4.2 MMOL/L (3.5-5.1)
[2018-08-10] MEDS: FUROSEMIDE 20 MG/2 ML VIAL IV SCH ×2 (09:04→18:50)
[2018-08-10] MEDS: ASCORBIC ACID 500 MG TABLET PO SCH (09:05)
[2018-08-10] MEDS: METOPROLOL TARTRATE 25 MG TABLET PO SCH (09:05)
[2018-08-10] MEDS: PANTOPRAZOLE 40 MG TABLET PO SCH (09:05)
[2018-08-10] MEDS: LEVOTHYROXINE 50 MCG TABLET PO SCH (09:05)
[2018-08-10] MEDS: AMIODARONE 200 MG TABLET PO SCH (09:05)
[2018-08-10] MEDS: FEXOFENADINE 180 MG TABLET PO SCH (09:05)
[2018-08-10] MEDS: FERROUS SULFATE 325 MG TABLET PO SCH (09:05)
[2018-08-10] MEDS: ISOSORBIDE DINITRATE 10 MG TABLET PO SCH ×2 (09:05→17:15)
[2018-08-10] MEDS: BACLOFEN 10 MG TABLET PO SCH ×3 (09:05→18:54)
[2018-08-10] MEDS: FLUTICASONE 50 MCG NASAL SPRAY 16 GM BOTTLE BOTH NARES SCH (09:06)
[2018-08-10] MEDS: CALCIUM (CARBONATE)/VITAMIN D 600 MG-400 UNIT TABLET PO SCH (09:06)
[2018-08-10] MEDS: amLODIPine 5 MG TABLET PO SCH (09:06)
[2018-08-10] MEDS: ASPIRIN 325 MG TABLET PO SCH (09:06)
[2018-08-10] MEDS: INSULIN LISPRO 100 UNIT/ML SUBCUT SCH ×3 (09:31→18:54)
[2018-08-10] MEDS ORDERED: ALPRAZolam 0.25 MG TABLET PO PRN (13:02)
[2018-08-10] MEDS ORDERED: NITROGLYCERIN SL 0.4 MG TABLET SL ONE ×2 (14:44→20:27)
[2018-08-10] MEDS ORDERED: ALUM/MAG/SIMETH/LIDO VISC 1:1 30 ML BOTTLE PO ONE ×2 (14:51→14:53)
[2018-08-10] MEDS ORDERED: ALUMINUM/MAGNES/SIMETH MAX STR 30 ML UDCUP PO PRN (19:09)
[2018-08-10] MEDS ORDERED: MORPHINE 4 MG/1 ML VIAL IV ONE (20:27)
[2018-08-10] MEDS ORDERED: PANTOPRAZOLE 40 MG VIAL IV ONE (20:28)
[2018-08-11] MEDS: CALCIUM (CARBONATE)/VITAMIN D 600 MG-400 UNIT TABLET PO SCH ×3 (00:24→22:24)
[2018-08-11] MEDS: FERROUS SULFATE 325 MG TABLET PO SCH ×3 (00:24→22:24)
[2018-08-11] MEDS: INSULIN LISPRO 100 UNIT/ML SUBCUT SCH ×5 (00:25→22:33)
[2018-08-11] MEDS: ISOSORBIDE DINITRATE 10 MG TABLET PO SCH ×4 (00:25→22:24)
[2018-08-11] MEDS: BACLOFEN 10 MG TABLET PO SCH ×5 (00:25→22:25)
[2018-08-11] MEDS: FLUTICASONE 50 MCG NASAL SPRAY 16 GM BOTTLE BOTH NARES SCH ×3 (00:25→22:24)
[2018-08-11] MEDS: ASCORBIC ACID 500 MG TABLET PO SCH ×3 (00:26→22:26)
[2018-08-11] MEDS: ENOXAPARIN 40 MG/0.4 ML SYRINGE SUBCUT SCH (06:40)
[2018-08-11] MEDS: LEVOTHYROXINE 50 MCG TABLET PO SCH (06:40)
[2018-08-11] MEDS: FUROSEMIDE 20 MG/2 ML VIAL IV SCH ×2 (09:31→17:55)
[2018-08-11] MEDS: FEXOFENADINE 180 MG TABLET PO SCH (09:31)
[2018-08-11] MEDS: ASPIRIN 325 MG TABLET PO SCH (09:31)
[2018-08-11] MEDS: AMIODARONE 200 MG TABLET PO SCH (09:32)
[2018-08-11] MEDS: METOPROLOL TARTRATE 25 MG TABLET PO SCH (09:32)
[2018-08-11] MEDS: PANTOPRAZOLE 40 MG TABLET PO SCH (09:32)
[2018-08-11] MEDS: amLODIPine 5 MG TABLET PO SCH (09:32)
[2018-08-12 05:12] LABS: Basophils % 0.7 % (0.0-0.8); Eosinophils # 0.1 10*3/uL (0.0-0.87); Eosinophils % 1.8 % (0.00-10.9); Hematocrit 36.4 VOL% (35.7-47.0); Hemoglobin 11.7 GM/DL (12.0-16.0); Immature Granulocytes % 0.4 %; Immature Granulocytes Absolute 0.02 #; Lymphocytes # 1.7 10*3/uL (1.4-4.0); Lymphocytes % 36.8 % (21.3-54.2); Mean Corpuscular HGB Conc 32.1 GM/DL (32-36); Mean Corpuscular Hemoglobin 30 PG (27-34); Mean Corpuscular Volume 92.4 FL (87-102); Mean Platelet Volume 8.9 FL (9.6-12.0); Monocytes # 0.4 10*3/uL (0.11-0.8); Monocytes % 9.6 % (1.7-12.7); Neutrophils # 2.3 10*3/uL (1.4-7.4); Neutrophils % 50.7 % (38.7-73.9); Platelet Count 230 T/CUMM (130-400); Red Blood Count 3.94 MC/CUMM (3.8-5.5); Red Cell Distribution Width 14.1 % (9.3-17.3); White Blood Count 4.6 T/CUMM (4-12)
[2018-08-12 05:25] LABS: Calcium 8.5 MG/DL (8.5-10.1); Osmolality,Calculated 282.2 MOS/KG (273-304); Potassium 4.6 MMOL/L (3.5-5.1)
[2018-08-12] MEDS: ENOXAPARIN 40 MG/0.4 ML SYRINGE SUBCUT SCH (06:23)
[2018-08-12] MEDS: LEVOTHYROXINE 50 MCG TABLET PO SCH (06:24)
[2018-08-12] MEDS: ASPIRIN 325 MG TABLET PO SCH (09:06)
[2018-08-12] MEDS: FEXOFENADINE 180 MG TABLET PO SCH (09:06)
[2018-08-12] MEDS: CALCIUM (CARBONATE)/VITAMIN D 600 MG-400 UNIT TABLET PO SCH ×2 (09:06→22:53)
[2018-08-12] MEDS: PANTOPRAZOLE 40 MG TABLET PO SCH (09:06)
[2018-08-12] MEDS: FERROUS SULFATE 325 MG TABLET PO SCH ×2 (09:06→22:50)
[2018-08-12] MEDS: BACLOFEN 10 MG TABLET PO SCH ×4 (09:07→22:50)
[2018-08-12] MEDS: amLODIPine 5 MG TABLET PO SCH (09:07)
[2018-08-12] MEDS: FLUTICASONE 50 MCG NASAL SPRAY 16 GM BOTTLE BOTH NARES SCH ×2 (09:07→22:53)
[2018-08-12] MEDS: AMIODARONE 200 MG TABLET PO SCH (09:07)
[2018-08-12] MEDS: metOLazone 2.5 MG TABLET PO SCH (09:13)
[2018-08-12] MEDS: ASCORBIC ACID 500 MG TABLET PO SCH ×2 (09:14→22:50)
[2018-08-12] MEDS: ISOSORBIDE DINITRATE 10 MG TABLET PO SCH ×3 (09:16→22:49)
[2018-08-12] MEDS: METOPROLOL TARTRATE 25 MG TABLET PO SCH (09:16)
[2018-08-12] MEDS: INSULIN LISPRO 100 UNIT/ML SUBCUT SCH ×4 (09:22→22:50)
[2018-08-12] MEDS: FUROSEMIDE 20 MG/2 ML VIAL IV SCH (09:23)
[2018-08-12] MEDS ORDERED: SODIUM CHLORIDE 0.45% 250 ML IV ONE (15:06)
[2018-08-12] MEDS: FUROSEMIDE 20 MG TABLET PO SCH (15:36)
[2018-08-13 05:20] LABS: Basophils % 0.5 % (0.0-0.8); Eosinophils # 0.1 10*3/uL (0.0-0.87); Hematocrit 34.1 VOL% (35.7-47.0); Hemoglobin 11.1 GM/DL (12.0-16.0); Immature Granulocytes % 0.3 %; Immature Granulocytes Absolute 0.01 #; Lymphocytes # 1.4 10*3/uL (1.4-4.0); Lymphocytes % 35.8 % (21.3-54.2); Mean Corpuscular HGB Conc 32.6 GM/DL (32-36); Mean Corpuscular Hemoglobin 30 PG (27-34); Mean Corpuscular Volume 92.7 FL (87-102); Mean Platelet Volume 8.6 FL (9.6-12.0); Monocytes # 0.4 10*3/uL (0.11-0.8); Neutrophils % 50.4 % (38.7-73.9); Platelet Count 207 T/CUMM (130-400); Red Blood Count 3.68 MC/CUMM (3.8-5.5); Red Cell Distribution Width 13.9 % (9.3-17.3)
[2018-08-13 05:40] LABS: Calcium 8.4 MG/DL (8.5-10.1); Osmolality,Calculated 284.2 MOS/KG (273-304); Potassium 4.5 MMOL/L (3.5-5.1)
[2018-08-13] MEDS: LEVOTHYROXINE 50 MCG TABLET PO SCH (06:15)
[2018-08-13] MEDS: INSULIN LISPRO 100 UNIT/ML SUBCUT SCH ×4 (07:19→21:51)
[2018-08-13] MEDS: FERROUS SULFATE 325 MG TABLET PO SCH ×3 (08:45→22:35)
[2018-08-13] MEDS: FUROSEMIDE 20 MG TABLET PO SCH ×2 (08:48→18:37)
[2018-08-13] MEDS: ENOXAPARIN 40 MG/0.4 ML SYRINGE SUBCUT SCH (08:50)
[2018-08-13] MEDS: CALCIUM (CARBONATE)/VITAMIN D 600 MG-400 UNIT TABLET PO SCH ×3 (08:55→22:35)
[2018-08-13] MEDS: AMIODARONE 200 MG TABLET PO SCH (08:55)
[2018-08-13] MEDS: FEXOFENADINE 180 MG TABLET PO SCH (08:55)
[2018-08-13] MEDS: ISOSORBIDE DINITRATE 10 MG TABLET PO SCH ×4 (08:55→22:35)
[2018-08-13] MEDS: BACLOFEN 10 MG TABLET PO SCH ×5 (08:55→22:35)
[2018-08-13] MEDS: ASPIRIN 325 MG TABLET PO SCH (08:55)
[2018-08-13] MEDS: FLUTICASONE 50 MCG NASAL SPRAY 16 GM BOTTLE BOTH NARES SCH ×2 (08:55→21:52)
[2018-08-13] MEDS: amLODIPine 5 MG TABLET PO SCH (08:56)
[2018-08-13] MEDS: METOPROLOL TARTRATE 25 MG TABLET PO SCH (08:56)
[2018-08-13] MEDS: PANTOPRAZOLE 40 MG TABLET PO SCH (08:56)
[2018-08-13] MEDS: ASCORBIC ACID 500 MG TABLET PO SCH ×3 (08:56→22:36)
[2018-08-13] MEDS: metOLazone 2.5 MG TABLET PO SCH (08:57)
[2018-08-13 14:36] LABS: Troponin I 0.046 NG/ML (0.00-0.045)
[2018-08-13] MEDS ORDERED: IPRATROPIUM/ALBUTEROL INHALER INH SCH (17:00)
[2018-08-14 04:06] LABS: Basophils % 0.5 % (0.0-0.8); Eosinophils # 0.1 10*3/uL (0.0-0.87); Eosinophils % 1.9 % (0.00-10.9); Hematocrit 34.2 VOL% (35.7-47.0); Immature Granulocytes % 0.2 %; Immature Granulocytes Absolute 0.01 #; Lymphocytes % 45.3 % (21.3-54.2); Mean Corpuscular HGB Conc 32.2 GM/DL (32-36); Mean Corpuscular Hemoglobin 30 PG (27-34); Mean Platelet Volume 8.7 FL (9.6-12.0); Monocytes # 0.5 10*3/uL (0.11-0.8); Monocytes % 12.1 % (1.7-12.7); Neutrophils # 1.7 10*3/uL (1.4-7.4); Platelet Count 207 T/CUMM (130-400); Red Blood Count 3.64 MC/CUMM (3.8-5.5); Red Cell Distribution Width 13.8 % (9.3-17.3); White Blood Count 4.3 T/CUMM (4-12)
[2018-08-14 04:29] LABS: Calcium 8.1 MG/DL (8.5-10.1); Osmolality,Calculated 286.8 MOS/KG (273-304); Potassium 4.4 MMOL/L (3.5-5.1)
[2018-08-14] MEDS: LEVOTHYROXINE 50 MCG TABLET PO SCH (06:10)
[2018-08-14] MEDS: INSULIN LISPRO 100 UNIT/ML SUBCUT SCH ×3 (08:56→16:47)
[2018-08-14] MEDS: FERROUS SULFATE 325 MG TABLET PO SCH (08:57)
[2018-08-14] MEDS: BACLOFEN 10 MG TABLET PO SCH ×3 (08:57→18:31)
[2018-08-14] MEDS: FEXOFENADINE 180 MG TABLET PO SCH (08:57)
[2018-08-14] MEDS: CALCIUM (CARBONATE)/VITAMIN D 600 MG-400 UNIT TABLET PO SCH (08:57)
[2018-08-14] MEDS: FLUTICASONE 50 MCG NASAL SPRAY 16 GM BOTTLE BOTH NARES SCH (08:57)
[2018-08-14] MEDS: PANTOPRAZOLE 40 MG TABLET PO SCH (08:58)
[2018-08-14] MEDS: FUROSEMIDE 20 MG TABLET PO SCH ×2 (09:45→15:14)
[2018-08-14] MEDS: ASPIRIN 325 MG TABLET PO SCH (09:45)
[2018-08-14] MEDS: AMIODARONE 200 MG TABLET PO SCH (09:45)
[2018-08-14] MEDS: metOLazone 2.5 MG TABLET PO SCH (09:46)
[2018-08-14] MEDS: ASCORBIC ACID 500 MG TABLET PO SCH (09:46)
[2018-08-14] MEDS: ISOSORBIDE DINITRATE 10 MG TABLET PO SCH ×2 (09:46→13:59)
[2018-08-14] MEDS: ENOXAPARIN 40 MG/0.4 ML SYRINGE SUBCUT SCH (09:46)
[2018-08-14] MEDS: amLODIPine 5 MG TABLET PO SCH (09:46)
[2018-08-14] MEDS: METOPROLOL TARTRATE 25 MG TABLET PO SCH (09:46)
[2018-08-14 16:49] VITALS: BP 147/71
== END 2018-08-14 18:45 | disposition home or self-care (01) | DRG 291 ==
LOC: N.TELES → SUATTDRO 20:26 → OBSVTOIN 20:26
PROVIDERS: ADMIT Internal Medicine; ATTEND Internal Medicine

== ENCOUNTER 2018-08-15 08:55 | Observation (INO) ==
[2018-08-15 13:15] LABS: Basophils % 0.7 % (0.0-0.8); Eosinophils # 0.1 10*3/uL (0.0-0.87); Eosinophils % 1.6 % (0.00-10.9); Hematocrit 37.7 VOL% (35.7-47.0); Hemoglobin 12.2 GM/DL (12.0-16.0); Immature Granulocytes % 0.2 %; Immature Granulocytes Absolute 0.01 #; Lymphocytes # 1.9 10*3/uL (1.4-4.0); Lymphocytes % 43.1 % (21.3-54.2); Mean Corpuscular HGB Conc 32.4 GM/DL (32-36); Mean Corpuscular Hemoglobin 30 PG (27-34); Mean Corpuscular Volume 93.1 FL (87-102); Mean Platelet Volume 8.5 FL (9.6-12.0); Monocytes # 0.3 10*3/uL (0.11-0.8); Monocytes % 7.7 % (1.7-12.7); Neutrophils # 2.1 10*3/uL (1.4-7.4); Neutrophils % 46.7 % (38.7-73.9); Platelet Count 252 T/CUMM (130-400); Red Blood Count 4.05 MC/CUMM (3.8-5.5); Red Cell Distribution Width 13.8 % (9.3-17.3); White Blood Count 4.4 T/CUMM (4-12)
[2018-08-15 13:37] LABS: Alanine Aminotransferase 44 U/L (13-56); Albumin 3.5 G/DL (3.4-5.0); Alkaline Phosphatase 186 U/L (45-117); Aspartate Amino Transferase 48 U/L (0-37); Bilirubin,Total < 0.39 MG/DL (0.2-1.0); Blood Urea Nitrogen 48 MG/DL (7-18); Calcium 8.4 MG/DL (8.5-10.1); Glucose 182 MG/DL (74-106); Osmolality,Calculated 283.4 MOS/KG (273-304); Potassium 4.8 MMOL/L (3.5-5.1); Sodium 133 MMOL/L (136-145); Total Protein 7.8 G/DL (6.4-8.3); Troponin I 0.051 NG/ML (0.00-0.045)
[2018-08-15] MEDS ORDERED: ONDANSETRON 4 MG/2 ML VIAL IV PRN (15:24)
[2018-08-15] MEDS ORDERED: DEXTROSE 50% 25 GM/50 ML SYRINGE IV PRN (15:24)
[2018-08-15] MEDS ORDERED: ACETAMINOPHEN 325 MG TABLET PO PRN (15:24)
[2018-08-15] MEDS ORDERED: GLUCAGON 1 MG VIAL IM PRN (15:24)
[2018-08-15] MEDS ORDERED: ALBUTEROL 2.5 MG/3 ML NEB RESP TX PRN (15:45)
[2018-08-15] MEDS ORDERED: ALBUTEROL 1.25 MG/3 ML NEB RESP TX PRN (15:45)
[2018-08-15] MEDS ORDERED: BACLOFEN 10 MG TABLET PO PRN (15:45)
[2018-08-15] MEDS: INSULIN LISPRO 100 UNIT/ML SUBCUT SCH ×2 (17:42→22:06)
[2018-08-15 17:44] LABS: Apearance,Urine CLEAR (Clear); Bilirubin,Urine Negative (Negative); Blood, Urine Negative (Negative); Glucose,Urine (UA) 50 mg/dL (Negative); Ketones,Urine Negative (Negative); Mucus,Urine Occasional /LPF (Occasional); Nitrite,Urine Negative (Negative); Protein,Urine >=500 MG/DL; RBC,Urine 1 /HPF (0-4); Squamous Epithelial Cell,Urine Occasional /HPF (0-10); Urine Color Yellow (Yellow); Urine Specific Gravity 1.016 (1.001-1.035); Urine Urobilinogen < 2.0 EU/DL (0.2-1.0); WBC,Urine 1 /HPF (0-6)
[2018-08-15] MEDS ORDERED: INSULIN ASPART PROTAMINE/ASPART 70/30 100 UNIT/ML SUBCUT SCH (19:00)
[2018-08-15] MEDS: DORNASE ALFA 2.5 MG/2.5 ML VIAL RESP TX SCH (19:55)
[2018-08-15] MEDS ORDERED: cefTRIAXone 1,000 MG in SYRINGE 1 EACH IV SCH (20:00)
[2018-08-15] MEDS: CALCIUM (CARBONATE)/VITAMIN D 600 MG-400 UNIT TABLET PO SCH (21:58)
[2018-08-15] MEDS: LACTOBACILLUS RHAMNOSUS GG CAPSULE PO SCH (21:59)
[2018-08-15] MEDS: FERROUS SULFATE 325 MG TABLET PO SCH (21:59)
[2018-08-15] MEDS: DOCUSATE/SENNA 50-8.6 MG TABLET PO SCH (22:00)
[2018-08-15] MEDS: ISOSORBIDE DINITRATE 10 MG TABLET PO SCH (22:00)
[2018-08-15] MEDS: ASCORBIC ACID 500 MG TABLET PO SCH (22:01)
[2018-08-15] MEDS: FLUTICASONE 50 MCG NASAL SPRAY 16 GM BOTTLE BOTH NARES SCH (22:06)
[2018-08-16 03:56] LABS: Basophils % 0.6 % (0.0-0.8); Eosinophils # 0.1 10*3/uL (0.0-0.87); Eosinophils % 1.6 % (0.00-10.9); Hematocrit 35.5 VOL% (35.7-47.0); Hemoglobin 11.3 GM/DL (12.0-16.0); Immature Granulocytes % 0.2 %; Immature Granulocytes Absolute 0.01 #; Lymphocytes # 2.1 10*3/uL (1.4-4.0); Lymphocytes % 43.4 % (21.3-54.2); Mean Corpuscular HGB Conc 31.8 GM/DL (32-36); Mean Corpuscular Hemoglobin 30 PG (27-34); Mean Corpuscular Volume 92.7 FL (87-102); Mean Platelet Volume 8.9 FL (9.6-12.0); Monocytes # 0.5 10*3/uL (0.11-0.8); Monocytes % 9.7 % (1.7-12.7); NRBC # 0.02 10*3/uL; Neutrophils # 2.2 10*3/uL (1.4-7.4); Neutrophils % 44.5 % (38.7-73.9); Platelet Count 235 T/CUMM (130-400); Red Blood Count 3.83 MC/CUMM (3.8-5.5); White Blood Count 4.9 T/CUMM (4-12)
[2018-08-16 04:13] LABS: Calcium 8.5 MG/DL (8.5-10.1); Osmolality,Calculated 287.5 MOS/KG (273-304); Potassium 3.6 MMOL/L (3.5-5.1)
[2018-08-16] MEDS ORDERED: LEVOTHYROXINE 75 MCG TABLET PO SCH (06:30)
[2018-08-16] MEDS: DORNASE ALFA 2.5 MG/2.5 ML VIAL RESP TX SCH (07:40)
[2018-08-16] MEDS: INSULIN LISPRO 100 UNIT/ML SUBCUT SCH (08:39)
[2018-08-16] MEDS ORDERED: INSULIN ASPART PROTAMINE/ASPART 70/30 100 UNIT/ML SUBCUT SCH (09:00)
[2018-08-16] MEDS ORDERED: FEXOFENADINE 180 MG TABLET PO SCH (09:00)
[2018-08-16] MEDS ORDERED: PANTOPRAZOLE 40 MG TABLET PO SCH (09:00)
[2018-08-16] MEDS ORDERED: FUROSEMIDE 20 MG TABLET PO SCH (09:00)
[2018-08-16] MEDS ORDERED: AZITHROMYCIN 250 MG TABLET PO SCH (09:00)
[2018-08-16] MEDS ORDERED: ASPIRIN 325 MG TABLET PO SCH (09:00)
[2018-08-16] MEDS ORDERED: METOPROLOL TARTRATE 25 MG TABLET PO SCH (09:00)
[2018-08-16] MEDS ORDERED: AMIODARONE 200 MG TABLET PO SCH (09:00)
[2018-08-16] MEDS: ASCORBIC ACID 500 MG TABLET PO SCH (09:20)
[2018-08-16] MEDS: LACTOBACILLUS RHAMNOSUS GG CAPSULE PO SCH (09:22)
[2018-08-16] MEDS: CALCIUM (CARBONATE)/VITAMIN D 600 MG-400 UNIT TABLET PO SCH (09:22)
[2018-08-16] MEDS: DOCUSATE/SENNA 50-8.6 MG TABLET PO SCH (09:23)
[2018-08-16] MEDS: ISOSORBIDE DINITRATE 10 MG TABLET PO SCH (09:24)
[2018-08-16] MEDS: FERROUS SULFATE 325 MG TABLET PO SCH (09:24)
[2018-08-16] MEDS: FLUTICASONE 50 MCG NASAL SPRAY 16 GM BOTTLE BOTH NARES SCH (09:25)
[2018-08-16 12:33] VITALS: BP 146/70
== END 2018-08-16 15:00 | disposition home or self-care (01) ==
LOC: N.TELEN → SUATTDRO 11:13
PROVIDERS: ADMIT Internal Medicine; ATTEND Internal Medicine

== ENCOUNTER 2019-02-16 14:40 | Inpatient (IN) ==
[2019-02-16] MEDS ORDERED: ONDANSETRON 4 MG/2 ML VIAL IV PRN (17:39)
[2019-02-16] MEDS ORDERED: ALBUTEROL 2.5 MG/3 ML NEB RESP TX PRN (18:13)
[2019-02-16] MEDS ORDERED: DEXTROSE 50% 25 GM/50 ML VIAL IV PRN (18:15)
[2019-02-16] MEDS ORDERED: GLUCAGON 1 MG VIAL IM PRN (18:15)
[2019-02-16 18:45] LABS: Basophils % 0.5 % (0.0-0.8); Eosinophils % 0.7 % (0.00-10.9); Hematocrit 29.3 VOL% (35.7-47.0); Hemoglobin 9.3 GM/DL (12.0-16.0); Immature Granulocytes % 0.2 %; Immature Granulocytes Absolute 0.01 #; Lymphocytes # 1.4 10*3/uL (1.4-4.0); Lymphocytes % 31.6 % (21.3-54.2); Mean Corpuscular HGB Conc 31.7 GM/DL (32-36); Mean Corpuscular Volume 93.3 FL (87-102); Mean Platelet Volume 8.8 FL (9.6-12.0); Monocytes % 8.8 % (1.7-12.7); Neutrophils % 58.2 % (38.7-73.9); Platelet Count 222 T/CUMM (130-400); Red Blood Count 3.14 MC/CUMM (3.8-5.5); Red Cell Distribution Width 14.3 % (9.3-17.3); White Blood Count 4.3 T/CUMM (4-12)
[2019-02-16 19:08] LABS: Calcium 8.4 MG/DL (8.5-10.1); Osmolality,Calculated 289.8 MOS/KG (273-304)
[2019-02-16 19:11] LABS: Troponin I 0.044 NG/ML (0.00-0.045)
[2019-02-16] MEDS: ISOSORBIDE DINITRATE 10 MG TABLET PO SCH (20:46)
[2019-02-16] MEDS: INSULIN LISPRO 100 UNIT/ML SUBCUT SCH (21:18)
[2019-02-16] MEDS: ACETAMINOPHEN 325 MG TABLET PO PRN (23:50)
[2019-02-17 05:47] LABS: Basophils % 0.2 % (0.0-0.8); Eosinophils % 0.2 % (0.00-10.9); Hematocrit 25.5 VOL% (35.7-47.0); Hemoglobin 8.6 GM/DL (12.0-16.0); Immature Granulocytes % 0.2 %; Immature Granulocytes Absolute 0.01 #; Lymphocytes # 1.3 10*3/uL (1.4-4.0); Lymphocytes % 24.9 % (21.3-54.2); Mean Corpuscular HGB Conc 33.7 GM/DL (32-36); Mean Corpuscular Volume 91.1 FL (87-102); Neutrophils % 64.5 % (38.7-73.9); Platelet Count 225 T/CUMM (130-400); Red Cell Distribution Width 14.1 % (9.3-17.3)
[2019-02-17 06:22] LABS: Troponin I 0.111 NG/ML (0.00-0.045)
[2019-02-17 06:25] LABS: Calcium 8.3 MG/DL (8.5-10.1); Osmolality,Calculated 285.4 MOS/KG (273-304); Risk Ratio 2.44; Thyroid Stimulating Hormone 2.14 uIU/ml (0.358-3.74); VLDL CHOLESTEROL 14.4 MG/DL
[2019-02-17] MEDS ORDERED: FUROSEMIDE 40 MG/4 ML VIAL IV SCH (09:00)
[2019-02-17] MEDS ORDERED: FUROSEMIDE 20 MG TABLET PO SCH (09:00)
[2019-02-17] MEDS: PANTOPRAZOLE 40 MG TABLET PO SCH (09:29)
[2019-02-17] MEDS: AMIODARONE 200 MG TABLET PO SCH (09:29)
[2019-02-17] MEDS: ISOSORBIDE DINITRATE 10 MG TABLET PO SCH ×2 (09:29→15:29)
[2019-02-17] MEDS: FUROSEMIDE 40 MG/4 ML VIAL IV SCH (09:29)
[2019-02-17] MEDS: INSULIN LISPRO 100 UNIT/ML SUBCUT SCH ×4 (09:37→21:23)
[2019-02-17 11:59] LABS: Troponin I 0.185 NG/ML (0.00-0.045)
[2019-02-17] MEDS: LEVOTHYROXINE 50 MCG TABLET PO SCH (19:48)
[2019-02-17] MEDS: EZETIMIBE 10 MG TABLET PO SCH (21:22)
[2019-02-17] MEDS: SERTRALINE 25 MG TABLET PO SCH (21:22)
[2019-02-17] MEDS: traMADol 50 MG TABLET PO SCH (21:23)
[2019-02-17] MEDS: GABAPENTIN 50 MG/ML 30 ML/BOTTLE PO SCH (22:12)
[2019-02-18 06:05] LABS: Basophils % 0.2 % (0.0-0.8); Hematocrit 26.1 VOL% (35.7-47.0); Hemoglobin 8.4 GM/DL (12.0-16.0); Lymphocytes # 1.7 10*3/uL (1.4-4.0); Lymphocytes % 40.1 % (21.3-54.2); Mean Corpuscular HGB Conc 32.2 GM/DL (32-36); Mean Corpuscular Volume 92.2 FL (87-102); Mean Platelet Volume 8.5 FL (9.6-12.0); Monocytes % 10.3 % (1.7-12.7); Neutrophils % 48.4 % (38.7-73.9); Platelet Count 220 T/CUMM (130-400); Red Blood Count 2.83 MC/CUMM (3.8-5.5); Red Cell Distribution Width 14.3 % (9.3-17.3); White Blood Count 4.2 T/CUMM (4-12)
[2019-02-18] MEDS: LEVOTHYROXINE 50 MCG TABLET PO SCH (06:11)
[2019-02-18 06:27] LABS: Calcium 7.7 MG/DL (8.5-10.1); Osmolality,Calculated 285.5 MOS/KG (273-304)
[2019-02-18 06:42] LABS: Hypochromasia Slight; Lymphocytes 33 % (20-55); Microcytosis 1+; Platelet Estimate Normal; Segmented Neutrophils 57 % (50-85); Total Cells Counted 100
[2019-02-18] MEDS: INSULIN LISPRO 100 UNIT/ML SUBCUT SCH ×4 (11:23→21:58)
[2019-02-18] MEDS: LACTATED RINGERS 1,000 ML IV SCH (12:17)
[2019-02-18] MEDS ORDERED: PROPOFOL 200 MG/20 ML VIAL IV ONE (12:30)
[2019-02-18] MEDS: AMIODARONE 200 MG TABLET PO SCH (14:29)
[2019-02-18] MEDS: PANTOPRAZOLE 40 MG TABLET PO SCH (14:29)
[2019-02-18] MEDS: FUROSEMIDE 40 MG/4 ML VIAL IV SCH (14:30)
[2019-02-18] MEDS: GABAPENTIN 50 MG/ML 30 ML/BOTTLE PO SCH ×3 (14:35→22:10)
[2019-02-18] MEDS: ASPIRIN EC 81 MG TABLET PO SCH (14:36)
[2019-02-18] MEDS: traMADol 50 MG TABLET PO SCH ×3 (14:37→22:00)
[2019-02-18] MEDS: SERTRALINE 25 MG TABLET PO SCH (21:59)
[2019-02-18] MEDS: EZETIMIBE 10 MG TABLET PO SCH (21:59)
[2019-02-19] MEDS: ACETAMINOPHEN 325 MG TABLET PO PRN (06:05)
[2019-02-19] MEDS: LEVOTHYROXINE 50 MCG TABLET PO SCH (06:06)
[2019-02-19 06:23] LABS: Basophils % 0.5 % (0.0-0.8); Eosinophils # 0.1 10*3/uL (0.0-0.87); Eosinophils % 1.7 % (0.00-10.9); Hematocrit 26.7 VOL% (35.7-47.0); Hemoglobin 8.7 GM/DL (12.0-16.0); Immature Granulocytes % 0.2 %; Immature Granulocytes Absolute 0.01 #; Lymphocytes % 47.3 % (21.3-54.2); Mean Corpuscular HGB Conc 32.6 GM/DL (32-36); Mean Corpuscular Volume 92.4 FL (87-102); Mean Platelet Volume 8.6 FL (9.6-12.0); Monocytes % 10.1 % (1.7-12.7); Neutrophils % 40.2 % (38.7-73.9); Platelet Count 228 T/CUMM (130-400); Red Blood Count 2.89 MC/CUMM (3.8-5.5); White Blood Count 4.1 T/CUMM (4-12)
[2019-02-19 07:01] LABS: Calcium 8.1 MG/DL (8.5-10.1); Osmolality,Calculated 280.8 MOS/KG (273-304)
[2019-02-19] MEDS: PANTOPRAZOLE 40 MG TABLET PO SCH (08:18)
[2019-02-19] MEDS: ASPIRIN EC 81 MG TABLET PO SCH (08:18)
[2019-02-19] MEDS: AMIODARONE 200 MG TABLET PO SCH (08:18)
[2019-02-19] MEDS: GABAPENTIN 50 MG/ML 30 ML/BOTTLE PO SCH (08:19)
[2019-02-19] MEDS: INSULIN LISPRO 100 UNIT/ML SUBCUT SCH ×2 (09:00→13:05)
[2019-02-19] MEDS: LACTATED RINGERS 1,000 ML IV SCH (09:47)
[2019-02-19] MEDS ORDERED: SERTRALINE 25 MG TABLET PO SCH (10:04)
[2019-02-19] MEDS ORDERED: MAGNESIUM HYDROXIDE SUSP 30 ML UDCUP PO ONE (11:00)
[2019-02-19 11:58] VITALS: BP 152/69
[2019-02-19] MEDS: traMADol 50 MG TABLET PO SCH (12:58)
[2019-02-19] MEDS ORDERED: GABAPENTIN 50 MG/ML 30 ML/BOTTLE PO SCH (15:00)
[2019-02-20] MEDS ORDERED: FUROSEMIDE 20 MG TABLET PO SCH (09:00)
== END 2019-02-19 15:01 | disposition home health service (06) | DRG 391 ==
LOC: N.5E → SUATTDRO 17:23
PROVIDERS: ADMIT Internal Medicine; ATTEND Internal Medicine

== ENCOUNTER 2019-10-06 17:57 | Inpatient (IN) ==
[2019-10-06] MEDS ORDERED: GLUCAGON 1 MG VIAL IM PRN ×2 (21:41)
[2019-10-06] MEDS ORDERED: DEXTROSE 50% 25 GM/50 ML VIAL IV PRN ×2 (21:41)
[2019-10-06] MEDS ORDERED: hydrALAZINE 20 MG/1 ML VIAL IV PRN (21:46)
[2019-10-06] MEDS ORDERED: NITROGLYCERIN SL 0.4 MG TABLET SL ONE (22:21)
[2019-10-06] MEDS ORDERED: ASPIRIN 325 MG TABLET ONE (22:23)
[2019-10-06 22:24] LABS: Basophils % 0.5 % (0.0-0.8); Eosinophils # 0.1 10*3/uL (0.0-0.87); Eosinophils % 1.5 % (0.00-10.9); Hematocrit 30.3 VOL% (35.7-47.0); Hemoglobin 9.4 GM/DL (12.0-16.0); Immature Granulocytes % 0.3 %; Immature Granulocytes Absolute 0.02 #; Mean Corpuscular Volume 99.3 FL (87-102); Mean Platelet Volume 8.4 FL (9.6-12.0); Monocytes % 8.1 % (1.7-12.7); Neutrophils % 56.6 % (38.7-73.9); Platelet Count 330 T/CUMM (130-400); Red Blood Count 3.05 MC/CUMM (3.8-5.5); Red Cell Distribution Width 14.3 % (9.3-17.3); White Blood Count 6.2 T/CUMM (4-12)
[2019-10-06] MEDS ORDERED: ALBUTEROL/IPRATROPIUM 3 ML NEB RESP TX PRN (23:04)
[2019-10-06] MEDS ORDERED: guaiFENesin/DM ER 600-30 MG TABLET PO PRN (23:04)
[2019-10-06] MEDS ORDERED: diphenhydrAMINE CAP 25 MG CAPSULE PO PRN (23:04)
[2019-10-06] MEDS ORDERED: ACETAMINOPHEN 325 MG TABLET PO PRN (23:04)
[2019-10-06] MEDS ORDERED: ONDANSETRON 4 MG/2 ML VIAL IV PRN (23:04)
[2019-10-06] MEDS ORDERED: SODIUM POLYSTYRENE SULFATE 15 GM/60 ML BOTTLE PO ONE (23:04)
[2019-10-06] MEDS ORDERED: NICOTINE 21 MG/24 HR PATCH TRANSDERM PRN (23:04)
[2019-10-06] MEDS ORDERED: MORPHINE 4 MG/1 ML VIAL ONE (23:17)
[2019-10-06] MEDS: MORPHINE 4 MG/1 ML VIAL IV PRN (23:24)
[2019-10-07] MEDS ORDERED: INSULIN REGULAR 100 UNIT/ML IV ONE
[2019-10-07] MEDS: FUROSEMIDE 40 MG/4 ML VIAL IV SCH ×3 (00:12→16:41)
[2019-10-07] MEDS ORDERED: ATROPINE 1 MG/10 ML SYRINGE IV PRN (00:18)
[2019-10-07] MEDS ORDERED: DEXTROSE 10% 250 ML BAG IV PRN (00:30)
[2019-10-07] MEDS: ENOXAPARIN 60 MG/0.6 ML SYRINGE SUBCUT SCH (00:37)
[2019-10-07] MEDS: rOPINIRole 1 MG TABLET PO SCH ×2 (00:38→21:41)
[2019-10-07 06:14] LABS: Calcium 8.7 MG/DL (8.5-10.1)
[2019-10-07] MEDS ORDERED: CALCIUM GLUCONATE 1,000 MG in SODIUM CHLORIDE 0.9% 100 ML IV ONE (06:43)
[2019-10-07] MEDS ORDERED: SODIUM POLYSTYRENE SULFATE 15 GM/60 ML BOTTLE PO ONE (06:44)
[2019-10-07] MEDS: INSULIN REGULAR 100 UNIT/ML SUBCUT SCH ×4 (08:40→21:41)
[2019-10-07] MEDS ORDERED: ENOXAPARIN 40 MG/0.4 ML SYRINGE SUBCUT SCH (09:00)
[2019-10-07] MEDS: MORPHINE 4 MG/1 ML VIAL IV PRN (11:15)
[2019-10-07] MEDS: ALBUTEROL 2.5 MG/3 ML NEB RESP TX SCH ×4 (11:27→23:10)
[2019-10-07] MEDS: INSULIN ASPART PROTAMINE/ASPART 70/30 100 UNIT/ML SUBCUT SCH (16:42)
[2019-10-07] MEDS: SERTRALINE 25 MG TABLET PO SCH (21:40)
[2019-10-07] MEDS: GABAPENTIN 100 MG CAPSULE PO SCH (21:40)
[2019-10-07] MEDS: EZETIMIBE 10 MG TABLET PO SCH (21:41)
[2019-10-08] MEDS: ALBUTEROL 2.5 MG/3 ML NEB RESP TX SCH ×5 (03:30→20:46)
[2019-10-08 04:32] LABS: Basophils % 0.6 % (0.0-0.8); Eosinophils # 0.1 10*3/uL (0.0-0.87); Eosinophils % 1.4 % (0.00-10.9); Hematocrit 27.2 VOL% (35.7-47.0); Hemoglobin 8.8 GM/DL (12.0-16.0); Immature Granulocytes % 0.3 %; Immature Granulocytes Absolute 0.02 #; Lymphocytes # 1.5 10*3/uL (1.4-4.0); Lymphocytes % 24.2 % (21.3-54.2); Mean Corpuscular HGB Conc 32.4 GM/DL (32-36); Mean Corpuscular Volume 96.1 FL (87-102); Mean Platelet Volume 8.8 FL (9.6-12.0); Neutrophils % 66.5 % (38.7-73.9); Platelet Count 320 T/CUMM (130-400); Red Blood Count 2.83 MC/CUMM (3.8-5.5); Red Cell Distribution Width 14.3 % (9.3-17.3); White Blood Count 6.3 T/CUMM (4-12)
[2019-10-08 04:54] LABS: Calcium 8.3 MG/DL (8.5-10.1)
[2019-10-08] MEDS: ENOXAPARIN 60 MG/0.6 ML SYRINGE SUBCUT SCH (05:54)
[2019-10-08] MEDS: LEVOTHYROXINE 50 MCG TABLET PO SCH (05:54)
[2019-10-08] MEDS ORDERED: CALCIUM GLUCONATE 1,000 MG in SODIUM CHLORIDE 0.9% 100 ML IV ONE ×2 (06:37→17:00)
[2019-10-08] MEDS ORDERED: ALBUTEROL 2.5 MG/3 ML NEB RESP TX ONE (06:37)
[2019-10-08] MEDS ORDERED: DEXTROSE 50% 25 GM/50 ML VIAL IV ONE ×2 (06:37→16:42)
[2019-10-08] MEDS ORDERED: INSULIN REGULAR 100 UNIT/ML IV ONE ×2 (06:37→16:19)
[2019-10-08] MEDS ORDERED: DEXTROSE 50% 25 GM/50 ML SYRINGE IV ONE (06:50)
[2019-10-08] MEDS ORDERED: CALCIUM GLUCONATE 1,000 MG/10 ML VIAL IV ONE (06:51)
[2019-10-08 07:12] LABS: Albumin 2.5 G/DL (3.4-5.0); Total Protein 6.2 G/DL (6.4-8.3)
[2019-10-08] MEDS ORDERED: DEXTROSE 50% 25 GM/50 ML SYRINGE IV SCH (07:30)
[2019-10-08] MEDS ORDERED: DEXTROSE 50% 25 GM/50 ML VIAL IV SCH (07:30)
[2019-10-08] MEDS ORDERED: ASPIRIN EC 81 MG TABLET PO SCH (09:00)
[2019-10-08] MEDS: INSULIN REGULAR 100 UNIT/ML SUBCUT SCH ×4 (09:23→20:53)
[2019-10-08] MEDS: FUROSEMIDE 40 MG/4 ML VIAL IV SCH ×2 (09:24→17:38)
[2019-10-08] MEDS: INSULIN ASPART PROTAMINE/ASPART 70/30 100 UNIT/ML SUBCUT SCH ×2 (09:24→17:40)
[2019-10-08] MEDS: GABAPENTIN 100 MG CAPSULE PO SCH ×2 (09:25→20:53)
[2019-10-08] MEDS: PANTOPRAZOLE 40 MG TABLET PO SCH (09:25)
[2019-10-08] MEDS: ASPIRIN CHEW 81 MG TABLET PO SCH (10:04)
[2019-10-08] MEDS ORDERED: SODIUM POLYSTYRENE SULFATE 15 GM/60 ML BOTTLE PO ONE (11:08)
[2019-10-08] MEDS: SODIUM CHLORIDE 0.9% 1,000 ML IV SCH (12:30)
[2019-10-08] MEDS ORDERED: ALBUTEROL NEB SOLN 5 MG/ML 20 ML/BOTTLE CONT NEB ONE (16:22)
[2019-10-08] MEDS ORDERED: DEXTROSE 10% 250 ML BAG IV ONE (17:00)
[2019-10-08] MEDS: rOPINIRole 1 MG TABLET PO SCH (20:54)
[2019-10-08] MEDS: SERTRALINE 25 MG TABLET PO SCH (20:54)
[2019-10-08] MEDS: ASCORBIC ACID 500 MG TABLET PO SCH (20:54)
[2019-10-08] MEDS: EZETIMIBE 10 MG TABLET PO SCH (20:54)
[2019-10-09] MEDS: ALBUTEROL 2.5 MG/3 ML NEB RESP TX SCH ×7 (00:27→22:33)
[2019-10-09] MEDS: MORPHINE 4 MG/1 ML VIAL IV PRN ×4 (01:17→23:35)
[2019-10-09 01:53] LABS: Basophils % 0.8 % (0.0-0.8); Eosinophils # 0.1 10*3/uL (0.0-0.87); Eosinophils % 2.5 % (0.00-10.9); Hematocrit 26.5 VOL% (35.7-47.0); Hemoglobin 8.3 GM/DL (12.0-16.0); Immature Granulocytes % 0.2 %; Immature Granulocytes Absolute 0.01 #; Lymphocytes # 1.8 10*3/uL (1.4-4.0); Lymphocytes % 34.9 % (21.3-54.2); Mean Corpuscular HGB Conc 31.3 GM/DL (32-36); Mean Corpuscular Volume 98.9 FL (87-102); Mean Platelet Volume 8.4 FL (9.6-12.0); Monocytes % 8.4 % (1.7-12.7); Neutrophils % 53.2 % (38.7-73.9); Platelet Count 283 T/CUMM (130-400); Red Blood Count 2.68 MC/CUMM (3.8-5.5); Red Cell Distribution Width 14.3 % (9.3-17.3); White Blood Count 5.2 T/CUMM (4-12)
[2019-10-09 02:09] LABS: Calcium 8.4 MG/DL (8.5-10.1); Osmolality,Calculated 277.4 MOS/KG (273-304)
[2019-10-09 02:12] LABS: Risk Ratio 2.35; VLDL CHOLESTEROL 10.2 MG/DL
[2019-10-09] MEDS: ENOXAPARIN 60 MG/0.6 ML SYRINGE SUBCUT SCH (05:59)
[2019-10-09] MEDS: LEVOTHYROXINE 50 MCG TABLET PO SCH (06:00)
[2019-10-09] MEDS: GABAPENTIN 100 MG CAPSULE PO SCH ×2 (08:47→20:29)
[2019-10-09] MEDS: ASCORBIC ACID 500 MG TABLET PO SCH ×2 (08:47→20:28)
[2019-10-09] MEDS: ASPIRIN CHEW 81 MG TABLET PO SCH (08:48)
[2019-10-09] MEDS: FUROSEMIDE 40 MG/4 ML VIAL IV SCH (08:48)
[2019-10-09] MEDS: PANTOPRAZOLE 40 MG TABLET PO SCH (08:48)
[2019-10-09] MEDS: INSULIN REGULAR 100 UNIT/ML SUBCUT SCH ×4 (08:49→20:31)
[2019-10-09] MEDS: INSULIN ASPART PROTAMINE/ASPART 70/30 100 UNIT/ML SUBCUT SCH ×2 (08:51→17:37)
[2019-10-09] MEDS ORDERED: INSULIN REGULAR 100 UNIT/ML IV ONE (08:54)
[2019-10-09] MEDS ORDERED: DEXTROSE 10% 250 ML BAG IV ONE (08:55)
[2019-10-09] MEDS: FUROSEMIDE 20 MG TABLET PO SCH (10:38)
[2019-10-09] MEDS: SODIUM CHLORIDE 0.9% 1,000 ML IV SCH ×2 (10:48→23:35)
[2019-10-09] MEDS: MAGNESIUM HYDROXIDE SUSP 30 ML UDCUP PO PRN (14:30)
[2019-10-09] MEDS: SERTRALINE 25 MG TABLET PO SCH (20:28)
[2019-10-09] MEDS: EZETIMIBE 10 MG TABLET PO SCH (20:28)
[2019-10-09] MEDS: rOPINIRole 1 MG TABLET PO SCH (20:29)
[2019-10-10] MEDS: MORPHINE 4 MG/1 ML VIAL IV PRN ×2 (02:35→17:28)
[2019-10-10] MEDS: ALBUTEROL 2.5 MG/3 ML NEB RESP TX SCH ×7 (03:47→23:40)
[2019-10-10] MEDS: LEVOTHYROXINE 50 MCG TABLET PO SCH (06:03)
[2019-10-10] MEDS: ENOXAPARIN 60 MG/0.6 ML SYRINGE SUBCUT SCH (06:03)
[2019-10-10 07:09] LABS: Basophils % 0.9 % (0.0-0.8); Eosinophils # 0.2 10*3/uL (0.0-0.87); Eosinophils % 3.3 % (0.00-10.9); Hematocrit 26.4 VOL% (35.7-47.0); Immature Granulocytes % 0.2 %; Immature Granulocytes Absolute 0.01 #; Lymphocytes # 1.9 10*3/uL (1.4-4.0); Lymphocytes % 41.2 % (21.3-54.2); Mean Corpuscular HGB Conc 30.3 GM/DL (32-36); Mean Corpuscular Volume 100.8 FL (87-102); Mean Platelet Volume 8.1 FL (9.6-12.0); Monocytes % 9.1 % (1.7-12.7); Neutrophils % 45.3 % (38.7-73.9); Platelet Count 231 T/CUMM (130-400); Red Blood Count 2.62 MC/CUMM (3.8-5.5); Red Cell Distribution Width 14.2 % (9.3-17.3); White Blood Count 4.6 T/CUMM (4-12)
[2019-10-10 07:25] LABS: Calcium 7.5 MG/DL (8.5-10.1); Osmolality,Calculated 281.8 MOS/KG (273-304)
[2019-10-10] MEDS: ASCORBIC ACID 500 MG TABLET PO SCH ×2 (08:41→21:30)
[2019-10-10] MEDS: ASPIRIN CHEW 81 MG TABLET PO SCH (08:41)
[2019-10-10] MEDS: FUROSEMIDE 20 MG TABLET PO SCH (08:41)
[2019-10-10] MEDS: GABAPENTIN 100 MG CAPSULE PO SCH ×2 (08:42→21:28)
[2019-10-10] MEDS: INSULIN ASPART PROTAMINE/ASPART 70/30 100 UNIT/ML SUBCUT SCH ×2 (08:42→17:23)
[2019-10-10] MEDS: PANTOPRAZOLE 40 MG TABLET PO SCH (08:42)
[2019-10-10] MEDS: hydrALAZINE 25 MG TABLET PO SCH ×2 (08:42→21:30)
[2019-10-10] MEDS: INSULIN REGULAR 100 UNIT/ML SUBCUT SCH ×4 (08:43→21:31)
[2019-10-10] MEDS: ENOXAPARIN 30 MG/0.3 ML SYRINGE SUBCUT SCH (16:06)
[2019-10-10] MEDS: ALUMINUM/MAGNES/SIMETH MAX STR 30 ML UDCUP PO PRN (18:12)
[2019-10-10] MEDS: SODIUM CHLORIDE 0.9% 1,000 ML IV SCH (18:30)
[2019-10-10] MEDS: SERTRALINE 25 MG TABLET PO SCH (21:28)
[2019-10-10] MEDS: rOPINIRole 1 MG TABLET PO SCH (21:29)
[2019-10-10] MEDS: EZETIMIBE 10 MG TABLET PO SCH (21:30)
[2019-10-11] MEDS: ALUMINUM/MAGNES/SIMETH MAX STR 30 ML UDCUP PO PRN (03:04)
[2019-10-11 04:44] LABS: Basophils % 0.4 % (0.0-0.8); Eosinophils # 0.2 10*3/uL (0.0-0.87); Eosinophils % 3.5 % (0.00-10.9); Hematocrit 25.4 VOL% (35.7-47.0); Hemoglobin 7.9 GM/DL (12.0-16.0); Immature Granulocytes % 0.4 %; Immature Granulocytes Absolute 0.02 #; Lymphocytes % 39.6 % (21.3-54.2); Mean Corpuscular HGB Conc 31.1 GM/DL (32-36); Mean Corpuscular Volume 99.2 FL (87-102); Mean Platelet Volume 8.7 FL (9.6-12.0); Neutrophils % 47.1 % (38.7-73.9); Platelet Count 261 T/CUMM (130-400); Red Blood Count 2.56 MC/CUMM (3.8-5.5); Red Cell Distribution Width 14.2 % (9.3-17.3); White Blood Count 5.1 T/CUMM (4-12)
[2019-10-11 05:03] LABS: Calcium 7.5 MG/DL (8.5-10.1); Osmolality,Calculated 285.7 MOS/KG (273-304)
[2019-10-11] MEDS: LEVOTHYROXINE 50 MCG TABLET PO SCH (05:47)
[2019-10-11] MEDS: ALBUTEROL 2.5 MG/3 ML NEB RESP TX SCH ×4 (07:00→19:17)
[2019-10-11] MEDS: ASPIRIN CHEW 81 MG TABLET PO SCH (09:05)
[2019-10-11] MEDS: GABAPENTIN 100 MG CAPSULE PO SCH ×2 (09:05→21:09)
[2019-10-11] MEDS: ASCORBIC ACID 500 MG TABLET PO SCH ×2 (09:06→21:10)
[2019-10-11] MEDS: hydrALAZINE 25 MG TABLET PO SCH ×2 (09:06→21:09)
[2019-10-11] MEDS: PANTOPRAZOLE 40 MG TABLET PO SCH (09:06)
[2019-10-11] MEDS: FUROSEMIDE 20 MG TABLET PO SCH (09:06)
[2019-10-11] MEDS: INSULIN ASPART PROTAMINE/ASPART 70/30 100 UNIT/ML SUBCUT SCH ×2 (09:43→17:11)
[2019-10-11] MEDS: INSULIN REGULAR 100 UNIT/ML SUBCUT SCH ×4 (09:43→22:31)
[2019-10-11] MEDS: ENOXAPARIN 30 MG/0.3 ML SYRINGE SUBCUT SCH (12:11)
[2019-10-11] MEDS: SODIUM CHLORIDE 0.9% 1,000 ML IV SCH (12:12)
[2019-10-11] MEDS: MAGNESIUM HYDROXIDE SUSP 30 ML UDCUP PO PRN (12:58)
[2019-10-11] MEDS ORDERED: SODIUM POLYSTYRENE SULFATE 15 GM/60 ML BOTTLE PO STA (13:29)
[2019-10-11] MEDS ORDERED: ISOSORBIDE MONONITRATE 30 MG TABLET PO SCH (15:00)
[2019-10-11] MEDS: SERTRALINE 25 MG TABLET PO SCH (21:09)
[2019-10-11] MEDS: rOPINIRole 1 MG TABLET PO SCH (21:09)
[2019-10-11] MEDS: EZETIMIBE 10 MG TABLET PO SCH (21:09)
[2019-10-12] MEDS: ALBUTEROL 2.5 MG/3 ML NEB RESP TX SCH ×6 (00:02→19:15)
[2019-10-12] MEDS: SODIUM CHLORIDE 0.9% 1,000 ML IV SCH ×2 (03:42→10:27)
[2019-10-12] MEDS: LEVOTHYROXINE 50 MCG TABLET PO SCH (06:36)
[2019-10-12] MEDS ORDERED: REGADENOSON 0.4 MG/5 ML SYRINGE IV ONE (07:55)
[2019-10-12] MEDS ORDERED: ISOSORBIDE MONONITRATE 30 MG TABLET PO SCH (09:00)
[2019-10-12] MEDS: INSULIN REGULAR 100 UNIT/ML SUBCUT SCH ×4 (09:10→22:21)
[2019-10-12] MEDS: ASCORBIC ACID 500 MG TABLET PO SCH ×2 (09:11→21:36)
[2019-10-12] MEDS: FUROSEMIDE 20 MG TABLET PO SCH (09:12)
[2019-10-12] MEDS: hydrALAZINE 25 MG TABLET PO SCH ×2 (09:12→21:34)
[2019-10-12] MEDS: GABAPENTIN 100 MG CAPSULE PO SCH ×2 (09:12→21:35)
[2019-10-12] MEDS: PANTOPRAZOLE 40 MG TABLET PO SCH (09:12)
[2019-10-12] MEDS: ASPIRIN CHEW 81 MG TABLET PO SCH (09:12)
[2019-10-12] MEDS: ISOSORBIDE MONONITRATE 30 MG TABLET PO SCH (09:12)
[2019-10-12] MEDS: INSULIN ASPART PROTAMINE/ASPART 70/30 100 UNIT/ML SUBCUT SCH ×2 (09:13→17:00)
[2019-10-12 10:18] LABS: Calcium 7.3 MG/DL (8.5-10.1); Osmolality,Calculated 285.8 MOS/KG (273-304)
[2019-10-12] MEDS ORDERED: FUROSEMIDE 40 MG/4 ML VIAL IV ONE (11:25)
[2019-10-12] MEDS: ENOXAPARIN 30 MG/0.3 ML SYRINGE SUBCUT SCH (11:57)
[2019-10-12] MEDS: ALUMINUM/MAGNES/SIMETH MAX STR 30 ML UDCUP PO PRN (17:51)
[2019-10-12] MEDS: SERTRALINE 25 MG TABLET PO SCH (21:34)
[2019-10-12] MEDS: rOPINIRole 1 MG TABLET PO SCH (21:35)
[2019-10-12] MEDS: EZETIMIBE 10 MG TABLET PO SCH (21:35)
[2019-10-13] MEDS: ALBUTEROL 2.5 MG/3 ML NEB RESP TX SCH ×6 (00:50→19:28)
[2019-10-13 05:25] LABS: Calcium 7.7 MG/DL (8.5-10.1); Osmolality,Calculated 290.4 MOS/KG (273-304)
[2019-10-13] MEDS: LEVOTHYROXINE 50 MCG TABLET PO SCH (07:25)
[2019-10-13] MEDS: ISOSORBIDE MONONITRATE 30 MG TABLET PO SCH (09:15)
[2019-10-13] MEDS: PANTOPRAZOLE 40 MG TABLET PO SCH (09:16)
[2019-10-13] MEDS: ASCORBIC ACID 500 MG TABLET PO SCH ×2 (09:16→21:12)
[2019-10-13] MEDS: GABAPENTIN 100 MG CAPSULE PO SCH ×2 (09:16→21:12)
[2019-10-13] MEDS: ASPIRIN CHEW 81 MG TABLET PO SCH (09:16)
[2019-10-13] MEDS: FUROSEMIDE 20 MG TABLET PO SCH (09:16)
[2019-10-13] MEDS: INSULIN ASPART PROTAMINE/ASPART 70/30 100 UNIT/ML SUBCUT SCH ×2 (09:17→16:35)
[2019-10-13] MEDS: INSULIN REGULAR 100 UNIT/ML SUBCUT SCH ×4 (09:25→21:14)
[2019-10-13] MEDS ORDERED: BISACODYL 5 MG TABLET PO ONE (10:15)
[2019-10-13] MEDS: ENOXAPARIN 30 MG/0.3 ML SYRINGE SUBCUT SCH (13:46)
[2019-10-13 15:00] LABS: Apearance,Urine CLEAR (Clear); Bilirubin,Urine Negative (Negative); Blood, Urine Negative (Negative); Glucose,Urine (UA) 50 mg/dL (Negative); Ketones,Urine Negative (Negative); Nitrite,Urine Negative (Negative); Protein,Urine >=500 MG/DL; RBC,Urine 4 /HPF (0-4); Squamous Epithelial Cell,Urine Occasional /HPF (0-10); Urine Color Yellow (Yellow); Urine Specific Gravity 1.018 (1.001-1.035); Urine Urobilinogen < 2.0 EU/DL (0.2-1.0); WBC,Urine 3 /HPF (0-6)
[2019-10-13 19:44] LABS: Microalbum/Creat Ratio Random 5432.7 RATIO (0-30)
[2019-10-13] MEDS: EZETIMIBE 10 MG TABLET PO SCH (21:12)
[2019-10-13] MEDS: rOPINIRole 1 MG TABLET PO SCH (21:12)
[2019-10-13] MEDS: SERTRALINE 25 MG TABLET PO SCH (21:13)
[2019-10-14] MEDS: ALBUTEROL 2.5 MG/3 ML NEB RESP TX SCH ×5 (00:03→15:06)
[2019-10-14 03:20] LABS: Basophils % 0.7 % (0.0-0.8); Eosinophils # 0.1 10*3/uL (0.0-0.87); Eosinophils % 2.4 % (0.00-10.9); Hematocrit 26.1 VOL% (35.7-47.0); Hemoglobin 7.9 GM/DL (12.0-16.0); Immature Granulocytes % 0.4 %; Immature Granulocytes Absolute 0.02 #; Lymphocytes # 1.9 10*3/uL (1.4-4.0); Lymphocytes % 34.7 % (21.3-54.2); Mean Corpuscular HGB Conc 30.3 GM/DL (32-36); Mean Corpuscular Volume 101.2 FL (87-102); Mean Platelet Volume 8.8 FL (9.6-12.0); Monocytes % 6.6 % (1.7-12.7); Neutrophils % 55.2 % (38.7-73.9); Platelet Count 228 T/CUMM (130-400); Red Blood Count 2.58 MC/CUMM (3.8-5.5); Red Cell Distribution Width 14.4 % (9.3-17.3); White Blood Count 5.5 T/CUMM (4-12)
[2019-10-14 03:37] LABS: Calcium 7.9 MG/DL (8.5-10.1); Osmolality,Calculated 286.7 MOS/KG (273-304)
[2019-10-14] MEDS: LEVOTHYROXINE 50 MCG TABLET PO SCH (06:17)
[2019-10-14] MEDS: INSULIN REGULAR 100 UNIT/ML SUBCUT SCH ×3 (11:00→17:57)
[2019-10-14] MEDS: INSULIN ASPART PROTAMINE/ASPART 70/30 100 UNIT/ML SUBCUT SCH (11:01)
[2019-10-14] MEDS: ISOSORBIDE MONONITRATE 30 MG TABLET PO SCH (11:02)
[2019-10-14] MEDS: GABAPENTIN 100 MG CAPSULE PO SCH (11:02)
[2019-10-14] MEDS: ASPIRIN CHEW 81 MG TABLET PO SCH (11:02)
[2019-10-14] MEDS: PANTOPRAZOLE 40 MG TABLET PO SCH (11:03)
[2019-10-14] MEDS: ASCORBIC ACID 500 MG TABLET PO SCH (11:03)
[2019-10-14] MEDS ORDERED: SIMETHICONE CHEW 80 MG TABLET PO ONE (13:27)
[2019-10-14] MEDS: ENOXAPARIN 30 MG/0.3 ML SYRINGE SUBCUT SCH (13:34)
[2019-10-14] MEDS ORDERED: AMIODARONE 200 MG TABLET PO SCH (14:30)
[2019-10-14] MEDS ORDERED: FUROSEMIDE 40 MG/4 ML VIAL IV SCH (16:54)
[2019-10-14 17:56] VITALS: BP 163/71
[2019-10-21 15:06] LABS: Renin Activity < 0.6 ng/mL/h
== END 2019-10-14 17:59 | disposition home or self-care (01) | DRG 292 ==
LOC: N.CC 21:21 → SUATTDRO 21:21 → N.TELES 10-07 12:23 → N.TELEN 10-09 16:48
PROVIDERS: ADMIT Internal Medicine; ATTEND Internal Medicine

== ENCOUNTER 2019-12-18 11:02 | Inpatient (IN) ==
[2019-12-18] MEDS ORDERED: SIMETHICONE CHEW 125 MG TABLET PO PRN (11:19)
[2019-12-18] MEDS ORDERED: MAGNESIUM SULF RIDER 2 GM in PREMIX 1 EACH IV PRN (11:19)
[2019-12-18] MEDS ORDERED: BISACODYL 5 MG TABLET PO PRN (11:19)
[2019-12-18] MEDS ORDERED: MAGNESIUM SULF RIDER 4 GM in PREMIX 1 EACH IV PRN (11:19)
[2019-12-18] MEDS ORDERED: CALCIUM CARBONATE CHEW 500 MG TABLET PO PRN (11:19)
[2019-12-18] MEDS ORDERED: ZALEPLON 5 MG CAPSULE PO PRN (11:19)
[2019-12-18] MEDS ORDERED: guaiFENesin/DM ER 600-30 MG TABLET PO PRN (11:19)
[2019-12-18] MEDS ORDERED: ONDANSETRON 4 MG/2 ML VIAL IV PRN (11:19)
[2019-12-18] MEDS ORDERED: LACTULOSE 20 GM/30 ML UDCUP PO PRN (11:19)
[2019-12-18] MEDS ORDERED: ALUMINUM/MAGNES/SIMETH MAX STR 30 ML UDCUP PO PRN (11:19)
[2019-12-18] MEDS ORDERED: diphenhydrAMINE CAP 25 MG CAPSULE PO PRN (11:19)
[2019-12-18] MEDS ORDERED: MORPHINE 4 MG/1 ML VIAL IV PRN (11:19)
[2019-12-18] MEDS ORDERED: hydrALAZINE 20 MG/1 ML VIAL IV PRN (11:19)
[2019-12-18] MEDS ORDERED: POTASSIUM CHLORIDE 20 MEQ TABLET PO PRN (11:19)
[2019-12-18] MEDS ORDERED: NICOTINE 21 MG/24 HR PATCH TRANSDERM PRN (11:19)
[2019-12-18] MEDS ORDERED: DEXTROSE 10% 250 ML BAG IV PRN (11:23)
[2019-12-18] MEDS ORDERED: GLUCAGON 1 MG VIAL IM PRN (11:23)
[2019-12-18] MEDS: INSULIN LISPRO 100 UNIT/ML SUBCUT SCH ×2 (16:27→22:38)
[2019-12-18 16:40] LABS: Troponin I 0.034 NG/ML (0.00-0.045)
[2019-12-18] MEDS ORDERED: INSULIN ASPART PROTAMINE/ASPART 70/30 100 UNIT/ML SUBCUT PRN (18:08)
[2019-12-18 18:13] LABS: Troponin I 0.031 NG/ML (0.00-0.045)
[2019-12-18] MEDS: ATORVASTATIN 40 MG TABLET PO SCH (20:49)
[2019-12-18] MEDS: DOCUSATE SODIUM 100 MG CAPSULE PO SCH (20:49)
[2019-12-18] MEDS: GABAPENTIN 100 MG CAPSULE PO SCH (20:49)
[2019-12-18] MEDS: ASCORBIC ACID 500 MG TABLET PO SCH (20:49)
[2019-12-18] MEDS: ENOXAPARIN 30 MG/0.3 ML SYRINGE SUBCUT SCH (20:50)
[2019-12-19] MEDS: LEVOTHYROXINE 50 MCG TABLET PO SCH (06:09)
[2019-12-19 07:37] LABS: Basophils % 0.5 % (0.0-0.8); Eosinophils # 0.1 10*3/uL (0.0-0.87); Eosinophils % 2.3 % (0.00-10.9); Hematocrit 24.8 VOL% (35.7-47.0); Hemoglobin 7.7 GM/DL (12.0-16.0); Immature Granulocytes % 0.5 %; Immature Granulocytes Absolute 0.02 #; Lymphocytes # 1.3 10*3/uL (1.4-4.0); Lymphocytes % 30.2 % (21.3-54.2); Mean Platelet Volume 8.4 FL (9.6-12.0); Monocytes % 7.8 % (1.7-12.7); Neutrophils % 58.7 % (38.7-73.9); Platelet Count 226 T/CUMM (130-400); Red Blood Count 2.53 MC/CUMM (3.8-5.5); Red Cell Distribution Width 14.8 % (9.3-17.3); White Blood Count 4.4 T/CUMM (4-12)
[2019-12-19 08:09] LABS: Blood Urea Nitrogen 62 MG/DL (7-18); Estimated Glom Filtration Rate 28 ML/MIN; Glucose 124 MG/DL (74-106); HDL Cholesterol 73 MG/DL (40-60); Osmolality,Calculated 286.2 MOS/KG (273-304); Risk Ratio 1.84; Triglycerides 54 MG/DL (2-150); VLDL CHOLESTEROL 10.8 MG/DL
[2019-12-19] MEDS: INSULIN LISPRO 100 UNIT/ML SUBCUT SCH ×4 (08:54→20:49)
[2019-12-19] MEDS: PANTOPRAZOLE 40 MG TABLET PO SCH (08:55)
[2019-12-19] MEDS: AMIODARONE 200 MG TABLET PO SCH (08:55)
[2019-12-19] MEDS: GABAPENTIN 100 MG CAPSULE PO SCH ×2 (08:55→20:43)
[2019-12-19] MEDS: ASCORBIC ACID 500 MG TABLET PO SCH ×2 (08:56→20:43)
[2019-12-19] MEDS: DOCUSATE SODIUM 100 MG CAPSULE PO SCH ×2 (08:57→20:49)
[2019-12-19] MEDS: CHOLECALCIFEROL 5,000 UNIT TABLET PO SCH (08:57)
[2019-12-19] MEDS ORDERED: ASPIRIN 325 MG TABLET PO SCH (09:00)
[2019-12-19] MEDS ORDERED: SODIUM POLYSTYRENE SULFATE 15 GM/60 ML BOTTLE PO ONE (10:35)
[2019-12-19] MEDS ORDERED: FUROSEMIDE 40 MG/4 ML VIAL IV ONE (12:36)
[2019-12-19] MEDS: ATORVASTATIN 40 MG TABLET PO SCH (20:43)
[2019-12-19] MEDS: IRON (CARBONYL) 45 MG TABLET PO SCH (20:43)
[2019-12-19] MEDS: ENOXAPARIN 30 MG/0.3 ML SYRINGE SUBCUT SCH (20:48)
[2019-12-20 06:08] LABS: Basophils % 0.6 % (0.0-0.8); Eosinophils # 0.1 10*3/uL (0.0-0.87); Eosinophils % 2.6 % (0.00-10.9); Hematocrit 26.3 VOL% (35.7-47.0); Hemoglobin 8.1 GM/DL (12.0-16.0); Immature Granulocytes % 0.2 %; Immature Granulocytes Absolute 0.01 #; Lymphocytes # 1.8 10*3/uL (1.4-4.0); Lymphocytes % 35.8 % (21.3-54.2); Mean Corpuscular HGB Conc 30.8 GM/DL (32-36); Mean Corpuscular Volume 96.7 FL (87-102); Mean Platelet Volume 8.8 FL (9.6-12.0); Monocytes % 7.5 % (1.7-12.7); Neutrophils % 53.3 % (38.7-73.9); Platelet Count 260 T/CUMM (130-400); Red Blood Count 2.72 MC/CUMM (3.8-5.5); Red Cell Distribution Width 14.7 % (9.3-17.3); White Blood Count 4.9 T/CUMM (4-12)
[2019-12-20] MEDS: LEVOTHYROXINE 50 MCG TABLET PO SCH (06:24)
[2019-12-20 06:31] LABS: Calcium 8.3 MG/DL (8.5-10.1); Osmolality,Calculated 287.2 MOS/KG (273-304)
[2019-12-20] MEDS: INSULIN LISPRO 100 UNIT/ML SUBCUT SCH ×4 (08:36→21:57)
[2019-12-20] MEDS: AMIODARONE 200 MG TABLET PO SCH (08:52)
[2019-12-20] MEDS: CHOLECALCIFEROL 5,000 UNIT TABLET PO SCH (08:52)
[2019-12-20] MEDS: ASPIRIN CHEW 81 MG TABLET PO SCH (08:52)
[2019-12-20] MEDS: GABAPENTIN 100 MG CAPSULE PO SCH ×2 (08:52→21:58)
[2019-12-20] MEDS: IRON (CARBONYL) 45 MG TABLET PO SCH ×2 (08:52→21:58)
[2019-12-20] MEDS: ASCORBIC ACID 500 MG TABLET PO SCH ×2 (08:52→21:58)
[2019-12-20] MEDS: DOCUSATE SODIUM 100 MG CAPSULE PO SCH ×2 (08:52→22:02)
[2019-12-20] MEDS: PANTOPRAZOLE 40 MG TABLET PO SCH (08:53)
[2019-12-20] MEDS: FUROSEMIDE 20 MG TABLET PO SCH (12:33)
[2019-12-20] MEDS: ENOXAPARIN 30 MG/0.3 ML SYRINGE SUBCUT SCH (21:57)
[2019-12-20] MEDS: ATORVASTATIN 40 MG TABLET PO SCH (21:58)
[2019-12-21] MEDS: LEVOTHYROXINE 50 MCG TABLET PO SCH (06:18)
[2019-12-21 06:32] LABS: Basophils % 0.6 % (0.0-0.8); Eosinophils # 0.1 10*3/uL (0.0-0.87); Eosinophils % 2.7 % (0.00-10.9); Hematocrit 25.8 VOL% (35.7-47.0); Immature Granulocytes % 0.2 %; Immature Granulocytes Absolute 0.01 #; Lymphocytes # 2.1 10*3/uL (1.4-4.0); Lymphocytes % 44.2 % (21.3-54.2); Mean Corpuscular Volume 96.6 FL (87-102); Mean Platelet Volume 8.9 FL (9.6-12.0); Monocytes % 7.3 % (1.7-12.7); Platelet Count 263 T/CUMM (130-400); Red Blood Count 2.67 MC/CUMM (3.8-5.5); Red Cell Distribution Width 14.9 % (9.3-17.3); White Blood Count 4.8 T/CUMM (4-12)
[2019-12-21 07:04] LABS: Calcium 8.3 MG/DL (8.5-10.1)
[2019-12-21] MEDS ORDERED: SODIUM POLYSTYRENE SULFATE 15 GM/60 ML BOTTLE PO ONE (08:24)
[2019-12-21] MEDS: AMIODARONE 200 MG TABLET PO SCH ×2 (09:09→09:16)
[2019-12-21] MEDS: CHOLECALCIFEROL 5,000 UNIT TABLET PO SCH (09:09)
[2019-12-21] MEDS: ASCORBIC ACID 500 MG TABLET PO SCH ×2 (09:09→21:32)
[2019-12-21] MEDS: DOCUSATE SODIUM 100 MG CAPSULE PO SCH ×3 (09:09→21:32)
[2019-12-21] MEDS: INSULIN LISPRO 100 UNIT/ML SUBCUT SCH ×4 (09:10→21:35)
[2019-12-21] MEDS: IRON (CARBONYL) 45 MG TABLET PO SCH ×2 (09:10→21:32)
[2019-12-21] MEDS: FUROSEMIDE 20 MG TABLET PO SCH (09:10)
[2019-12-21] MEDS: PANTOPRAZOLE 40 MG TABLET PO SCH (09:10)
[2019-12-21] MEDS: GABAPENTIN 100 MG CAPSULE PO SCH ×2 (09:10→21:40)
[2019-12-21] MEDS: ASPIRIN CHEW 81 MG TABLET PO SCH (09:10)
[2019-12-21] MEDS: ENOXAPARIN 30 MG/0.3 ML SYRINGE SUBCUT SCH (21:30)
[2019-12-21] MEDS: ATORVASTATIN 40 MG TABLET PO SCH (21:32)
[2019-12-22] MEDS: LEVOTHYROXINE 50 MCG TABLET PO SCH (05:56)
[2019-12-22 06:41] LABS: Basophils % 0.5 % (0.0-0.8); Eosinophils # 0.1 10*3/uL (0.0-0.87); Eosinophils % 2.9 % (0.00-10.9); Hematocrit 25.1 VOL% (35.7-47.0); Hemoglobin 7.7 GM/DL (12.0-16.0); Immature Granulocytes % 0.2 %; Immature Granulocytes Absolute 0.01 #; Lymphocytes # 1.7 10*3/uL (1.4-4.0); Lymphocytes % 40.6 % (21.3-54.2); Mean Corpuscular HGB Conc 30.7 GM/DL (32-36); Mean Corpuscular Volume 98.4 FL (87-102); Mean Platelet Volume 8.6 FL (9.6-12.0); Monocytes % 8.6 % (1.7-12.7); Neutrophils % 47.2 % (38.7-73.9); Platelet Count 248 T/CUMM (130-400); Red Blood Count 2.55 MC/CUMM (3.8-5.5); Red Cell Distribution Width 14.9 % (9.3-17.3); White Blood Count 4.2 T/CUMM (4-12)
[2019-12-22 07:09] LABS: Alanine Aminotransferase 26 U/L (13-56); Albumin 2.6 G/DL (3.4-5.0); Alkaline Phosphatase 135 U/L (45-117); Aspartate Amino Transferase 36 U/L (0-37); Bilirubin,Total < 0.39 MG/DL (0.2-1.0); Blood Urea Nitrogen 67 MG/DL (7-18); Calcium 8.1 MG/DL (8.5-10.1); Estimated Glom Filtration Rate 27 ML/MIN; Glucose 141 MG/DL (74-106); Osmolality,Calculated 295.7 MOS/KG (273-304); Total Protein 6.3 G/DL (6.4-8.3)
[2019-12-22 08:19] VITALS: BP 137/47
[2019-12-22] MEDS: GABAPENTIN 100 MG CAPSULE PO SCH (09:25)
[2019-12-22] MEDS: ASCORBIC ACID 500 MG TABLET PO SCH (09:25)
[2019-12-22] MEDS: ASPIRIN CHEW 81 MG TABLET PO SCH (09:25)
[2019-12-22] MEDS: FUROSEMIDE 20 MG TABLET PO SCH (09:25)
[2019-12-22] MEDS: IRON (CARBONYL) 45 MG TABLET PO SCH (09:26)
[2019-12-22] MEDS: AMIODARONE 200 MG TABLET PO SCH (09:26)
[2019-12-22] MEDS: CHOLECALCIFEROL 5,000 UNIT TABLET PO SCH (09:26)
[2019-12-22] MEDS: PANTOPRAZOLE 40 MG TABLET PO SCH (09:26)
[2019-12-22] MEDS: DOCUSATE SODIUM 100 MG CAPSULE PO SCH (09:26)
[2019-12-22] MEDS: INSULIN LISPRO 100 UNIT/ML SUBCUT SCH (10:05)
== END 2019-12-22 11:20 | disposition home health service (06) | DRG 844 ==
LOC: N.TELEN 15:37
PROVIDERS: ADMIT Internal Medicine Cardiovascular Disease; ATTEND Internal Medicine Cardiovascular Disease

== ENCOUNTER 2020-04-13 16:13 | Inpatient (IN) ==
[2020-04-13] MEDS ORDERED: MAGNESIUM SULF RIDER 4 GM in PREMIX 1 EACH IV PRN (16:53)
[2020-04-13] MEDS ORDERED: hydrALAZINE 20 MG/1 ML VIAL IV PRN (16:53)
[2020-04-13] MEDS ORDERED: ALUMINUM/MAGNES/SIMETH MAX STR 30 ML UDCUP PO PRN (16:53)
[2020-04-13] MEDS ORDERED: ZALEPLON 5 MG CAPSULE PO PRN (16:53)
[2020-04-13] MEDS ORDERED: MAGNESIUM SULF RIDER 2 GM in PREMIX 1 EACH IV PRN (16:53)
[2020-04-13] MEDS ORDERED: diphenhydrAMINE CAP 25 MG CAPSULE PO PRN (16:53)
[2020-04-13] MEDS ORDERED: ONDANSETRON 4 MG/2 ML VIAL IV PRN (16:53)
[2020-04-13] MEDS ORDERED: DEXTROSE 50% 25 GM/50 ML VIAL IV PRN (16:58)
[2020-04-13] MEDS ORDERED: GLUCAGON 1 MG VIAL IM PRN (16:58)
[2020-04-13] MEDS ORDERED: HEPARIN DRIP 25,000 UNITS/500 ML PREMIX IV SCH (17:00)
[2020-04-13 19:28] LABS: Basophils % 0.3 % (0.0-0.8); Eosinophils # 0.1 10*3/uL (0.0-0.87); Eosinophils % 1.6 % (0.00-10.9); Hematocrit 24.6 VOL% (35.7-47.0); Hemoglobin 7.8 GM/DL (12.0-16.0); Immature Granulocytes % 0.4 %; Immature Granulocytes Absolute 0.03 #; Lymphocytes # 1.9 10*3/uL (1.4-4.0); Lymphocytes % 27.4 % (21.3-54.2); Mean Corpuscular HGB Conc 31.7 GM/DL (32-36); Mean Corpuscular Volume 93.5 FL (87-102); Mean Platelet Volume 9.6 FL (9.6-12.0); Monocytes % 10.1 % (1.7-12.7); Neutrophils % 60.2 % (38.7-73.9); Platelet Count 244 T/CUMM (130-400); Red Blood Count 2.63 MC/CUMM (3.8-5.5); Red Cell Distribution Width 14.8 % (9.3-17.3); White Blood Count 6.9 T/CUMM (4-12)
[2020-04-13 19:46] LABS: Alanine Aminotransferase 13 U/L (13-56); Albumin 2.5 G/DL (3.4-5.0); Alkaline Phosphatase 140 U/L (45-117); Aspartate Amino Transferase 21 U/L (0-37); Bilirubin,Total < 0.39 MG/DL (0.2-1.0); Blood Urea Nitrogen 39 MG/DL (7-18); Calcium 8.3 MG/DL (8.5-10.1); Estimated Glom Filtration Rate 32 ML/MIN; Glucose 115 MG/DL (74-106); Osmolality,Calculated 277.2 MOS/KG (273-304); Total Protein 7.4 G/DL (6.4-8.3)
[2020-04-13] MEDS: ASCORBIC ACID 500 MG TABLET PO SCH (20:57)
[2020-04-13] MEDS: hydrALAZINE 25 MG TABLET PO SCH (20:58)
[2020-04-13] MEDS: GABAPENTIN 100 MG CAPSULE PO SCH (20:58)
[2020-04-13] MEDS: INSULIN REGULAR 100 UNIT/ML SUBCUT SCH (23:00)
[2020-04-14] MEDS: ACETAMINOPHEN 325 MG TABLET PO PRN (01:10)
[2020-04-14 05:49] LABS: Basophils % 0.3 % (0.0-0.8); Eosinophils # 0.2 10*3/uL (0.0-0.87); Eosinophils % 2.9 % (0.00-10.9); Hematocrit 22.5 VOL% (35.7-47.0); Hemoglobin 7.1 GM/DL (12.0-16.0); Immature Granulocytes % 0.3 %; Immature Granulocytes Absolute 0.02 #; Lymphocytes # 1.6 10*3/uL (1.4-4.0); Lymphocytes % 27.3 % (21.3-54.2); Mean Corpuscular HGB Conc 31.6 GM/DL (32-36); Mean Corpuscular Volume 93.8 FL (87-102); Mean Platelet Volume 10.1 FL (9.6-12.0); Monocytes % 10.6 % (1.7-12.7); Neutrophils % 58.6 % (38.7-73.9); Platelet Count 213 T/CUMM (130-400); Red Cell Distribution Width 14.7 % (9.3-17.3)
[2020-04-14 05:53] LABS: PT Patient Result 10.8 SECS (9.8-11.9)
[2020-04-14] MEDS: LEVOTHYROXINE 50 MCG TABLET PO SCH (06:33)
[2020-04-14] MEDS ORDERED: SODIUM CHLORIDE 0.9% 1,000 ML IV PRN (07:24)
[2020-04-14 07:33] LABS: Calcium 8.2 MG/DL (8.5-10.1)
[2020-04-14 07:34] LABS: Albumin 2.2 G/DL (3.4-5.0); Bilirubin,Total 0.89 MG/DL (0.2-1.0); Total Protein 6.8 G/DL (6.4-8.3)
[2020-04-14 08:24] LABS: Bacteria,Urine Occasional /HPF (Few); Bilirubin,Urine Negative (Negative); Blood, Urine Negative (Negative); Glucose,Urine (UA) 150 mg/dL (Negative); Hyaline Casts,Urine 8 /LPF (0-3); Ketones,Urine Negative (Negative); Mucus,Urine Occasional /LPF (Occasional); Nitrite,Urine Negative (Negative); Protein,Urine >=500 MG/DL; RBC,Urine 7 /HPF (0-4); Squamous Epithelial Cell,Urine Occasional /HPF (0-10); Urine Appearance Slightly Hazy (Clear); Urine Color Yellow (Yellow); Urine Specific Gravity 1.018 (1.001-1.035); Urine Urobilinogen < 2.0 EU/DL (0.2-1.0); WBC,Urine 14 /HPF (0-6)
[2020-04-14] MEDS: FUROSEMIDE 40 MG TABLET PO SCH ×2 (08:59→16:34)
[2020-04-14] MEDS: hydrALAZINE 25 MG TABLET PO SCH ×2 (08:59→21:41)
[2020-04-14] MEDS: ASPIRIN EC 81 MG TABLET PO SCH (08:59)
[2020-04-14] MEDS: ASCORBIC ACID 500 MG TABLET PO SCH ×2 (08:59→21:41)
[2020-04-14] MEDS: PANTOPRAZOLE 40 MG TABLET PO SCH (08:59)
[2020-04-14] MEDS: GABAPENTIN 100 MG CAPSULE PO SCH ×2 (09:00→21:42)
[2020-04-14] MEDS: INSULIN REGULAR 100 UNIT/ML SUBCUT SCH ×4 (09:00→21:42)
[2020-04-14] MEDS ORDERED: MAGNESIUM SULF RIDER 2 GM in PREMIX 1 EACH IV PRN (09:35)
[2020-04-14] MEDS ORDERED: POTASSIUM CHLORIDE RIDER 10 MEQ in PREMIX 1 EACH IV PRN (09:35)
[2020-04-14] MEDS ORDERED: diphenhydrAMINE CAP 25 MG CAPSULE PO ONE (12:00)
[2020-04-14] MEDS ORDERED: DIAZEPAM 5 MG TABLET PO ONE (12:00)
[2020-04-14] MEDS ORDERED: HEPARIN/NACL 0.9% 2 UNITS/ML 1,500 ML IV ONE (13:10)
[2020-04-14] MEDS ORDERED: LIDOCAINE 1% 20 ML VIAL ONE (13:10)
[2020-04-14] MEDS ORDERED: BUPIVACAINE 0.25% 50 ML VIAL ONE (13:33)
[2020-04-14] MEDS ORDERED: MIDAZOLAM 2 MG/2 ML VIAL ONE (13:37)
[2020-04-14] MEDS ORDERED: fentaNYL 100 MCG/2 ML VIAL ONE (13:37)
[2020-04-14] MEDS ORDERED: VERAPAMIL 5 MG/2 ML VIAL ONE (13:40)
[2020-04-14] MEDS ORDERED: NITROGLYCERIN DRIP 50 MG/250 ML BOTTLE IV ONE (13:40)
[2020-04-14] MEDS ORDERED: HEPARIN 5,000 UNIT/1 ML VIAL ONE (13:40)
[2020-04-14] MEDS ORDERED: HEPARIN/NACL 0.9% 2 UNITS/ML 500 ML IV ONE (14:13)
[2020-04-14 14:28] LABS: Hematocrit 30.9 VOL% (35.7-47.0)
[2020-04-14 14:31] LABS: Hemoglobin 9.8 GM/DL (12.0-16.0)
[2020-04-14] MEDS ORDERED: hydrALAZINE 20 MG/1 ML VIAL ONE (15:46)
[2020-04-14] MEDS ORDERED: SODIUM CHLORIDE 0.9% 1,000 ML IV SCH (16:00)
[2020-04-14] MEDS: EZETIMIBE 10 MG TABLET PO SCH (21:41)
[2020-04-15 05:54] LABS: Basophils % 0.2 % (0.0-0.8); Eosinophils # 0.1 10*3/uL (0.0-0.87); Eosinophils % 0.8 % (0.00-10.9); Hematocrit 30.8 VOL% (35.7-47.0); Hemoglobin 9.7 GM/DL (12.0-16.0); Immature Granulocytes % 0.3 %; Immature Granulocytes Absolute 0.02 #; Lymphocytes # 1.5 10*3/uL (1.4-4.0); Lymphocytes % 22.4 % (21.3-54.2); Mean Corpuscular HGB Conc 31.5 GM/DL (32-36); Mean Corpuscular Volume 91.9 FL (87-102); Mean Platelet Volume 8.5 FL (9.6-12.0); Monocytes % 8.8 % (1.7-12.7); Neutrophils % 67.5 % (38.7-73.9); Platelet Count 228 T/CUMM (130-400); Red Blood Count 3.35 MC/CUMM (3.8-5.5); Red Cell Distribution Width 14.7 % (9.3-17.3); White Blood Count 6.6 T/CUMM (4-12)
[2020-04-15] MEDS: LEVOTHYROXINE 50 MCG TABLET PO SCH (06:00)
[2020-04-15 06:17] LABS: Calcium 7.9 MG/DL (8.5-10.1); Osmolality,Calculated 283.8 MOS/KG (273-304)
[2020-04-15] MEDS: INSULIN REGULAR 100 UNIT/ML SUBCUT SCH ×4 (08:05→21:25)
[2020-04-15] MEDS ORDERED: SODIUM CHLORIDE 0.45% 1,000 ML IV SCH (08:30)
[2020-04-15] MEDS: ENOXAPARIN 60 MG/0.6 ML SYRINGE SUBCUT SCH (09:00)
[2020-04-15] MEDS: hydrALAZINE 25 MG TABLET PO SCH ×2 (09:01→21:23)
[2020-04-15] MEDS: FUROSEMIDE 40 MG TABLET PO SCH ×2 (09:01→16:36)
[2020-04-15] MEDS: PANTOPRAZOLE 40 MG TABLET PO SCH (09:01)
[2020-04-15] MEDS: ISOSORBIDE MONONITRATE 30 MG TABLET PO SCH (09:01)
[2020-04-15] MEDS: ASCORBIC ACID 500 MG TABLET PO SCH ×2 (09:01→21:22)
[2020-04-15] MEDS: AMIODARONE 200 MG TABLET PO SCH (09:01)
[2020-04-15] MEDS: ASPIRIN EC 81 MG TABLET PO SCH (09:01)
[2020-04-15] MEDS: GABAPENTIN 100 MG CAPSULE PO SCH ×2 (09:31→21:23)
[2020-04-15] MEDS: ACETAMINOPHEN 325 MG TABLET PO PRN (12:33)
[2020-04-15] MEDS: CIPROFLOXACIN 500 MG TABLET PO SCH ×2 (12:34→21:22)
[2020-04-15] MEDS: EZETIMIBE 10 MG TABLET PO SCH (21:22)
[2020-04-16 04:15] LABS: Basophils % 0.3 % (0.0-0.8); Eosinophils # 0.1 10*3/uL (0.0-0.87); Eosinophils % 1.4 % (0.00-10.9); Hematocrit 29.9 VOL% (35.7-47.0); Hemoglobin 9.3 GM/DL (12.0-16.0); Immature Granulocytes % 0.1 %; Immature Granulocytes Absolute 0.01 #; Lymphocytes # 1.5 10*3/uL (1.4-4.0); Lymphocytes % 21.5 % (21.3-54.2); Mean Corpuscular HGB Conc 31.1 GM/DL (32-36); Mean Corpuscular Volume 92.3 FL (87-102); Mean Platelet Volume 8.4 FL (9.6-12.0); Monocytes % 8.7 % (1.7-12.7); Platelet Count 202 T/CUMM (130-400); Red Blood Count 3.24 MC/CUMM (3.8-5.5); Red Cell Distribution Width 14.6 % (9.3-17.3)
[2020-04-16 04:37] LABS: Calcium 7.7 MG/DL (8.5-10.1); Osmolality,Calculated 282.2 MOS/KG (273-304)
[2020-04-16] MEDS: LEVOTHYROXINE 50 MCG TABLET PO SCH (07:01)
[2020-04-16] MEDS: INSULIN REGULAR 100 UNIT/ML SUBCUT SCH ×4 (08:24→21:54)
[2020-04-16] MEDS: ENOXAPARIN 60 MG/0.6 ML SYRINGE SUBCUT SCH (09:48)
[2020-04-16] MEDS: ISOSORBIDE MONONITRATE 30 MG TABLET PO SCH (09:48)
[2020-04-16] MEDS: PANTOPRAZOLE 40 MG TABLET PO SCH (09:48)
[2020-04-16] MEDS: FUROSEMIDE 40 MG TABLET PO SCH (09:48)
[2020-04-16] MEDS: CIPROFLOXACIN 500 MG TABLET PO SCH (09:48)
[2020-04-16] MEDS: ASCORBIC ACID 500 MG TABLET PO SCH ×2 (09:48→21:47)
[2020-04-16] MEDS: ASPIRIN EC 81 MG TABLET PO SCH (09:49)
[2020-04-16] MEDS: GABAPENTIN 100 MG CAPSULE PO SCH ×2 (09:49→21:47)
[2020-04-16] MEDS: AMIODARONE 200 MG TABLET PO SCH (09:49)
[2020-04-16] MEDS: SODIUM CHLORIDE 0.45% 1,000 ML IV SCH ×2 (10:19→17:24)
[2020-04-16] MEDS ORDERED: MAGNESIUM SULF RIDER 2 GM in PREMIX 1 EACH IV PRN (13:12)
[2020-04-16] MEDS ORDERED: POTASSIUM CHLORIDE RIDER 10 MEQ in PREMIX 1 EACH IV PRN (13:12)
[2020-04-16] MEDS: MEROPENEM 1,000 MG in SODIUM CHLORIDE 0.9% 100 ML IV SCH ×2 (14:31→21:47)
[2020-04-16] MEDS: EZETIMIBE 10 MG TABLET PO SCH (21:47)
[2020-04-17] MEDS: SODIUM CHLORIDE 0.45% 1,000 ML IV SCH ×2 (02:01→10:16)
[2020-04-17 05:46] LABS: Basophils % 0.1 % (0.0-0.8); Eosinophils # 0.2 10*3/uL (0.0-0.87); Eosinophils % 2.1 % (0.00-10.9); Hematocrit 30.7 VOL% (35.7-47.0); Hemoglobin 9.6 GM/DL (12.0-16.0); Immature Granulocytes % 0.5 %; Immature Granulocytes Absolute 0.04 #; Lymphocytes # 1.8 10*3/uL (1.4-4.0); Lymphocytes % 23.8 % (21.3-54.2); Mean Corpuscular HGB Conc 31.3 GM/DL (32-36); Mean Corpuscular Volume 94.2 FL (87-102); Mean Platelet Volume 8.9 FL (9.6-12.0); Monocytes % 7.5 % (1.7-12.7); Platelet Count 201 T/CUMM (130-400); Red Blood Count 3.26 MC/CUMM (3.8-5.5); Red Cell Distribution Width 14.6 % (9.3-17.3); White Blood Count 7.5 T/CUMM (4-12)
[2020-04-17 06:18] LABS: Calcium 7.6 MG/DL (8.5-10.1); Osmolality,Calculated 272.9 MOS/KG (273-304)
[2020-04-17] MEDS: LEVOTHYROXINE 50 MCG TABLET PO SCH (07:02)
[2020-04-17] MEDS: INSULIN REGULAR 100 UNIT/ML SUBCUT SCH ×4 (08:50→21:51)
[2020-04-17] MEDS: GABAPENTIN 100 MG CAPSULE PO SCH ×2 (08:50→21:41)
[2020-04-17] MEDS: ASCORBIC ACID 500 MG TABLET PO SCH ×2 (08:50→21:40)
[2020-04-17] MEDS: PANTOPRAZOLE 40 MG TABLET PO SCH (09:16)
[2020-04-17] MEDS: ASPIRIN EC 81 MG TABLET PO SCH (09:16)
[2020-04-17] MEDS: AMIODARONE 200 MG TABLET PO SCH (09:17)
[2020-04-17] MEDS: MEROPENEM 1,000 MG in SODIUM CHLORIDE 0.9% 100 ML IV SCH ×2 (09:17→21:41)
[2020-04-17] MEDS: ISOSORBIDE MONONITRATE 30 MG TABLET PO SCH (09:17)
[2020-04-17] MEDS ORDERED: HEPARIN/NACL 0.9% 2 UNITS/ML 1,000 ML IV ONE (10:08)
[2020-04-17] MEDS ORDERED: LIDOCAINE 1% 20 ML VIAL ONE (10:08)
[2020-04-17] MEDS ORDERED: BUPIVACAINE 0.25% 50 ML VIAL ONE (10:11)
[2020-04-17] MEDS ORDERED: MIDAZOLAM 2 MG/2 ML VIAL ONE (10:28)
[2020-04-17] MEDS ORDERED: fentaNYL 100 MCG/2 ML VIAL ONE (10:28)
[2020-04-17] MEDS ORDERED: METOPROLOL TARTRATE 5 MG/5 ML VIAL IV ONE ×3 (10:34→11:32)
[2020-04-17] MEDS ORDERED: LABETALOL 100 MG/20 ML VIAL IV ONE (11:32)
[2020-04-17] MEDS ORDERED: HEPARIN/NACL 0.9% 2 UNITS/ML 500 ML IV ONE ×2 (12:03→12:37)
[2020-04-17] MEDS ORDERED: HEPARIN 5,000 UNIT/1 ML VIAL ONE (12:30)
[2020-04-17 12:33] LABS: Troponin I 0.019 NG/ML (0.00-0.045)
[2020-04-17] MEDS ORDERED: NITROGLYCERIN DRIP 50 MG/250 ML BOTTLE IV ONE (12:52)
[2020-04-17] MEDS ORDERED: GLUCAGON 1 MG VIAL IM PRN (14:00)
[2020-04-17] MEDS ORDERED: DEXTROSE 50% 25 GM/50 ML VIAL IV PRN (14:00)
[2020-04-17] MEDS ORDERED: SODIUM CHLORIDE 0.9% 1,000 ML IV SCH (14:00)
[2020-04-17] MEDS: EZETIMIBE 10 MG TABLET PO SCH (21:40)
[2020-04-18 05:58] LABS: Basophils % 0.4 % (0.0-0.8); Eosinophils # 0.2 10*3/uL (0.0-0.87); Eosinophils % 2.6 % (0.00-10.9); Hematocrit 32.5 VOL% (35.7-47.0); Hemoglobin 10.2 GM/DL (12.0-16.0); Immature Granulocytes % 0.9 %; Immature Granulocytes Absolute 0.08 #; Lymphocytes # 1.8 10*3/uL (1.4-4.0); Lymphocytes % 19.8 % (21.3-54.2); Mean Corpuscular HGB Conc 31.4 GM/DL (32-36); Mean Corpuscular Volume 94.2 FL (87-102); Mean Platelet Volume 8.6 FL (9.6-12.0); Monocytes % 6.8 % (1.7-12.7); Neutrophils % 69.5 % (38.7-73.9); Platelet Count 233 T/CUMM (130-400); Red Blood Count 3.45 MC/CUMM (3.8-5.5); Red Cell Distribution Width 14.6 % (9.3-17.3); White Blood Count 9.1 T/CUMM (4-12)
[2020-04-18 06:31] LABS: Calcium 7.5 MG/DL (8.5-10.1); Osmolality,Calculated 285.1 MOS/KG (273-304)
[2020-04-18] MEDS: AMIODARONE 200 MG TABLET PO SCH ×2 (09:38→21:37)
[2020-04-18] MEDS: PANTOPRAZOLE 40 MG TABLET PO SCH (09:38)
[2020-04-18] MEDS: GABAPENTIN 100 MG CAPSULE PO SCH ×2 (09:38→21:38)
[2020-04-18] MEDS: INSULIN REGULAR 100 UNIT/ML SUBCUT SCH ×4 (09:39→21:41)
[2020-04-18] MEDS: MEROPENEM 1,000 MG in SODIUM CHLORIDE 0.9% 100 ML IV SCH ×2 (09:39→21:37)
[2020-04-18] MEDS: ISOSORBIDE MONONITRATE 30 MG TABLET PO SCH (09:39)
[2020-04-18] MEDS: ASPIRIN EC 81 MG TABLET PO SCH (09:39)
[2020-04-18] MEDS: LEVOTHYROXINE 50 MCG TABLET PO SCH (09:39)
[2020-04-18] MEDS: ASCORBIC ACID 500 MG TABLET PO SCH ×2 (09:39→21:37)
[2020-04-18] MEDS: RIVAROXABAN 2.5 MG TABLET PO SCH ×2 (11:03→21:41)
[2020-04-18] MEDS: EZETIMIBE 10 MG TABLET PO SCH (21:37)
[2020-04-19 05:11] LABS: Basophils % 0.3 % (0.0-0.8); Eosinophils # 0.4 10*3/uL (0.0-0.87); Eosinophils % 3.7 % (0.00-10.9); Hematocrit 29.7 VOL% (35.7-47.0); Hemoglobin 9.5 GM/DL (12.0-16.0); Immature Granulocytes % 0.6 %; Immature Granulocytes Absolute 0.06 #; Lymphocytes # 1.8 10*3/uL (1.4-4.0); Lymphocytes % 19.3 % (21.3-54.2); Mean Corpuscular Volume 92.8 FL (87-102); Mean Platelet Volume 8.4 FL (9.6-12.0); Neutrophils % 70.1 % (38.7-73.9); Platelet Count 224 T/CUMM (130-400); Red Cell Distribution Width 14.5 % (9.3-17.3); White Blood Count 9.4 T/CUMM (4-12)
[2020-04-19 06:01] LABS: Calcium 7.5 MG/DL (8.5-10.1)
[2020-04-19] MEDS: LEVOTHYROXINE 50 MCG TABLET PO SCH (06:33)
[2020-04-19] MEDS ORDERED: ENOXAPARIN 60 MG/0.6 ML SYRINGE SUBCUT SCH ×2 (07:00→11:30)
[2020-04-19] MEDS: ASPIRIN EC 81 MG TABLET PO SCH (09:37)
[2020-04-19] MEDS: PANTOPRAZOLE 40 MG TABLET PO SCH (09:37)
[2020-04-19] MEDS: ISOSORBIDE MONONITRATE 30 MG TABLET PO SCH (09:37)
[2020-04-19] MEDS: ASCORBIC ACID 500 MG TABLET PO SCH ×2 (09:37→20:27)
[2020-04-19] MEDS: GABAPENTIN 100 MG CAPSULE PO SCH ×2 (09:37→20:27)
[2020-04-19] MEDS: MEROPENEM 1,000 MG in SODIUM CHLORIDE 0.9% 100 ML IV SCH (09:38)
[2020-04-19] MEDS: INSULIN REGULAR 100 UNIT/ML SUBCUT SCH ×4 (09:38→20:40)
[2020-04-19] MEDS: METOPROLOL TARTRATE 25 MG TABLET PO SCH ×2 (11:29→20:28)
[2020-04-19] MEDS: SODIUM CHLORIDE 0.9% 1,000 ML IV SCH (11:30)
[2020-04-19] MEDS: AMIODARONE 200 MG TABLET PO SCH (20:27)
[2020-04-19] MEDS: EZETIMIBE 10 MG TABLET PO SCH (20:27)
[2020-04-19] MEDS: AMOXICILLIN/CLAV 875 MG TABLET PO SCH (20:27)
[2020-04-20] MEDS: SODIUM CHLORIDE 0.9% 1,000 ML IV SCH ×3 (00:30→13:34)
[2020-04-20 04:56] LABS: Basophils % 0.4 % (0.0-0.8); Eosinophils # 0.3 10*3/uL (0.0-0.87); Eosinophils % 4.6 % (0.00-10.9); Hematocrit 29.7 VOL% (35.7-47.0); Hemoglobin 9.3 GM/DL (12.0-16.0); Immature Granulocytes % 0.4 %; Immature Granulocytes Absolute 0.03 #; Lymphocytes # 1.6 10*3/uL (1.4-4.0); Lymphocytes % 21.2 % (21.3-54.2); Mean Corpuscular HGB Conc 31.3 GM/DL (32-36); Mean Corpuscular Volume 93.7 FL (87-102); Mean Platelet Volume 8.3 FL (9.6-12.0); Neutrophils % 66.4 % (38.7-73.9); Platelet Count 222 T/CUMM (130-400); Red Blood Count 3.17 MC/CUMM (3.8-5.5); Red Cell Distribution Width 14.7 % (9.3-17.3); White Blood Count 7.5 T/CUMM (4-12)
[2020-04-20 05:25] LABS: Calcium 7.4 MG/DL (8.5-10.1)
[2020-04-20] MEDS ORDERED: DIAZEPAM 5 MG TABLET PO ONE (06:00)
[2020-04-20] MEDS ORDERED: ceFAZolin 1,000 MG VIAL IRRIG ONE (06:00)
[2020-04-20] MEDS ORDERED: ceFAZolin 1,000 MG in SYRINGE 1 EACH IV ONE (06:00)
[2020-04-20] MEDS ORDERED: diphenhydrAMINE CAP 25 MG CAPSULE PO ONE (06:00)
[2020-04-20] MEDS: LEVOTHYROXINE 50 MCG TABLET PO SCH (06:16)
[2020-04-20] MEDS: INSULIN REGULAR 100 UNIT/ML SUBCUT SCH ×4 (07:30→20:55)
[2020-04-20] MEDS ORDERED: BUPIVACAINE 0.25% 50 ML VIAL ONE (09:00)
[2020-04-20] MEDS ORDERED: TISSUE ADHESIVE 1 EACH APPLICATOR TOP ONE (09:02)
[2020-04-20] MEDS ORDERED: ceFAZolin 1,000 MG VIAL ONE (09:02)
[2020-04-20] MEDS ORDERED: MIDAZOLAM 2 MG/2 ML VIAL ONE (09:45)
[2020-04-20] MEDS ORDERED: fentaNYL 100 MCG/2 ML VIAL ONE (09:45)
[2020-04-20] MEDS ORDERED: GLUCAGON 1 MG VIAL IM PRN (12:12)
[2020-04-20] MEDS ORDERED: DEXTROSE 50% 25 GM/50 ML VIAL IV PRN (12:12)
[2020-04-20] MEDS: PANTOPRAZOLE 40 MG TABLET PO SCH (13:27)
[2020-04-20] MEDS: GABAPENTIN 100 MG CAPSULE PO SCH ×2 (13:27→20:52)
[2020-04-20] MEDS: ASCORBIC ACID 500 MG TABLET PO SCH ×2 (13:28→20:52)
[2020-04-20] MEDS: ISOSORBIDE MONONITRATE 30 MG TABLET PO SCH (13:28)
[2020-04-20] MEDS: ASPIRIN EC 81 MG TABLET PO SCH (13:28)
[2020-04-20] MEDS: AMIODARONE 200 MG TABLET PO SCH ×2 (13:28→20:53)
[2020-04-20] MEDS: METOPROLOL TARTRATE 25 MG TABLET PO SCH ×2 (13:28→20:53)
[2020-04-20] MEDS: AMOXICILLIN/CLAV 875 MG TABLET PO SCH ×2 (13:34→20:51)
[2020-04-20] MEDS: EZETIMIBE 10 MG TABLET PO SCH (20:51)
[2020-04-21] MEDS: SODIUM CHLORIDE 0.9% 1,000 ML IV SCH (01:47)
[2020-04-21 05:38] LABS: Basophils % 0.3 % (0.0-0.8); Eosinophils # 0.4 10*3/uL (0.0-0.87); Eosinophils % 4.9 % (0.00-10.9); Hematocrit 29.1 VOL% (35.7-47.0); Hemoglobin 9.1 GM/DL (12.0-16.0); Immature Granulocytes % 0.6 %; Immature Granulocytes Absolute 0.05 #; Lymphocytes # 1.5 10*3/uL (1.4-4.0); Mean Corpuscular HGB Conc 31.3 GM/DL (32-36); Mean Corpuscular Volume 94.8 FL (87-102); Mean Platelet Volume 8.3 FL (9.6-12.0); Monocytes % 5.6 % (1.7-12.7); Neutrophils % 71.6 % (38.7-73.9); Platelet Count 225 T/CUMM (130-400); Red Blood Count 3.07 MC/CUMM (3.8-5.5); Red Cell Distribution Width 15.1 % (9.3-17.3); White Blood Count 8.9 T/CUMM (4-12)
[2020-04-21 06:04] LABS: Calcium 7.5 MG/DL (8.5-10.1); Osmolality,Calculated 292.5 MOS/KG (273-304)
[2020-04-21 06:05] LABS: Calcium 7.6 MG/DL (8.5-10.1); Osmolality,Calculated 292.5 MOS/KG (273-304)
[2020-04-21] MEDS: LEVOTHYROXINE 50 MCG TABLET PO SCH (06:25)
[2020-04-21] MEDS: INSULIN REGULAR 100 UNIT/ML SUBCUT SCH ×4 (09:11→21:50)
[2020-04-21] MEDS: ASCORBIC ACID 500 MG TABLET PO SCH ×2 (09:11→21:50)
[2020-04-21] MEDS: ASPIRIN EC 81 MG TABLET PO SCH (09:12)
[2020-04-21] MEDS: PANTOPRAZOLE 40 MG TABLET PO SCH (09:12)
[2020-04-21] MEDS: ISOSORBIDE MONONITRATE 30 MG TABLET PO SCH (09:12)
[2020-04-21] MEDS: GABAPENTIN 100 MG CAPSULE PO SCH ×2 (09:12→21:49)
[2020-04-21] MEDS: AMIODARONE 200 MG TABLET PO SCH ×2 (09:12→21:50)
[2020-04-21] MEDS: AMOXICILLIN/CLAV 500 MG TABLET PO SCH ×2 (09:12→16:24)
[2020-04-21] MEDS: METOPROLOL TARTRATE 25 MG TABLET PO SCH ×2 (09:15→21:49)
[2020-04-21] MEDS: RIVAROXABAN 2.5 MG TABLET PO SCH ×2 (09:15→21:51)
[2020-04-21] MEDS: SODIUM BICARBONATE 650 MG TABLET PO SCH (21:49)
[2020-04-21] MEDS: EZETIMIBE 10 MG TABLET PO SCH (21:54)
[2020-04-22] MEDS: LEVOTHYROXINE 50 MCG TABLET PO SCH (06:03)
[2020-04-22 06:34] LABS: Calcium 7.5 MG/DL (8.5-10.1); Osmolality,Calculated 289.8 MOS/KG (273-304)
[2020-04-22] MEDS: INSULIN REGULAR 100 UNIT/ML SUBCUT SCH ×4 (08:51→21:39)
[2020-04-22] MEDS: ASPIRIN EC 81 MG TABLET PO SCH (09:14)
[2020-04-22] MEDS: AMOXICILLIN/CLAV 500 MG TABLET PO SCH ×2 (09:14→16:31)
[2020-04-22] MEDS: MULTIVITAMIN (CENTRUM) TABLET PO SCH (09:15)
[2020-04-22] MEDS: METOPROLOL TARTRATE 25 MG TABLET PO SCH ×2 (09:15→21:38)
[2020-04-22] MEDS: GABAPENTIN 100 MG CAPSULE PO SCH ×2 (09:15→21:39)
[2020-04-22] MEDS: PANTOPRAZOLE 40 MG TABLET PO SCH (09:15)
[2020-04-22] MEDS: SODIUM BICARBONATE 650 MG TABLET PO SCH ×3 (09:15→21:38)
[2020-04-22] MEDS: ISOSORBIDE MONONITRATE 30 MG TABLET PO SCH (09:15)
[2020-04-22] MEDS: AMIODARONE 200 MG TABLET PO SCH ×2 (09:15→21:38)
[2020-04-22] MEDS: ASCORBIC ACID 500 MG TABLET PO SCH ×2 (09:16→21:39)
[2020-04-22] MEDS: RIVAROXABAN 2.5 MG TABLET PO SCH ×2 (09:16→21:38)
[2020-04-22] MEDS ORDERED: LIDOCAINE 1% 20 ML VIAL ONE (09:25)
[2020-04-22] MEDS ORDERED: BUPIVACAINE MPF 0.25% 30 ML VIAL ONE (09:25)
[2020-04-22] MEDS ORDERED: LIDOCAINE 2% 5 ML VIAL ONE (10:11)
[2020-04-22] MEDS ORDERED: propofoL 200 MG/20 ML VIAL IV ONE (10:11)
[2020-04-22] MEDS ORDERED: SODIUM CHLORIDE 0.9% 250 ML IV ONE (10:12)
[2020-04-22] MEDS ORDERED: MIDAZOLAM 2 MG/2 ML VIAL ONE (10:12)
[2020-04-22] MEDS ORDERED: SODIUM CHLORIDE 0.9% 100 ML IV ONE (10:12)
[2020-04-22] MEDS ORDERED: fentaNYL 100 MCG/2 ML VIAL ONE (10:12)
[2020-04-22] MEDS ORDERED: DEXTROSE 50% 25 GM/50 ML VIAL IV PRN (11:35)
[2020-04-22] MEDS ORDERED: GLUCAGON 1 MG VIAL IM PRN (11:35)
[2020-04-22] MEDS: EZETIMIBE 10 MG TABLET PO SCH (21:38)
[2020-04-23 04:36] LABS: Calcium 7.4 MG/DL (8.5-10.1); Osmolality,Calculated 296.7 MOS/KG (273-304)
[2020-04-23] MEDS: LEVOTHYROXINE 50 MCG TABLET PO SCH (05:55)
[2020-04-23] MEDS: INSULIN REGULAR 100 UNIT/ML SUBCUT SCH ×4 (09:18→21:38)
[2020-04-23] MEDS: GABAPENTIN 100 MG CAPSULE PO SCH ×3 (09:19→21:48)
[2020-04-23] MEDS: PANTOPRAZOLE 40 MG TABLET PO SCH (09:19)
[2020-04-23] MEDS: SODIUM BICARBONATE 650 MG TABLET PO SCH ×3 (09:19→21:40)
[2020-04-23] MEDS: ISOSORBIDE MONONITRATE 30 MG TABLET PO SCH (09:19)
[2020-04-23] MEDS: MULTIVITAMIN (CENTRUM) TABLET PO SCH (09:19)
[2020-04-23] MEDS: ASCORBIC ACID 500 MG TABLET PO SCH ×2 (09:19→21:40)
[2020-04-23] MEDS: AMIODARONE 200 MG TABLET PO SCH (09:19)
[2020-04-23] MEDS: AMOXICILLIN/CLAV 500 MG TABLET PO SCH ×2 (09:20→16:11)
[2020-04-23] MEDS: ASPIRIN EC 81 MG TABLET PO SCH (09:20)
[2020-04-23] MEDS: METOPROLOL TARTRATE 25 MG TABLET PO SCH ×2 (09:20→21:41)
[2020-04-23] MEDS: RIVAROXABAN 2.5 MG TABLET PO SCH ×2 (09:34→21:41)
[2020-04-23] MEDS: hydrALAZINE 25 MG TABLET PO SCH ×2 (15:15→21:41)
[2020-04-23] MEDS: EZETIMIBE 10 MG TABLET PO SCH (21:40)
[2020-04-24 06:33] LABS: Calcium 7.7 MG/DL (8.5-10.1); Osmolality,Calculated 292.8 MOS/KG (273-304)
[2020-04-24] MEDS: LEVOTHYROXINE 50 MCG TABLET PO SCH (06:39)
[2020-04-24] MEDS: INSULIN REGULAR 100 UNIT/ML SUBCUT SCH ×4 (07:30→22:52)
[2020-04-24] MEDS: ASCORBIC ACID 500 MG TABLET PO SCH ×2 (09:22→22:51)
[2020-04-24] MEDS: PANTOPRAZOLE 40 MG TABLET PO SCH (09:22)
[2020-04-24] MEDS: ISOSORBIDE MONONITRATE 30 MG TABLET PO SCH (09:22)
[2020-04-24] MEDS: SODIUM BICARBONATE 650 MG TABLET PO SCH ×3 (09:22→22:50)
[2020-04-24] MEDS: hydrALAZINE 25 MG TABLET PO SCH ×3 (09:22→22:51)
[2020-04-24] MEDS: METOPROLOL TARTRATE 25 MG TABLET PO SCH ×2 (09:22→22:51)
[2020-04-24] MEDS: MULTIVITAMIN (CENTRUM) TABLET PO SCH (09:22)
[2020-04-24] MEDS: GABAPENTIN 100 MG CAPSULE PO SCH ×2 (09:23→22:50)
[2020-04-24] MEDS: AMIODARONE 200 MG TABLET PO SCH (09:23)
[2020-04-24] MEDS: ASPIRIN EC 81 MG TABLET PO SCH (09:23)
[2020-04-24] MEDS: AMOXICILLIN/CLAV 500 MG TABLET PO SCH ×2 (10:48→17:46)
[2020-04-24] MEDS: RIVAROXABAN 2.5 MG TABLET PO SCH ×2 (10:48→22:52)
[2020-04-24] MEDS: EZETIMIBE 10 MG TABLET PO SCH (22:51)
[2020-04-25] MEDS: LEVOTHYROXINE 50 MCG TABLET PO SCH (05:48)
[2020-04-25] MEDS: INSULIN REGULAR 100 UNIT/ML SUBCUT SCH ×4 (07:30→20:56)
[2020-04-25] MEDS: ASPIRIN EC 81 MG TABLET PO SCH (08:45)
[2020-04-25] MEDS: MULTIVITAMIN (CENTRUM) TABLET PO SCH (08:45)
[2020-04-25] MEDS: AMOXICILLIN/CLAV 500 MG TABLET PO SCH ×2 (08:45→18:25)
[2020-04-25] MEDS: RIVAROXABAN 2.5 MG TABLET PO SCH ×2 (08:45→20:56)
[2020-04-25] MEDS: METOPROLOL TARTRATE 25 MG TABLET PO SCH ×2 (08:45→20:54)
[2020-04-25] MEDS: hydrALAZINE 25 MG TABLET PO SCH ×3 (08:45→20:54)
[2020-04-25] MEDS: SODIUM BICARBONATE 650 MG TABLET PO SCH ×3 (08:45→20:55)
[2020-04-25] MEDS: ASCORBIC ACID 500 MG TABLET PO SCH ×2 (08:45→20:55)
[2020-04-25] MEDS: ISOSORBIDE MONONITRATE 30 MG TABLET PO SCH (08:45)
[2020-04-25] MEDS: GABAPENTIN 100 MG CAPSULE PO SCH ×2 (08:45→20:54)
[2020-04-25] MEDS: AMIODARONE 200 MG TABLET PO SCH (08:45)
[2020-04-25] MEDS: PANTOPRAZOLE 40 MG TABLET PO SCH (08:45)
[2020-04-25 11:49] LABS: Basophils % 0.5 % (0.0-0.8); Eosinophils # 0.3 10*3/uL (0.0-0.87); Hematocrit 26.8 VOL% (35.7-47.0); Hemoglobin 8.3 GM/DL (12.0-16.0); Immature Granulocytes % 2.4 %; Lymphocytes # 1.1 10*3/uL (1.4-4.0); Lymphocytes % 13.4 % (21.3-54.2); Mean Corpuscular Volume 94.7 FL (87-102); Mean Platelet Volume 8.8 FL (9.6-12.0); Monocytes % 4.5 % (1.7-12.7); NRBC # 0.02 10*3/uL; Neutrophils % 76.2 % (38.7-73.9); Platelet Count 183 T/CUMM (130-400); Red Blood Count 2.83 MC/CUMM (3.8-5.5); Red Cell Distribution Width 15.9 % (9.3-17.3); White Blood Count 8.4 T/CUMM (4-12)
[2020-04-25 12:04] LABS: Calcium 7.6 MG/DL (8.5-10.1); Osmolality,Calculated 294.8 MOS/KG (273-304)
[2020-04-25] MEDS ORDERED: SODIUM POLYSTYRENE SULFATE 15 GM/60 ML BOTTLE PO ONE (15:07)
[2020-04-25] MEDS: ACETAMINOPHEN 325 MG TABLET PO PRN (15:49)
[2020-04-25] MEDS: FUROSEMIDE 40 MG/4 ML VIAL IV SCH (15:50)
[2020-04-25] MEDS: EZETIMIBE 10 MG TABLET PO SCH (20:56)
[2020-04-26 06:35] LABS: Basophils % 0.2 % (0.0-0.8); Eosinophils # 0.2 10*3/uL (0.0-0.87); Hematocrit 26.7 VOL% (35.7-47.0); Hemoglobin 8.3 GM/DL (12.0-16.0); Immature Granulocytes % 2.4 %; Immature Granulocytes Absolute 0.19 #; Lymphocytes # 1.5 10*3/uL (1.4-4.0); Lymphocytes % 18.8 % (21.3-54.2); Mean Corpuscular HGB Conc 31.1 GM/DL (32-36); Mean Corpuscular Volume 94.7 FL (87-102); Mean Platelet Volume 8.8 FL (9.6-12.0); Monocytes % 4.3 % (1.7-12.7); Neutrophils % 71.3 % (38.7-73.9); Platelet Count 198 T/CUMM (130-400); Red Blood Count 2.82 MC/CUMM (3.8-5.5); Red Cell Distribution Width 15.8 % (9.3-17.3); White Blood Count 8.1 T/CUMM (4-12)
[2020-04-26] MEDS: LEVOTHYROXINE 50 MCG TABLET PO SCH (06:37)
[2020-04-26 06:53] LABS: Calcium 7.6 MG/DL (8.5-10.1); Osmolality,Calculated 297.7 MOS/KG (273-304)
[2020-04-26] MEDS: MULTIVITAMIN (CENTRUM) TABLET PO SCH (10:36)
[2020-04-26] MEDS: ASCORBIC ACID 500 MG TABLET PO SCH ×2 (10:36→22:14)
[2020-04-26] MEDS: GABAPENTIN 100 MG CAPSULE PO SCH ×2 (10:36→22:12)
[2020-04-26] MEDS: ISOSORBIDE MONONITRATE 30 MG TABLET PO SCH (10:36)
[2020-04-26] MEDS: AMIODARONE 200 MG TABLET PO SCH (10:36)
[2020-04-26] MEDS: PANTOPRAZOLE 40 MG TABLET PO SCH (10:37)
[2020-04-26] MEDS: INSULIN REGULAR 100 UNIT/ML SUBCUT SCH ×4 (10:37→22:14)
[2020-04-26] MEDS: hydrALAZINE 25 MG TABLET PO SCH ×3 (10:37→22:14)
[2020-04-26] MEDS: ASPIRIN EC 81 MG TABLET PO SCH (10:37)
[2020-04-26] MEDS: AMOXICILLIN/CLAV 500 MG TABLET PO SCH ×2 (10:37→18:24)
[2020-04-26] MEDS: SODIUM BICARBONATE 650 MG TABLET PO SCH ×3 (10:37→22:11)
[2020-04-26] MEDS: METOPROLOL TARTRATE 25 MG TABLET PO SCH ×2 (10:37→22:12)
[2020-04-26] MEDS: FUROSEMIDE 40 MG/4 ML VIAL IV SCH ×2 (10:38→15:53)
[2020-04-26] MEDS: RIVAROXABAN 2.5 MG TABLET PO SCH ×2 (10:38→22:14)
[2020-04-26] MEDS: EZETIMIBE 10 MG TABLET PO SCH (22:12)
[2020-04-27] MEDS: LEVOTHYROXINE 50 MCG TABLET PO SCH (05:54)
[2020-04-27 06:20] LABS: Calcium 7.7 MG/DL (8.5-10.1); Osmolality,Calculated 299.5 MOS/KG (273-304)
[2020-04-27] MEDS: INSULIN REGULAR 100 UNIT/ML SUBCUT SCH ×4 (10:33→21:50)
[2020-04-27] MEDS: ISOSORBIDE MONONITRATE 30 MG TABLET PO SCH (10:33)
[2020-04-27] MEDS: SODIUM BICARBONATE 650 MG TABLET PO SCH ×4 (10:33→21:48)
[2020-04-27] MEDS: GABAPENTIN 100 MG CAPSULE PO SCH ×2 (10:34→21:49)
[2020-04-27] MEDS: hydrALAZINE 25 MG TABLET PO SCH ×4 (10:34→21:50)
[2020-04-27] MEDS: METOPROLOL TARTRATE 25 MG TABLET PO SCH ×2 (10:35→21:48)
[2020-04-27] MEDS: ASCORBIC ACID 500 MG TABLET PO SCH ×2 (10:35→21:48)
[2020-04-27] MEDS: AMIODARONE 200 MG TABLET PO SCH (10:35)
[2020-04-27] MEDS: AMOXICILLIN/CLAV 500 MG TABLET PO SCH ×2 (10:35→21:50)
[2020-04-27] MEDS: ASPIRIN EC 81 MG TABLET PO SCH (10:35)
[2020-04-27] MEDS: MULTIVITAMIN (CENTRUM) TABLET PO SCH (10:36)
[2020-04-27] MEDS: PANTOPRAZOLE 40 MG TABLET PO SCH (10:36)
[2020-04-27] MEDS: RIVAROXABAN 2.5 MG TABLET PO SCH ×2 (10:37→21:49)
[2020-04-27] MEDS: FUROSEMIDE 40 MG/4 ML VIAL IV SCH ×2 (10:49→16:04)
[2020-04-27] MEDS ORDERED: ALBUTEROL/IPRATROPIUM 3 ML NEB RESP TX PRN (14:47)
[2020-04-27] MEDS: EZETIMIBE 10 MG TABLET PO SCH (21:49)
[2020-04-28 05:22] LABS: Calcium 7.8 MG/DL (8.5-10.1); Osmolality,Calculated 298.5 MOS/KG (273-304)
[2020-04-28] MEDS: LEVOTHYROXINE 50 MCG TABLET PO SCH (05:36)
[2020-04-28] MEDS: INSULIN REGULAR 100 UNIT/ML SUBCUT SCH ×3 (07:30→21:36)
[2020-04-28] MEDS: AMOXICILLIN/CLAV 500 MG TABLET PO SCH ×2 (09:12→17:26)
[2020-04-28] MEDS: GABAPENTIN 100 MG CAPSULE PO SCH ×2 (09:12→21:34)
[2020-04-28] MEDS: SODIUM BICARBONATE 650 MG TABLET PO SCH ×3 (09:12→21:32)
[2020-04-28] MEDS: MULTIVITAMIN (CENTRUM) TABLET PO SCH (09:12)
[2020-04-28] MEDS: ASPIRIN EC 81 MG TABLET PO SCH (09:13)
[2020-04-28] MEDS: METOPROLOL TARTRATE 25 MG TABLET PO SCH ×2 (09:13→21:33)
[2020-04-28] MEDS: hydrALAZINE 25 MG TABLET PO SCH ×3 (09:13→21:35)
[2020-04-28] MEDS: PANTOPRAZOLE 40 MG TABLET PO SCH (09:13)
[2020-04-28] MEDS: ISOSORBIDE MONONITRATE 30 MG TABLET PO SCH (09:13)
[2020-04-28] MEDS: RIVAROXABAN 2.5 MG TABLET PO SCH ×2 (09:13→21:36)
[2020-04-28] MEDS: ASCORBIC ACID 500 MG TABLET PO SCH ×2 (09:13→21:34)
[2020-04-28] MEDS: FUROSEMIDE 40 MG/4 ML VIAL IV SCH ×3 (09:14→16:33)
[2020-04-28] MEDS ORDERED: HYDROmorphone 2 MG/1 ML VIAL IV ONE (09:28)
[2020-04-28] MEDS: AMIODARONE 200 MG TABLET PO SCH (09:58)
[2020-04-28] MEDS: SODIUM HYPOCHLORITE 0.25% IRRIG 473 ML BOTTLE TOP SCH (15:00)
[2020-04-28] MEDS: COLLAGENASE OINT 30 GM TUBE TOP SCH (15:00)
[2020-04-28] MEDS: EZETIMIBE 10 MG TABLET PO SCH (21:32)
[2020-04-29] MEDS: LEVOTHYROXINE 50 MCG TABLET PO SCH (06:30)
[2020-04-29] MEDS: HYDROmorphone 2 MG/1 ML VIAL IV PRN ×2 (07:47→22:44)
[2020-04-29 08:26] LABS: Basophils % 0.4 % (0.0-0.8); Eosinophils # 0.3 10*3/uL (0.0-0.87); Eosinophils % 3.2 % (0.00-10.9); Hematocrit 26.1 VOL% (35.7-47.0); Hemoglobin 7.7 GM/DL (12.0-16.0); Immature Granulocytes % 0.9 %; Immature Granulocytes Absolute 0.07 #; Lymphocytes # 1.6 10*3/uL (1.4-4.0); Lymphocytes % 20.1 % (21.3-54.2); Mean Corpuscular HGB Conc 29.5 GM/DL (32-36); Mean Corpuscular Volume 98.9 FL (87-102); Mean Platelet Volume 8.5 FL (9.6-12.0); Monocytes % 5.1 % (1.7-12.7); Neutrophils % 70.3 % (38.7-73.9); Platelet Count 198 T/CUMM (130-400); Red Blood Count 2.64 MC/CUMM (3.8-5.5); White Blood Count 7.8 T/CUMM (4-12)
[2020-04-29 08:36] LABS: Calcium 7.4 MG/DL (8.5-10.1); Osmolality,Calculated 296.7 MOS/KG (273-304)
[2020-04-29] MEDS: PANTOPRAZOLE 40 MG TABLET PO SCH (08:42)
[2020-04-29] MEDS: RIVAROXABAN 2.5 MG TABLET PO SCH ×2 (08:43→20:03)
[2020-04-29] MEDS: MULTIVITAMIN (CENTRUM) TABLET PO SCH (08:43)
[2020-04-29] MEDS: AMOXICILLIN/CLAV 500 MG TABLET PO SCH ×2 (08:43→16:40)
[2020-04-29] MEDS: SODIUM BICARBONATE 650 MG TABLET PO SCH ×3 (08:43→20:01)
[2020-04-29] MEDS: AMIODARONE 200 MG TABLET PO SCH (08:43)
[2020-04-29] MEDS: hydrALAZINE 25 MG TABLET PO SCH ×3 (08:43→20:01)
[2020-04-29] MEDS: ISOSORBIDE MONONITRATE 30 MG TABLET PO SCH (08:43)
[2020-04-29] MEDS: GABAPENTIN 100 MG CAPSULE PO SCH ×2 (08:43→20:01)
[2020-04-29] MEDS: ASCORBIC ACID 500 MG TABLET PO SCH ×2 (08:43→20:01)
[2020-04-29] MEDS: ASPIRIN EC 81 MG TABLET PO SCH (08:43)
[2020-04-29] MEDS: METOPROLOL TARTRATE 25 MG TABLET PO SCH ×2 (08:43→20:01)
[2020-04-29] MEDS: FUROSEMIDE 40 MG/4 ML VIAL IV SCH ×2 (08:44→16:40)
[2020-04-29] MEDS: INSULIN REGULAR 100 UNIT/ML SUBCUT SCH ×4 (08:46→19:56)
[2020-04-29] MEDS: COLLAGENASE OINT 30 GM TUBE TOP SCH (11:16)
[2020-04-29] MEDS: SODIUM HYPOCHLORITE 0.25% IRRIG 473 ML BOTTLE TOP SCH (11:16)
[2020-04-29] MEDS: EZETIMIBE 10 MG TABLET PO SCH (20:01)
[2020-04-30] MEDS: LEVOTHYROXINE 50 MCG TABLET PO SCH (05:39)
[2020-04-30 06:07] LABS: Basophils % 0.3 % (0.0-0.8); Eosinophils # 0.4 10*3/uL (0.0-0.87); Eosinophils % 4.4 % (0.00-10.9); Hematocrit 23.5 VOL% (35.7-47.0); Hemoglobin 7.5 GM/DL (12.0-16.0); Immature Granulocytes % 0.6 %; Immature Granulocytes Absolute 0.06 #; Lymphocytes # 1.8 10*3/uL (1.4-4.0); Lymphocytes % 19.1 % (21.3-54.2); Mean Corpuscular HGB Conc 31.9 GM/DL (32-36); Mean Corpuscular Volume 92.2 FL (87-102); Mean Platelet Volume 8.9 FL (9.6-12.0); Monocytes % 5.3 % (1.7-12.7); Neutrophils % 70.3 % (38.7-73.9); Platelet Count 187 T/CUMM (130-400); Red Blood Count 2.55 MC/CUMM (3.8-5.5); Red Cell Distribution Width 15.6 % (9.3-17.3); White Blood Count 9.6 T/CUMM (4-12)
[2020-04-30 06:30] LABS: Calcium 7.6 MG/DL (8.5-10.1); Osmolality,Calculated 295.4 MOS/KG (273-304)
[2020-04-30] MEDS: MULTIVITAMIN (CENTRUM) TABLET PO SCH (09:36)
[2020-04-30] MEDS: ASCORBIC ACID 500 MG TABLET PO SCH ×2 (09:37→21:22)
[2020-04-30] MEDS: hydrALAZINE 25 MG TABLET PO SCH ×3 (09:37→21:23)
[2020-04-30] MEDS: GABAPENTIN 100 MG CAPSULE PO SCH ×2 (09:37→21:23)
[2020-04-30] MEDS: METOPROLOL TARTRATE 25 MG TABLET PO SCH ×2 (09:37→21:23)
[2020-04-30] MEDS: SODIUM BICARBONATE 650 MG TABLET PO SCH ×3 (09:37→21:22)
[2020-04-30] MEDS: RIVAROXABAN 2.5 MG TABLET PO SCH ×2 (09:37→21:22)
[2020-04-30] MEDS: PANTOPRAZOLE 40 MG TABLET PO SCH (09:37)
[2020-04-30] MEDS: AMIODARONE 200 MG TABLET PO SCH (09:37)
[2020-04-30] MEDS: ASPIRIN EC 81 MG TABLET PO SCH (09:37)
[2020-04-30] MEDS: ISOSORBIDE MONONITRATE 30 MG TABLET PO SCH (09:37)
[2020-04-30] MEDS: FUROSEMIDE 40 MG/4 ML VIAL IV SCH ×2 (09:37→16:30)
[2020-04-30] MEDS: INSULIN REGULAR 100 UNIT/ML SUBCUT SCH ×4 (09:48→19:16)
[2020-04-30] MEDS: COLLAGENASE OINT 30 GM TUBE TOP SCH (10:30)
[2020-04-30] MEDS: SODIUM HYPOCHLORITE 0.25% IRRIG 473 ML BOTTLE TOP SCH (10:30)
[2020-04-30] MEDS: HYDROmorphone 2 MG/1 ML VIAL IV PRN (16:29)
[2020-04-30] MEDS: EZETIMIBE 10 MG TABLET PO SCH (21:22)
[2020-05-01] MEDS: HYDROmorphone 2 MG/1 ML VIAL IV PRN (00:49)
[2020-05-01 06:12] LABS: Basophils % 0.3 % (0.0-0.8); Eosinophils # 0.4 10*3/uL (0.0-0.87); Eosinophils % 3.3 % (0.00-10.9); Hematocrit 24.4 VOL% (35.7-47.0); Hemoglobin 7.6 GM/DL (12.0-16.0); Immature Granulocytes % 0.6 %; Immature Granulocytes Absolute 0.06 #; Lymphocytes # 1.5 10*3/uL (1.4-4.0); Lymphocytes % 13.8 % (21.3-54.2); Mean Corpuscular HGB Conc 31.1 GM/DL (32-36); Mean Corpuscular Volume 93.1 FL (87-102); Monocytes % 5.4 % (1.7-12.7); Neutrophils % 76.6 % (38.7-73.9); Platelet Count 203 T/CUMM (130-400); Red Blood Count 2.62 MC/CUMM (3.8-5.5); Red Cell Distribution Width 15.6 % (9.3-17.3); White Blood Count 10.5 T/CUMM (4-12)
[2020-05-01] MEDS: LEVOTHYROXINE 50 MCG TABLET PO SCH (06:22)
[2020-05-01 06:25] LABS: Calcium 7.8 MG/DL (8.5-10.1); Osmolality,Calculated 293.7 MOS/KG (273-304)
[2020-05-01] MEDS: INSULIN REGULAR 100 UNIT/ML SUBCUT SCH ×4 (07:45→22:17)
[2020-05-01] MEDS: FUROSEMIDE 40 MG/4 ML VIAL IV SCH ×2 (08:03→17:25)
[2020-05-01] MEDS: METOPROLOL TARTRATE 25 MG TABLET PO SCH ×2 (10:55→22:17)
[2020-05-01] MEDS: PANTOPRAZOLE 40 MG TABLET PO SCH (10:55)
[2020-05-01] MEDS: GABAPENTIN 100 MG CAPSULE PO SCH ×2 (10:55→22:17)
[2020-05-01] MEDS: SODIUM BICARBONATE 650 MG TABLET PO SCH ×3 (10:55→22:17)
[2020-05-01] MEDS: ISOSORBIDE MONONITRATE 30 MG TABLET PO SCH (10:56)
[2020-05-01] MEDS: ASCORBIC ACID 500 MG TABLET PO SCH ×2 (10:56→22:17)
[2020-05-01] MEDS: MULTIVITAMIN (CENTRUM) TABLET PO SCH (10:56)
[2020-05-01] MEDS: ASPIRIN EC 81 MG TABLET PO SCH (10:59)
[2020-05-01] MEDS: AMIODARONE 200 MG TABLET PO SCH (11:00)
[2020-05-01] MEDS: RIVAROXABAN 2.5 MG TABLET PO SCH ×2 (11:00→22:17)
[2020-05-01] MEDS: hydrALAZINE 25 MG TABLET PO SCH ×3 (11:01→22:17)
[2020-05-01] MEDS: COLLAGENASE OINT 30 GM TUBE TOP SCH (13:56)
[2020-05-01] MEDS: SODIUM HYPOCHLORITE 0.25% IRRIG 473 ML BOTTLE TOP SCH (13:56)
[2020-05-01] MEDS: EZETIMIBE 10 MG TABLET PO SCH (22:18)
[2020-05-02 05:35] LABS: Basophils % 0.2 % (0.0-0.8); Eosinophils # 0.2 10*3/uL (0.0-0.87); Eosinophils % 2.7 % (0.00-10.9); Hematocrit 22.4 VOL% (35.7-47.0); Immature Granulocytes % 0.7 %; Immature Granulocytes Absolute 0.06 #; Lymphocytes # 1.3 10*3/uL (1.4-4.0); Mean Corpuscular HGB Conc 31.3 GM/DL (32-36); Mean Corpuscular Volume 93.7 FL (87-102); Mean Platelet Volume 8.9 FL (9.6-12.0); Monocytes % 5.6 % (1.7-12.7); Neutrophils % 75.8 % (38.7-73.9); Platelet Count 176 T/CUMM (130-400); Red Blood Count 2.39 MC/CUMM (3.8-5.5); Red Cell Distribution Width 15.4 % (9.3-17.3); White Blood Count 8.8 T/CUMM (4-12)
[2020-05-02] MEDS: LEVOTHYROXINE 50 MCG TABLET PO SCH (05:37)
[2020-05-02 05:55] LABS: Calcium 7.8 MG/DL (8.5-10.1)
[2020-05-02] MEDS ORDERED: SODIUM CHLORIDE 0.9% 1,000 ML IV PRN (07:25)
[2020-05-02] MEDS ORDERED: MAGNESIUM SULF RIDER 2 GM in PREMIX 1 EACH IV ONE (07:48)
[2020-05-02 07:55] LABS: Basophils % 0.3 % (0.0-0.8); Eosinophils # 0.3 10*3/uL (0.0-0.87); Eosinophils % 2.9 % (0.00-10.9); Hematocrit 23.6 VOL% (35.7-47.0); Hemoglobin 7.2 GM/DL (12.0-16.0); Immature Granulocytes % 0.5 %; Immature Granulocytes Absolute 0.05 #; Lymphocytes # 1.8 10*3/uL (1.4-4.0); Lymphocytes % 18.4 % (21.3-54.2); Mean Corpuscular HGB Conc 30.5 GM/DL (32-36); Mean Corpuscular Volume 94.8 FL (87-102); Mean Platelet Volume 8.9 FL (9.6-12.0); Monocytes % 5.4 % (1.7-12.7); Neutrophils % 72.5 % (38.7-73.9); Platelet Count 172 T/CUMM (130-400); Red Blood Count 2.49 MC/CUMM (3.8-5.5); Red Cell Distribution Width 15.6 % (9.3-17.3); White Blood Count 9.6 T/CUMM (4-12)
[2020-05-02 07:58] LABS: % Iron Saturation 10.7 % (18-50); Ferritin 458.6 ng/ml (8-252)
[2020-05-02 09:02] LABS: Sedimentation Rate-Westergren 131 MM/HR (0-30)
[2020-05-02 09:56] LABS: Folate > 24.0 NG/ML (5.4-24.0); Vitamin B12 860 PG/ML (211-911)
[2020-05-02] MEDS: ASCORBIC ACID 500 MG TABLET PO SCH ×2 (10:13→21:54)
[2020-05-02] MEDS: ASPIRIN EC 81 MG TABLET PO SCH (10:13)
[2020-05-02] MEDS: METOPROLOL TARTRATE 25 MG TABLET PO SCH ×2 (10:14→21:54)
[2020-05-02] MEDS: ISOSORBIDE MONONITRATE 30 MG TABLET PO SCH (10:14)
[2020-05-02] MEDS: GABAPENTIN 100 MG CAPSULE PO SCH ×2 (10:14→21:54)
[2020-05-02] MEDS: SODIUM BICARBONATE 650 MG TABLET PO SCH ×3 (10:14→21:54)
[2020-05-02] MEDS: AMIODARONE 200 MG TABLET PO SCH (10:14)
[2020-05-02] MEDS: MULTIVITAMIN (CENTRUM) TABLET PO SCH (10:14)
[2020-05-02] MEDS: PANTOPRAZOLE 40 MG TABLET PO SCH (10:14)
[2020-05-02] MEDS: hydrALAZINE 25 MG TABLET PO SCH ×3 (10:14→21:55)
[2020-05-02] MEDS: RIVAROXABAN 2.5 MG TABLET PO SCH ×2 (10:15→21:54)
[2020-05-02] MEDS: INSULIN REGULAR 100 UNIT/ML SUBCUT SCH ×4 (10:15→22:28)
[2020-05-02] MEDS: SODIUM HYPOCHLORITE 0.25% IRRIG 473 ML BOTTLE TOP SCH (10:15)
[2020-05-02] MEDS: COLLAGENASE OINT 30 GM TUBE TOP SCH (10:15)
[2020-05-02] MEDS: FUROSEMIDE 40 MG/4 ML VIAL IV SCH (10:24)
[2020-05-02] MEDS: EZETIMIBE 10 MG TABLET PO SCH (21:54)
[2020-05-03 06:03] LABS: Basophils % 0.3 % (0.0-0.8); Eosinophils # 0.3 10*3/uL (0.0-0.87); Eosinophils % 2.7 % (0.00-10.9); Immature Granulocytes % 0.3 %; Immature Granulocytes Absolute 0.03 #; Lymphocytes # 1.2 10*3/uL (1.4-4.0); Lymphocytes % 11.2 % (21.3-54.2); Mean Corpuscular HGB Conc 31.7 GM/DL (32-36); Mean Corpuscular Volume 91.7 FL (87-102); Monocytes % 5.1 % (1.7-12.7); Neutrophils % 80.4 % (38.7-73.9); Platelet Count 173 T/CUMM (130-400); Red Cell Distribution Width 15.9 % (9.3-17.3); White Blood Count 10.5 T/CUMM (4-12)
[2020-05-03] MEDS: LEVOTHYROXINE 50 MCG TABLET PO SCH (06:09)
[2020-05-03 06:19] LABS: Hemoglobin 9.5 GM/DL (12.0-16.0); Red Blood Count 3.27 MC/CUMM (3.8-5.5)
[2020-05-03 06:49] LABS: Hematocrit 30.8 VOL% (35.7-47.0); Hemoglobin 9.8 GM/DL (12.0-16.0)
[2020-05-03] MEDS: INSULIN REGULAR 100 UNIT/ML SUBCUT SCH ×4 (07:39→21:39)
[2020-05-03] MEDS: FUROSEMIDE 40 MG/4 ML VIAL IV SCH ×3 (08:15→15:17)
[2020-05-03] MEDS: ASPIRIN EC 81 MG TABLET PO SCH (09:17)
[2020-05-03] MEDS: RIVAROXABAN 2.5 MG TABLET PO SCH ×2 (09:17→21:40)
[2020-05-03] MEDS: PANTOPRAZOLE 40 MG TABLET PO SCH (09:17)
[2020-05-03] MEDS: GABAPENTIN 100 MG CAPSULE PO SCH ×2 (09:17→21:40)
[2020-05-03] MEDS: MULTIVITAMIN (CENTRUM) TABLET PO SCH (09:17)
[2020-05-03] MEDS: SODIUM BICARBONATE 650 MG TABLET PO SCH ×3 (09:17→21:40)
[2020-05-03] MEDS: hydrALAZINE 25 MG TABLET PO SCH ×3 (09:18→21:40)
[2020-05-03] MEDS: FERROUS SULFATE 325 MG TABLET PO SCH ×2 (09:18→21:40)
[2020-05-03] MEDS: METOPROLOL TARTRATE 25 MG TABLET PO SCH ×2 (09:18→21:40)
[2020-05-03] MEDS: ISOSORBIDE MONONITRATE 30 MG TABLET PO SCH (09:18)
[2020-05-03] MEDS: AMIODARONE 200 MG TABLET PO SCH (09:18)
[2020-05-03] MEDS: ASCORBIC ACID 500 MG TABLET PO SCH ×2 (09:18→21:40)
[2020-05-03 10:06] LABS: Hemoglobin A1 (Alkaline) 96.8 % (96.5-98.5); Hemoglobin A2 (Alkaline) 3.2 % (1.5-3.5)
[2020-05-03] MEDS: SODIUM HYPOCHLORITE 0.25% IRRIG 473 ML BOTTLE TOP SCH (11:01)
[2020-05-03] MEDS: COLLAGENASE OINT 30 GM TUBE TOP SCH (11:01)
[2020-05-03] MEDS: EZETIMIBE 10 MG TABLET PO SCH (21:40)
[2020-05-04 06:20] LABS: Basophils % 0.2 % (0.0-0.8); Eosinophils # 0.2 10*3/uL (0.0-0.87); Eosinophils % 1.9 % (0.00-10.9); Hemoglobin 9.7 GM/DL (12.0-16.0); Immature Granulocytes % 0.6 %; Immature Granulocytes Absolute 0.06 #; Lymphocytes # 0.9 10*3/uL (1.4-4.0); Lymphocytes % 9.1 % (21.3-54.2); Mean Corpuscular HGB Conc 31.3 GM/DL (32-36); Mean Corpuscular Volume 92.8 FL (87-102); Mean Platelet Volume 8.1 FL (9.6-12.0); Monocytes % 5.9 % (1.7-12.7); Neutrophils % 82.3 % (38.7-73.9); Platelet Count 170 T/CUMM (130-400); Red Blood Count 3.34 MC/CUMM (3.8-5.5); Red Cell Distribution Width 15.9 % (9.3-17.3); White Blood Count 10.4 T/CUMM (4-12)
[2020-05-04 06:42] LABS: Osmolality,Calculated 284.8 MOS/KG (273-304)
[2020-05-04] MEDS: LEVOTHYROXINE 50 MCG TABLET PO SCH (06:49)
[2020-05-04] MEDS: INSULIN REGULAR 100 UNIT/ML SUBCUT SCH ×3 (09:44→16:53)
[2020-05-04] MEDS: SODIUM BICARBONATE 650 MG TABLET PO SCH ×3 (09:46→21:04)
[2020-05-04] MEDS: PANTOPRAZOLE 40 MG TABLET PO SCH (09:47)
[2020-05-04] MEDS: AMIODARONE 200 MG TABLET PO SCH (09:47)
[2020-05-04] MEDS: MULTIVITAMIN (CENTRUM) TABLET PO SCH (09:47)
[2020-05-04] MEDS: RIVAROXABAN 2.5 MG TABLET PO SCH ×2 (09:47→21:05)
[2020-05-04] MEDS: GABAPENTIN 100 MG CAPSULE PO SCH ×2 (09:47→21:04)
[2020-05-04] MEDS: FERROUS SULFATE 325 MG TABLET PO SCH ×2 (09:47→21:05)
[2020-05-04] MEDS: FUROSEMIDE 40 MG/4 ML VIAL IV SCH ×2 (09:47→17:01)
[2020-05-04] MEDS: hydrALAZINE 25 MG TABLET PO SCH ×3 (09:47→21:05)
[2020-05-04] MEDS: ISOSORBIDE MONONITRATE 30 MG TABLET PO SCH (09:47)
[2020-05-04] MEDS: ASPIRIN EC 81 MG TABLET PO SCH (09:47)
[2020-05-04] MEDS: METOPROLOL TARTRATE 25 MG TABLET PO SCH ×2 (09:47→21:05)
[2020-05-04] MEDS: ASCORBIC ACID 500 MG TABLET PO SCH ×2 (09:47→21:04)
[2020-05-04] MEDS: SODIUM HYPOCHLORITE 0.25% IRRIG 473 ML BOTTLE TOP SCH (11:41)
[2020-05-04] MEDS: COLLAGENASE OINT 30 GM TUBE TOP SCH (11:41)
[2020-05-04] MEDS: EZETIMIBE 10 MG TABLET PO SCH (21:04)
[2020-05-05 05:58] LABS: Calcium 7.8 MG/DL (8.5-10.1)
[2020-05-05] MEDS: LEVOTHYROXINE 50 MCG TABLET PO SCH (06:08)
[2020-05-05] MEDS: INSULIN REGULAR 100 UNIT/ML SUBCUT SCH ×3 (07:57→16:28)
[2020-05-05] MEDS: SODIUM BICARBONATE 650 MG TABLET PO SCH ×3 (08:31→21:33)
[2020-05-05] MEDS ORDERED: ETOMIDATE 20 MG/10 ML VIAL IV ONE (09:00)
[2020-05-05] MEDS: LACTATED RINGERS 1,000 ML IV SCH ×2 (10:08→10:27)
[2020-05-05] MEDS: GABAPENTIN 100 MG CAPSULE PO SCH ×2 (10:18→21:33)
[2020-05-05] MEDS: METOPROLOL TARTRATE 25 MG TABLET PO SCH ×2 (10:18→21:33)
[2020-05-05] MEDS: ISOSORBIDE MONONITRATE 30 MG TABLET PO SCH (10:18)
[2020-05-05] MEDS: hydrALAZINE 25 MG TABLET PO SCH ×3 (10:19→21:33)
[2020-05-05] MEDS: AMIODARONE 200 MG TABLET PO SCH (10:19)
[2020-05-05] MEDS: FUROSEMIDE 40 MG/4 ML VIAL IV SCH ×2 (10:19→16:50)
[2020-05-05] MEDS: HYDROmorphone 2 MG/1 ML VIAL IV PRN (10:21)
[2020-05-05] MEDS: SODIUM HYPOCHLORITE 0.25% IRRIG 473 ML BOTTLE TOP SCH (10:25)
[2020-05-05] MEDS: COLLAGENASE OINT 30 GM TUBE TOP SCH (10:25)
[2020-05-05] MEDS: ASCORBIC ACID 500 MG TABLET PO SCH ×2 (16:35→21:33)
[2020-05-05] MEDS: ASPIRIN EC 81 MG TABLET PO SCH (16:35)
[2020-05-05] MEDS: RIVAROXABAN 2.5 MG TABLET PO SCH ×2 (16:35→21:33)
[2020-05-05] MEDS: MULTIVITAMIN (CENTRUM) TABLET PO SCH (16:36)
[2020-05-05] MEDS: FERROUS SULFATE 325 MG TABLET PO SCH ×2 (16:36→21:33)
[2020-05-05] MEDS: PANTOPRAZOLE 40 MG TABLET PO SCH (16:38)
[2020-05-05] MEDS: EZETIMIBE 10 MG TABLET PO SCH (21:33)
[2020-05-06 05:48] LABS: Basophils % 0.3 % (0.0-0.8); Eosinophils # 0.2 10*3/uL (0.0-0.87); Eosinophils % 2.5 % (0.00-10.9); Hematocrit 29.5 VOL% (35.7-47.0); Hemoglobin 9.2 GM/DL (12.0-16.0); Immature Granulocytes % 0.3 %; Immature Granulocytes Absolute 0.03 #; Lymphocytes # 1.2 10*3/uL (1.4-4.0); Lymphocytes % 13.8 % (21.3-54.2); Mean Corpuscular HGB Conc 31.2 GM/DL (32-36); Mean Corpuscular Volume 91.3 FL (87-102); Monocytes % 6.6 % (1.7-12.7); Neutrophils % 76.5 % (38.7-73.9); Platelet Count 179 T/CUMM (130-400); Red Blood Count 3.23 MC/CUMM (3.8-5.5); Red Cell Distribution Width 15.3 % (9.3-17.3); White Blood Count 8.8 T/CUMM (4-12)
[2020-05-06 06:15] LABS: Calcium 7.9 MG/DL (8.5-10.1); Osmolality,Calculated 281.1 MOS/KG (273-304)
[2020-05-06] MEDS: LEVOTHYROXINE 50 MCG TABLET PO SCH (06:34)
[2020-05-06] MEDS: INSULIN REGULAR 100 UNIT/ML SUBCUT SCH ×3 (08:24→16:22)
[2020-05-06] MEDS: AMIODARONE 200 MG TABLET PO SCH (09:46)
[2020-05-06] MEDS: RIVAROXABAN 2.5 MG TABLET PO SCH ×2 (09:46→21:12)
[2020-05-06] MEDS: FERROUS SULFATE 325 MG TABLET PO SCH ×2 (09:46→21:12)
[2020-05-06] MEDS: SODIUM BICARBONATE 650 MG TABLET PO SCH ×3 (09:47→21:11)
[2020-05-06] MEDS: PANTOPRAZOLE 40 MG TABLET PO SCH (09:47)
[2020-05-06] MEDS: ASCORBIC ACID 500 MG TABLET PO SCH ×2 (09:47→21:12)
[2020-05-06] MEDS: ISOSORBIDE MONONITRATE 30 MG TABLET PO SCH (09:47)
[2020-05-06] MEDS: METOPROLOL TARTRATE 25 MG TABLET PO SCH ×2 (09:47→21:13)
[2020-05-06] MEDS: hydrALAZINE 25 MG TABLET PO SCH ×3 (09:47→21:18)
[2020-05-06] MEDS: ASPIRIN EC 81 MG TABLET PO SCH (09:48)
[2020-05-06] MEDS: MULTIVITAMIN (CENTRUM) TABLET PO SCH (09:48)
[2020-05-06] MEDS: SODIUM HYPOCHLORITE 0.25% IRRIG 473 ML BOTTLE TOP SCH (09:49)
[2020-05-06] MEDS: COLLAGENASE OINT 30 GM TUBE TOP SCH (09:50)
[2020-05-06] MEDS: GABAPENTIN 100 MG CAPSULE PO SCH ×2 (09:50→21:12)
[2020-05-06] MEDS: LACTATED RINGERS 1,000 ML IV SCH (09:50)
[2020-05-06] MEDS: FUROSEMIDE 40 MG/4 ML VIAL IV SCH ×2 (09:51→16:04)
[2020-05-06] MEDS: EZETIMIBE 10 MG TABLET PO SCH (21:12)
[2020-05-07 05:51] LABS: Basophils % 0.2 % (0.0-0.8); Eosinophils # 0.1 10*3/uL (0.0-0.87); Eosinophils % 0.6 % (0.00-10.9); Hematocrit 29.3 VOL% (35.7-47.0); Hemoglobin 9.3 GM/DL (12.0-16.0); Immature Granulocytes % 0.6 %; Immature Granulocytes Absolute 0.07 #; Lymphocytes # 0.8 10*3/uL (1.4-4.0); Lymphocytes % 7.1 % (21.3-54.2); Mean Corpuscular HGB Conc 31.7 GM/DL (32-36); Mean Corpuscular Volume 90.2 FL (87-102); Mean Platelet Volume 8.9 FL (9.6-12.0); Monocytes % 4.1 % (1.7-12.7); Neutrophils % 87.4 % (38.7-73.9); Platelet Count 178 T/CUMM (130-400); Red Blood Count 3.25 MC/CUMM (3.8-5.5); Red Cell Distribution Width 15.4 % (9.3-17.3); White Blood Count 11.6 T/CUMM (4-12)
[2020-05-07 06:05] LABS: Calcium 7.7 MG/DL (8.5-10.1)
[2020-05-07] MEDS: LEVOTHYROXINE 50 MCG TABLET PO SCH (06:16)
[2020-05-07] MEDS: SODIUM BICARBONATE 650 MG TABLET PO SCH ×3 (08:38→21:27)
[2020-05-07] MEDS: FERROUS SULFATE 325 MG TABLET PO SCH ×2 (08:39→21:28)
[2020-05-07] MEDS: ISOSORBIDE MONONITRATE 30 MG TABLET PO SCH (08:39)
[2020-05-07] MEDS: GABAPENTIN 100 MG CAPSULE PO SCH ×2 (08:39→21:28)
[2020-05-07] MEDS: ASPIRIN EC 81 MG TABLET PO SCH (08:39)
[2020-05-07] MEDS: AMIODARONE 200 MG TABLET PO SCH (08:39)
[2020-05-07] MEDS: MULTIVITAMIN (CENTRUM) TABLET PO SCH (08:39)
[2020-05-07] MEDS: METOPROLOL TARTRATE 25 MG TABLET PO SCH ×2 (08:40→21:28)
[2020-05-07] MEDS: hydrALAZINE 25 MG TABLET PO SCH ×3 (08:40→21:32)
[2020-05-07] MEDS: RIVAROXABAN 2.5 MG TABLET PO SCH ×2 (08:40→21:28)
[2020-05-07] MEDS: PANTOPRAZOLE 40 MG TABLET PO SCH (08:40)
[2020-05-07] MEDS: ASCORBIC ACID 500 MG TABLET PO SCH ×2 (08:40→21:28)
[2020-05-07] MEDS: INSULIN REGULAR 100 UNIT/ML SUBCUT SCH ×3 (08:41→15:42)
[2020-05-07] MEDS: SODIUM HYPOCHLORITE 0.25% IRRIG 473 ML BOTTLE TOP SCH (08:41)
[2020-05-07] MEDS: COLLAGENASE OINT 30 GM TUBE TOP SCH (08:41)
[2020-05-07] MEDS: LACTATED RINGERS 1,000 ML IV SCH (08:42)
[2020-05-07] MEDS: FUROSEMIDE 40 MG/4 ML VIAL IV SCH ×2 (08:46→17:28)
[2020-05-07] MEDS: EZETIMIBE 10 MG TABLET PO SCH (21:28)
[2020-05-08] MEDS: LEVOTHYROXINE 50 MCG TABLET PO SCH (05:56)
[2020-05-08 06:25] LABS: Basophils % 0.3 % (0.0-0.8); Eosinophils # 0.1 10*3/uL (0.0-0.87); Eosinophils % 0.9 % (0.00-10.9); Hemoglobin 9.3 GM/DL (12.0-16.0); Immature Granulocytes % 0.4 %; Immature Granulocytes Absolute 0.04 #; Lymphocytes # 1.5 10*3/uL (1.4-4.0); Lymphocytes % 15.2 % (21.3-54.2); Mean Corpuscular Volume 90.6 FL (87-102); Mean Platelet Volume 9.1 FL (9.6-12.0); Monocytes % 5.3 % (1.7-12.7); Neutrophils % 77.9 % (38.7-73.9); Platelet Count 205 T/CUMM (130-400); Red Blood Count 3.31 MC/CUMM (3.8-5.5); Red Cell Distribution Width 15.7 % (9.3-17.3); White Blood Count 9.5 T/CUMM (4-12)
[2020-05-08 06:37] LABS: Calcium 7.7 MG/DL (8.5-10.1); Osmolality,Calculated 281.2 MOS/KG (273-304)
[2020-05-08] MEDS: SODIUM BICARBONATE 650 MG TABLET PO SCH ×3 (08:33→21:59)
[2020-05-08] MEDS: ASCORBIC ACID 500 MG TABLET PO SCH ×2 (08:33→21:57)
[2020-05-08] MEDS: ISOSORBIDE MONONITRATE 30 MG TABLET PO SCH (08:34)
[2020-05-08] MEDS: ASPIRIN EC 81 MG TABLET PO SCH (08:34)
[2020-05-08] MEDS: AMIODARONE 200 MG TABLET PO SCH (08:35)
[2020-05-08] MEDS: INSULIN REGULAR 100 UNIT/ML SUBCUT SCH ×3 (08:35→16:50)
[2020-05-08] MEDS: hydrALAZINE 25 MG TABLET PO SCH ×3 (08:35→21:57)
[2020-05-08] MEDS: PANTOPRAZOLE 40 MG TABLET PO SCH (08:35)
[2020-05-08] MEDS: FERROUS SULFATE 325 MG TABLET PO SCH ×2 (08:35→21:57)
[2020-05-08] MEDS: MULTIVITAMIN (CENTRUM) TABLET PO SCH (08:35)
[2020-05-08] MEDS: METOPROLOL TARTRATE 25 MG TABLET PO SCH ×2 (08:35→21:57)
[2020-05-08] MEDS: GABAPENTIN 100 MG CAPSULE PO SCH ×2 (08:35→21:57)
[2020-05-08] MEDS: RIVAROXABAN 2.5 MG TABLET PO SCH ×2 (08:35→21:57)
[2020-05-08] MEDS: FUROSEMIDE 40 MG/4 ML VIAL IV SCH (08:35)
[2020-05-08] MEDS: LACTATED RINGERS 1,000 ML IV SCH (08:37)
[2020-05-08] MEDS: SODIUM HYPOCHLORITE 0.25% IRRIG 473 ML BOTTLE TOP SCH (09:03)
[2020-05-08] MEDS: COLLAGENASE OINT 30 GM TUBE TOP SCH (09:03)
[2020-05-08] MEDS: FUROSEMIDE 40 MG TABLET PO SCH (15:51)
[2020-05-08] MEDS: EZETIMIBE 10 MG TABLET PO SCH (21:57)
[2020-05-09] MEDS: LEVOTHYROXINE 50 MCG TABLET PO SCH (06:19)
[2020-05-09] MEDS: INSULIN REGULAR 100 UNIT/ML SUBCUT SCH ×3 (09:34→16:32)
[2020-05-09] MEDS: RIVAROXABAN 2.5 MG TABLET PO SCH ×2 (09:38→21:00)
[2020-05-09] MEDS: PANTOPRAZOLE 40 MG TABLET PO SCH (09:38)
[2020-05-09] MEDS: MULTIVITAMIN (CENTRUM) TABLET PO SCH (09:38)
[2020-05-09] MEDS: GABAPENTIN 100 MG CAPSULE PO SCH ×2 (09:38→21:00)
[2020-05-09] MEDS: ASCORBIC ACID 500 MG TABLET PO SCH ×2 (09:38→21:00)
[2020-05-09] MEDS: ISOSORBIDE MONONITRATE 30 MG TABLET PO SCH (09:39)
[2020-05-09] MEDS: SODIUM BICARBONATE 650 MG TABLET PO SCH ×3 (09:39→21:00)
[2020-05-09] MEDS: METOPROLOL TARTRATE 25 MG TABLET PO SCH ×2 (09:39→21:00)
[2020-05-09] MEDS: FERROUS SULFATE 325 MG TABLET PO SCH ×2 (09:39→21:00)
[2020-05-09] MEDS: hydrALAZINE 25 MG TABLET PO SCH ×3 (09:39→21:00)
[2020-05-09] MEDS: AMIODARONE 200 MG TABLET PO SCH (09:39)
[2020-05-09] MEDS: ASPIRIN EC 81 MG TABLET PO SCH (09:39)
[2020-05-09] MEDS: FUROSEMIDE 40 MG TABLET PO SCH ×2 (09:39→16:17)
[2020-05-09] MEDS: COLLAGENASE OINT 30 GM TUBE TOP SCH (09:40)
[2020-05-09] MEDS: SODIUM HYPOCHLORITE 0.25% IRRIG 473 ML BOTTLE TOP SCH (09:40)
[2020-05-09] MEDS: LACTATED RINGERS 1,000 ML IV SCH (10:16)
[2020-05-09] MEDS: EZETIMIBE 10 MG TABLET PO SCH (21:00)
[2020-05-10 05:09] LABS: Basophils % 0.3 % (0.0-0.8); Eosinophils # 0.1 10*3/uL (0.0-0.87); Hematocrit 31.5 VOL% (35.7-47.0); Hemoglobin 10.1 GM/DL (12.0-16.0); Immature Granulocytes % 0.5 %; Immature Granulocytes Absolute 0.04 #; Lymphocytes # 1.5 10*3/uL (1.4-4.0); Lymphocytes % 16.7 % (21.3-54.2); Mean Corpuscular HGB Conc 32.1 GM/DL (32-36); Mean Platelet Volume 8.5 FL (9.6-12.0); Monocytes % 6.3 % (1.7-12.7); Neutrophils % 75.2 % (38.7-73.9); Platelet Count 257 T/CUMM (130-400); Red Cell Distribution Width 15.4 % (9.3-17.3); White Blood Count 8.8 T/CUMM (4-12)
[2020-05-10 05:26] LABS: Calcium 7.9 MG/DL (8.5-10.1); Osmolality,Calculated 282.1 MOS/KG (273-304)
[2020-05-10] MEDS: LEVOTHYROXINE 50 MCG TABLET PO SCH (06:23)
[2020-05-10] MEDS: SODIUM BICARBONATE 650 MG TABLET PO SCH ×3 (10:15→22:05)
[2020-05-10] MEDS: MULTIVITAMIN (CENTRUM) TABLET PO SCH (10:15)
[2020-05-10] MEDS: METOPROLOL TARTRATE 25 MG TABLET PO SCH ×2 (10:16→22:05)
[2020-05-10] MEDS: ISOSORBIDE MONONITRATE 30 MG TABLET PO SCH (10:16)
[2020-05-10] MEDS: GABAPENTIN 100 MG CAPSULE PO SCH ×2 (10:16→22:05)
[2020-05-10] MEDS: FERROUS SULFATE 325 MG TABLET PO SCH ×2 (10:17→22:05)
[2020-05-10] MEDS: ASPIRIN EC 81 MG TABLET PO SCH (10:17)
[2020-05-10] MEDS: PANTOPRAZOLE 40 MG TABLET PO SCH (10:17)
[2020-05-10] MEDS: ASCORBIC ACID 500 MG TABLET PO SCH ×2 (10:17→22:05)
[2020-05-10] MEDS: AMIODARONE 200 MG TABLET PO SCH (10:18)
[2020-05-10] MEDS: RIVAROXABAN 2.5 MG TABLET PO SCH ×2 (10:19→22:06)
[2020-05-10] MEDS: FUROSEMIDE 40 MG TABLET PO SCH ×2 (10:19→18:08)
[2020-05-10] MEDS: INSULIN REGULAR 100 UNIT/ML SUBCUT SCH ×3 (10:20→18:27)
[2020-05-10] MEDS ORDERED: TUBERCULIN SKIN TEST 0.1 ML SYRINGE INTRADERM ONE (14:49)
[2020-05-10] MEDS ORDERED: GLUCAGON 1 MG VIAL IM PRN (17:26)
[2020-05-10] MEDS ORDERED: DEXTROSE 50% 25 GM/50 ML VIAL IV PRN (17:26)
[2020-05-10] MEDS: SODIUM HYPOCHLORITE 0.25% IRRIG 473 ML BOTTLE TOP SCH (18:15)
[2020-05-10] MEDS: COLLAGENASE OINT 30 GM TUBE TOP SCH (18:16)
[2020-05-10] MEDS: DESITIN 4OZ/NYSTATIN 15 GRAM MIXTURE PASTE TOP SCH ×2 (18:17→22:06)
[2020-05-10] MEDS: EZETIMIBE 10 MG TABLET PO SCH (22:05)
[2020-05-11 06:25] LABS: Basophils % 0.4 % (0.0-0.8); Eosinophils # 0.1 10*3/uL (0.0-0.87); Hemoglobin 9.7 GM/DL (12.0-16.0); Immature Granulocytes % 0.4 %; Immature Granulocytes Absolute 0.03 #; Lymphocytes # 1.3 10*3/uL (1.4-4.0); Lymphocytes % 18.3 % (21.3-54.2); Mean Corpuscular HGB Conc 31.3 GM/DL (32-36); Mean Corpuscular Volume 90.6 FL (87-102); Mean Platelet Volume 8.9 FL (9.6-12.0); Neutrophils % 72.9 % (38.7-73.9); Platelet Count 277 T/CUMM (130-400); Red Blood Count 3.42 MC/CUMM (3.8-5.5); Red Cell Distribution Width 15.5 % (9.3-17.3); White Blood Count 7.3 T/CUMM (4-12)
[2020-05-11 06:38] LABS: Calcium 7.8 MG/DL (8.5-10.1); Osmolality,Calculated 280.1 MOS/KG (273-304)
[2020-05-11] MEDS: LEVOTHYROXINE 50 MCG TABLET PO SCH (06:41)
[2020-05-11] MEDS: INSULIN REGULAR 100 UNIT/ML SUBCUT SCH ×2 (10:59→12:07)
[2020-05-11] MEDS: SODIUM BICARBONATE 650 MG TABLET PO SCH (11:02)
[2020-05-11] MEDS: ISOSORBIDE MONONITRATE 30 MG TABLET PO SCH (11:03)
[2020-05-11] MEDS: GABAPENTIN 100 MG CAPSULE PO SCH (11:03)
[2020-05-11] MEDS: MULTIVITAMIN (CENTRUM) TABLET PO SCH (11:03)
[2020-05-11] MEDS: AMIODARONE 200 MG TABLET PO SCH (11:04)
[2020-05-11] MEDS: ASCORBIC ACID 500 MG TABLET PO SCH (11:05)
[2020-05-11] MEDS: PANTOPRAZOLE 40 MG TABLET PO SCH (11:06)
[2020-05-11] MEDS: METOPROLOL TARTRATE 25 MG TABLET PO SCH (11:06)
[2020-05-11] MEDS: FERROUS SULFATE 325 MG TABLET PO SCH (11:07)
[2020-05-11] MEDS: RIVAROXABAN 2.5 MG TABLET PO SCH (11:07)
[2020-05-11] MEDS: FUROSEMIDE 40 MG TABLET PO SCH (11:07)
[2020-05-11] MEDS: ASPIRIN EC 81 MG TABLET PO SCH (11:07)
[2020-05-11] MEDS: DESITIN 4OZ/NYSTATIN 15 GRAM MIXTURE PASTE TOP SCH (13:47)
[2020-05-11] MEDS: SODIUM HYPOCHLORITE 0.25% IRRIG 473 ML BOTTLE TOP SCH (13:47)
[2020-05-11] MEDS: COLLAGENASE OINT 30 GM TUBE TOP SCH (13:47)
[2020-05-11 14:20] VITALS: BP 149/68
== END 2020-05-11 14:22 | disposition swing bed (61) | DRG 240 ==
LOC: N.TELES 16:47 → N.CC 04-19 08:59 → N.TELES 04-19 10:19
PROVIDERS: ADMIT Internal Medicine Cardiovascular Disease; ATTEND Internal Medicine Cardiovascular Disease